=== PATIENT | male | born 1960 | race Caucasian/White ===

== ENCOUNTER 2020-01-29 08:03 | Day surgery (SDC) | payer MEDICAID, SELFPAY ==
[2020-01-29 08:31] VITALS: BP 140/88; PULSE 79; RESP 16; TEMP 36.9; O2SAT 97; BMI 50.8
[2020-01-29] MEDS: Lactated Ringers 1,000 ML 100 ML IV (08:48)
--- NOTE | 2020-01-29 09:14 | RAD_ITS ---
PROCEDURE: Caudal block. DATE OF EXAMINATION: 01/29/2020. INDICATION: Male, 60 years old. Chronic low back pain. FLUOROSCOPY TIME (if supplied): (14.3 seconds) minutes/seconds. 2 images were obtained. Intraoperative imaging provided for caudal block. RAD/Fluor Guidance for Spine Inj IMPRESSION: Intraoperative imaging provided for caudal block Electronically Signed: Logan Anderson, at 15:32 EST , Service support ,
[2020-01-29] MEDS: Bupivacaine 0.25% 30 ML Vial (09:18)
[2020-01-29] MEDS: MethylPREDNISolone Acetate 40 MG/ML Vial IM (09:18)
[2020-01-29] MEDS: 0.9% Normal Saline (Pres. free 10 ML Vial (09:18)
[2020-01-29 09:24] VITALS: BP 123/68; BP 140/88; PULSE 73; RESP 14; TEMP 36.3; O2SAT 99
[2020-01-29 09:30] VITALS: BP 116/61; BP 140/88; PULSE 64; RESP 16; O2SAT 98
[2020-01-29 09:35] VITALS: BP 140/88; BP 98/73; PULSE 66; RESP 18; O2SAT 96
[2020-01-29 09:37] VITALS: BP 137/73; BP 140/88; PULSE 63; RESP 18; O2SAT 99
[2020-01-29 10:05] VITALS: BP 140/88
--- NOTE | 2020-01-29 12:12 | PCM.OPRPT ---
Report of Operation Date of Procedure: 01/29/20 Description of Surgical Findings:: PREOPERATIVE DIAGNOSIS: Lumbosacral radiculopathy, lumbosacral degenerative disc disease, lumbosacral spinal stenosis POSTOPERATIVE DIAGNOSIS: Lumbosacral radiculopathy, lumbosacral degenerative disc disease, lumbosacral spinal stenosis PROCEDURE PERFORMED: Diagnostic/therapeutic caudal epidural steroid injection. ANESTHESIA: MAC. BLOOD LOSS: Minimal. COMPLICATIONS: None. DESCRIPTION OF PROCEDURE: History and physical of today was reviewed. Risks and benefits of the procedure were explained. The patient understood and agreed to proceed. Informed consent was obtained. IV inserted per routine protocol. The patient was taken to the operating room and placed in the prone position with a pillow positioned underneath the abdomen. The lower back and tailbone area was prepped and draped in a sterile fashion using iodine x3. Under fluoroscopy guidance on a lateral view, the caudal space was identified. The skin and subcutaneous tissue was anesthetized with approximately 3 mL of 1% lidocaine using a 25-gauge regular needle. Under direct visualization with fluoroscopy, using a 22-gauge 3-1/2-inch spinal needle, the needle was advanced via the skin through the sacral hiatus. The tip of the needle was passed through the sacrococcygeal ligament and advanced to approximately S4 area. After negative aspiration of blood or CSF, a total of 3 mL of contrast was injected to confirm correct placement of the needle as well as cephalad spread. The spread was followed to approximately L5 area. After confirmation on AP as well as lateral view and repeated negative aspiration, a total of 15 mL of preservative-free 0.125% Marcaine with 80 mg of Depo-Medrol was injected easily. The needle was then removed intact. The patient experienced no sign or symptoms of intrathecal or intravascular injection. The patient experienced no paresthesia. The procedure was completed without any apparent difficulty or any complications. The patient appeared to tolerate it well. ASSESSMENT AND PLAN: This is a 60-year-old male with lumbosacral radiculopathy, lumbosacral degenerative disc disease, lumbosacral spinal stenosis status post diagnostic/therapeutic caudal epidural steroid injection, patient will continue his current medications, patient will follow up in approximately 2 weeks for reevaluation.
== END 2020-01-29 10:08 | disposition home or self-care (01) ==
LOC: SDC 08:05 → AC 08:07
PROVIDERS: PCP Family Medicine; Referring Provider Anesthesiology Pain Medicine; Visit Provider Anesthesiology Pain Medicine
PROC: 3E0S3BZ Introduction of Anesthetic Agent into Epidural Space, Percutaneous Approach (ICD-10-PCS; CPT 62282; principal; 2020-01-29 09:50)
DX: M51.17 Intervertebral disc disorders with radiculopathy, lumbosacral region (principal); M48.07 Spinal stenosis, lumbosacral region; G89.29 Other chronic pain; I49.3 Ventricular premature depolarization; I89.0 Lymphedema, not elsewhere classified; I10 Essential (primary) hypertension; K21.9 Gastro-esophageal reflux disease without esophagitis; M06.9 Rheumatoid arthritis, unspecified; G25.81 Restless legs syndrome; Z79.899 Other long term (current) drug therapy
CPT/HCPCS: 01991; 62323; 64483; 77003; J7120; J3490

== ENCOUNTER 2020-05-27 06:17 | Day surgery (SDC) | payer MEDICAID, SELFPAY ==
[2020-05-27] VITALS (8 sets, daily range): BP systolic 106–149; BP diastolic 40–77; PULSE 61–69; RESP 16; TEMP 36.6–36.7; O2SAT 96–100; BMI 51.3
[2020-05-27] MEDS: Lactated Ringers 1,000 ML 100 ML IV (06:58)
--- NOTE | 2020-05-27 07:59 | RAD_ITS ---
PROCEDURE: Lumbar transforaminal injection. DATE OF EXAMINATION: 05/27/2020. INDICATION: Male, 60 years old. Pain. FLUOROSCOPY TIME (if supplied): (29 seconds) minutes/seconds. One image was submitted. Intraoperative imaging provided for left L4-S1 transforaminal injection. RAD/Lumbar Spine 2 or 3 Views IMPRESSION: Intraoperative imaging provided for left L4-S1 transforaminal injection. Electronically Signed: Logan Anderson MD at 9:03 EDT , Service support ,
[2020-05-27] MEDS: Lidocaine 1% (5 ml sdv) 5 ML Vial (08:04)
[2020-05-27] MEDS: MethylPREDNISolone Acetate 40 MG/ML Vial IM (08:04)
[2020-05-27] MEDS: Bupivacaine 0.25% 30 ML Vial (08:04)
--- NOTE | 2020-05-27 08:23 | EKG12_ITS ---
Test Reason : POST OP Blood Pressure : / mmHG Vent. Rate : 068 BPM Atrial Rate : 068 BPM P-R Int : 302 ms QRS Dur : 146 ms QT Int : 498 ms P-R-T Axes : 046 093 -03 degrees QTc Int : 529 ms Sinus rhythm with 1st degree A-V block with Premature supraventricular complexes Right bundle branch block Abnormal ECG No previous ECGs available Confirmed by ELLA HIGH, DESHAWN ([id number]), fan mail editor ROBERTO CARLOS JUAREZ ([id number]) on 05/30/2020 1:09:31 PM Referred By: Kurtis Rocha Confirmed By:DESHAWN JARAMILLO MD
--- NOTE | 2020-05-27 12:28 | OP.PCM_ITS ---
Report of Operation Date of Procedure: 05/27/20 Description of Surgical Findings:: PREOPERATIVE DIAGNOSIS: Lumbosacral radiculopathy, lumbosacral degenerative disc disease, lumbosacral spinal stenosis POSTOPERATIVE DIAGNOSIS: Lumbosacral radiculopathy, lumbosacral degenerative disc disease, lumbosacral spinal stenosis PROCEDURE PERFORMED: Left-sided lumbar transforaminal epidural steroid in jection, L4-5 and L5-S1. ANESTHESIA: BLOOD LOSS: COMPLICATIONS: DESCRIPTION OF PROCEDURE: History and physical of today was reviewed. Risks and benefits of the procedure were explained. The patient understood and agreed to proceed. Informed consent was obtained. IV inserted per routine protocol. The patient was taken to the operating room and placed in the prone position with a pillow positioned underneath the abdomen. The left side of his lower back was prepped and draped in a sterile fashion using iodine x3. Under fluoroscopy guidance on oblique view, the L4 through S1 vertebral bodies were visualized. The skin and subcutaneous tissue was anesthetized with approximately 5 mL of 1% lidocaine using a 25-gauge regular needle. Under direct visualization with fluoroscopy at approximately 35-degree angle, starting on the left L4, ending on the left L5, using a 22-gauge 5-inch spinal needle, the needle was advanced via the skin. The tip of the needle was maneuvered and directed towards the inferior and medial gutter of the transverse process at the superiormost aspect of the neural foramen. Once the tip of the needle was at the vicinity of the foramen, after negative aspiration for blood or CSF, a total of 1 mL of contrast was injected in divided doses between both levels to confirm correct placement of the needle as well as medial spread. The confirmation was obtained on AP as well as lateral view. After repeated negative aspiration and confirmation on AP as well as lateral view, a total of 6 mL of preservative-free 0.25% Marcaine with 80 mg of Depo-Medrol was injected in divided doses between both levels. The needles were then removed intact. The patient experienced no sign or symptoms of intrathecal or intravascular injection. The patient experienced no paresthesia. The procedure was completed without any apparent difficulty or any complications. The patient appeared to tolerate it well. Assessment and plan: This is a 60-year-old male with lumbosacral radiculopathy, lumbosacral degenerative disc disease, lumbosacral spinal stenosis status post left-sided lumbar transforaminal epidural steroid injection L4-5, L5-S1, patient will con tinue his current medications, patient will follow in approximately 2 weeks for reevaluation.
== END 2020-05-27 09:05 | disposition home or self-care (01) ==
LOC: SDC 06:18 → AC 06:19
PROVIDERS: PCP Family Medicine; Referring Provider Anesthesiology Pain Medicine; Visit Provider Anesthesiology Pain Medicine
PROC: 3E0S3BZ Introduction of Anesthetic Agent into Epidural Space, Percutaneous Approach (ICD-10-PCS; CPT 64484; principal; 2020-05-27 07:55)
DX: M51.17 Intervertebral disc disorders with radiculopathy, lumbosacral region (principal); M48.07 Spinal stenosis, lumbosacral region; M47.27 Other spondylosis with radiculopathy, lumbosacral region; I10 Essential (primary) hypertension; K21.9 Gastro-esophageal reflux disease without esophagitis; M06.9 Rheumatoid arthritis, unspecified; G25.81 Restless legs syndrome; Z79.899 Other long term (current) drug therapy
CPT/HCPCS: 64484; 64483; 72100; 93005; J7120

== ENCOUNTER → 2021-02-04 | Outpatient (CLI) | payer MEDICAID, SELFPAY | END | disposition home or self-care (01) | PROVIDERS: PCP Family Medicine; Visit Provider Physician Assistant | DX: J06.9 Acute upper respiratory infection, unspecified (principal) | CPT/HCPCS: 87635; U0005; U0003 ==

== ENCOUNTER 2021-03-23 18:17 | Inpatient (IN) | payer MEDICAID, SELFPAY ==
[2021-03-23] VITALS (9 sets, daily range): BP systolic 131–165; BP diastolic 77–126; PULSE 78–114; RESP 18–28; TEMP 36.1–37.6; O2SAT 73–98; BMI 50.1
--- NOTE | 2021-03-23 18:27 | EKG12_ITS ---
Test Reason : SOB Blood Pressure : / mmHG Vent. Rate : 092 BPM Atrial Rate : 083 BPM P-R Int : 000 ms QRS Dur : 142 ms QT Int : 478 ms P-R-T Axes : 000 084 -01 degrees QTc Int : 591 ms Wide QRS rhythm ,consider sinus rhythm with first degree AV block Right bundle branch block T wave abnormality, consider inferior ischemia Abnormal ECG IVCD effect Confirmed by FRANCIS HIGH, CAITLYN ([id number]), dictionary editor MICK BARNETT ([id number]) on 03/25/2021 1:30:44 PM Referred By: DOMINIK Confirmed By:CAITLYN BLANCO MD
--- NOTE | 2021-03-23 18:29 | EDS_ITS ---
HPI History of Present Illness Chief Complaint: Shortness of Breath Informant: patient and family Narrative Narrative: 61-year-old male states that he developed signs and symptoms of COVID-19 about 6 days ago. He states that this past Wednesday he tested positive at urgent care. He states that over the past couple days his breathing has worsened particularly last night and throughout today. He notes a cough with some mild yellow sputum production. He notes some diarrhea which has improved. He notes fevers and generalized weakness. Decreased p.o. intake. He did not receive a COVID-vaccine. Has a history of CHF obesity and lymphedema. [facility] Medical History CHF (congestive heart failure) Home Medications celecoxib 200 mg PO DAILY 01/24/20 [History Last Taken Unknown] furosemide 40 mg PO BID 01/24/20 [History Last Taken Unknown] gabapentin 300 mg PO QHS 01/24/20 [History Last Taken Unknown] metoprolol succinate 25 mg PO DAILY 01/24/20 [History Last Taken 05/27/20] omeprazole magnesium 20 mg PO DAILY 01/24/20 [History Last Taken 05/27/20] hydrocodone-acetaminophen 03/23/21 [History Last Taken Unknown] Allergy/AdvReac Type Severity Reaction Status Date / Time Sulfa (Sulfonamide Allergy Hives Verified 03/23/21 18:32 Antibiotics) Social History Smoking Status: Never smoker ROS ROS ED ROS Narrative Generalized weakness Constitutional Constitutional ED: Reports chills and fever(s); Denies weight loss Eyes Eyes: Denies change in vision or diplopia ENT ENT ED: Reports rhinorrhea; Denies ear pain or sore throat Cardiovascular Cardiovascular: Denies chest pain, orthopnea, palpitations or racing heartbeat Respiratory/Chest Respiratory/Chest: Reports cough, dyspnea, dyspnea on exertion and sputum; Denies orthopnea Gastrointestinal Gastrointestinal: Reports diarrhea and nausea; Denies abdominal pain or vomiting Genitourinary Genitourinary ED: Denies dysuria, hematuria or urinary frequency Musculoskeletal Musculoskeletal: Reports myalgias; Denies arthralgias Integumentary Denies abscess or rash Neurologic Neurologic: Reports headache(s); Denies weakness Psychiatric Psychiatric: Denies anxiety, depression, suicidal ideation or suicidal thoughts Endocrine Endocrinology: Denies polydipsia, polyphagia or polyuria Allergic/Immunologic Allergic/Immunologic ED: Denies mouth swelling, tongue swelling or urticaria EXAM Physical Exam Const Vital Signs: 03/23/21 18:17 03/23/21 18:25 03/23/21 18:45 Temperature 99.7 F H 99.7 F H Temperature Source Temporal Temporal Pulse Rate 114 H 114 H Respiratory Rate 21 H Respiratory Effort Short of Breath Labored Accessory Muscle Use Blood Pressure 145/126 H 145/126 H Blood Pressure Mean 132 132 Pulse Ox 73 89 96 Oxygen Delivery Method Room Air Nasal Cannula High Flow Oxygen Flow Rate (L/min) 6 10 03/23/21 18:49 03/23/21 19:17 03/23/21 20:15 Temperature Temperature Source Pulse Rate 91 94 Respiratory Rate 25 H Respiratory Effort Blood Pressure 165/90 H 149/85 H Blood Pressure Mean 115 106 Pulse Ox 96 97 96 Oxygen Delivery Method High Flow High Flow High Flow Oxygen Flow Rate (L/min) 10 10 12 03/23/21 21:20 Temperature Temperature Source Pulse Rate 86 Respiratory Rate 22 H Respiratory Effort Blood Pressure 131/77 H Blood Pressure Mean 95 Pulse Ox 98 Oxygen Delivery Method High Flow Oxygen Flow Rate (L/min) 12 Positive well nourished, well developed and obese General Appearance ED: well developed Nutritional Appearance: obese HEENT Reports normocephalic, head/scalp atraumatic, TM's clear and moist mucous membranes atraumatic Tympanic Membrane ED: Yes TM's clear Eyes PERRL and EOMs intact bilaterally Neck no lymphadenopathy, supple and no JVD Resp clear to auscultation bilaterally Resp Narrative: Patient is tachypneic Auscultation: diminished lung sounds Cardio regular rhythm and no murmurs Rate: tachycardic GI normal to inspection, nondistended, normoactive bowel sounds and non-tender Auscultation: normoactive bowel sounds Palpation: soft Back/Spine no CVA tenderness and normal ROM Extremity Negative for normal to inspection General Extremety ED: Yes edema General Extremity: edema Neuro oriented x3 and CN's II-XII intact bilaterally Sensorium / Orientation: alert Motor Exam: strength 5/5 throughout Psych mental status grossly normal Mood & Affect: Negative for depressed or tearful Skin no rashes or lesions noted and no wounds MDM MDM MDM Narrative Medical decision making narrative: Patient blood work showed a white count of 6.8. Fibrinogen 873 with a D-dimer of 1.93. CRP 130 troponin high-sensitivity is at 25. LDH 702. Creatinine 1.06. Lactic acid is elevated 2.3 which I believe is not due to shock state but profound hypoxemia that he has been dealing with for the past several days. CTA of the chest is negative for embolism does show diffuse infiltrates. He received a dose of Decadron. He is currently requiring 12 L high flow nasal cannula. Plan will be admission into the hospital. Lab Data Attestation: I reviewed the patient's lab results. Labs: Laboratory Results - last 24 hr 03/23/21 03/23/21 03/23/21 18:40 18:40 18:40 WBC 6.8 RBC 5.60 Hgb 16.7 H Hct 48.2 MCV 86.1 MCH 29.8 MCHC 34.6 RDW Std Deviation 42.5 RDW Coeff of Connie 13.5 Plt Count 248 MPV 10.0 Immature Gran % (Auto) 0.400 Neut % (Auto) 81.9 H Lymph % (Auto) 11.6 L [place] % (Auto) 6.0 Eos % (Auto) 0.0 Baso % (Auto) 0.1 Absolute Neuts (auto) 5.6 Absolute Lymphs (auto) 0.79 L Nucleated RBC % 0 Fibrinogen 873 H D-Dimer Quant (PE/DVT) 1.93 H* Sodium 134 L Potassium 3.5 Chloride 98 Carbon Dioxide 27.0 Anion Gap 9 BUN 16 Creatinine 1.06 Estim Creat Clear Calc 67.56 Est GFR (MDRD) Af Amer 91 Est GFR (MDRD) Non-Af 75 BUN/Creatinine Ratio 15.1 Glucose 113 H Lactic Acid Calcium 9.3 Total Bilirubin 0.60 AST 57 H ALT 31 Alkaline Phosphatase 70 Lactate Dehydrogenase 702 H Total Creatine Kinase 112 Troponin I High Sens 25 C-React Prot Ext Range 130.00 H B-Natriuretic Peptide Total Protein 8.2 Albumin 2.7 L Globulin 5.5 H Albumin/Globulin Ratio 0.5 L Procalcitonin 03/23/21 03/23/21 03/23/21 18:40 18:40 18:40 WBC RBC Hgb Hct MCV MCH MCHC RDW Std Deviation RDW Coeff of Connie Plt Count MPV Immature Gran % (Auto) Neut % (Auto) Lymph % (Auto) [place] % (Auto) Eos % (Auto) Baso % (Auto) Absolute Neuts (auto) Absolute Lymphs (auto) Nucleated RBC % Fibrinogen D-Dimer Quant (PE/DVT) Sodium Potassium Chloride Carbon Dioxide Anion Gap BUN Creatinine Estim Creat Clear Calc Est GFR (MDRD) Af Amer Est GFR (MDRD) Non-Af BUN/Creatinine Ratio Glucose Lactic Acid Cancelled Calcium Total Bilirubin AST ALT Alkaline Phosphatase Lactate Dehydrogenase Total Creatine Kinase Troponin I High Sens C-React Prot Ext Range B-Natriuretic Peptide 66.5 Total Protein Albumin Globulin Albumin/Globulin Ratio Procalcitonin 0.12 H 03/23/21 19:58 WBC RBC Hgb Hct MCV MCH MCHC RDW Std Deviation RDW Coeff of Connie Plt Count MPV Immature Gran % (Auto) Neut % (Auto) Lymph % (Auto) [place] % (Auto) Eos % (Auto) Baso % (Auto) Absolute Neuts (auto) Absolute Lymphs (auto) Nucleated RBC % Fibrinogen D-Dimer Quant (PE/DVT) Sodium Potassium Chloride Carbon Dioxide Anion Gap BUN Creatinine Estim Creat Clear Calc Est GFR (MDRD) Af Amer Est GFR (MDRD) Non-Af BUN/Creatinine Ratio Glucose Lactic Acid 2.3 H* Calcium Total Bilirubin AST ALT Alkaline Phosphatase Lactate Dehydrogenase Total Creatine Kinase Troponin I High Sens C-React Prot Ext Range B-Natriuretic Peptide Total Protein Albumin Globulin Albumin/Globulin Ratio Procalcitonin Radiography Diagnostic Testing: Clinical Impression(s) from Imaging Studies Chest CTA 03/23/21 19:22 IMPRESSION: 1. No evidence of pulmonary embolus. 2. Diffuse groundglass opacities. Imaging features can be seen with COVID 19 pneumonia, though are nonspecific and can occur of the right infectious and noninfectious processes. Individualized dose optimization techniques were used for this CT. at 2058 Reported and signed by: Juan Alberto Stock MD Electronically Signed: Juan Alberto Stock MD at 20:57 EST Tel , Service support , EKG Initial EKG: Attestation: I personally reviewed and interpreted this EKG as follows: Comments: Sinus rhythm with a right bundle branch block ventricular rate of 92 bpm. Discharge Plan Dx/Rx/DC Orders Clinical Impression: COVID-19, Acute hypoxemic respiratory failure due to COVID-19, Morbid obesity, Lymphedema Disposition Disposition: Acute Care [facility]
[2021-03-23] MEDS: dexAMETHasone 4 MG Tablet 6 MG PO (18:53)
[2021-03-23 18:55] LABS: Absolute Lymphocyte Count 0.79 X10^3/uL (0.83-4.51); Absolute Neutrophil Count 5.6 X10^3/uL (2.0-7.7); Basophil# 0.01 X10^3/uL; Basophil% 0.1 % (0-1); Hematocrit 48.2 % (40-54); Hemoglobin 16.7 g/dL (13.0-16.5); Lymphocyte # 0.79 X10^3/ul (0.83-4.51); Lymphocyte % 11.6 % (19-41); Mean Corp Hgb Conc 34.6 g/dL (32-36); Mean Corpuscular Hgb 29.8 pg (27.0-32.0); Mean Corpuscular Volume 86.1 fL (80-94); Monocyte# 0.41 X10^3/uL; NRBC Flagged by Analyzer 0 % (0-5); Neutrophil # 5.57 X10^3/uL (2.7-7.7); Neutrophil % 81.9 % (47-70); Platelet Count 248 K/mm3 (150-450); RBC Distribution Width CV 13.5 % (11.6-14.6); RBC Distribution Width SD 42.5 fl (35.1-43.9); White Blood Count 6.8 K/mm3 (4.4-11.0)
[2021-03-23 19:11] LABS: D-Dimer Quantitative (DVT/PE) 1.93 FEU/ug/m (0.27-0.49)
[2021-03-23 19:16] LABS: Fibrinogen 873 mg/dl (203-444)
[2021-03-23 19:17] LABS: BNP,B-Type NATRIURETIC PEPTIDE 66.5 pg/mL (0-100)
[2021-03-23 19:19] LABS: ALB/GLOB Ratio 0.5 RATIO (0.9-2.4); AST(SGOT) 57 U/L (15-37); Alanine Aminotransfer ALT/SGPT 31 U/L (16-61); Albumin, Serum 2.7 g/dL (3.2-5.0); Alkaline Phosphatase 70 U/L (45-117); Anion Gap 9 (5-15); BUN 16 mg/dL (7-18); BUN/Creat Ratio 15.1 RATIO (10-20); CPK Total, Creatine Kinase 112 U/L (39-308); Calcium,Total 9.3 mg/dL (8.5-10.1); Chloride 98 mmol/L (98-107); Creatinine, Serum 1.06 mg/dL (0.70-1.30); EST Glomerular Filtration Rate 75 mL/min (>60); Est Glom Filt Rate - Afr Amer 91 mL/min (>60); Estimated Creatinine Clearance 67.56 ml/min; Globulin 5.5 g/dL (2.2-4.2); Glucose 113 mg/dL (74-106); LDH 702 U/L (87-241); Potassium 3.5 mmol/L (3.5-5.1); Protein, Total 8.2 g/dL (6.4-8.2); Sodium Level 134 mmol/L (136-145); Troponin-I HS 25 pg/mL (3.0-78.0)
--- NOTE | 2021-03-23 19:22 | CT_ITS ---
EXAM: CT ANGIOGRAPHY CHEST WITHOUT AND WITH INTRAVENOUS CONTRAST : 1960 CLINICAL INDICATION: covid 19, pulmonary embolism TECHNIQUE: Helically acquired angiography images were obtained of the chest without and with intravenous contrast. This CT exam was performed using one or more of the following dose reduction techniques: automated exposure control, adjustment of the mA and/or kV according to patient size, and/or use of iterative reconstruction technique. This report was created using [employer] report generation technology. MIP reconstructed images were created and reviewed. CONTRAST: IV 100mL [id number] COMPARISON: None. FINDINGS: PULMONARY ARTERIES: Unremarkable. Normal in caliber. No evidence of pulmonary embolism. AORTA: Unremarkable. Normal in caliber. No evidence of dissection. GREAT VESSELS OF AORTIC ARCH: Unremarkable. Normal in caliber. No evidence of dissection. LUNGS AND PLEURAL SPACES: There are diffuse groundglass opacity seen within both lungs. No mass. No pleural effusion or thickening. No pneumothorax. HEART: Unremarkable. Heart size is normal. No pericardial effusion. No signs of right heart strain, ratio of right ventricle to left ventricle measures less than 1. MEDIASTINUM: Unremarkable. No mediastinal or hilar adenopathy. Esophagus is unremarkable. No hiatal hernia. THYROID: Unremarkable. No thyroid lesions. BONES/JOINTS: Unremarkable. No suspicious lytic or blastic abnormality. CT/CTA Chest W/WO Contrast IMPRESSION: 1. No evidence of pulmonary embolus. 2. Diffuse groundglass opacities. Imaging features can be seen with COVID 19 pneumonia, though are nonspecific and can occur of the right infectious and noninfectious processes. Individualized dose optimization techniques were used for this CT. at 2058 Reported and signed by: Juan Alberto Stock MD Electronically Signed: Juan Alberto Stock MD at 20:57 EST Tel , Service support ,
--- NOTE | 2021-03-23 19:24 | NURSING ---
LACTIC ACID NEEDS REDRAWN
[2021-03-23 19:39] LABS: Procalcitonin 0.12 ng/mL (0.00-0.09)
[2021-03-23 20:41] LABS: Lactic Acid 2.3 mmol/L (0.4-1.9)
--- NOTE | 2021-03-23 23:00 | NURSING ---
OFELIA PETTIT COVID 19 HYPOXIA
--- NOTE | 2021-03-23 23:08 | PCM.HP.STD ---
[facility] - General General Date of Admission: 03/23/21 HPI Narrative MARAL DUQUE, is a 61 M with a significant history of congestive heart failure on metoprolol and Lasix; hypertension; lymphedema and chronic back pain who presents to the emergency department with a 6-day history of progressively worsening Covid-like symptoms. He describes covid-like symptoms as shortness of breath; dry cough; occasionally productive for dark sputum; anorexia; subjective fever; chills; nausea; dysgeusia and anorexia. Two days before presentation he tested positive at the PCPs office. At that time his oxygen saturation was 92%. On presentation at the emergency department patient required 12 L of high flow oxygen. [facility] Medical History CHF (congestive heart failure) Home Medications furosemide 40 mg PO BID 01/24/20 [History Last Taken Unknown] gabapentin 300 mg PO BID 01/24/20 [History Last Taken Unknown] metoprolol succinate 25 mg PO BID 01/24/20 [History Last Taken 05/27/20] omeprazole magnesium 10 mg PO DAILY 01/24/20 [History Last Taken 05/27/20] hydrocodone-acetaminophen 1 tab PO BID 03/23/21 [History Last Taken Unknown] Allergy/AdvReac Type Severity Reaction Status Date / Time Sulfa (Sulfonamide Allergy Hives Verified 03/23/21 18:32 Antibiotics) Family History Other Cancer Surgical History History of throat surgery Social History Smoking Status: Never smoker ROS ROS Narrative Constitutional: Reports fever, chills, fatigue, and anorexia, Denies change in weight Eyes: Denies blurry vision, change in eye color, change in vision, discharge from eye(s), double vision, erythema, eye pain, loss of vision or other HEENT: Denies abnormal hearing, dysphagia, ear pain, epistaxis, headache(s), hearing loss, nasal congestion, nasal discharge, post nasal drip, sinus pressure, sore throat or other Cardiovascular: Denies chest pain or palpitations. Respiratory/Chest: Dry cough occasionally productive for dark sputum. Wheezes. Shortness of breath. Gastrointestinal: Reports nausea and diarrhea. Denies vomiting. Denies abdominal pain, coffee ground emesis, constipation,dyspepsia, hematemesis, hematochezia, melena, or other Genitourinary: Denies burning urination, difficulty urinating, dysuria, hematuria, nocturia, urinary frequency, urinary hesitancy, urinary incontinence, urinary urgency or other Musculoskeletal: Denies arthralgias, back pain, joint pain, joint stiffness, joint swelling, myalgias, neck pain or other Neurologic: Denies abnormal gait, abnormal speech, confusion, disequilibrium, dizziness, focal weakness, headache(s), numbness, paresthesias, seizure-like activity, seizures, syncope, tingling, tremor(s) or other Psychiatric: Denies anxiety, depression, homicidal ideation, suicidal ideation or other Endocrinology: Denies change in body appearance, cold intolerance, excessive sweating, heat intolerance, polydipsia, polyuria or other Hematologic/Lymphatic: Denies anemia, easy bleeding, easy bruising, lymphadenopathy or other Integumentary: Denies rashes Allergic/Immunologic: Denies rhinitis, hives, eczema, asthma or other Vital Signs Vital Signs Vital Signs: 03/23/21 18:17 03/23/21 18:25 03/23/21 18:45 Temperature 99.7 F H 99.7 F H Temperature Source Temporal Temporal Pulse Rate 114 H 114 H Respiratory Rate 21 H Respiratory Effort Short of Breath Labored Accessory Muscle Use Blood Pressure 145/126 H 145/126 H Blood Pressure Mean 132 132 Pulse Ox 73 89 96 Oxygen Delivery Method Room Air Nasal Cannula High Flow Oxygen Flow Rate (L/min) 6 10 03/23/21 18:49 03/23/21 19:17 03/23/21 20:15 Temperature Temperature Source Pulse Rate 91 94 Respiratory Rate 25 H Respiratory Effort Blood Pressure 165/90 H 149/85 H Blood Pressure Mean 115 106 Pulse Ox 96 97 96 Oxygen Delivery Method High Flow High Flow High Flow Oxygen Flow Rate (L/min) 10 10 12 03/23/21 21:20 Temperature Temperature Source Pulse Rate 86 Respiratory Rate 22 H Respiratory Effort Blood Pressure 131/77 H Blood Pressure Mean 95 Pulse Ox 98 Oxygen Delivery Method High Flow Oxygen Flow Rate (L/min) 12 Weight Weight: 145.15 kg Body Mass Index (BMI) 50.1 Physical Exam Narrative Physical exam: General: Well-nourished, well-developed. Head: Normocephalic, atraumatic, no tenderness Eyes: PERRLA, EOMI ENT, no trauma, moist mucous membranes, no rhinorrhea Neck: Nontender, full range of motion, no spinal tenderness, deformities, step-off CVS: Regular rate and rhythm. S1-S2 present. No murmur, gallop or rub. Respiratory : Tachypnea. Bilateral rales. Rhonchi and wheezes. Chest wall nontender. Abdomen: Soft, nontender, nondistended, normal bowel sounds, no masses : Deferred Back: Nontender, no CVA tenderness, no midline spinal tenderness, deformities, step-offs Extremities: Nontender full range of motion, no trauma Skin: Mild erythema on bilateral lazcano. Neuro: Alert, oriented, cranial nerves II through XII grossly intact. Psychiatry: Normal mood. Normal affect. Not depressed. Not anxious. Results Lab / Micro Data Result Diagrams: 03/23/21 18:40 03/23/21 18:40 Labs: Laboratory Results - last 24 hr 03/23/21 18:40: WBC 6.8, RBC 5.60, Hgb 16.7 H, Hct 48.2, MCV 86.1, MCH 29.8, MCHC 34.6, RDW Std Deviation 42.5, RDW Coeff of Connie 13.5, Plt Count 248, MPV 10.0, Immature Gran % (Auto) 0.400, Neut % (Auto) 81.9 H, Lymph % (Auto) 11.6 L, [place] % (Auto) 6.0, Eos % (Auto) 0.0, Baso % (Auto) 0.1, Absolute Neuts (auto) 5.6, Absolute Lymphs (auto) 0.79 L, Nucleated RBC % 0 03/23/21 18:40: Fibrinogen 873 H, D-Dimer Quant (PE/DVT) 1.93 H* 03/23/21 18:40: Sodium 134 L, Potassium 3.5, Chloride 98, Carbon Dioxide 27.0, Anion Gap 9, BUN 16, Creatinine 1.06, Estim Creat Clear Calc 67.56, Est GFR (MDRD) Af Amer 91, Est GFR (MDRD) Non-Af 75, BUN/Creatinine Ratio 15.1, Glucose 113 H, Calcium 9.3, Total Bilirubin 0.60, AST 57 H, ALT 31, Alkaline Phosphatase 70, Lactate Dehydrogenase 702 H, Total Creatine Kinase 112, Troponin I High Sens 25, C-React Prot Ext Range 130.00 H, Total Protein 8.2, Albumin 2.7 L, Globulin 5.5 H, Albumin/Globulin Ratio 0.5 L 03/23/21 18:40: Lactic Acid Cancelled 03/23/21 18:40: B-Natriuretic Peptide 66.5 03/23/21 18:40: Procalcitonin 0.12 H 03/23/21 19:58: Lactic Acid 2.3 H* Micro: Microbiology 03/23/21 18:40 Nasal Secretion SARS-CoV-2 Antigen (Rapid) - Final SARS-CoV-2 (COVID 19) Radiology Impression Chest CTA 03/23/21 19:22 IMPRESSION: 1. No evidence of pulmonary embolus. 2. Diffuse groundglass opacities. Imaging features can be seen with COVID 19 pneumonia, though are nonspecific and can occur of the right infectious and noninfectious processes. Individualized dose optimization techniques were used for this CT. at 2058 Reported and signed by: Juan Alberto Stock MD Electronically Signed: Juan Alberto Stock MD at 20:57 EST Tel , Service support , Assessment & Plan Assessment/Plan (1) COVID-19: (2) Acute hypoxemic respiratory failure due to COVID-19: PLAN: Acute hypoxemic respiratory failure secondary to SARS- COV 2 Ductopenia oxygen saturation of 73% on room air requiring 12 L of high flow oxygen. Continue supplemental oxygenation. Rapid Covid antigen test on presentation was positive. Positive inflammatory markers D-dimer 1.93; CRP of 130; LDH of 702. Albumin of 2.7. Procalcitonin 0.12, unlikely bacteria. Lactic acid is 2.3 likely secondary to hypoxia. Trend. Chest CTA was independently interpreted diffuse groundglass opacities with no evidence of pulmonary embolism. Decadron ordered. Creatinine clearance is 67.56. ALT and alkaline phosphatase is within normal limits. AST is elevated at remdesivir ordered. Remdesivir ordered. CBC reviewed showed white count of 6.8 with neutrophilia and lymphopenia. Hemoglobin mildly elevated at 16.7. Trend CBC and CMP. Tylenol for pain and fever. Mucinex ordered. Imodium for diarrhea. With increase inflammatory markers including CRP, infectious disease consulted. Hypertension Blood pressure is not within goal Metoprolol and Lasix continued. Trend blood pressure and adjust blood pressure medications. Morbid Obesity: BMI: 47.8 kg per metered square. Complicates care. Lifestyle modification recommended. DVT prophylaxis: Subcutaneous Lovenox ordered. Charges/Coding Visit Charges Inpatient E&M: 53787 Init Hosp L3
[2021-03-24] VITALS (20 sets, daily range): BP systolic 108–138; BP diastolic 63–88; PULSE 62–88; RESP 18–24; TEMP 36.6–37.1; O2SAT 82–95
[2021-03-24 00:07] LABS: Reflex Lactate? Y
[2021-03-24 01:23] LABS: Lactic Acid 1.2 mmol/L (0.4-1.9)
[2021-03-24 04:58] LABS: Absolute Lymphocyte Count 0.44 X10^3/uL (0.83-4.51); Absolute Neutrophil Count 4.2 X10^3/uL (2.0-7.7); Hemoglobin 13.8 g/dL (13.0-16.5); Lymphocyte # 0.44 X10^3/ul (0.83-4.51); Lymphocyte % 8.9 % (19-41); Mean Corp Hgb Conc 33.7 g/dL (32-36); Mean Corpuscular Hgb 28.9 pg (27.0-32.0); Mean Platelet Vol. 9.8 fl (6.2-12.0); Monocyte# 0.28 X10^3/uL; Monocyte% 5.7 % (0-10); NRBC Flagged by Analyzer 0 % (0-5); Neutrophil % 85.2 % (47-70); POSITIVE DIFFERENTIAL YES; Platelet Count 196 K/mm3 (150-450); RBC Distribution Width CV 13.5 % (11.6-14.6); RBC Distribution Width SD 42.8 fl (35.1-43.9); Red Blood Count 4.77 M/mm3 (4.6-6.2); White Blood Count 4.9 K/mm3 (4.4-11.0)
[2021-03-24 05:01] LABS: Differential Indicated SCAN CRITERIA MET
[2021-03-24 05:23] LABS: Atypical Lymphocyte 1+ %
[2021-03-24 05:30] LABS: ALB/GLOB Ratio 0.5 RATIO (0.9-2.4); AST(SGOT) 38 U/L (15-37); Alanine Aminotransfer ALT/SGPT 24 U/L (16-61); Albumin, Serum 2.3 g/dL (3.2-5.0); Alkaline Phosphatase 60 U/L (45-117); Anion Gap 8 (5-15); BUN 14 mg/dL (7-18); BUN/Creat Ratio 17.1 RATIO (10-20); Calcium,Total 8.6 mg/dL (8.5-10.1); Chloride 100 mmol/L (98-107); Creatinine, Serum 0.82 mg/dL (0.70-1.30); EST Glomerular Filtration Rate 101 mL/min (>60); Est Glom Filt Rate - Afr Amer 123 mL/min (>60); Estimated Creatinine Clearance 87.33 ml/min; Globulin 4.9 g/dL (2.2-4.2); Glucose 124 mg/dL (74-106); Potassium 3.4 mmol/L (3.5-5.1); Protein, Total 7.2 g/dL (6.4-8.2); Sodium Level 135 mmol/L (136-145)
[2021-03-24] MEDS: guaiFENesin 1,200 MG Tablet 1200 MG PO ×2 (10:32→22:20)
[2021-03-24] MEDS: HYDROcodone Bitartrate/Apap 5/325 Tablet PO ×2 (10:32→22:20)
[2021-03-24] MEDS: Furosemide 40 MG Tablet PO (10:33)
[2021-03-24] MEDS: dexAMETHasone 4 MG Tablet 6 MG PO (10:33)
[2021-03-24] MEDS: Pantoprazole Sodium 20 MG Tablet PO (10:33)
[2021-03-24] MEDS: Metoprolol Tartrate 25 MG Tablet PO ×2 (10:33→22:20)
[2021-03-24] MEDS: Enoxaparin 40 MG/0.4 ML Syringe SC ×2 (10:33→22:18)
--- NOTE | 2021-03-24 11:03 | CASEMGMT ---
REMINGTON JON assessment: Initial transition planning/care coordination assessment. REMINGTON JON introduced self and role at [facility], pt voices understanding and consents to assessment. Pt is on 10-12L and speaks in full sentences. Pt is not vaccinated and pt states tested positive at [facility] urgent care in [place]. Pt states his daughter and grandkids live with him currently and his has been at [facility] since this summer. Pt states daughter has recovered from COVID. Pt states no concerns getting groceries/resources once home. Care providers, pharmacy, and demographics verified/updated. Presentation: SOB, COVID + for 48 hrs Admitting dx: Resp failure, COVID PCP: [facility] Specialists: Cardio at [facility] Preferred Pharmacy: [facility] but would like to use [facility] at this time Insurance: [facility] [place] community plan [place] Prescription Benefit: [facility] Living Will/HPOA: Pt states does not have LW/HPOA but would like AD info at this time. Pt provided with AD info. LNOK: Shanel Jackson, daughter Living Arrangements: Pt lives with daughter and grandkids on main level of home and states no concerns at home. Pt states is independent with ADL's. Transportation: Pt drives self and states no transportation concerns. DME/HHC: Pt has a cane at home and states no need for any further DME. Pt states no preference for DME provider, if qualifies for home oxygen at discharge. Pt states no hx of HHC or SNF. Pt states no concerns with going home at time of discharge. Pt is on disability. Pt states does not smoke cigarettes or drink ETOH. Pt states no further concerns/needs. CM to follow for any further discharge planning/needs. Advised pt to ask for CM if any further questions/cocnerns/needs arise, voices understanding. Pt Goal: Home Plan: [place] REMINGTON JON
--- NOTE | 2021-03-24 12:40 | PCM.PN.HOSP ---
Subjective Subjective Patient is a 61-year-old gentleman who presented with progressive shortness of breath. Patient symptoms started 6 days prior to his admission. He tested positive for COVID Objective Data Objective Data Vital Signs: Vital Signs Temp Pulse Resp BP Pulse Ox 98.4 F 84 18 113/77 95 03/24/21 10:00 03/24/21 10:33 03/24/21 10:00 03/24/21 10:00 03/24/21 10:00 Oxygen Flow Rate (L/min) 10 Oxygen Delivery Method High Flow Weight: 138.3 kg Body Mass Index (BMI) 50.1 Intake & Output: Intake and Output for Last 24 Hours 03/22/21 03/23/21 03/24/21 23:59 23:59 23:59 Intake Total 500 / 500 250 / 250 Balance 500 / 500 250 / 250 Lab / Micro Data Result Diagrams: 03/24/21 04:35 03/24/21 04:35 Labs: Laboratory Results - last 24 hr 03/23/21 18:40: WBC 6.8, RBC 5.60, Hgb 16.7 H, Hct 48.2, MCV 86.1, MCH 29.8, MCHC 34.6, RDW Std Deviation 42.5, RDW Coeff of Connie 13.5, Plt Count 248, MPV 10.0, Immature Gran % (Auto) 0.400, Neut % (Auto) 81.9 H, Lymph % (Auto) 11.6 L, [place] % (Auto) 6.0, Eos % (Auto) 0.0, Baso % (Auto) 0.1, Absolute Neuts (auto) 5.6, Absolute Lymphs (auto) 0.79 L, Nucleated RBC % 0 03/23/21 18:40: Fibrinogen 873 H, D-Dimer Quant (PE/DVT) 1.93 H* 03/23/21 18:40: Sodium 134 L, Potassium 3.5, Chloride 98, Carbon Dioxide 27.0, Anion Gap 9, BUN 16, Creatinine 1.06, Estim Creat Clear Calc 67.56, Est GFR (MDRD) Af Amer 91, Est GFR (MDRD) Non-Af 75, BUN/Creatinine Ratio 15.1, Glucose 113 H, Calcium 9.3, Total Bilirubin 0.60, AST 57 H, ALT 31, Alkaline Phosphatase 70, Lactate Dehydrogenase 702 H, Total Creatine Kinase 112, Troponin I High Sens 25, C-React Prot Ext Range 130.00 H, Total Protein 8.2, Albumin 2.7 L, Globulin 5.5 H, Albumin/Globulin Ratio 0.5 L 03/23/21 18:40: Lactic Acid Cancelled 03/23/21 18:40: B-Natriuretic Peptide 66.5 03/23/21 18:40: Procalcitonin 0.12 H 03/23/21 19:58: Lactic Acid 2.3 H* 03/24/21 00:28: Lactic Acid 1.2 03/24/21 04:35: WBC 4.9, RBC 4.77, Hgb 13.8, Hct 41.0, MCV 86.0, MCH 28.9, MCHC 33.7, RDW Std Deviation 42.8, RDW Coeff of Connie 13.5, Plt Count 196, MPV 9.8, Immature Gran % (Auto) 0.200, Neut % (Auto) 85.2 H, Lymph % (Auto) 8.9 L, [place] % (Auto) 5.7, Eos % (Auto) 0.0, Baso % (Auto) 0.0, Absolute Neuts (auto) 4.2, Absolute Lymphs (auto) 0.44 L, Nucleated RBC % 0, Atypical Lymphocytes 1+ 03/24/21 04:35: Sodium 135 L, Potassium 3.4 L, Chloride 100, Carbon Dioxide 27.0, Anion Gap 8, BUN 14, Creatinine 0.82, Estim Creat Clear Calc 87.33, Est GFR (MDRD) Af Amer 123, Est GFR (MDRD) Non-Af 101, BUN/Creatinine Ratio 17.1, Glucose 124 H, Calcium 8.6, Total Bilirubin 0.40, AST 38 H, ALT 24, Alkaline Phosphatase 60, Total Protein 7.2, Albumin 2.3 L, Globulin 4.9 H, Albumin/Globulin Ratio 0.5 L Micro: Microbiology 03/23/21 18:40 Nasal Secretion SARS-CoV-2 Antigen (Rapid) - Final SARS-CoV-2 (COVID 19) Radiography Diagnostic Testing: Radiology Impression Chest CTA 03/23/21 19:22 IMPRESSION: 1. No evidence of pulmonary embolus. 2. Diffuse groundglass opacities. Imaging features can be seen with COVID 19 pneumonia, though are nonspecific and can occur of the right infectious and noninfectious processes. Individualized dose optimization techniques were used for this CT. at 2058 Reported and signed by: Juan Alberto Stock MD Electronically Signed: Juan Alberto Stock MD at 20:57 EST Tel , Service support , Physical Exam Narrative GENERAL: Patient appears ill looking HEENT: Atraumatic; EYES; Anicteric, Normal Conjunctiva NECK; supple, normal thyroid, RESPIRATORY: Diminished to auscultation CARDIOVASCULAR: Regular S1 S2, GI: soft, normoactive bowel sounds, : No Renal angle tenderness; EXTREMITIES: No edema, no clubbing, MUSCULOSKELETAL: no muscle waisting NEURO: Awake; no lateralizing signs. SKIN: No Rash PSYCH; Flat affect Assessment & Plan Assessment/Plan (1) COVID-19: (2) Acute hypoxemic respiratory failure due to COVID-19: PLAN: Patient is a 61-year-old gentleman who presented with progressive shortness of breath. Patient symptoms started 6 days prior to his admission. He tested positive for COVID 1. Acute hypoxic respiratory failure ? Secondary to COVID-pneumonia. Patient presented with significant hypoxia with oxygen saturation at 73% on room air. Admitted to a monitored bed started on Decadron as well as remdesivir with consultation placed to ID on admission 2. Elevated D-dimer ? Secondary to COVID-19 pneumonia CTA obtained was negative for PE 3. Essential hypertension ? Patient blood pressure apparently not well controlled on admission patient is on metoprolol we will continue with plans to adjust doses blood pressure remains uncontrolled 4. Class III obesity with BMI 47.8 ? Weight loss advised 5. Hypokalemia ? Present on admission corrected per protocol with subsequent monitoring with daily BMPs ordered 6. DVT prophylaxis ? SC Lovenox Advance planning; did discuss with the patient regarding advanced directives as well as CODE STATUS. Did explain the various scenarios involved ( FULL CODE, DNR CCA, DNR CCA with no intubation, and DNR CC and what each meant) patient elected to full code with CPR and intubation if needed. Order was placed. Time spent on discussion 18 minutes. Charges/Coding Visit Charges Inpatient E&M: 52701 Subs Hosp L3 Procedures Hospitalists Procedures: 73687 Advncd Care Plan 30 Min
--- NOTE | 2021-03-24 15:54 | PCM.CONS.GEN ---
Assessment & Plan Assessment/Plan (1) COVID-19: PLAN: Sx started 03/17/21. Unvaccinated. Isolate until 04/06/21. Recommend vaccine in one month. On dex, remdesivir. O2 stable, not candidate for baricitinib at this point. Will follow, thank you (2) Acute hypoxemic respiratory failure due to COVID-19: HPI Consult Data Date of Consult: 03/24/21 HPI Narrative HPI Narrative: MARAL DUQUE, is a 61 M who presented with sx for one week, c/o headache, cough, dyspnea, fatigue, change in taste. Lives with daughter, she recently had covid. Unvaccinated. Came to ED, put on O2, dex, remdesivir. Feeling better today. Full ROS performed and neg except as noted above. [facility] Medical History CHF (congestive heart failure) Home Medications furosemide 40 mg PO BID 01/24/20 [History Last Taken Unknown] gabapentin 300 mg PO BID 01/24/20 [History Last Taken Unknown] metoprolol succinate 25 mg PO BID 01/24/20 [History Last Taken 05/27/20] omeprazole magnesium 10 mg PO DAILY 01/24/20 [History Last Taken 05/27/20] hydrocodone-acetaminophen 1 tab PO BID 03/23/21 [History Last Taken Unknown] Allergy/AdvReac Type Severity Reaction Status Date / Time Sulfa (Sulfonamide Allergy Hives Verified 03/23/21 18:32 Antibiotics) Family History Other Cancer Surgical History History of throat surgery Social History Smoking Status: Never smoker Physical Exam Const alert, oriented x3 and no apparent distress General Appearance: cooperative Exam Limitations: no limitations HEENT normocephalic and head/scalp atraumatic Eyes PERRL and EOMs intact bilaterally Neck supple and No nodes Resp Auscultation: diminished lung sounds Cardio regular rate and regular rhythm GI normal to inspection, nondistended, normoactive bowel sounds Extremity no clubbing, cyanosis or edema Skin no rashes or lesions noted Neuro CN's II-XII intact bilaterally Lab / Micro Data Result Diagrams: 03/24/21 04:35 03/24/21 04:35 Labs: Laboratory Results - last 24 hr 03/23/21 18:40: WBC 6.8, RBC 5.60, Hgb 16.7 H, Hct 48.2, MCV 86.1, MCH 29.8, MCHC 34.6, RDW Std Deviation 42.5, RDW Coeff of Connie 13.5, Plt Count 248, MPV 10.0, Immature Gran % (Auto) 0.400, Neut % (Auto) 81.9 H, Lymph % (Auto) 11.6 L, [place] % (Auto) 6.0, Eos % (Auto) 0.0, Baso % (Auto) 0.1, Absolute Neuts (auto) 5.6, Absolute Lymphs (auto) 0.79 L, Nucleated RBC % 0 03/23/21 18:40: Fibrinogen 873 H, D-Dimer Quant (PE/DVT) 1.93 H* 03/23/21 18:40: Sodium 134 L, Potassium 3.5, Chloride 98, Carbon Dioxide 27.0, Anion Gap 9, BUN 16, Creatinine 1.06, Estim Creat Clear Calc 67.56, Est GFR (MDRD) Af Amer 91, Est GFR (MDRD) Non-Af 75, BUN/Creatinine Ratio 15.1, Glucose 113 H, Calcium 9.3, Total Bilirubin 0.60, AST 57 H, ALT 31, Alkaline Phosphatase 70, Lactate Dehydrogenase 702 H, Total Creatine Kinase 112, Troponin I High Sens 25, C-React Prot Ext Range 130.00 H, Total Protein 8.2, Albumin 2.7 L, Globulin 5.5 H, Albumin/Globulin Ratio 0.5 L 03/23/21 18:40: Lactic Acid Cancelled 03/23/21 18:40: B-Natriuretic Peptide 66.5 03/23/21 18:40: Procalcitonin 0.12 H 03/23/21 19:58: Lactic Acid 2.3 H* 03/24/21 00:28: Lactic Acid 1.2 03/24/21 04:35: WBC 4.9, RBC 4.77, Hgb 13.8, Hct 41.0, MCV 86.0, MCH 28.9, MCHC 33.7, RDW Std Deviation 42.8, RDW Coeff of Connie 13.5, Plt Count 196, MPV 9.8, Immature Gran % (Auto) 0.200, Neut % (Auto) 85.2 H, Lymph % (Auto) 8.9 L, [place] % (Auto) 5.7, Eos % (Auto) 0.0, Baso % (Auto) 0.0, Absolute Neuts (auto) 4.2, Absolute Lymphs (auto) 0.44 L, Nucleated RBC % 0, Atypical Lymphocytes 1+ 03/24/21 04:35: Sodium 135 L, Potassium 3.4 L, Chloride 100, Carbon Dioxide 27.0, Anion Gap 8, BUN 14, Creatinine 0.82, Estim Creat Clear Calc 87.33, Est GFR (MDRD) Af Amer 123, Est GFR (MDRD) Non-Af 101, BUN/Creatinine Ratio 17.1, Glucose 124 H, Calcium 8.6, Total Bilirubin 0.40, AST 38 H, ALT 24, Alkaline Phosphatase 60, Total Protein 7.2, Albumin 2.3 L, Globulin 4.9 H, Albumin/Globulin Ratio 0.5 L Micro: Microbiology 03/23/21 18:40 Nasal Secretion SARS-CoV-2 Antigen (Rapid) - Final SARS-CoV-2 (COVID 19) Radiology Impression Chest CTA 03/23/21 19:22 IMPRESSION: 1. No evidence of pulmonary embolus. 2. Diffuse groundglass opacities. Imaging features can be seen with COVID 19 pneumonia, though are nonspecific and can occur of the right infectious and noninfectious processes. Individualized dose optimization techniques were used for this CT. at 2058 Reported and signed by: Juan Alberto Stock MD Electronically Signed: Juan Alberto Stock MD at 20:57 EST Tel , Service support ,
[2021-03-24] MEDS: Potassium Chloride Oral Tablet 20 MEQ PO (18:37)
[2021-03-24] MEDS: 0.9% Saline Lock 10 ML Syringe IV (21:56)
[2021-03-24] MEDS: Loperamide 2 MG Capsule PO (22:20)
[2021-03-25] VITALS (17 sets, daily range): BP systolic 111–140; BP diastolic 66–81; PULSE 53–73; RESP 18–22; TEMP 36.3–37; O2SAT 92–99
--- NOTE | 2021-03-25 01:49 | PCS.PANDOC ---
PANDEMIC DOCUMENTATION INITIATED: Date: 03/24/21 Time: 1899
--- NOTE | 2021-03-25 07:44 | PCM.PN.HOSP ---
Subjective Subjective Patient seen still remains on high flow oxygen via Airvo. Current settings include FiO2 of 68% with flow rate of 45%. Objective Data Objective Data Vital Signs: Vital Signs Temp Pulse Resp BP Pulse Ox 97.7 F L 57 L 22 H 123/66 H 96 03/25/21 05:08 03/25/21 07:05 03/25/21 05:08 03/25/21 05:08 03/25/21 05:08 Oxygen Flow Rate (L/min) 45 Oxygen Delivery Method Airvo Weight: 138.3 kg Body Mass Index (BMI) 50.1 Intake & Output: Intake and Output for Last 24 Hours 03/23/21 03/24/21 03/25/21 23:59 23:59 23:59 Intake Total 500 / 500 500 / 500 Balance 500 / 500 500 / 500 Lab / Micro Data Result Diagrams: 03/25/21 08:21 03/25/21 08:21 Micro: Microbiology 03/23/21 18:40 Nasal Secretion SARS-CoV-2 Antigen (Rapid) - Final SARS-CoV-2 (COVID 19) Physical Exam Narrative GENERAL: Patient appears ill looking, dyspneic at rest HEENT: Atraumatic; EYES; Anicteric, Normal Conjunctiva NECK; supple, normal thyroid, RESPIRATORY: Diminished to auscultation CARDIOVASCULAR: Regular S1 S2, GI: soft, normoactive bowel sounds, : No Renal angle tenderness; EXTREMITIES: No edema, no clubbing, MUSCULOSKELETAL: no muscle waisting NEURO: Awake; no lateralizing signs. SKIN: No Rash PSYCH; Flat affect Assessment & Plan Assessment/Plan (1) COVID-19: (2) Acute hypoxemic respiratory failure due to COVID-19: PLAN: Patient is a 61-year-old gentleman who presented with progressive shortness of breath. Patient symptoms started 6 days prior to his admission. He tested positive for COVID 1. Acute hypoxic respiratory failure ? Secondary to COVID-pneumonia. Patient presented with significant hypoxia with oxygen saturation at 73% on room air. Admitted to a monitored bed started on Decadron as well as remdesivir with consultation placed to ID on admission -03/25/2021 patient seen still remains on high flow oxygen via Airvo. Current settings include FiO2 of 68% with flow rate of 45%. Patient was also seen in consultation by Dr. Montemayor with ID it was deemed patient not a candidate for remdesivir at this point 2. Elevated D-dimer ? Secondary to COVID-19 pneumonia CTA obtained was negative for PE 3. Essential hypertension ? Patient blood pressure apparently not well controlled on admission patient is on metoprolol we will continue with plans to adjust doses blood pressure remains uncontrolled 4. Class III obesity with BMI 47.8 ? Weight loss advised 5. Hypokalemia ? Present on admission corrected per protocol with subsequent monitoring with daily BMPs ordered 6. DVT prophylaxis -Enoxaparin Charges/Coding Visit Charges Inpatient E&M: 04336 Subs Hosp L3
[2021-03-25 08:43] LABS: Absolute Lymphocyte Count 0.54 X10^3/uL (0.83-4.51); Absolute Neutrophil Count 6.1 X10^3/uL (2.0-7.7); Basophil# 0.01 X10^3/uL; Basophil% 0.1 % (0-1); Eosinophil# 0.02 X10^3/uL; Eosinophils% 0.3 % (0-5); Hematocrit 41.6 % (40-54); Hemoglobin 13.4 g/dL (13.0-16.5); Lymphocyte # 0.54 X10^3/ul (0.83-4.51); Lymphocyte % 7.6 % (19-41); Mean Corp Hgb Conc 32.2 g/dL (32-36); Mean Corpuscular Hgb 28.3 pg (27.0-32.0); Mean Corpuscular Volume 87.9 fL (80-94); Mean Platelet Vol. 10.1 fl (6.2-12.0); Monocyte# 0.37 X10^3/uL; Monocyte% 5.2 % (0-10); NRBC Flagged by Analyzer 0 % (0-5); Neutrophil % 86.1 % (47-70); POSITIVE DIFFERENTIAL YES; Platelet Count 208 K/mm3 (150-450); RBC Distribution Width CV 13.8 % (11.6-14.6); RBC Distribution Width SD 44.7 fl (35.1-43.9); Red Blood Count 4.73 M/mm3 (4.6-6.2); White Blood Count 7.1 K/mm3 (4.4-11.0)
[2021-03-25 08:46] LABS: Differential Indicated SCAN CRITERIA MET
[2021-03-25] MEDS: dexAMETHasone 4 MG Tablet 6 MG PO (09:03)
[2021-03-25] MEDS: Enoxaparin 40 MG/0.4 ML Syringe SC ×2 (09:03→21:03)
[2021-03-25] MEDS: Metoprolol Tartrate 25 MG Tablet PO ×2 (09:04→21:02)
[2021-03-25] MEDS: Pantoprazole Sodium 20 MG Tablet PO (09:04)
[2021-03-25] MEDS: Furosemide 40 MG Tablet PO ×2 (09:04→15:43)
[2021-03-25] MEDS: guaiFENesin 1,200 MG Tablet 1200 MG PO ×2 (09:04→21:03)
[2021-03-25] MEDS: Potassium Chloride Oral Tablet 20 MEQ PO ×2 (09:04→15:43)
[2021-03-25] MEDS: HYDROcodone Bitartrate/Apap 5/325 Tablet PO ×2 (09:05→21:03)
[2021-03-25 09:08] LABS: ALB/GLOB Ratio 0.5 RATIO (0.9-2.4); AST(SGOT) 41 U/L (15-37); Alanine Aminotransfer ALT/SGPT 24 U/L (16-61); Albumin, Serum 2.3 g/dL (3.2-5.0); Alkaline Phosphatase 64 U/L (45-117); Anion Gap 7 (5-15); BUN 19 mg/dL (7-18); BUN/Creat Ratio 23.8 RATIO (10-20); Calcium,Total 9.1 mg/dL (8.5-10.1); Chloride 102 mmol/L (98-107); EST Glomerular Filtration Rate 105 mL/min (>60); Est Glom Filt Rate - Afr Amer 126 mL/min (>60); Estimated Creatinine Clearance 89.51 ml/min; Globulin 4.6 g/dL (2.2-4.2); Glucose 106 mg/dL (74-106); Magnesium 2.2 mg/dL (1.6-2.6); Potassium 3.6 mmol/L (3.5-5.1); Protein, Total 6.9 g/dL (6.4-8.2); Sodium Level 138 mmol/L (136-145)
--- NOTE | 2021-03-25 10:28 | PCM.PN.ID ---
Physical Exam Narrative Worsened o2, now on airvo, feeling a little better this Am Const alert General Appearance: cooperative Resp Auscultation: diminished lung sounds Cardio regular rate and regular rhythm GI soft to palpation, non-tender and non-distended Skin no rashes or lesions noted ID ID: Route of nutrition/ use of supplements: [] Nutritional Intake: [] IV Site: [] Morales Catheter: [] Assessment & Plan Assessment/Plan (1) COVID-19: PLAN: Sx started 03/17/21. Unvaccinated. Isolate until 04/06/21. Recommend vaccine in one month. On dex, remdesivir. Worsened O2, reviewed EUA and risks/benefits, we agree to start baricitinib. Will follow (2) Acute hypoxemic respiratory failure due to COVID-19:
[2021-03-25] MEDS: Gabapentin 300 MG Capsule PO (21:43)
[2021-03-25] MEDS: Nystatin Powder 15gm Bottle 1 APPLIC TOPICAL (23:37)
[2021-03-26] VITALS (21 sets, daily range): BP systolic 114–147; BP diastolic 68–82; PULSE 61–80; RESP 18–28; TEMP 36.4–37.2; O2SAT 84–97
[2021-03-26 05:26] LABS: Absolute Lymphocyte Count 0.96 X10^3/uL (0.83-4.51); Absolute Neutrophil Count 6.4 X10^3/uL (2.0-7.7); Basophil# 0.01 X10^3/uL; Basophil% 0.1 % (0-1); Eosinophil# 0.03 X10^3/uL; Eosinophils% 0.4 % (0-5); Hematocrit 40.2 % (40-54); Hemoglobin 13.3 g/dL (13.0-16.5); Lymphocyte # 0.96 X10^3/ul (0.83-4.51); Lymphocyte % 12.2 % (19-41); Mean Corp Hgb Conc 33.1 g/dL (32-36); Mean Corpuscular Volume 87.6 fL (80-94); Mean Platelet Vol. 10.3 fl (6.2-12.0); Monocyte# 0.46 X10^3/uL; Monocyte% 5.8 % (0-10); NRBC Flagged by Analyzer 0 % (0-5); Neutrophil # 6.35 X10^3/uL (2.7-7.7); Neutrophil % 80.6 % (47-70); Platelet Count 243 K/mm3 (150-450); RBC Distribution Width CV 13.8 % (11.6-14.6); RBC Distribution Width SD 44.2 fl (35.1-43.9); Red Blood Count 4.59 M/mm3 (4.6-6.2); White Blood Count 7.9 K/mm3 (4.4-11.0)
[2021-03-26 05:41] LABS: ALB/GLOB Ratio 0.5 RATIO (0.9-2.4); AST(SGOT) 39 U/L (15-37); Alanine Aminotransfer ALT/SGPT 30 U/L (16-61); Albumin, Serum 2.3 g/dL (3.2-5.0); Alkaline Phosphatase 72 U/L (45-117); Anion Gap 9 (5-15); BUN 22 mg/dL (7-18); BUN/Creat Ratio 32.5 RATIO (10-20); Calcium,Total 8.9 mg/dL (8.5-10.1); Chloride 103 mmol/L (98-107); Creatinine, Serum 0.68 mg/dL (0.70-1.30); EST Glomerular Filtration Rate 126 mL/min (>60); Est Glom Filt Rate - Afr Amer 153 mL/min (>60); Estimated Creatinine Clearance 105.31 ml/min; Globulin 4.6 g/dL (2.2-4.2); Glucose 99 mg/dL (74-106); Potassium 4.1 mmol/L (3.5-5.1); Protein, Total 6.9 g/dL (6.4-8.2); Sodium Level 138 mmol/L (136-145)
--- NOTE | 2021-03-26 08:07 | PCM.PN.HOSP ---
Subjective Subjective Patient seen remains on Airvo. Objective Data Objective Data Vital Signs: Vital Signs Temp Pulse Resp BP Pulse Ox 97.5 F L 71 18 138/82 H 93 03/26/21 03:24 03/26/21 07:09 03/26/21 03:24 03/26/21 03:24 03/26/21 03:28 Oxygen Flow Rate (L/min) 50 Oxygen Delivery Method Airvo Weight: 138.3 kg Body Mass Index (BMI) 50.1 Intake & Output: Intake and Output for Last 24 Hours 03/24/21 03/25/21 03/26/21 23:59 23:59 23:59 Intake Total 500 / 500 1270 / 1270 240 / 240 Output Total 450 / 450 Balance 500 / 500 820 / 820 240 / 240 Lab / Micro Data Result Diagrams: 03/26/21 04:45 03/26/21 04:45 Labs: Laboratory Results - last 24 hr 03/25/21 08:21: WBC 7.1, RBC 4.73, Hgb 13.4, Hct 41.6, MCV 87.9, MCH 28.3, MCHC 32.2, RDW Std Deviation 44.7 H, RDW Coeff of Connie 13.8, Plt Count 208, MPV 10.1, Immature Gran % (Auto) 0.700, Neut % (Auto) 86.1 H, Lymph % (Auto) 7.6 L, [place] % (Auto) 5.2, Eos % (Auto) 0.3, Baso % (Auto) 0.1, Absolute Neuts (auto) 6.1, Absolute Lymphs (auto) 0.54 L, Nucleated RBC % 0 03/25/21 08:21: Sodium 138, Potassium 3.6, Chloride 102, Carbon Dioxide 29.0, Anion Gap 7, BUN 19 H, Creatinine 0.80, Estim Creat Clear Calc 89.51, Est GFR (MDRD) Af Amer 126, Est GFR (MDRD) Non-Af 105, BUN/Creatinine Ratio 23.8 H, Glucose 106, Calcium 9.1, Magnesium 2.2, Total Bilirubin 0.40, AST 41 H, ALT 24, Alkaline Phosphatase 64, Total Protein 6.9, Albumin 2.3 L, Globulin 4.6 H, Albumin/Globulin Ratio 0.5 L 03/26/21 04:45: WBC 7.9, RBC 4.59 L, Hgb 13.3, Hct 40.2, MCV 87.6, MCH 29.0, MCHC 33.1, RDW Std Deviation 44.2 H, RDW Coeff of Connie 13.8, Plt Count 243, MPV 10.3, Immature Gran % (Auto) 0.900, Neut % (Auto) 80.6 H, Lymph % (Auto) 12.2 L, [place] % (Auto) 5.8, Eos % (Auto) 0.4, Baso % (Auto) 0.1, Absolute Neuts (auto) 6.4, Absolute Lymphs (auto) 0.96, Nucleated RBC % 0 03/26/21 04:45: Sodium 138, Potassium 4.1, Chloride 103, Carbon Dioxide 26.0, Anion Gap 9, BUN 22 H, Creatinine 0.68 L, Estim Creat Clear Calc 105.31, Est GFR (MDRD) Af Amer 153, Est GFR (MDRD) Non-Af 126, BUN/Creatinine Ratio 32.5 H, Glucose 99, Calcium 8.9, Total Bilirubin 0.40, AST 39 H, ALT 30, Alkaline Phosphatase 72, Total Protein 6.9, Albumin 2.3 L, Globulin 4.6 H, Albumin/Globulin Ratio 0.5 L Micro: Microbiology 03/23/21 18:40 Nasal Secretion SARS-CoV-2 Antigen (Rapid) - Final SARS-CoV-2 (COVID 19) Physical Exam Narrative GENERAL: Patient appears ill looking, dyspneic at rest HEENT: Atraumatic; EYES; Anicteric, Normal Conjunctiva NECK; supple, normal thyroid, RESPIRATORY: Diminished to auscultation CARDIOVASCULAR: Regular S1 S2, GI: soft, normoactive bowel sounds, : No Renal angle tenderness; EXTREMITIES: No edema, no clubbing, MUSCULOSKELETAL: no muscle waisting NEURO: Awake; no lateralizing signs. SKIN: No Rash PSYCH; Flat affect Assessment & Plan Assessment/Plan (1) COVID-19: (2) Acute hypoxemic respiratory failure due to COVID-19: PLAN: Patient is a 61-year-old gentleman who presented with progressive shortness of breath. Patient symptoms started 6 days prior to his admission. He tested positive for COVID 1. Acute hypoxic respiratory failure ? Secondary to COVID-pneumonia. Patient presented with significant hypoxia with oxygen saturation at 73% on room air. Admitted to a monitored bed started on Decadron as well as remdesivir with consultation placed to ID on admission -03/25/2021 patient seen still remains on high flow oxygen via Airvo. Current settings include FiO2 of 68% with flow rate of 45%. Patient was also seen in consultation by Dr. Montemayor with ID it was deemed patient not a candidate for remdesivir at this point ? 03/26/2021. Patient remains on Airvo with no improvement in overall condition 2. Elevated D-dimer ? Secondary to COVID-19 pneumonia CTA obtained was negative for PE 3. Essential hypertension ? Patient blood pressure apparently not well controlled on admission patient is on metoprolol we will continue with plans to adjust doses blood pressure remains uncontrolled 4. Class III obesity with BMI 47.8 ? Weight loss advised 5. Hypokalemia ? Present on admission corrected per protocol with subsequent monitoring with daily BMPs ordered 6. DVT prophylaxis -Enoxaparin Charges/Coding Visit Charges Inpatient E&M: 26013 Subs Hosp L2
[2021-03-26] MEDS: Pantoprazole Sodium 20 MG Tablet PO (09:13)
[2021-03-26] MEDS: Furosemide 40 MG Tablet PO ×2 (09:13→16:56)
[2021-03-26] MEDS: Metoprolol Tartrate 25 MG Tablet PO ×2 (09:13→21:01)
[2021-03-26] MEDS: Gabapentin 300 MG Capsule PO ×2 (09:13→21:06)
[2021-03-26] MEDS: Potassium Chloride Oral Tablet 20 MEQ PO ×2 (09:14→16:56)
[2021-03-26] MEDS: HYDROcodone Bitartrate/Apap 5/325 Tablet PO ×2 (09:14→21:05)
[2021-03-26] MEDS: dexAMETHasone 4 MG Tablet 6 MG PO (09:15)
[2021-03-26] MEDS: Sodium Chloride 0.65% 1 SPRAY SPRAY.BTL NASAL (09:15)
[2021-03-26] MEDS: Enoxaparin 40 MG/0.4 ML Syringe SC ×2 (09:15→21:07)
[2021-03-26] MEDS: guaiFENesin 1,200 MG Tablet 1200 MG PO ×2 (09:15→21:07)
[2021-03-26] MEDS: Nystatin Powder 15gm Bottle 1 APPLIC TOPICAL ×2 (15:30→21:06)
[2021-03-26] MEDS: 0.9% Saline Lock 10 ML Syringe IV (21:34)
[2021-03-27] VITALS (22 sets, daily range): BP systolic 102–146; BP diastolic 60–82; PULSE 64–94; RESP 20–38; TEMP 36.6–37.3; O2SAT 88–99
--- NOTE | 2021-03-27 05:04 | NURSING ---
Respiratory on floor patient O2 84% with Airo and nonrebreather. Dr Nelson notified by RT and to be placed on BIPAP and ordering breathing treatments.
[2021-03-27] MEDS: Ipratropium/Albuterol Sulfate 3 ML AMPUL.NEB INHALATION ×5 (05:34→21:58)
[2021-03-27 06:30] LABS: Absolute Lymphocyte Count 0.77 X10^3/uL (0.83-4.51); Absolute Neutrophil Count 9.6 X10^3/uL (2.0-7.7); Basophil# 0.02 X10^3/uL; Basophil% 0.2 % (0-1); Eosinophil# 0.09 X10^3/uL; Eosinophils% 0.8 % (0-5); Hematocrit 44.8 % (40-54); Hemoglobin 14.3 g/dL (13.0-16.5); Lymphocyte # 0.77 X10^3/ul (0.83-4.51); Mean Corp Hgb Conc 31.9 g/dL (32-36); Mean Corpuscular Hgb 28.1 pg (27.0-32.0); Mean Platelet Vol. 10.2 fl (6.2-12.0); Monocyte# 0.41 X10^3/uL; Monocyte% 3.7 % (0-10); NRBC Flagged by Analyzer 0 % (0-5); Neutrophil # 9.62 X10^3/uL (2.7-7.7); Neutrophil % 87.4 % (47-70); Platelet Count 255 K/mm3 (150-450); RBC Distribution Width CV 13.7 % (11.6-14.6); Red Blood Count 5.09 M/mm3 (4.6-6.2)
[2021-03-27 07:01] LABS: ALB/GLOB Ratio 0.5 RATIO (0.9-2.4); AST(SGOT) 54 U/L (15-37); Alanine Aminotransfer ALT/SGPT 49 U/L (16-61); Albumin, Serum 2.5 g/dL (3.2-5.0); Alkaline Phosphatase 82 U/L (45-117); Anion Gap 6 (5-15); BUN 19 mg/dL (7-18); BUN/Creat Ratio 26.5 RATIO (10-20); Chloride 102 mmol/L (98-107); Creatinine, Serum 0.72 mg/dL (0.70-1.30); EST Glomerular Filtration Rate 118 mL/min (>60); Est Glom Filt Rate - Afr Amer 143 mL/min (>60); Estimated Creatinine Clearance 99.46 ml/min; Globulin 4.7 g/dL (2.2-4.2); Glucose 90 mg/dL (74-106); Potassium 4.3 mmol/L (3.5-5.1); Protein, Total 7.2 g/dL (6.4-8.2); Sodium Level 137 mmol/L (136-145)
--- NOTE | 2021-03-27 07:59 | PCM.PN.HOSP ---
Subjective Subjective Patient had to be placed on BiPAP during the night due to worsening hypoxia Objective Data Objective Data Vital Signs: Vital Signs Temp Pulse Resp BP Pulse Ox 98.1 F 84 32 H 146/82 H 88 03/27/21 04:25 03/27/21 07:28 03/27/21 07:28 03/27/21 04:25 03/27/21 07:28 Oxygen Flow Rate (L/min) 60 Oxygen Delivery Method Airvo Weight: 138.3 kg Body Mass Index (BMI) 50.1 Intake & Output: Intake and Output for Last 24 Hours 03/25/21 03/26/21 03/27/21 23:59 23:59 23:59 Intake Total 1270 / 1270 1510 / 1510 Output Total 450 / 450 700 / 900 200 / 200 Balance 820 / 820 810 / 610 -200 / -200 Lab / Micro Data Result Diagrams: 03/27/21 06:00 03/27/21 06:00 Labs: Laboratory Results - last 24 hr 03/27/21 06:00: WBC 11.0, RBC 5.09, Hgb 14.3, Hct 44.8, MCV 88.0, MCH 28.1, MCHC 31.9 L, RDW Std Deviation 44.0 H, RDW Coeff of Connie 13.7, Plt Count 255, MPV 10.2, Immature Gran % (Auto) 0.900, Neut % (Auto) 87.4 H, Lymph % (Auto) 7.0 L, [place] % (Auto) 3.7, Eos % (Auto) 0.8, Baso % (Auto) 0.2, Absolute Neuts (auto) 9.6 H, Absolute Lymphs (auto) 0.77 L, Nucleated RBC % 0 03/27/21 06:00: Sodium 137, Potassium 4.3, Chloride 102, Carbon Dioxide 29.0, Anion Gap 6, BUN 19 H, Creatinine 0.72, Estim Creat Clear Calc 99.46, Est GFR (MDRD) Af Amer 143, Est GFR (MDRD) Non-Af 118, BUN/Creatinine Ratio 26.5 H, Glucose 90, Calcium 9.0, Total Bilirubin 0.60, AST 54 H, ALT 49, Alkaline Phosphatase 82, Total Protein 7.2, Albumin 2.5 L, Globulin 4.7 H, Albumin/Globulin Ratio 0.5 L Micro: Microbiology 03/23/21 19:09 Blood Culture (Wb) - Anticubital Right Blood Culture - Preliminary No growth in 48 hours. 03/23/21 18:40 Blood Culture (Wb) - Anticubital Right Blood Culture - Preliminary No growth in 48 hours. 03/23/21 18:40 Nasal Secretion SARS-CoV-2 Antigen (Rapid) - Final SARS-CoV-2 (COVID 19) Physical Exam Narrative GENERAL: Patient appears ill looking, dyspneic at rest HEENT: Atraumatic; EYES; Anicteric, Normal Conjunctiva NECK; supple, normal thyroid, RESPIRATORY: Diminished to auscultation CARDIOVASCULAR: Regular S1 S2, GI: soft, normoactive bowel sounds, : No Renal angle tenderness; EXTREMITIES: No edema, no clubbing, MUSCULOSKELETAL: no muscle waisting NEURO: Awake; no lateralizing signs. SKIN: No Rash PSYCH; Flat affect Assessment & Plan Assessment/Plan (1) COVID-19: (2) Acute hypoxemic respiratory failure due to COVID-19: PLAN: Patient is a 61-year-old gentleman who presented with progressive shortness of breath. Patient symptoms started 6 days prior to his admission. He tested positive for COVID 1. Acute hypoxic respiratory failure ? Secondary to COVID-pneumonia. Patient presented with significant hypoxia with oxygen saturation at 73% on room air. Admitted to a monitored bed started on Decadron as well as remdesivir with consultation placed to ID on admission -03/25/2021 patient seen still remains on high flow oxygen via Airvo. Current settings include FiO2 of 68% with flow rate of 45%. Patient was also seen in consultation by Dr. Montemayor with ID it was deemed patient not a candidate for remdesivir at this point ? 03/26/2021. Patient remains on Airvo with no improvement in overall condition 03/27/2021; Patient had to be placed on BiPAP during the night due to worsening hypoxia 2. Elevated D-dimer ? Secondary to COVID-19 pneumonia CTA obtained was negative for PE 3. Essential hypertension ? Patient blood pressure apparently not well controlled on admission patient is on metoprolol we will continue with plans to adjust doses blood pressure remains uncontrolled 4. Class III obesity with BMI 47.8 ? Weight loss advised 5. Hypokalemia ? Present on admission corrected per protocol with subsequent monitoring with daily BMPs ordered 6. DVT prophylaxis -Enoxaparin Charges/Coding Visit Charges Inpatient E&M: 22794 Subs Hosp L2
[2021-03-27] MEDS: dexAMETHasone 4 MG Tablet 6 MG PO (08:29)
[2021-03-27] MEDS: Enoxaparin 40 MG/0.4 ML Syringe SC ×2 (08:29→21:36)
[2021-03-27] MEDS: Furosemide 40 MG Tablet PO ×2 (08:29→16:15)
[2021-03-27] MEDS: guaiFENesin 1,200 MG Tablet 1200 MG PO ×2 (08:30→21:36)
[2021-03-27] MEDS: Potassium Chloride Oral Tablet 20 MEQ PO ×2 (08:31→16:15)
[2021-03-27] MEDS: Pantoprazole Sodium 20 MG Tablet PO (08:32)
[2021-03-27] MEDS: Gabapentin 300 MG Capsule PO ×2 (08:32→21:36)
[2021-03-27] MEDS: HYDROcodone Bitartrate/Apap 5/325 Tablet PO ×2 (08:32→21:55)
[2021-03-27] MEDS: Metoprolol Tartrate 25 MG Tablet PO ×2 (08:33→21:35)
[2021-03-27] MEDS: 0.9% Saline Lock 10 ML Syringe IV (21:33)
[2021-03-28] VITALS (18 sets, daily range): BP systolic 132–139; BP diastolic 77–88; PULSE 61–82; RESP 12–33; TEMP 36.6–36.8; O2SAT 90–97
--- NOTE | 2021-03-28 05:43 | NURSING ---
Patient refused Bi-pap maintaining stats around 85-87% respiratory and this nurse spoke with patient and offered education patient adamantly refused bi-pap.
[2021-03-28 06:06] LABS: Absolute Lymphocyte Count 0.89 X10^3/uL (0.83-4.51); Absolute Neutrophil Count 8.6 X10^3/uL (2.0-7.7); Basophil# 0.04 X10^3/uL; Basophil% 0.4 % (0-1); Eosinophil# 0.18 X10^3/uL; Eosinophils% 1.8 % (0-5); Hematocrit 44.3 % (40-54); Hemoglobin 13.8 g/dL (13.0-16.5); Lymphocyte # 0.89 X10^3/ul (0.83-4.51); Lymphocyte % 8.7 % (19-41); Mean Corp Hgb Conc 31.2 g/dL (32-36); Mean Corpuscular Hgb 28.2 pg (27.0-32.0); Mean Corpuscular Volume 90.4 fL (80-94); Monocyte# 0.33 X10^3/uL; Monocyte% 3.2 % (0-10); NRBC Flagged by Analyzer 0 % (0-5); Neutrophil # 8.61 X10^3/uL (2.7-7.7); Neutrophil % 83.9 % (47-70); Platelet Count 257 K/mm3 (150-450); RBC Distribution Width SD 46.9 fl (35.1-43.9); White Blood Count 10.3 K/mm3 (4.4-11.0)
[2021-03-28 06:32] LABS: ALB/GLOB Ratio 0.5 RATIO (0.9-2.4); AST(SGOT) 32 U/L (15-37); Alanine Aminotransfer ALT/SGPT 43 U/L (16-61); Albumin, Serum 2.3 g/dL (3.2-5.0); Alkaline Phosphatase 78 U/L (45-117); Anion Gap 4 (5-15); BUN 18 mg/dL (7-18); BUN/Creat Ratio 27.2 RATIO (10-20); Calcium,Total 8.7 mg/dL (8.5-10.1); Chloride 101 mmol/L (98-107); Creatinine, Serum 0.66 mg/dL (0.70-1.30); EST Glomerular Filtration Rate 129 mL/min (>60); Est Glom Filt Rate - Afr Amer 157 mL/min (>60); Globulin 4.5 g/dL (2.2-4.2); Glucose 94 mg/dL (74-106); Potassium 4.4 mmol/L (3.5-5.1); Protein, Total 6.8 g/dL (6.4-8.2); Sodium Level 135 mmol/L (136-145)
--- NOTE | 2021-03-28 06:40 | NURSING ---
Patient requesting a pulmonary consult and a cough aid oncoming shift notified and Dr. Nelson notified
--- NOTE | 2021-03-28 07:16 | PCM.PN.HOSP ---
Subjective Subjective Patient oxygen requirement increasing. Patient had to be placed on BiPAP and consultation placed to pulmonary medicine Objective Data Objective Data Vital Signs: Vital Signs Temp Pulse Resp BP Pulse Ox 97.8 F 66 18 132/80 H 90 03/28/21 03:05 03/28/21 03:05 03/28/21 03:05 03/28/21 03:05 03/28/21 05:19 Oxygen Flow Rate (L/min) 60 Oxygen Delivery Method Non-Rebreather @ 15L/min Weight: 138.3 kg Body Mass Index (BMI) 50.1 Intake & Output: Intake and Output for Last 24 Hours 03/26/21 03/27/21 03/28/21 23:59 23:59 23:59 Intake Total 1510 / 1510 1000 / 1000 250 / 250 Output Total 700 / 900 450 / 625 175 / 175 Balance 810 / 610 550 / 375 75 / 75 Lab / Micro Data Result Diagrams: 03/28/21 05:36 03/28/21 05:36 Labs: Laboratory Results - last 24 hr 03/28/21 05:36: WBC 10.3, RBC 4.90, Hgb 13.8, Hct 44.3, MCV 90.4, MCH 28.2, MCHC 31.2 L, RDW Std Deviation 46.9 H, RDW Coeff of Connie 14.0, Plt Count 257, MPV 10.0, Immature Gran % (Auto) 2.000 H, Neut % (Auto) 83.9 H, Lymph % (Auto) 8.7 L, [place] % (Auto) 3.2, Eos % (Auto) 1.8, Baso % (Auto) 0.4, Absolute Neuts (auto) 8.6 H, Absolute Lymphs (auto) 0.89, Nucleated RBC % 0 03/28/21 05:36: Sodium 135 L, Potassium 4.4, Chloride 101, Carbon Dioxide 30.0, Anion Gap 4 L, BUN 18, Creatinine 0.66 L, Estim Creat Clear Calc 108.50, Est GFR (MDRD) Af Amer 157, Est GFR (MDRD) Non-Af 129, BUN/Creatinine Ratio 27.2 H, Glucose 94, Calcium 8.7, Total Bilirubin 0.50, AST 32, ALT 43, Alkaline Phosphatase 78, Total Protein 6.8, Albumin 2.3 L, Globulin 4.5 H, Albumin/Globulin Ratio 0.5 L Micro: Microbiology 03/23/21 19:09 Blood Culture (Wb) - Anticubital Right Blood Culture - Preliminary No growth in 48 hours. 03/23/21 18:40 Blood Culture (Wb) - Anticubital Right Blood Culture - Preliminary No growth in 48 hours. 03/23/21 18:40 Nasal Secretion SARS-CoV-2 Antigen (Rapid) - Final SARS-CoV-2 (COVID 19) Physical Exam Narrative GENERAL: Patient appears ill looking, dyspneic at rest HEENT: Atraumatic; EYES; Anicteric, Normal Conjunctiva NECK; supple, normal thyroid, RESPIRATORY: Diminished to auscultation CARDIOVASCULAR: Regular S1 S2, GI: soft, normoactive bowel sounds, : No Renal angle tenderness; EXTREMITIES: No edema, no clubbing, MUSCULOSKELETAL: no muscle waisting NEURO: Awake; no lateralizing signs. SKIN: No Rash PSYCH; Flat affect Assessment & Plan Assessment/Plan (1) COVID-19: (2) Acute hypoxemic respiratory failure due to COVID-19: PLAN: Patient is a 61-year-old gentleman who presented with progressive shortness of breath. Patient symptoms started 6 days prior to his admission. He tested positive for COVID 1. Acute hypoxic respiratory failure ? Secondary to COVID-pneumonia. Patient presented with significant hypoxia with oxygen saturation at 73% on room air. Admitted to a monitored bed started on Decadron as well as remdesivir with consultation placed to ID on admission -03/25/2021 patient seen still remains on high flow oxygen via Airvo. Current settings include FiO2 of 68% with flow rate of 45%. Patient was also seen in consultation by Dr. Montemayor with ID it was deemed patient not a candidate for remdesivir at this point ? 03/26/2021. Patient remains on Airvo with no improvement in overall condition 03/27/2021; Patient had to be placed on BiPAP during the night due to worsening hypoxia -03/28/2021; Patient oxygen requirement increasing. Patient had to be placed on BiPAP and consultation placed to pulmon 2. Elevated D-dimer ? Secondary to COVID-19 pneumonia CTA obtained was negative for PE 3. Essential hypertension ? Patient blood pressure apparently not well controlled on admission patient is on metoprolol we will continue with plans to adjust doses blood pressure remains uncontrolled 4. Class III obesity with BMI 47.8 ? Weight loss advised 5. Hypokalemia ? Present on admission corrected per protocol with subsequent monitoring with daily BMPs ordered 6. DVT prophylaxis -Enoxaparin 7. History of prostate CA ? Patient family requested PSA blood draw was patient in the hospital Charges/Coding Visit Charges Inpatient E&M: 22002 Subs Hosp L3
--- NOTE | 2021-03-28 08:05 | CON.PCM.CC_ITS ---
Assessment & Plan Assessment/Plan (1) Acute hypoxemic respiratory failure due to COVID-19: PLAN: RECOMMENDATIONS: 1. Continue BiPAP therapy for now. Wean FiO2 for saturations greater than 90%. 2. Continue Decadron to complete 10 days of therapy. 3. Continue baricitinib as ordered. 4. Continue prophylactic Lovenox. 5. Start scheduled IV Lasix today. 6. Start empiric antimicrobials, given interval decompensation in respiratory status. 7. The patient should remain n.p.o. for now, given tenuous respiratory status. IMPRESSIONS: 1. Acute hypoxemic respiratory failure secondary to COVID-19 pneumonia The patient initially presented to the hospital on March 23 with progressive COVID symptoms after testing positive on March 21. The patient is unvaccinated. CTA chest was negative for PE. The patient has already been initiated on Decadron, prophylactic Lovenox and baricitinib. He has completed a treatment course of remdesivir. The patient has demonstrated worsening oxygenation status over the course of his hospitalization. Accordingly, he will be started on twice daily scheduled IV Lasix today. In addition, we will place him empirically on antimicrobials. The patient is at high risk for ICU transfer and need for intubation if no improvement in oxygenation status over the next 12 to 24 hours. 2. Morbid obesity/hypertension/neuropathy Complicates care, management, recovery and prognosis. Continue home medications as indicated. Given tenuous respiratory status, recommend n.p.o. This note was generated with [employer] dictation software. It may contain incorrect words, spelling, and punctuation that were not noted in checking the note before signing. HPI Consult Data Date of Consult: 03/28/21 HPI Narrative Reason for Consultation: Acute hypoxemic respiratory failure secondary to COVID- 19 pneumonia HPI Narrative: The patient is a 61-year-old male, with a history as outlined below, who presented to the emergency department on March 23 with worsening dyspnea and cough. The patient had tested positive for COVID-19 on March 21. Symptom onset was sometime around March 17. The patient is unvaccinated against coronavirus. On presentation to the emergency department, the patient was noted to have a low-grade fever and was tachycardic. Initial laboratory evaluation demonstrated no evidence of a leukocytosis. D-dimer was elevated at 1.9. Lactate was elevated at 2.3. CRP was elevated at 130. CTA demonstrated no evidence of pulmonary embolism. Diffuse bilateral groundglass opacities were noted. The patient was admitted to the progressive care unit, where he has been maintained on Decadron, prophylactic Lovenox and baricitinib. He has completed a treatment course of remdesivir. The patient's oxygenation status has worsened over the course of his hospitalization. He is currently documented to be overall net +3.2 L for the hospitalization. Liver and renal function are stable. At the time of my evaluation of the patient, he was being maintained on BiPAP with an FiO2 requirement of 95%. The patient did confirm to me that he would be agreeable to intubation if it were a life or situation. [facility] Medical History CHF (congestive heart failure) Home Medications furosemide 40 mg PO BID 01/24/20 [History Last Taken Unknown] gabapentin 300 mg PO BID 01/24/20 [History Last Taken Unknown] metoprolol succinate 25 mg PO BID 01/24/20 [History Last Taken 05/27/20] omeprazole magnesium 10 mg PO DAILY 01/24/20 [History Last Taken 05/27/20] hydrocodone-acetaminophen 1 tab PO BID 03/23/21 [History Last Taken Unknown] Allergy/AdvReac Type Severity Reaction Status Date / Time Sulfa (Sulfonamide Allergy Hives Verified 03/23/21 18:32 Antibiotics) Family History Other Cancer Surgical History History of throat surgery Social History Smoking Status: Never smoker ROS Constitutional Constitutional: Reports fatigue, headache(s) and malaise Eyes Eyes: Denies blurry vision or change in vision ENT HEENT: Reports headache(s) and loss taste/smell; Denies dysphagia or epistaxis Cardiovascular Cardiovascular: Reports dyspnea Respiratory/Chest Respiratory/Chest: Reports cough and dyspnea Gastrointestinal Gastrointestinal: Denies abdominal pain, diarrhea, nausea or vomiting Genitourinary Genitourinary: Denies difficulty urinating Musculoskeletal Musculoskeletal: Denies arthralgias, back pain or joint pain Integumentary Integumentary: Denies lesions, rash or skin ulcer Neurologic Neurologic: Denies abnormal gait or abnormal speech Psychiatric Psychiatric: Denies anxiety Endocrine Endocrinology: Reports fatigue Hematologic/Lymphatic Hematologic/Lymphatic: Denies easy bleeding or easy bruising Physical Exam Const alert General Appearance: ill appearing and on BiPAP Nutritional Appearance: morbidly obese HEENT normocephalic and head/scalp atraumatic Eyes PERRL, EOMs intact bilaterally and conjunctivae normal Neck supple General: trachea midline Chest inspection of chest normal Resp Effort and Inspection: tachypneic Auscultation: rales and diminished lung sounds; Negative for rhonchi or wheezes Cardio regular rate and regular rhythm GI normal to inspection, nondistended, normoactive bowel sounds Extremity no clubbing, cyanosis or edema Skin no rashes or lesions noted Neuro CN's II-XII intact bilaterally, moves all extremities and no focal motor deficits Psych cooperative Lab / Micro Data Result Diagrams: 03/28/21 05:36 03/28/21 05:36 Labs: Laboratory Results - last 24 hr 03/28/21 05:36: WBC 10.3, RBC 4.90, Hgb 13.8, Hct 44.3, MCV 90.4, MCH 28.2, MCHC 31.2 L, RDW Std Deviation 46.9 H, RDW Coeff of Connie 14.0, Plt Count 257, MPV 10.0, Immature Gran % (Auto) 2.000 H, Neut % (Auto) 83.9 H, Lymph % (Auto) 8.7 L , [place] % (Auto) 3.2, Eos % (Auto) 1.8, Baso % (Auto) 0.4, Absolute Neuts (auto) 8.6 H, Absolute Lymphs (auto) 0.89, Nucleated RBC % 0 03/28/21 05:36: Sodium 135 L, Potassium 4.4, Chloride 101, Carbon Dioxide 30.0, Anion Gap 4 L, BUN 18, Creatinine 0.66 L, Estim Creat Clear Calc 108.50, Est GFR (MDRD) Af Amer 157, Est GFR (MDRD) Non-Af 129, BUN/Creatinine Ratio 27.2 H, Glucose 94, Calcium 8.7, Total Bilirubin 0.50, AST 32, ALT 43, Alkaline Phosphatase 78, Total Protein 6.8, Albumin 2.3 L, Globulin 4.5 H, Albumin/Globulin Ratio 0.5 L Charges/Coding Visit Charges Inpatient E&M: 65041 Init Hosp L3
[2021-03-28] MEDS: Ipratropium/Albuterol Sulfate 3 ML AMPUL.NEB INHALATION ×4 (08:18→19:26)
[2021-03-28] MEDS: Potassium Chloride Oral Tablet 20 MEQ PO ×2 (09:19→17:47)
[2021-03-28] MEDS: guaiFENesin 1,200 MG Tablet 1200 MG PO ×2 (09:19→22:10)
[2021-03-28] MEDS: Pantoprazole Sodium 20 MG Tablet PO (09:19)
[2021-03-28] MEDS: Metoprolol Tartrate 25 MG Tablet PO ×2 (09:19→22:10)
[2021-03-28] MEDS: HYDROcodone Bitartrate/Apap 5/325 Tablet PO ×2 (09:19→22:10)
[2021-03-28] MEDS: Furosemide 40 MG Tablet PO (09:19)
[2021-03-28] MEDS: Enoxaparin 40 MG/0.4 ML Syringe SC ×2 (09:20→22:13)
[2021-03-28] MEDS: Gabapentin 300 MG Capsule PO ×2 (09:20→22:10)
[2021-03-28] MEDS: dexAMETHasone 4 MG Tablet 6 MG PO (10:15)
[2021-03-28] MEDS: Furosemide 40 MG/4 ML Vial IV ×2 (12:16→17:47)
[2021-03-28 16:19] LABS: M R Staph aureus DNA By PCR Negative (Negative); Probe Check PASS; Specimen Processing Control PASS
--- NOTE | 2021-03-28 21:40 | PCM.HOSP.N ---
Hospitalist Note Discussed CODE status at length with patient HOLLY, his daughter. She asked about prognosis and given his unvaccinated status with morbid obesity discussed that he is high risk and has a poor prognosis. Currently he is listed FULL CODE. He is currently maxed out on his ventilatory settings. She would like him to remain full code at this time and is willing to have him intubated. She notes his concern was being overly sedated which was also discussed and noted as long as he was not overly agitated. Family will present this evening to see the patient given his likely impending intubation potential. CODE status: Patient HOLLY is his daughter. Discussed CODE status at length and current prognosis. Following discussions about the differences in these status, requested to currently continue Full code status. Advanced Care Planning Face to Face Time: 16 minutes. Procedures Hospitalists Procedures: 90759 Advncd Care Plan 30 Min
[2021-03-28] MEDS: 0.9% Saline Lock 10 ML Syringe IV (23:25)
[2021-03-29] VITALS (25 sets, daily range): BP systolic 102–140; BP diastolic 67–83; PULSE 58–92; RESP 12–37; TEMP 36.3–37.1; O2SAT 91–98
[2021-03-29] MEDS: Ipratropium/Albuterol Sulfate 3 ML AMPUL.NEB INHALATION ×4 (07:09→20:48)
--- NOTE | 2021-03-29 07:49 | PN.HOSP_ITS ---
Subjective Subjective Patient seen no improvement in clinical condition with patient on BiPAP with FiO2 of 100%. Objective Data Objective Data Vital Signs: Vital Signs Temp Pulse Resp BP Pulse Ox 98.7 F 63 34 H 140/77 H 97 03/29/21 06:30 03/29/21 07:03 03/29/21 06:30 03/29/21 06:30 03/29/21 06:30 Oxygen Flow Rate (L/min) 60 Oxygen Delivery Method Bi-pap Weight: 138.3 kg Body Mass Index (BMI) 50.1 Intake & Output: Intake and Output for Last 24 Hours 03/27/21 03/28/21 03/29/21 23:59 23:59 23:59 Intake Total 1000 / 1000 1545 / 1595 580 / 580 Output Total 450 / 625 2325 / 3150 1200 / 1200 Balance 550 / 375 -780 / -1555 -620 / -620 Lab / Micro Data Result Diagrams: 03/29/21 07:59 03/29/21 07:59 Labs: Laboratory Results - last 24 hr 03/28/21 14:55: MRSA (PCR) Negative Micro: Microbiology 03/23/21 19:09 Blood Culture (Wb) - Anticubital Right Blood Culture - Preliminary No growth in 48 hours. 03/23/21 18:40 Blood Culture (Wb) - Anticubital Right Blood Culture - Preliminary No growth in 48 hours. 03/23/21 18:40 Nasal Secretion SARS-CoV-2 Antigen (Rapid) - Final SARS-CoV-2 (COVID 19) Physical Exam Narrative GENERAL: Patient appears ill looking, on BiPAP HEENT: Atraumatic; EYES; Anicteric, Normal Conjunctiva NECK; supple, normal thyroid, RESPIRATORY: Diminished to auscultation CARDIOVASCULAR: Regular S1 S2, GI: soft, normoactive bowel sounds, : No Renal angle tenderness; EXTREMITIES: No edema, no clubbing, MUSCULOSKELETAL: no muscle waisting NEURO: Awake; no lateralizing signs. SKIN: No Rash PSYCH; Flat affect Assessment & Plan Assessment/Plan (1) COVID-19: (2) Acute hypoxemic respiratory failure due to COVID-19: PLAN: Patient is a 61-year-old gentleman who presented with progressive shortness of breath. Patient symptoms started 6 days prior to his admission. He tested positive for COVID 1. Acute hypoxic respiratory failure ? Secondary to COVID-pneumonia. Patient presented with significant hypoxia with oxygen saturation at 73% on room air. Admitted to a monitored bed started on Decadron as well as remdesivir with consultation placed to ID on admission -03/25/2021 patient seen still remains on high flow oxygen via Airvo. Current s ettings include FiO2 of 68% with flow rate of 45%. Patient was also seen in consultation by Dr. Montemayor with ID it was deemed patient not a candidate for remdesivir at this point ? 03/26/2021. Patient remains on Airvo with no improvement in overall condition ?03/27/2021; Patient had to be placed on BiPAP during the night due to worsening hypoxia -03/28/2021; Patient oxygen requirement increasing. Patient had to be placed on BiPAP and consultation placed to pulm ?03/29/2021; Patient seen no improvement in clinical condition with patient on BiPAP with FiO2 of 100%.. Patient was seen in consultation by Dr. Jorge L Bah with pulmonary medicine his notes and recommendations reviewed. 2. Elevated D-dimer ? Secondary to COVID-19 pneumonia CTA obtained was negative for PE 3. Essential hypertension ? Patient blood pressure apparently not well controlled on admission patient is on metoprolol we will continue with plans to adjust doses blood pressure remains uncontrolled 4. Class III obesity with BMI 47.8 ? Weight loss advised 5. Hypokalemia ? Present on admission corrected per protocol with subsequent monitoring with daily BMPs ordered 6. DVT prophylaxis -Enoxaparin 7. History of prostate CA ? Patient family requested PSA blood draw was patient in the hospital Charges/Coding Visit Charges Inpatient E&M: 92524 Subs Hosp L3
[2021-03-29] MEDS: Enoxaparin 40 MG/0.4 ML Syringe SC ×2 (08:25→20:34)
[2021-03-29 08:39] LABS: Absolute Lymphocyte Count 0.79 X10^3/uL (0.83-4.51); Absolute Neutrophil Count 9.6 X10^3/uL (2.0-7.7); Basophil# 0.03 X10^3/uL; Basophil% 0.3 % (0-1); Eosinophil# 0.16 X10^3/uL; Eosinophils% 1.4 % (0-5); Hematocrit 41.5 % (40-54); Hemoglobin 13.7 g/dL (13.0-16.5); Lymphocyte # 0.79 X10^3/ul (0.83-4.51); Lymphocyte % 7.1 % (19-41); Mean Corpuscular Hgb 29.5 pg (27.0-32.0); Mean Corpuscular Volume 89.2 fL (80-94); Monocyte# 0.39 X10^3/uL; Monocyte% 3.5 % (0-10); NRBC Flagged by Analyzer 0 % (0-5); Neutrophil # 9.61 X10^3/uL (2.7-7.7); Neutrophil % 86.1 % (47-70); Platelet Count 301 K/mm3 (150-450); RBC Distribution Width CV 14.2 % (11.6-14.6); RBC Distribution Width SD 46.2 fl (35.1-43.9); Red Blood Count 4.65 M/mm3 (4.6-6.2); White Blood Count 11.2 K/mm3 (4.4-11.0)
[2021-03-29 08:53] LABS: ALB/GLOB Ratio 0.4 RATIO (0.9-2.4); AST(SGOT) 30 U/L (15-37); Alanine Aminotransfer ALT/SGPT 34 U/L (16-61); Albumin, Serum 2.2 g/dL (3.2-5.0); Alkaline Phosphatase 75 U/L (45-117); Anion Gap 4 (5-15); BUN 22 mg/dL (7-18); BUN/Creat Ratio 27.4 RATIO (10-20); Chloride 99 mmol/L (98-107); EST Glomerular Filtration Rate 104 mL/min (>60); Est Glom Filt Rate - Afr Amer 126 mL/min (>60); Estimated Creatinine Clearance 89.51 ml/min; Globulin 4.9 g/dL (2.2-4.2); Glucose 89 mg/dL (74-106); Potassium 4.8 mmol/L (3.5-5.1); Protein, Total 7.1 g/dL (6.4-8.2); Sodium Level 137 mmol/L (136-145)
[2021-03-29] MEDS: dexAMETHasone 4 MG Tablet 6 MG PO (09:10)
[2021-03-29] MEDS: Pantoprazole Sodium 20 MG Tablet PO (09:11)
[2021-03-29] MEDS: Gabapentin 300 MG Capsule PO (09:11)
[2021-03-29] MEDS: Metoprolol Tartrate 25 MG Tablet PO (09:11)
[2021-03-29] MEDS: guaiFENesin 1,200 MG Tablet 1200 MG PO (09:11)
[2021-03-29] MEDS: HYDROcodone Bitartrate/Apap 5/325 Tablet PO (09:11)
[2021-03-29] MEDS: Potassium Chloride Oral Tablet 20 MEQ PO (09:12)
[2021-03-29] MEDS: 0.9% Saline Lock 10 ML Syringe IV (12:31)
[2021-03-29 13:02] LABS: Vancomycin, Trough Level 20.8 ug/mL (5.0-15.0)
--- NOTE | 2021-03-29 13:51 | PHA.PHARE_ITS ---
Consult Pharmacy has been consulted to manage selected antiobiotic: Vancomycin Type of Consult: Follow-up Prior Doses of Antibiotics Received/Current Regimen: current dose is vanc 1500mg IV q8h Labs: Sodium 137 mmol/L (136-145) 03/29/21 07:59 Potassium 4.8 mmol/L (3.5-5.1) 03/29/21 07:59 Chloride 99 mmol/L (98-107) 03/29/21 07:59 Carbon Dioxide 34.0 mmol/L (21.0-32.0) H 03/29/21 07:59 Anion Gap 4 (5-15) L 03/29/21 07:59 BUN 22 mg/dL (7-18) H 03/29/21 07:59 Creatinine 0.80 mg/dL (0.70-1.30) 03/29/21 07:59 Est GFR (MDRD) Af Amer 126 mL/min (>60) 03/29/21 07:59 Est GFR (MDRD) Non-Af 104 mL/min (>60) 03/29/21 07:59 BUN/Creatinine Ratio 27.4 RATIO (10-20) H 03/29/21 07:59 Glucose 89 mg/dL (74-106) 03/29/21 07:59 Vancomycin Trough 20.8 ug/mL (5.0-15.0) H 03/29/21 12:26 Microbiology: Microbiology 03/23/21 19:09 Blood Culture (Wb) - Anticubital Right Blood Culture - Final No growth in 5 days. 03/23/21 18:40 Blood Culture (Wb) - Anticubital Right Blood Culture - Final No growth in 5 days. 03/23/21 18:40 Nasal Secretion SARS-CoV-2 Antigen (Rapid) - Final SARS-CoV-2 (COVID 19) Weight used for dosin.3 kg Estimated Creatinine Clearance: >100ml/min Goal Trough: 15-20 mcg/mL Pharmacy Plan for Drug Dosing: The vanc trough drawn at 12:26 (approx 8.5 hrs after the previous dose) was 20.8. This is above goal so will change dose. The current dose of 1500mg was already hung so called nurse to hold the rest (about nursing home finished) of the dose. Since the trough was only slightly above goal will just hold the remaining dose and decrease the next dose to 1250mg IV q8h to start tonight. Will recheck a trough before the 4th new dose. The patient's CrCl was calculated using an adjusted body weight of 95kg. Pharmacy Service will continue to monitor and adjust dosing as required. Follow-Up Labs: Trough Vancomycin Labs to be done on [date and time ordered]: 03/30/21 20:30
[2021-03-29 15:51] LABS: PSA, Total 0.5 ng/mL (0.0-4.0)
[2021-03-30] VITALS (44 sets, daily range): BP systolic 78–190; BP diastolic 46–134; PULSE 55–114; RESP 12–36; TEMP 36.7–37.8; O2SAT 88–97
[2021-03-30] MEDS: Dextrose 5%/0.9% NaCl 1,000 ML 60 ML IV (00:19)
--- NOTE | 2021-03-30 03:15 | CPS ---
Patient was encouraged to prone or lay on side to help oxygenate better. Patient now laying on side comfortably with saturations of 92% on 95% oxygen.
--- NOTE | 2021-03-30 06:36 | PN.CC_ITS ---
Assessment & Plan Assessment/Plan (1) Acute hypoxemic respiratory failure due to COVID-19: PLAN: RECOMMENDATIONS: 1. Proceed with intubation. 2. Once intubated, obtain arterial blood gas in 1 hour. 3. Obtain and send sputum for culture. 4. Continue assist control mode of mechanical ventilation. Wean FiO2/PEEP for saturations greater than 90%. 5. Continue Decadron to complete 10 days of therapy. 6. Continue baricitinib as ordered. 7. Continue prophylactic Lovenox. 8. Continue empiric antimicrobials. 9. Continue appropriate GI prophylaxis. IMPRESSIONS: 1. Acute hypoxemic respiratory failure secondary to COVID-19 pneumonia The patient initially presented to the hospital on March 23 with progressive COVID symptoms after testing positive on March 21. The patient is unvaccinated. CTA chest was negative for PE. The patient was initiated on Decadron, prophylactic Lovenox and baricitinib. He has completed a treatment course of remdesivir. The patient has demonstrated worsening oxygenation status over the course of his hospitalization. He has been BiPAP dependent now for multiple consecutive days without any significant meaningful improvement. Therefore, he was transitioned to the ICU and intubated on March 30. The patient will be continued on broad-spectrum antimicrobials. Sputum culture will be obtained. FiO2 and PEEP will be weaned for saturations greater than 90%. 2. Morbid obesity/hypertension/neuropathy Complicates care, management, recovery and prognosis. Continue home medications as indicated. Plan to obtain nutrition consultation for tube feed recommendatio ns. TIME: 42 minutes of critical care time, inclusive of procedures, was spent addressing the patient's acute hypoxemic respiratory failure secondary to COVID-19 pneumonia, review of all data and collaboration with the care team. Subjective Subjective The patient was seen and examined at the bedside this morning. Events from the last 24 hours have been reviewed. The patient is currently afebrile and hemodynamically stable. Despite multiple consecutive days on BiPAP, the patient has failed to improve from a respiratory perspective. He remains on 100% FiO2 with marginal oxygen saturations. Therefore, the decision was made to transfer the patient to the ICU. Per my conversation with the patient, he is still agreeable to intubation. The patient is currently documented to be overall net +2.1 L for the hospitalization. He remains on empiric antimicrobials along with Decadron, prophylactic Lovenox and baricitinib. Intubation Indication: Respiratory Failure Consent was obtained from: Patient The patient was placed in the appropriate sniffing position. Preoxygenated sedation via BiPAP was provided for a minimum of 3 minutes. The patient had continuous cardiac as well as pulse oximetry monitoring during the procedure. Procedure sedation was provided by the administration of 4 mg of Versed, 20 mg of etomidate and 100 mg of succinylcholine. Direct laryngoscopy was then performed using a number 4 MAC blade, which revealed a grade 2 view. A 7.5 mm endotracheal tube was visualized advancing between the cords to the level of 24 cm at the lip. The stylette was then removed and discarded. Tube placement was confirmed by fogging in the tube along with equal and bilateral breath sounds. Colorimetric change was visualized on the CO2 meter. The cuff was then inflated and the tube secured using a commercially available device. A good pulse ox imetry waveform was seen on the monitor throughout the procedure. A portable chest x-ray has been ordered to confirm appropriate placement. The patient tolerated the procedure well. Objective Data Objective Data The patient's most recent lab work, culture data and imaging studies have all been personally reviewed. Rapid coronavirus antigen testing was positive on March 23. Vital Signs: Vital Signs Temp Pulse Resp BP Pulse Ox 98.0 F 66 32 H 124/54 H 91 03/30/21 03:03 03/30/21 04:00 03/30/21 03:14 03/30/21 03:03 03/30/21 03:14 Oxygen Flow Rate (L/min) 60 Oxygen Delivery Method Bi-pap Weight: 138.3 kg Body Mass Index (BMI) 50.1 Intake & Output: Intake and Output for Last 24 Hours 03/28/21 03/29/21 03/30/21 23:59 23:59 23:59 Intake Total 1545 / 1595 1049.17 / 1049.17 325 / 325 Output Total 2325 / 3150 1950 / 2225 425 / 425 Balance -780 / -1555 -900.83 / -1175.83 -100 / -100 Lab / Micro Data Attestation: I reviewed the patient's lab results. Result Diagrams: 03/30/21 07:20 03/30/21 07:20 Labs: Laboratory Results - last 24 hr 03/27/21 10:24: PSA Serial Monitor Not Reportable, Total PSA 0.5 03/29/21 07:59: WBC 11.2 H, RBC 4.65, Hgb 13.7, Hct 41.5, MCV 89.2, MCH 29.5, MCHC 33.0 D, RDW Std Deviation 46.2 H, RDW Coeff of Connie 14.2, Plt Count 301, MPV 10.0, Immature Gran % (Auto) 1.600 H, Neut % (Auto) 86.1 H, Lymph % (Auto) 7.1 L, [place] % (Auto) 3.5, Eos % (Auto) 1.4, Baso % (Auto) 0.3, Absolute Neuts (auto) 9.6 H, Absolute Lymphs (auto) 0.79 L, Nucleated RBC % 0 03/29/21 07:59: Sodium 137, Potassium 4.8, Chloride 99, Carbon Dioxide 34.0 H, Anion Gap 4 L, BUN 22 H, Creatinine 0.80, Estim Creat Clear Calc 89.51, Est GFR (MDRD) Af Amer 126, Est GFR (MDRD) Non-Af 104, BUN/Creatinine Ratio 27.4 H, Glucose 89, Calcium 9.0, Total Bilirubin 0.70, AST 30, ALT 34, Alkaline Phosphatase 75, Total Protein 7.1, Albumin 2.2 L, Globulin 4.9 H, Albumin/Globulin Ratio 0.4 L 03/29/21 12:26: Vancomycin Trough 20.8 H Micro: Microbiology 03/23/21 19:09 Blood Culture (Wb) - Anticubital Right Blood Culture - Final No growth in 5 days. 03/23/21 18:40 Blood Culture (Wb) - Anticubital Right Blood Culture - Final No growth in 5 days. 03/23/21 18:40 Nasal Secretion SARS-CoV-2 Antigen (Rapid) - Final SARS-CoV-2 (COVID 19) Physical Exam Const alert General Appearance: ill appearing and on BiPAP Nutritional Appearance: morbidly obese HEENT normocephalic and head/scalp atraumatic Eyes PERRL, EOMs intact bilaterally and conjunctivae normal Neck supple General: trachea midline Chest inspection of chest normal Resp Effort and Inspection: tachypneic Auscultation: rales and diminished lung sounds; Negative for rhonchi or wheezes Cardio regular rate and regular rhythm GI normal to inspection, nondistended, normoactive bowel sounds Extremity General Extremity: edema bilateral lower extremity Skin General Skin Exam: venous stasis and dermatitis Neuro CN's II-XII intact bilaterally, moves all extremities and no focal motor deficits Psych Mood & Affect: flat affect Charges/Coding Procedures Hospitalists Procedures: 41607 Critial Care 1st Hr
[2021-03-30] MEDS: Ipratropium/Albuterol Sulfate 3 ML AMPUL.NEB INHALATION ×4 (06:59→18:47)
--- NOTE | 2021-03-30 07:20 | PCM.PN.HOSP ---
Subjective Subjective Patient was transferred to the intensive care unit due to inability to be weaned off the vent for 3 days. Case was discussed with Dr. Bah. Patient ended up being intubated and placed on the vent. Prior to patient being intubated had discussion with patient's daughter regarding the father's condition. Patient's daughter requested transfer to [facility] call was placed patient demographics faxed. Had a discussion with clinical informatics director at who declined to transfer since the decision to transfer is coming from family members. Objective Data Objective Data Vital Signs: Vital Signs Temp Pulse Resp BP Pulse Ox 98.0 F 66 32 H 124/54 H 91 03/30/21 03:03 03/30/21 04:00 03/30/21 03:14 03/30/21 03:03 03/30/21 03:14 Oxygen Flow Rate (L/min) 60 Oxygen Delivery Method Bi-pap Weight: 138.3 kg Body Mass Index (BMI) 50.1 Intake & Output: Intake and Output for Last 24 Hours 03/28/21 03/29/21 03/30/21 23:59 23:59 23:59 Intake Total 1545 / 1595 1049.17 / 1049.17 325 / 325 Output Total 2325 / 3150 1950 / 2225 425 / 425 Balance -780 / -1555 -900.83 / -1175.83 -100 / -100 Lab / Micro Data Result Diagrams: 03/30/21 07:20 03/30/21 07:20 Labs: Laboratory Results - last 24 hr 03/27/21 10:24: PSA Serial Monitor Not Reportable, Total PSA 0.5 03/29/21 07:59: WBC 11.2 H, RBC 4.65, Hgb 13.7, Hct 41.5, MCV 89.2, MCH 29.5, MCHC 33.0 D, RDW Std Deviation 46.2 H, RDW Coeff of Connie 14.2, Plt Count 301, MPV 10.0, Immature Gran % (Auto) 1.600 H, Neut % (Auto) 86.1 H, Lymph % (Auto) 7.1 L, [place] % (Auto) 3.5, Eos % (Auto) 1.4, Baso % (Auto) 0.3, Absolute Neuts (auto) 9.6 H, Absolute Lymphs (auto) 0.79 L, Nucleated RBC % 0 01/15/22 07:59: Sodium 137, Potassium 4.8, Chloride 99, Carbon Dioxide 34.0 H, Anion Gap 4 L, BUN 22 H, Creatinine 0.80, Estim Creat Clear Calc 89.51, Est GFR (MDRD) Af Amer 126, Est GFR (MDRD) Non-Af 104, BUN/Creatinine Ratio 27.4 H, Glucose 89, Calcium 9.0, Total Bilirubin 0.70, AST 30, ALT 34, Alkaline Phosphatase 75, Total Protein 7.1, Albumin 2.2 L, Globulin 4.9 H, Albumin/Globulin Ratio 0.4 L 03/29/21 12:26: Vancomycin Trough 20.8 H Micro: Microbiology 03/23/21 19:09 Blood Culture (Wb) - Anticubital Right Blood Culture - Final No growth in 5 days. 03/23/21 18:40 Blood Culture (Wb) - Anticubital Right Blood Culture - Final No growth in 5 days. 03/23/21 18:40 Nasal Secretion SARS-CoV-2 Antigen (Rapid) - Final SARS-CoV-2 (COVID 19) Physical Exam Narrative GENERAL: Patient appears ill looking, on BiPAP HEENT: Atraumatic; EYES; Anicteric, Normal Conjunctiva NECK; supple, normal thyroid, RESPIRATORY: Diminished to auscultation CARDIOVASCULAR: Regular S1 S2, GI: soft, normoactive bowel sounds, : No Renal angle tenderness; EXTREMITIES: No edema, no clubbing, MUSCULOSKELETAL: no muscle waisting NEURO: Awake; no lateralizing signs. SKIN: No Rash PSYCH; Flat affect Assessment & Plan Assessment/Plan (1) COVID-19: (2) Acute hypoxemic respiratory failure due to COVID-19: PLAN: Patient is a 61-year-old gentleman who presented with progressive shortness of breath. Patient symptoms started 6 days prior to his admission. He tested positive for COVID 1. Acute hypoxic respiratory failure ? Secondary to COVID-pneumonia. Patient presented with significant hypoxia with oxygen saturation at 73% on room air. Admitted to a monitored bed started on Decadron as well as remdesivir with consultation placed to ID on admission -03/25/2021 patient seen still remains on high flow oxygen via Airvo. Current settings include FiO2 of 68% with flow rate of 45%. Patient was also seen in consultation by Dr. Montemayor with ID it was deemed patient not a candidate for remdesivir at this point ? 03/26/2021. Patient remains on Airvo with no improvement in overall condition ?03/27/2021; Patient had to be placed on BiPAP during the night due to worsening hypoxia -03/28/2021; Patient oxygen requirement increasing. Patient had to be placed on BiPAP and consultation placed to pulm ?03/29/2021; Patient seen no improvement in clinical condition with patient on BiPAP with FiO2 of 100%.. Patient was seen in consultation by Dr. Jorge L Bah with pulmonary medicine his notes and recommendations reviewed. -03/30/2021; Patient was transferred to the intensive care unit due to inability to be weaned off the vent for 3 days. Case was discussed with Dr. Bah. Patient ended up being intubated and placed on the vent. Prior to patient being intubated had discussion with patient's daughter regarding the father's condition. Patient's daughter requested transfer to [facility] call was placed patient demographics faxed. Had a discussion with clinical informatics director at who declined to transfer since the decision to transfer is coming from family members. 2. Elevated D-dimer ? Secondary to COVID-19 pneumonia CTA obtained was negative for PE 3. Essential hypertension ? Patient blood pressure apparently not well controlled on admission patient is on metoprolol we will continue with plans to adjust doses blood pressure remains uncontrolled 4. Class III obesity with BMI 47.8 ? Weight loss advised 5. Hypokalemia ? Present on admission corrected per protocol with subsequent monitoring with daily BMPs ordered 6. DVT prophylaxis -Enoxaparin 7. History of prostate CA ? Patient family requested PSA blood draw was patient in the hospital. PSA came back at 0.5 (range 0.0-4.0) Charges/Coding Visit Charges Inpatient E&M: 89067 Subs Hosp L3
[2021-03-30 07:37] LABS: Absolute Lymphocyte Count 1.12 X10^3/uL (0.83-4.51); Absolute Neutrophil Count 12.1 X10^3/uL (2.0-7.7); Basophil# 0.03 X10^3/uL; Basophil% 0.2 % (0-1); Eosinophil# 0.23 X10^3/uL; Eosinophils% 1.6 % (0-5); Hematocrit 40.5 % (40-54); Hemoglobin 13.5 g/dL (13.0-16.5); Lymphocyte # 1.12 X10^3/ul (0.83-4.51); Lymphocyte % 7.9 % (19-41); Mean Corp Hgb Conc 33.3 g/dL (32-36); Mean Corpuscular Volume 87.1 fL (80-94); Mean Platelet Vol. 9.5 fl (6.2-12.0); Monocyte% 3.5 % (0-10); NRBC Flagged by Analyzer 0 % (0-5); Neutrophil # 12.07 X10^3/uL (2.7-7.7); Neutrophil % 85.3 % (47-70); Platelet Count 315 K/mm3 (150-450); RBC Distribution Width SD 44.9 fl (35.1-43.9); Red Blood Count 4.65 M/mm3 (4.6-6.2); White Blood Count 14.2 K/mm3 (4.4-11.0)
[2021-03-30 08:01] LABS: ALB/GLOB Ratio 0.5 RATIO (0.9-2.4); AST(SGOT) 30 U/L (15-37); Alanine Aminotransfer ALT/SGPT 27 U/L (16-61); Albumin, Serum 2.1 g/dL (3.2-5.0); Alkaline Phosphatase 77 U/L (45-117); Anion Gap 7 (5-15); BUN 19 mg/dL (7-18); BUN/Creat Ratio 31.8 RATIO (10-20); Calcium,Total 8.5 mg/dL (8.5-10.1); Chloride 103 mmol/L (98-107); EST Glomerular Filtration Rate 146 mL/min (>60); Est Glom Filt Rate - Afr Amer 176 mL/min (>60); Estimated Creatinine Clearance 119.35 ml/min; Globulin 4.6 g/dL (2.2-4.2); Glucose 94 mg/dL (74-106); Potassium 4.1 mmol/L (3.5-5.1); Protein, Total 6.7 g/dL (6.4-8.2); Sodium Level 138 mmol/L (136-145)
[2021-03-30] MEDS: Enoxaparin 40 MG/0.4 ML Syringe SC ×2 (08:04→23:42)
[2021-03-30] MEDS: Midazolam 2 MG/2 ML Syringe 4 MG IV (08:56)
[2021-03-30] MEDS: Etomidate 20 MG/10 ML Vial IV (08:57)
[2021-03-30] MEDS: Succinylcholine Chloride 200 MG/10 ML Vial 100 MG IV ×3 (08:59→09:30)
[2021-03-30] MEDS: Propofol 10MG/Ml 1,000 MG/100 ML Bottle 16.6 MG CONT INF (09:00)
--- NOTE | 2021-03-30 09:09 | RAD_ITS ---
STUDY: X-RAY CHEST REASON FOR EXAM: Male, 61 years old. post intubation, ETT and OG placement TECHNIQUE: Single AP portable view of the chest. COMPARISON: None. FINDINGS: Endotracheal tube with the tip approximately 3 cm above the frankie. Nasogastric tube with the tip below the diaphragm. Alveolar opacity throughout both lungs consistent with bilateral pneumonia, pulmonary edema, or ARDS. There is no demonstrated pleural abnormality. There is moderate cardiac enlargement. Normal mediastinum and yuri. Normal visualized pulmonary arteries. Normal visualized aortic arch and descending thoracic aorta. Normal visualized thoracic spine. Normal visualized ribs, clavicles, and shoulders. There is no demonstrated abnormality of the visualized soft tissue structures of the upper abdomen. RAD/Chest 1 View (Portable) IMPRESSION: 1. Endotracheal tube with the tip above the frankie. 2. Nasogastric tube with the tip below the diaphragm. 3. Bilateral pneumonia, pulmonary edema, or ARDS per Electronically Signed: Miles Mahmood MD at 9:47 EST Tel , Service support ,
[2021-03-30 09:12] LABS: CPK Total, Creatine Kinase 36 U/L (39-308); Triglycerides 91 mg/dL
--- NOTE | 2021-03-30 09:19 | EKG12_ITS ---
Test Reason : RHYTHM CHANGE Blood Pressure : / mmHG Vent. Rate : 099 BPM Atrial Rate : 100 BPM P-R Int : 000 ms QRS Dur : 144 ms QT Int : 434 ms P-R-T Axes : 000 074 -06 degrees QTc Int : 556 ms Wide QRS rhythm : Consider Sinus Rhythm with first degree AV block Right bundle branch block T wave abnormality, consider inferior ischemia vs IVCD effect Abnormal ECG Confirmed by FRANCIS HIGH, CAITLYN ([id number]), mapping editor ROBERTO CARLOS JUAREZ ([id number]) on 04/03/2021 9:44:13 AM Referred By: BONG Confirmed By:CAITLYN BLANCO MD
--- NOTE | 2021-03-30 09:20 | EKG12_ITS ---
Test Reason : RHYTHM CHANGE Blood Pressure : / mmHG Vent. Rate : 110 BPM Atrial Rate : 110 BPM P-R Int : 000 ms QRS Dur : 140 ms QT Int : 416 ms P-R-T Axes : 000 082 -04 degrees QTc Int : 562 ms Wide QRS rhythm : Consider Sinus Tachycardia with first degree AV block with occasional PVC's Right bundle branch block T wave abnormality, consider inferior ischemia vs IVCD effect Abnormal ECG Confirmed by FRANCIS HIGH, CAITLYN ([id number]), editor & co founder ROBERTO CARLOS JUAREZ ([id number]) on 04/03/2021 9:44:21 AM Referred By: BONG Confirmed By:CAITLYN BLANCO MD
--- NOTE | 2021-03-30 10:09 | NURSING ---
0830 Dr Bah spoke with patient about intubation, patient agreed to intubation. Dr. Bah, RT, Gary Gates RN and this RN at bedside for intubation. 4mg versed IV given at 0856 20mg etomidate IV given at 0857 100mg succinylcholine IV given at 0859 Successful intubation at 0859, ETT 7.5, 24 at the lip. Positive color change. Equal b/l breath sounds heard. Vitals stable. Due to patient continual coughing on vent with decrease in 02 saturations to 70%s, an additional 100mg succinylcholine IV given at 0911 and then again at 0930. See MAR.
[2021-03-30] MEDS: Propofol 10MG/Ml 1,000 MG/100 ML Bottle 41.5 MG CONT INF (10:35)
[2021-03-30 11:01] LABS: Allen Test Positive; Base Excess 4 mmol/L (-2 to +2); Bicarbonate 31.8 mmol/L (22-26); Blood Gas Specimen Type ART; FI02 100; Mode AC; O2 Delivery Device Adult Vent; PEEP 14; PO2 109 mmHG (75-100); RR 16; SITE L Radial; SO2 97 % (95-99); Total Carbon Dioxide 34 mmol/L; Vt 450; pCO2 73.4 mmHg (35-45); pH 7.24 (7.35-7.45)
[2021-03-30] MEDS: Chlorhexidine 15 ML PO ×2 (12:20→21:30)
[2021-03-30] MEDS: dexAMETHasone 4 MG Tablet 6 MG PO (12:20)
[2021-03-30] MEDS: Potassium Chloride Oral Soln 20 MEQ/15 ML UDC GT ×2 (12:26→18:21)
[2021-03-30] MEDS: Propofol 10MG/Ml 1,000 MG/100 ML Bottle 33.2 MG CONT INF ×5 (13:38→22:15)
--- NOTE | 2021-03-30 13:58 | NURSING ---
Patients daughter Shanel called in and requested to picker box operator patients cellphone, ring and glasses. Items gathered and given to daughter.
[2021-03-31] VITALS (35 sets, daily range): BP systolic 94–125; BP diastolic 52–69; PULSE 43–85; RESP 18; TEMP 36–37; O2SAT 89–98
[2021-03-31] MEDS: Propofol 10MG/Ml 1,000 MG/100 ML Bottle 33.2 MG CONT INF ×9 (01:16→22:59)
[2021-03-31 04:46] LABS: Absolute Lymphocyte Count 0.42 X10^3/uL (0.83-4.51); Basophil# 0.02 X10^3/uL; Basophil% 0.3 % (0-1); Eosinophil# 0.08 X10^3/uL; Eosinophils% 1.2 % (0-5); Hematocrit 39.2 % (40-54); Hemoglobin 12.1 g/dL (13.0-16.5); Lymphocyte # 0.42 X10^3/ul (0.83-4.51); Lymphocyte % 6.2 % (19-41); Mean Corp Hgb Conc 30.9 g/dL (32-36); Mean Corpuscular Hgb 28.7 pg (27.0-32.0); Mean Corpuscular Volume 93.1 fL (80-94); Monocyte# 0.18 X10^3/uL; Monocyte% 2.6 % (0-10); NRBC Flagged by Analyzer 0 % (0-5); Neutrophil # 5.96 X10^3/uL (2.7-7.7); Neutrophil % 87.6 % (47-70); POSITIVE DIFFERENTIAL YES; Platelet Count 270 K/mm3 (150-450); RBC Distribution Width CV 13.8 % (11.6-14.6); RBC Distribution Width SD 47.2 fl (35.1-43.9); Red Blood Count 4.21 M/mm3 (4.6-6.2); White Blood Count 6.8 K/mm3 (4.4-11.0)
[2021-03-31 04:56] LABS: Differential Indicated SCAN CRITERIA MET
[2021-03-31 06:22] LABS: ALB/GLOB Ratio 0.5 RATIO (0.9-2.4); AST(SGOT) 18 U/L (15-37); Alanine Aminotransfer ALT/SGPT 26 U/L (16-61); Alkaline Phosphatase 64 U/L (45-117); Anion Gap 4 (5-15); BUN 18 mg/dL (7-18); BUN/Creat Ratio 30.2 RATIO (10-20); Calcium,Total 8.6 mg/dL (8.5-10.1); Chloride 103 mmol/L (98-107); EST Glomerular Filtration Rate 146 mL/min (>60); Est Glom Filt Rate - Afr Amer 177 mL/min (>60); Estimated Creatinine Clearance 119.35 ml/min; Globulin 4.4 g/dL (2.2-4.2); Glucose 101 mg/dL (74-106); Potassium 4.9 mmol/L (3.5-5.1); Protein, Total 6.4 g/dL (6.4-8.2); Sodium Level 136 mmol/L (136-145)
--- NOTE | 2021-03-31 07:14 | PN.CC_ITS ---
Assessment & Plan Assessment/Plan (1) Acute hypoxemic respiratory failure due to COVID-19: PLAN: RECOMMENDATIONS: 1. Continue paralyzation for another 24 hours 2. Continue empiric antibiotics pending culture data 3. Transition guaifenesin to liquid 4. Continue assist control mode of mechanical ventilation. Wean FiO2/PEEP for saturations greater than 90%. 5. Continue Decadron (04/10/2021) and baricitinib (04/07/2021) 6. Challenge with diuretics 7. Continue prophylactic Lovenox. 8. Continue empiric antimicrobials. 9. Continue appropriate GI prophylaxis. IMPRESSIONS: 1. Acute hypoxemic respiratory failure secondary to COVID-19 pneumonia The patient initially presented to the hospital on March 23 with progre ssive COVID symptoms after testing positive on March 21. The patient is unvaccinated. CTA chest was negative for PE. The patient was initiated on Decadron, prophylactic Lovenox and baricitinib. He has completed a treatment course of remdesivir. The patient has demonstrated worsening oxygenation status over the course of his hospitalization requiring intubation on March 30. The patient will be continued on broad-spectrum antimicrobials. Sputum culture will be obtained. FiO2 and PEEP will be weaned for saturations greater than 90%. We will continue with paralytics for another 24 hours. Challenge with diuretics. Given secretions, will transition mucolytic to liquid 2. Morbid obesity/hypertension/neuropathy Complicates care, management, recovery and prognosis. Continue home medications as indicated. Plan to obtain nutrition consultation for tube feed recommendations. TIME: 37 minutes of critical care time, inclusive of procedures, was spent addressing the patient's acute hypoxemic respiratory failure secondary to COVID- 19 pneumonia, review of all data and collaboration with the care team. Subjective Subjective Patient did okay overnight. Patient did have to be paralyzed secondary to vent dyssynchrony yesterday. Nursing and respiratory have reported moderate secretions. Patient has had highly variable oxygen requirements overnight. No bowel movements reported. Objective Data Objective Data Vital Signs: Vital Signs Temp Pulse Resp BP Pulse Ox 36.8 C 45 L 18 96/52 L 92 03/31/21 00:00 03/31/21 07:00 03/31/21 07:00 03/31/21 07:00 03/31/21 07:00 Oxygen Flow Rate (L/min) 60 Oxygen Delivery Method Mechanical Ventilator Weight: 137.393 kg Body Mass Index (BMI) 50.1 Intake & Output: Intake and Output for Last 24 Hours 03/29/21 03/30/21 03/31/21 23:59 23:59 23:59 Intake Total 1049.17 / 1049.17 2435.82 / 2509.82 576.90 / 576.90 Output Total 1950 / 2225 1175 / 1175 250 / 250 Balance -900.83 / -1175.83 1260.82 / 1334.82 326.90 / 326.90 Lab / Micro Data Result Diagrams: 03/31/21 04:30 03/31/21 04:30 Labs: Laboratory Results - last 24 hr 03/30/21 07:20: WBC 14.2 H, RBC 4.65, Hgb 13.5, Hct 40.5, MCV 87.1, MCH 29.0, MCHC 33.3, RDW Std Deviation 44.9 H, RDW Coeff of Connie 14.0, Plt Count 315, MPV 9.5, Immature Gran % (Auto) 1.500 H, Neut % (Auto) 85.3 H, Lymph % (Auto) 7.9 L, [place] % (Auto) 3.5, Eos % (Auto) 1.6, Baso % (Auto) 0.2, Absolute Neuts (auto) 12.1 H, Absolute Lymphs (auto) 1.12, Nucleated RBC % 0 03/30/21 07:20: Sodium 138, Potassium 4.1, Chloride 103, Carbon Dioxide 28.0, Anion Gap 7, BUN 19 H, Creatinine 0.60 L, Estim Creat Clear Calc 119.35, Est GFR (MDRD) Af Amer 176, Est GFR (MDRD) Non-Af 146, BUN/Creatinine Ratio 31.8 H, Glucose 94, Calcium 8.5, Total Bilirubin 0.70, AST 30, ALT 27, Alkaline Phosphatase 77, Total Protein 6.7, Albumin 2.1 L, Globulin 4.6 H, Albumin/Globulin Ratio 0.5 L 03/30/21 07:20: Total Creatine Kinase 36 L, Triglycerides 91 03/31/21 04:30: WBC 6.8, RBC 4.21 L, Hgb 12.1 L, Hct 39.2 L, MCV 93.1 D, MCH 28.7, MCHC 30.9 L D, RDW Std Deviation 47.2 H, RDW Coeff of Connie 13.8, Plt Count 270, MPV 10.0, Immature Gran % (Auto) 2.100 H, Neut % (Auto) 87.6 H, Lymph % (Auto) 6.2 L, [place] % (Auto) 2.6, Eos % (Auto) 1.2, Baso % (Auto) 0.3, Absolute Neuts (auto) 6.0, Absolute Lymphs (auto) 0.42 L, Nucleated RBC % 0 03/31/21 04:30: Sodium 136, Potassium 4.9, Chloride 103, Carbon Dioxide 29.0, Anion Gap 4 L, BUN 18, Creatinine 0.60 L, Estim Creat Clear Calc 119.35, Est GFR (MDRD) Af Amer 177, Est GFR (MDRD) Non-Af 146, BUN/Creatinine Ratio 30.2 H, Glucose 101, Calcium 8.6, Total Bilirubin 0.60, AST 18, ALT 26, Alkaline Phosphatase 64, Total Protein 6.4, Albumin 2.0 L, Globulin 4.4 H, Albumin/Globulin Ratio 0.5 L Micro: Microbiology 03/23/21 19:09 Blood Culture (Wb) - Anticubital Right Blood Culture - Final No growth in 5 days. 03/23/21 18:40 Blood Culture (Wb) - Anticubital Right Blood Culture - Final No growth in 5 days. 03/23/21 18:40 Nasal Secretion SARS-CoV-2 Antigen (Rapid) - Final SARS-CoV-2 (COVID 19) ABG Data ABG results: ABG 03/30/21 10:55 Specimen Type ART Sample Site L Radial pH 7.24 L Bicarbonate Actual 31.8 H Total CO2 34 Base Excess 4 H O2 Saturation 97 O2 % 100 ABG pCO2 73.4 H* ABG pO2 109 H Shashi Test Positive Respiration Rate 16 O2 Delivery Device Adult Vent Vent Mode AC Tidal Volume 450 POC PEEP 14 Crit Call To/Read Back Yes Blood Gas Notified Whom brown Radiography Diagnostic Testing: Radiology Impression Chest X-Ray 03/30/21 09:09 IMPRESSION: 1. Endotracheal tube with the tip above the frankie. 2. Nasogastric tube with the tip below the diaphragm. 3. Bilateral pneumonia, pulmonary edema, or ARDS per Electronically Signed: Miles Mahmood MD at 9:47 EST Tel , Service support , Physical Exam Const Constitutional Narrative: Currently paralyzed General Appearance: ill appearing, intubated and patient mechanically ventilated Nutritional Appearance: morbidly obese HEENT normocephalic and head/scalp atraumatic Eyes PERRL, EOMs intact bilaterally and conjunctivae normal Neck supple General: trachea midline Chest inspection of chest normal Chest: symmetrical chest wall rise; Negative for crepitus Resp Effort and Inspection: tachypneic Auscultation: rales and diminished lung sounds; Negative for rhonchi or wheezes Cardio regular rate and regular rhythm GI normal to inspection, nondistended, normoactive bowel sounds Extremity General Extremity: edema bilateral lower extremity Skin General Skin Exam: venous stasis and dermatitis Neuro Neuro Narrative: Currently paralyzed Psych Mood & Affect: flat affect Charges/Coding Procedures Hospitalists Procedures: 57783 Critial Care 1st Hr
[2021-03-31] MEDS: Ipratropium/Albuterol Sulfate 3 ML AMPUL.NEB INHALATION ×4 (07:28→19:19)
[2021-03-31] MEDS: CHLORHEXIDINE GLUC 2% CLOTH 1 EACH TOWELETTE TOPICAL (08:00)
[2021-03-31] MEDS: guaiFENesin 10 ML UDC (200MG/10ML) GT ×3 (08:26→22:32)
[2021-03-31] MEDS: Furosemide 40 MG/4 ML Vial IV (08:26)
[2021-03-31] MEDS: Enoxaparin 40 MG/0.4 ML Syringe SC ×2 (08:26→22:32)
[2021-03-31] MEDS: dexAMETHasone 4 MG Tablet 6 MG GT (08:28)
--- NOTE | 2021-03-31 09:55 | PN.HOSP_ITS ---
Subjective Subjective Intubated and sedated Objective Data Objective Data Vital Signs: Vital Signs Temp Pulse Resp BP Pulse Ox 98.3 F 43 L 18 96/52 L 93 03/31/21 00:00 03/31/21 07:38 03/31/21 07:28 03/31/21 07:00 03/31/21 07:28 Oxygen Flow Rate (L/min) 60 Oxygen Delivery Method Mechanical Ventilator Weight: 302 lb 14.4 oz Body Mass Index (BMI) 50.1 Intake & Output: Intake and Output for Last 24 Hours 03/30/21 03/31/21 04/01/21 03:59 03:59 03:59 Intake Total 1274.17 / 1274.17 2446.34 / 2520.34 291.38 / 291.38 Output Total 1400 / 1400 900 / 900 250 / 250 Balance -125.83 / -125.83 1546.34 / 1620.34 41.38 / 41.38 Lab / Micro Data Result Diagrams: 03/31/21 04:30 03/31/21 04:30 Labs: Laboratory Results - last 24 hr 03/31/21 04:30: WBC 6.8, RBC 4.21 L, Hgb 12.1 L, Hct 39.2 L, MCV 93.1 D, MCH 28.7, MCHC 30.9 L D, RDW Std Deviation 47.2 H, RDW Coeff of Connie 13.8, Plt Count 270, MPV 10.0, Immature Gran % (Auto) 2.100 H, Neut % (Auto) 87.6 H, Lymph % (Auto) 6.2 L, [place] % (Auto) 2.6, Eos % (Auto) 1.2, Baso % (Auto) 0.3, Absolute Neuts (auto) 6.0, Absolute Lymphs (auto) 0.42 L, Nucleated RBC % 0 03/31/21 04:30: Sodium 136, Potassium 4.9, Chloride 103, Carbon Dioxide 29.0, Anion Gap 4 L, BUN 18, Creatinine 0.60 L, Estim Creat Clear Calc 119.35, Est GFR (MDRD) Af Amer 177, Est GFR (MDRD) Non-Af 146, BUN/Creatinine Ratio 30.2 H, Glucose 101, Calcium 8.6, Total Bilirubin 0.60, AST 18, ALT 26, Alkaline Phosphatase 64, Total Protein 6.4, Albumin 2.0 L, Globulin 4.4 H, Albumin/Globulin Ratio 0.5 L Micro: Microbiology 03/23/21 19:09 Blood Culture (Wb) - Anticubital Right Blood Culture - Final No growth in 5 days. 03/23/21 18:40 Blood Culture (Wb) - Anticubital Right Blood Culture - Final No growth in 5 days. 03/23/21 18:40 Nasal Secretion SARS-CoV-2 Antigen (Rapid) - Final SARS-CoV-2 (COVID 19) ABG Data ABG results: ABG 03/30/21 10:55 Specimen Type ART Sample Site L Radial pH 7.24 L Bicarbonate Actual 31.8 H Total CO2 34 Base Excess 4 H O2 Saturation 97 O2 % 100 ABG pCO2 73.4 H* ABG pO2 109 H Shashi Test Positive Respiration Rate 16 O2 Delivery Device Adult Vent Vent Mode AC Tidal Volume 450 POC PEEP 14 Crit Call To/Read Back Yes Blood Gas Notified Whom brown Physical Exam Const General Appearance: intubated and patient mechanically ventilated HEENT moist oral mucous membranes Head and Scalp: normocephalic Eyes PERRL and conjunctivae normal Neck supple and no JVD Resp Effort and Inspection: mechanically ventilated Auscultation: diminished lung sounds; Negative for rales, rhonchi or wheezes Cardio regular rate, regular rhythm, S1 normal heart sound, S2 normal heart sound and no gallops GI soft to palpation and non-distended; Negative for hepatosplenomegaly Extremity General Extremity: edema Skin no rashes or lesions noted Neuro Sensorium / Orientation: sedated on vent Psych Appearance: intubated Assessment & Plan Assessment/Plan (1) COVID-19: (2) Acute hypoxemic respiratory failure due to COVID-19: PLAN: 1. Acute hypoxic respiratory failure due to COVID-19 pneumonia ? CTA of the chest was negative for PE -03/25/2021 patient seen still remains on high flow oxygen via Airvo. Current settings include FiO2 of 68% with flow rate of 45%. Patient was also seen in consultation by Dr. Montemayor with ID it was deemed patient not a candidate for remdesivir at this point ? 03/26/2021. Patient remains on Airvo with no improvement in overall condition ?03/27/2021; Patient had to be placed on BiPAP during the night due to worsening hypoxia -03/28/2021; Patient oxygen requirement increasing. Patient had to be placed on BiPAP and consultation placed to pulm ?03/29/2021; Patient seen no improvement in clinical condition with patient on BiPAP with FiO2 of 100%.. Patient was seen in consultation by Dr. Jorge L Bah with pulmonary medicine his notes and recommendations reviewed. -03/30/2021; Patient was transferred to the intensive care unit due to inability to be weaned off the vent for 3 days. Case was discussed with Dr. Bah. Patient ended up being intubated and placed on the vent. Prior to patient being intubated had discussion with patient's daughter regarding the father's condition. Patient's daughter requested transfer to [facility] call was placed patient demographics faxed. Had a discussion with coal mill operator at who declined to transfer since the decision to transfer is coming from family members. ? 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 Continue with baricitinib and set pain 2. Essential hypertension ? Patient blood pressure apparently not well controlled on admission patient is on metoprolol we will continue with plans to adjust doses blood pressure remains uncontrolled 3. Class III obesity with BMI 47.8 ? Weight loss advised 4. Hypokalemia ? Present on admission corrected per protocol with subsequent monitoring with daily BMPs ordered 5. DVT prophylaxis -Enoxaparin 6. History of prostate CA ? Patient family requested PSA blood draw was patient in the hospital. PSA came back at 0.5 (range 0.0-4.0) DVT: Lovenox Charges/Coding Visit Charges Inpatient E&M: 51656 Subs Hosp L2
[2021-03-31] MEDS: Chlorhexidine 15 ML PO ×2 (10:57→22:32)
[2021-03-31] MEDS: Potassium Chloride Oral Soln 20 MEQ/15 ML UDC GT ×2 (12:00→18:09)
--- NOTE | 2021-03-31 13:16 | CASEMGMT ---
Social Work SW participated in ICU rounds this morning. SW called daughter to offer support, let her know SW is available for support as needed. Daughter states understanding. SW will continue to follow. GIGI Peres
--- NOTE | 2021-03-31 13:44 | PCM.PN.ID ---
Physical Exam Narrative On vent, paralytic Const no apparent distress Resp Effort and Inspection: mechanically ventilated Auscultation: diminished lung sounds Cardio regular rate and regular rhythm GI soft to palpation and non-tender Skin no rashes or lesions noted ID ID: Route of nutrition/ use of supplements: [] Nutritional Intake: [] IV Site: [] Morales Catheter: [] Assessment & Plan Assessment/Plan (1) COVID-19: PLAN: Sx started 03/17/21. Unvaccinated. Isolate until 04/06/21. Recommend vaccine in one month. On dex, baricitinib. Completed remdesivir. Now on vent, paralytic. On cefepime since 03/28. Sputum from 03/30 neg so far. Will follow (2) Acute hypoxemic respiratory failure due to COVID-19:
--- NOTE | 2021-03-31 14:15 | RAD_ITS ---
STUDY: X-RAY CHEST REASON FOR EXAM: Male, 61 years old. Hypoxia TECHNIQUE: Single AP portable view of the chest. COMPARISON: Comparison is made with prior study dated 03/30/2021. FINDINGS: The endotracheal tube is in situ. The tip is at 3.3 cm proximal to the frankie. An orogastric tube is seen with the tip in the distal portion of the stomach. A right-sided PICC line catheter is in situ with the tip at the junction of the superior vena cava and right atrium. Persistent bilateral pulmonary infiltrates although there has been a moderate degree of improved aeration. Residual changes persist. There is no demonstrated pleural abnormality. There is mild cardiac enlargement. Normal mediastinum and yuri. Normal visualized pulmonary arteries. Normal visualized aortic arch and descending thoracic aorta. Normal visualized thoracic spine. Normal visualized ribs, clavicles, and shoulders. There is no demonstrated abnormality of the visualized soft tissue structures of the upper abdomen. RAD/Chest 1 View (Portable) IMPRESSION: Persistent bilateral infiltrates although there has been a moderate degree of improved aeration as compared to prior study. All the support tubes are in good position. Electronically Signed: Logan Anderson MD at 14:35 EST , Service support ,
[2021-04-01] VITALS (38 sets, daily range): BP systolic 99–143; BP diastolic 51–72; PULSE 51–83; RESP 16–32; TEMP 36.3–37.2; O2SAT 90–97
[2021-04-01] MEDS: guaiFENesin 10 ML UDC (200MG/10ML) GT ×6 (00:07→20:02)
[2021-04-01] MEDS: CHLORHEXIDINE GLUC 2% CLOTH 1 EACH TOWELETTE TOPICAL ×2 (01:55→14:47)
[2021-04-01] MEDS: Propofol 10MG/Ml 1,000 MG/100 ML Bottle 33.2 MG CONT INF ×2 (01:55→04:52)
[2021-04-01 04:56] LABS: Absolute Lymphocyte Count 0.59 X10^3/uL (0.83-4.51); Absolute Neutrophil Count 5.9 X10^3/uL (2.0-7.7); Basophil# 0.03 X10^3/uL; Basophil% 0.4 % (0-1); Eosinophil# 0.12 X10^3/uL; Eosinophils% 1.7 % (0-5); Hematocrit 35.7 % (40-54); Hemoglobin 11.4 g/dL (13.0-16.5); Lymphocyte # 0.59 X10^3/ul (0.83-4.51); Lymphocyte % 8.1 % (19-41); Mean Corp Hgb Conc 31.9 g/dL (32-36); Mean Corpuscular Hgb 29.1 pg (27.0-32.0); Mean Corpuscular Volume 91.1 fL (80-94); Mean Platelet Vol. 10.1 fl (6.2-12.0); Monocyte# 0.32 X10^3/uL; Monocyte% 4.4 % (0-10); NRBC Flagged by Analyzer 0 % (0-5); Neutrophil % 81.1 % (47-70); POSITIVE DIFFERENTIAL YES; Platelet Count 257 K/mm3 (150-450); RBC Distribution Width CV 13.5 % (11.6-14.6); RBC Distribution Width SD 45.2 fl (35.1-43.9); Red Blood Count 3.92 M/mm3 (4.6-6.2); White Blood Count 7.3 K/mm3 (4.4-11.0)
[2021-04-01 05:00] LABS: Differential Indicated SCAN CRITERIA MET
[2021-04-01] MEDS: TITRATION PARAMETER CHANGE 1 EACH IV (05:25)
[2021-04-01 05:49] LABS: Anion Gap 5 (5-15); BUN 18 mg/dL (7-18); BUN/Creat Ratio 37.3 RATIO (10-20); Calcium,Total 7.6 mg/dL (8.5-10.1); Chloride 98 mmol/L (98-107); Creatinine, Serum 0.48 mg/dL (0.70-1.30); EST Glomerular Filtration Rate 187 mL/min (>60); Est Glom Filt Rate - Afr Amer 226 mL/min (>60); Estimated Creatinine Clearance 149.18 ml/min; Glucose 78 mg/dL (74-106); Potassium 4.4 mmol/L (3.5-5.1); Sodium Level 133 mmol/L (136-145)
[2021-04-01 06:01] LABS: Differential Comment SCANNED
[2021-04-01] MEDS: Ipratropium/Albuterol Sulfate 3 ML AMPUL.NEB INHALATION ×4 (06:37→19:33)
--- NOTE | 2021-04-01 07:01 | PN.CC_ITS ---
Assessment & Plan Assessment/Plan (1) Acute hypoxemic respiratory failure due to COVID-19: PLAN: RECOMMENDATIONS: 1. Discontinue paralyzation today. Obtain ABG 1 hour after resolution 2. Continue empiric antibiotics pending culture data 3. Continue aggressive pulmonary toileting with guaifenesin and inline suctioning 4. Continue assist control mode of mechanical ventilation. Wean FiO2/PEEP for saturations greater than 90%. 5. Continue Decadron (04/10/2021) and baricitinib (04/07/2021) 6. Challenge with diuretics 7. Continue prophylactic Lovenox. 8. Continue appropriate GI prophylaxis. IMPRESSIONS: 1. Acute hypoxemic respiratory failure secondary to COVID-19 pneumonia The patient initially presented to the hospital on March 23 with progressive COVID symptoms after testing positive on March 21. The patient is unvaccinated. CTA chest was negative for PE. The patient was initiated on Decadron, prophylactic Lovenox and baricitinib. He has completed a treatment course of remdesivir. The patient has demonstrated worsening oxygenation status over the course of his hospitalization requiring intubation on March 30. The patient will be continued on broad-spectrum antimicrobials. Await sputum cultur e. FiO2 and PEEP will be weaned for saturations greater than 90%. We will discontinue paralytics today. ABG after 1 hour to ensure adequate ventilation. Sputum cultures have no growth to date. 2. Morbid obesity/hypertension/neuropathy Complicates care, management, recovery and prognosis. Continue home medications as indicated. Plan to obtain nutrition consultation for tube feed recommendations. TIME: 32 minutes of critical care time, inclusive of procedures, was spent addressing the patient's acute hypoxemic respiratory failure secondary to COVID- 19 pneumonia, review of all data and collaboration with the care team. Subjective Subjective Patient did okay overnight. No acute issues have been reported. Patient did have an increase in PEEP requirements over the last 24 hours. Patient did have a mucous plug yesterday leading to increased peak and plateau pressures. This did respond to lavage. Objective Data Objective Data Vital Signs: Vital Signs Temp Pulse Resp BP Pulse Ox 36.6 C 57 L 18 102/55 L 92 04/01/21 04:00 04/01/21 06:37 04/01/21 06:37 04/01/21 06:00 04/01/21 06:37 Oxygen Flow Rate (L/min) 60 Oxygen Delivery Method Mechanical Ventilator Weight: 137.302 kg Body Mass Index (BMI) 50.1 Intake & Output: Intake and Output for Last 24 Hours 03/30/21 03/31/21 04/01/21 23:59 23:59 23:59 Intake Total 2435.82 / 2509.82 2150.03 / 2224.03 658.31 / 658.31 Output Total 1175 / 1175 1050 / 1350 300 / 300 Balance 1260.82 / 1334.82 1100.03 / 874.03 358.31 / 358.31 Lab / Micro Data Result Diagrams: 04/01/21 04:45 04/01/21 04:45 Labs: Laboratory Results - last 24 hr 04/01/21 04:45: WBC 7.3, RBC 3.92 L, Hgb 11.4 L, Hct 35.7 L, MCV 91.1, MCH 29.1, MCHC 31.9 L, RDW Std Deviation 45.2 H, RDW Coeff of Connie 13.5, Plt Count 257, MPV 10.1, Immature Gran % (Auto) 4.300 H, Neut % (Auto) 81.1 H, Lymph % (Auto) 8.1 L , [place] % (Auto) 4.4, Eos % (Auto) 1.7, Baso % (Auto) 0.4, Absolute Neuts (auto) 5.9, Absolute Lymphs (auto) 0.59 L, Nucleated RBC % 0, Differential Comment SCANNED 04/01/21 04:45: Sodium 133 L, Potassium 4.4, Chloride 98, Carbon Dioxide 30.0, Anion Gap 5, BUN 18, Creatinine 0.48 L, Estim Creat Clear Calc 149.18, Est GFR (MDRD) Af Amer 226, Est GFR (MDRD) Non-Af 187, BUN/Creatinine Ratio 37.3 H, Glucose 78, Calcium 7.6 L Micro: Microbiology 03/30/21 09:15 Sputum, Induced/Lukens Gram Stain - Final 03/30/21 09:15 Sputum, Induced/Lukens Respiratory Culture - Preliminary Culture exhibits no growth. 03/23/21 19:09 Blood Culture (Wb) - Anticubital Right Blood Culture - Final No growth in 5 days. 03/23/21 18:40 Blood Culture (Wb) - Anticubital Right Blood Culture - Final No growth in 5 days. 03/23/21 18:40 Nasal Secretion SARS-CoV-2 Antigen (Rapid) - Final SARS-CoV-2 (COVID 19) Radiography Diagnostic Testing: Radiology Impression Chest X-Ray 03/31/21 14:15 IMPRESSION: Persistent bilateral infiltrates although there has been a moderate degree of improved aeration as compared to prior study. All the support tubes are in good position. Electronically Signed: Logan Anderson MD at 14:35 EST , Service support , Physical Exam Const Constitutional Narrative: Currently paralyzed General Appearance: ill appearing, intubated and patient mechanically ventilated Nutritional Appearance: morbidly obese HEENT normocephalic and head/scalp atraumatic Eyes PERRL, EOMs intact bilaterally and conjunctivae normal Neck supple General: trachea midline Chest inspection of chest normal Chest: symmetrical chest wall rise; Negative for crepitus Resp Effort and Inspection: tachypneic Auscultation: rales and diminished lung sounds; Negative for rhonchi or wheezes Cardio regular rate and regular rhythm GI normal to inspection, nondistended, normoactive bowel sounds Extremity General Extremity: edema bilateral lower extremity; Negative for clubbing or cyanosis Skin General Skin Exam: venous stasis and dermatitis Neuro Neuro Narrative: Currently paralyzed Psych Mood & Affect: flat affect Charges/Coding Procedures Hospitalists Procedures: 88293 Critial Care 1st Hr
[2021-04-01] MEDS: Propofol 10MG/Ml 1,000 MG/100 ML Bottle 33 MG CONT INF ×5 (07:46→18:29)
[2021-04-01] MEDS: Potassium Chloride Oral Soln 20 MEQ/15 ML UDC GT ×2 (08:55→16:16)
[2021-04-01 09:06] LABS: Allen Test Positive; Base Excess 7 mmol/L (-2 to +2); Bicarbonate 33.4 mmol/L (22-26); Blood Gas Specimen Type ART; FI02 100; Mode AC; O2 Delivery Device Adult Vent; PEEP 12; PO2 64 mmHG (75-100); RR 18; SITE R Brach; SO2 89 % (95-99); Total Carbon Dioxide 35 mmol/L; Vt 450; pCO2 65.2 mmHg (35-45); pH 7.32 (7.35-7.45)
--- NOTE | 2021-04-01 09:10 | PN.HOSP_ITS ---
Subjective Subjective No issues overnight, remains intubated and sedated. We are attempting to take him off the paralytic. Objective Data Objective Data Vital Signs: Vital Signs Temp Pulse Resp BP Pulse Ox 98 F 57 L 32 H 111/51 L 93 04/01/21 04:00 04/01/21 08:37 04/01/21 08:37 04/01/21 07:00 04/01/21 08:37 Oxygen Flow Rate (L/min) 60 Oxygen Delivery Method Mechanical Ventilator Weight: 302 lb 11.2 oz Body Mass Index (BMI) 50.1 Intake & Output: Intake and Output for Last 24 Hours 03/31/21 04/01/21 04/02/21 03:59 03:59 03:59 Intake Total 2446.34 / 2520.34 2159.52 / 2301.72 631.10 / 631.10 Output Total 900 / 900 1350 / 1350 Balance 1546.34 / 1620.34 809.52 / 951.72 631.10 / 631.10 Lab / Micro Data Result Diagrams: 04/01/21 04:45 04/01/21 04:45 Labs: Laboratory Results - last 24 hr 04/01/21 04:45: WBC 7.3, RBC 3.92 L, Hgb 11.4 L, Hct 35.7 L, MCV 91.1, MCH 29.1, MCHC 31.9 L, RDW Std Deviation 45.2 H, RDW Coeff of Connie 13.5, Plt Count 257, MPV 10.1, Immature Gran % (Auto) 4.300 H, Neut % (Auto) 81.1 H, Lymph % (Auto) 8.1 L , [place] % (Auto) 4.4, Eos % (Auto) 1.7, Baso % (Auto) 0.4, Absolute Neuts (auto) 5.9, Absolute Lymphs (auto) 0.59 L, Nucleated RBC % 0, Differential Comment SCANNED 04/01/21 04:45: Sodium 133 L, Potassium 4.4, Chloride 98, Carbon Dioxide 30.0, Anion Gap 5, BUN 18, Creatinine 0.48 L, Estim Creat Clear Calc 149.18, Est GFR (MDRD) Af Amer 226, Est GFR (MDRD) Non-Af 187, BUN/Creatinine Ratio 37.3 H, G lucose 78, Calcium 7.6 L Micro: Microbiology 03/30/21 09:15 Sputum, Induced/Lukens Gram Stain - Final 03/30/21 09:15 Sputum, Induced/Lukens Respiratory Culture - Preliminary Gram positive ese 03/23/21 19:09 Blood Culture (Wb) - Anticubital Right Blood Culture - Final No growth in 5 days. 03/23/21 18:40 Blood Culture (Wb) - Anticubital Right Blood Culture - Final No growth in 5 days. 03/23/21 18:40 Nasal Secretion SARS-CoV-2 Antigen (Rapid) - Final SARS-CoV-2 (COVID 19) ABG Data ABG results: ABG 04/01/21 09:01 Specimen Type ART Sample Site R Brach pH 7.32 L Bicarbonate Actual 33.4 H Total CO2 35 Base Excess 7 H O2 Saturation 89 L O2 % 100 ABG pCO2 65.2 H ABG pO2 64 L Shashi Test Positive Respiration Rate 18 O2 Delivery Device Adult Vent Vent Mode AC Tidal Volume 450 POC PEEP 12 Radiography Diagnostic Testing: Radiology Impression Chest X-Ray 03/31/21 14:15 IMPRESSION: Persistent bilateral infiltrates although there has been a moderate degree of improved aeration as compared to prior study. All the support tubes are in good position. Electronically Signed: Logan Anderson MD at 14:35 EST , Service support , Physical Exam Narrative Const General Appearance: intubated and patient mechanically ventilated HEENT moist oral mucous membranes Head and Scalp: normocephalic Eyes PERRL and conjunctivae normal Neck supple and no JVD Resp Effort and Inspection: mechanically ventilated Auscultation: diminished lung sounds; Negative for rales, rhonchi or wheezes Cardio regular rate, regular rhythm, S1 normal heart sound, S2 normal heart sound and no gallops GI soft to palpation and non-distended; Negative for hepatosplenomegaly Extremity General Extremity: edema Skin no rashes or lesions noted Neuro Sensorium / Orientation: sedated on vent Psych Appearance: intubated Assessment & Plan Assessment/Plan (1) COVID-19: (2) Acute hypoxemic respiratory failure due to COVID-19: PLAN: 1. Acute hypoxic respiratory failure due to COVID-19 pneumonia ? CTA of the chest was negative for PE -03/25/2021 patient seen still remains on high flow oxygen via Airvo. Current settings include FiO2 of 68% with flow rate of 45%. Patient was also seen in consultation by Dr. Montemayor with ID it was deemed patient not a candidate for remdesivir at this point ? 03/26/2021. Patient remains on Airvo with no improvement in overall condition ?03/27/2021; Patient had to be placed on BiPAP during the night due to worsening hypoxia -03/28/2021; Patient oxygen requirement increasing. Patient had to be placed on BiPAP and consultation placed to pulm ?03/29/2021; Patient seen no improvement in clinical condition with patient on BiPAP with FiO2 of 100%.. Patient was seen in consultation by Dr. Jorge L Bah with pulmonary medicine his notes and recommendations reviewed. -03/30/2021; Patient was transferred to the intensive care unit due to inability to be weaned off the vent for 3 days. Case was discussed with Dr. Bah. Patient ended up being intubated and placed on the vent. Prior to patient being intubated had discussion with patient's daughter regarding the father's condition. Patient's daughter requested transfer to [facility] call was placed patient demographics faxed. Had a discussion with embryology teacher at who declined to transfer since the decision to transfer is coming from family members. ? 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 Continue with baricitinib and Decadron ? 04/01/2021: We will try to reverse his paralysis, and will obtain an ABG to monitor his ventilatory status. As needed diuresis also data is pending, continue with cefepime 2. Essential hypertension ? Patient blood pressure apparently not well controlled on admission patient is on metoprolol we will continue with plans to adjust doses blood pressure remains uncontrolled 3. Class III obesity with BMI 47.8 ? Weight loss advised 4. Hypokalemia ? Present on admission corrected per protocol with subsequent monitoring with daily BMPs ordered 5. DVT prophylaxis -Enoxaparin 6. History of prostate CA ? Patient family requested PSA blood draw was patient in the hospital. PSA came back at 0.5 (range 0.0-4.0) DVT: Lovenox Charges/Coding Visit Charges Inpatient E&M: 63366 Subs Hosp L2
[2021-04-01] MEDS: Enoxaparin 40 MG/0.4 ML Syringe SC ×2 (09:45→21:20)
[2021-04-01] MEDS: dexAMETHasone 4 MG Tablet 6 MG GT (09:45)
[2021-04-01] MEDS: Furosemide 40 MG/4 ML Vial IV ×2 (09:45→17:36)
[2021-04-01] MEDS: Chlorhexidine 15 ML PO ×2 (09:46→21:20)
[2021-04-01] MEDS: Vital High Protein 1,000 ML 65 ML GT (11:29)
--- NOTE | 2021-04-01 14:11 | RAD_ITS ---
STUDY: X-RAY CHEST REASON FOR EXAM: Male, 61 years old. Possible Pneumothorax TECHNIQUE: Single AP portable view of the chest. COMPARISON: Comparison is made with prior study dated 03/31/2021. FINDINGS: An endotracheal tube is in situ with the tip at 3.2 cm proximal to the frankie. An orogastric tube is seen with the tip below the left hemidiaphragm. A right-sided PICC line catheter is seen with the tip at the junction of the superior vena cava and right atrium. Stable persistent bilateral pulmonary infiltrates. There is no demonstrated pleural abnormality. There is borderline cardiomegaly. Normal mediastinum and yuri. Normal visualized pulmonary arteries. Normal visualized aortic arch and descending thoracic aorta. Normal visualized thoracic spine. Normal visualized ribs, clavicles, and shoulders. There is no demonstrated abnormality of the visualized soft tissue structures of the upper abdomen. RAD/Chest 1 View (Portable) IMPRESSION: Stable examination. No evidence of pneumothorax. Electronically Signed: Logan Anderson MD at 15:11 EST , Service support ,
[2021-04-01] MEDS: Dexmedetomidine 1,000 mcg in 0.9% NS 240 mL 24 MCG CONT INF (15:11)
[2021-04-01] MEDS: Propofol 10MG/Ml 1,000 MG/100 ML Bottle 24.7 MG CONT INF (21:19)
[2021-04-01] MEDS: 0.9% Saline Lock 10 ML Syringe IV (21:20)
[2021-04-02] VITALS (35 sets, daily range): BP systolic 113–158; BP diastolic 61–81; PULSE 52–84; RESP 17–28; TEMP 36.6–38.8; O2SAT 89–96
[2021-04-02] MEDS: Dexmedetomidine 1,000 mcg in 0.9% NS 240 mL 34.3 MCG CONT INF (00:30)
[2021-04-02] MEDS: guaiFENesin 10 ML UDC (200MG/10ML) GT ×7 (00:44→20:52)
[2021-04-02] MEDS: Propofol 10MG/Ml 1,000 MG/100 ML Bottle 20.6 MG CONT INF (00:59)
[2021-04-02] MEDS: CHLORHEXIDINE GLUC 2% CLOTH 1 EACH TOWELETTE TOPICAL (03:49)
[2021-04-02] MEDS: 0.9% Saline Lock 10 ML Syringe IV ×2 (03:58→20:53)
[2021-04-02 04:16] LABS: Absolute Lymphocyte Count 0.79 X10^3/uL (0.83-4.51); Absolute Neutrophil Count 6.1 X10^3/uL (2.0-7.7); Basophil# 0.04 X10^3/uL; Basophil% 0.5 % (0-1); Eosinophil# 0.12 X10^3/uL; Eosinophils% 1.6 % (0-5); Hematocrit 37.6 % (40-54); Hemoglobin 12.2 g/dL (13.0-16.5); Lymphocyte # 0.79 X10^3/ul (0.83-4.51); Lymphocyte % 10.3 % (19-41); Mean Corp Hgb Conc 32.4 g/dL (32-36); Mean Corpuscular Hgb 29.6 pg (27.0-32.0); Mean Corpuscular Volume 91.3 fL (80-94); Mean Platelet Vol. 10.1 fl (6.2-12.0); Monocyte# 0.32 X10^3/uL; Monocyte% 4.2 % (0-10); NRBC Flagged by Analyzer 0 % (0-5); Neutrophil # 6.07 X10^3/uL (2.7-7.7); Neutrophil % 79.1 % (47-70); Platelet Count 221 K/mm3 (150-450); RBC Distribution Width CV 13.3 % (11.6-14.6); RBC Distribution Width SD 45.1 fl (35.1-43.9); Red Blood Count 4.12 M/mm3 (4.6-6.2); White Blood Count 7.7 K/mm3 (4.4-11.0)
[2021-04-02 04:47] LABS: Anion Gap 6 (5-15); BUN 17 mg/dL (7-18); Calcium,Total 6.6 mg/dL (8.5-10.1); Chloride 100 mmol/L (98-107); Creatinine, Serum 0.46 mg/dL (0.70-1.30); EST Glomerular Filtration Rate 198 mL/min (>60); Est Glom Filt Rate - Afr Amer 239 mL/min (>60); Estimated Creatinine Clearance 155.67 ml/min; Glucose 105 mg/dL (74-106); Potassium 3.4 mmol/L (3.5-5.1); Sodium Level 137 mmol/L (136-145)
[2021-04-02] MEDS: TITRATION PARAMETER CHANGE 1 EACH IV (06:01)
[2021-04-02] MEDS: Dexmedetomidine 1,000 mcg in 0.9% NS 240 mL 40 MCG CONT INF (06:31)
[2021-04-02] MEDS: Furosemide 40 MG/4 ML Vial IV (06:49)
[2021-04-02] MEDS: Propofol 10MG/Ml 1,000 MG/100 ML Bottle 8 MG CONT INF (06:51)
--- NOTE | 2021-04-02 07:23 | PN.CC_ITS ---
Assessment & Plan Assessment/Plan (1) Acute hypoxemic respiratory failure due to COVID-19: PLAN: RECOMMENDATIONS: 1. Continue mechanical ventilation. Spontaneous breathing and awakening t rials per protocol 2. Continue empiric antibiotics pending culture data 3. Continue aggressive pulmonary toileting with guaifenesin and inline suctioning 4. Attempt discontinuation of propofol if possible 5. Continue Decadron (04/10/2021) and baricitinib (04/07/2021) 6. Challenge with diuretics 7. Continue prophylactic Lovenox. 8. Continue appropriate GI prophylaxis. IMPRESSIONS: 1. Acute hypoxemic respiratory failure secondary to COVID-19 pneumonia The patient initially presented to the hospital on March 23 with progressive COVID symptoms after testing positive on March 21. The patient is unvaccinated. CTA chest was negative for PE. The patient was initiated on Decadron, prophylactic Lovenox and baricitinib. He has completed a treatment course of remdesivir. The patient has demonstrated worsening oxygenation status over the course of his hospitalization requiring intubation on March 30. The patient will be continued on broad-spectrum antimicrobials. Await sputum culture. FiO2 and PEEP will be weaned for saturations greater than 90%. Patient was some improvement in oxygenation over the last 24 hours. Likely secondary to mobilization of secretions. We will continue to increase activity as tolerated. 2. Morbid obesity/hypertension/neuropathy Complicates care, management, recovery and prognosis. Continue home medications as indicated. Continue to advance tube feeds as tolerated TIME: 34 minutes of critical care time, inclusive of procedures, was spent addressing the patient's acute hypoxemic respiratory failure secondary to COVID- 19 pneumonia, review of all data and collaboration with the care team. Subjective Subjective Patient did okay over the last 24 hours. Patient is tolerating transition from propofol to Precedex relatively well. Patient's oxygen demands have improved over the last 24 hours. Patient is interacting and following commands. Objective Data Objective Data Vital Signs: Vital Signs Temp Pulse Resp BP Pulse Ox 36.6 C 58 L 18 123/61 H 92 04/02/21 04:00 04/02/21 06:00 04/02/21 06:00 04/02/21 06:00 04/02/21 06:00 Oxygen Flow Rate (L/min) 60 Oxygen Delivery Method Mechanical Ventilator Weight: 133.22 kg Body Mass Index (BMI) 50.1 Intake & Output: Intake and Output for Last 24 Hours 03/31/21 04/01/21 04/02/21 23:59 23:59 23:59 Intake Total 2150.03 / 2224.03 2706.43 / 2785.43 1040.03 / 1040.03 Output Total 1050 / 1350 4100 / 4100 500 / 500 Balance 1100.03 / 874.03 -1393.57 / -1314.57 540.03 / 540.03 Lab / Micro Data Result Diagrams: 04/02/21 04:05 04/02/21 04:05 Labs: Laboratory Results - last 24 hr 04/02/21 04:05: WBC 7.7, RBC 4.12 L, Hgb 12.2 L, Hct 37.6 L, MCV 91.3, MCH 29.6, MCHC 32.4, RDW Std Deviation 45.1 H, RDW Coeff of Connie 13.3, Plt Count 221, MPV 10.1, Immature Gran % (Auto) 4.300 H, Neut % (Auto) 79.1 H, Lymph % (Auto) 10.3 L, [place] % (Auto) 4.2, Eos % (Auto) 1.6, Baso % (Auto) 0.5, Absolute Neuts (auto) 6.1, Absolute Lymphs (auto) 0.79 L, Nucleated RBC % 0 04/02/21 04:05: Sodium 137, Potassium 3.4 L, Chloride 100, Carbon Dioxide 31.0, Anion Gap 6, BUN 17, Creatinine 0.46 L, Estim Creat Clear Calc 155.67, Est GFR (MDRD) Af Amer 239, Est GFR (MDRD) Non-Af 198, BUN/Creatinine Ratio 37.0 H, Glucose 105, Calcium 6.6 L Micro: Microbiology 03/30/21 09:15 Sputum, Induced/Lukens Gram Stain - Final 03/30/21 09:15 Sputum, Induced/Lukens Respiratory Culture - Preliminary Gram positive ese 03/23/21 19:09 Blood Culture (Wb) - Anticubital Right Blood Culture - Final No growth in 5 days. 03/23/21 18:40 Blood Culture (Wb) - Anticubital Right Blood Culture - Final No growth in 5 days. 03/23/21 18:40 Nasal Secretion SARS-CoV-2 Antigen (Rapid) - Final SARS-CoV-2 (COVID 19) ABG Data ABG results: ABG 04/01/21 09:01 Specimen Type ART Sample Site R Brach pH 7.32 L Bicarbonate Actual 33.4 H Total CO2 35 Base Excess 7 H O2 Saturation 89 L O2 % 100 ABG pCO2 65.2 H ABG pO2 64 L Shashi Test Positive Respiration Rate 18 O2 Delivery Device Adult Vent Vent Mode AC Tidal Volume 450 POC PEEP 12 Radiography Diagnostic Testing: Radiology Impression Chest X-Ray 04/01/21 14:11 IMPRESSION: Stable examination. No evidence of pneumothorax. Electronically Signed: Logan Anderson MD at 15:11 EST , Service support , Physical Exam Const Constitutional Narrative: Following commands. Opens eyes to voice General Appearance: ill appearing, intubated and patient mechanically ventilated Nutritional Appearance: morbidly obese HEENT normocephalic and head/scalp atraumatic Eyes PERRL, EOMs intact bilaterally and conjunctivae normal Neck supple General: trachea midline Chest inspection of chest normal Chest: symmetrical chest wall rise; Negative for crepitus Resp Effort and Inspection: tachypneic Auscultation: rales and diminished lung sounds; Negative for rhonchi or wheezes Cardio regular rate and regular rhythm GI normal to inspection, nondistended, normoactive bowel sounds Extremity General Extremity: edema bilateral lower extremity; Negative for clubbing or cyanosis Skin General Skin Exam: venous stasis and dermatitis Neuro CN's II-XII intact bilaterally and no focal motor deficits Psych Mood & Affect: flat affect Charges/Coding Procedures Hospitalists Procedures: 12243 Critial Care 1st Hr
[2021-04-02] MEDS: Ipratropium/Albuterol Sulfate 3 ML AMPUL.NEB INHALATION ×4 (07:50→19:03)
--- NOTE | 2021-04-02 08:28 | PCM.PN.HOSP ---
Subjective Subjective Intubated and on Precedex. Seems to be following commands today Objective Data Objective Data Vital Signs: Vital Signs Temp Pulse Resp BP Pulse Ox 97.8 F 59 L 20 H 123/61 H 92 04/02/21 04:00 04/02/21 07:50 04/02/21 07:50 04/02/21 06:00 04/02/21 07:50 Oxygen Flow Rate (L/min) 60 Oxygen Delivery Method Mechanical Ventilator Weight: 293 lb 11.2 oz Body Mass Index (BMI) 50.1 Intake & Output: Intake and Output for Last 24 Hours 04/01/21 04/02/21 04/03/21 03:59 03:59 03:59 Intake Total 2159.52 / 2301.72 3068.61 / 3127.58 382.84 / 382.84 Output Total 1350 / 1350 4300 / 4300 Balance 809.52 / 951.72 -1231.39 / -1172.42 382.84 / 382.84 Lab / Micro Data Result Diagrams: 04/02/21 04:05 04/02/21 04:05 Labs: Laboratory Results - last 24 hr 04/02/21 04:05: WBC 7.7, RBC 4.12 L, Hgb 12.2 L, Hct 37.6 L, MCV 91.3, MCH 29.6, MCHC 32.4, RDW Std Deviation 45.1 H, RDW Coeff of Connie 13.3, Plt Count 221, MPV 10.1, Immature Gran % (Auto) 4.300 H, Neut % (Auto) 79.1 H, Lymph % (Auto) 10.3 L, [place] % (Auto) 4.2, Eos % (Auto) 1.6, Baso % (Auto) 0.5, Absolute Neuts (auto) 6.1, Absolute Lymphs (auto) 0.79 L, Nucleated RBC % 0 04/02/21 04:05: Sodium 137, Potassium 3.4 L, Chloride 100, Carbon Dioxide 31.0, Anion Gap 6, BUN 17, Creatinine 0.46 L, Estim Creat Clear Calc 155.67, Est GFR (MDRD) Af Amer 239, Est GFR (MDRD) Non-Af 198, BUN/Creatinine Ratio 37.0 H, Glucose 105, Calcium 6.6 L Micro: Microbiology 03/30/21 09:15 Sputum, Induced/Lukens Gram Stain - Final 03/30/21 09:15 Sputum, Induced/Lukens Respiratory Culture - Final Proprionibacterium acnes 03/23/21 19:09 Blood Culture (Wb) - Anticubital Right Blood Culture - Final No growth in 5 days. 03/23/21 18:40 Blood Culture (Wb) - Anticubital Right Blood Culture - Final No growth in 5 days. 03/23/21 18:40 Nasal Secretion SARS-CoV-2 Antigen (Rapid) - Final SARS-CoV-2 (COVID 19) ABG Data ABG results: ABG 04/01/21 09:01 Specimen Type ART Sample Site R Brach pH 7.32 L Bicarbonate Actual 33.4 H Total CO2 35 Base Excess 7 H O2 Saturation 89 L O2 % 100 ABG pCO2 65.2 H ABG pO2 64 L Shashi Test Positive Respiration Rate 18 O2 Delivery Device Adult Vent Vent Mode AC Tidal Volume 450 POC PEEP 12 Radiography Diagnostic Testing: Radiology Impression Chest X-Ray 04/01/21 14:11 IMPRESSION: Stable examination. No evidence of pneumothorax. Electronically Signed: Logan Anderson MD at 15:11 EST , Service support , Physical Exam Narrative Const Opens eyes and follows simple commands General Appearance: intubated and patient mechanically ventilated HEENT moist oral mucous membranes Head and Scalp: normocephalic Eyes PERRL and conjunctivae normal Neck supple and no JVD Resp Effort and Inspection: mechanically ventilated Auscultation: diminished lung sounds; Negative for rales, rhonchi or wheezes Cardio regular rate, regular rhythm, S1 normal heart sound, S2 normal heart sound and no gallops GI soft to palpation and non-distended; Negative for hepatosplenomegaly Extremity General Extremity: edema Skin no rashes or lesions noted Neuro Sensorium / Orientation: sedated on vent Psych Appearance: intubated Assessment & Plan Assessment/Plan (1) COVID-19: (2) Acute hypoxemic respiratory failure due to COVID-19: PLAN: 1. Acute hypoxic respiratory failure due to COVID-19 pneumonia ? CTA of the chest was negative for PE -03/25/2021 patient seen still remains on high flow oxygen via Airvo. Current settings include FiO2 of 68% with flow rate of 45%. Patient was also seen in consultation by Dr. Montemayor with ID it was deemed patient not a candidate for remdesivir at this point ? 03/26/2021. Patient remains on Airvo with no improvement in overall condition ?03/27/2021; Patient had to be placed on BiPAP during the night due to worsening hypoxia -03/28/2021; Patient oxygen requirement increasing. Patient had to be placed on BiPAP and consultation placed to pulm ?03/29/2021; Patient seen no improvement in clinical condition with patient on BiPAP with FiO2 of 100%.. Patient was seen in consultation by Dr. Jorge L Bah with pulmonary medicine his notes and recommendations reviewed. -03/30/2021; Patient was transferred to the intensive care unit due to inability to be weaned off the vent for 3 days. Case was discussed with Dr. Bah. Patient ended up being intubated and placed on the vent. Prior to patient being intubated had discussion with patient's daughter regarding the father's condition. Patient's daughter requested transfer to [facility] call was placed patient demographics faxed. Had a discussion with [employer] crewman at who declined to transfer since the decision to transfer is coming from family members. ? 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 Continue with baricitinib and Decadron ? 04/01/2021: We will try to reverse his paralysis, and will obtain an ABG to monitor his ventilatory status. As needed diuresis also data is pending, continue with cefepime ? 04/02/2021: Transitioning him to Precedex and he is more awake and following commands. We'll try to do some spontaneous breathing trials throughout the day and see if we can extubate in the next 24 to 48 hours and possible 2. Essential hypertension ? Patient blood pressure apparently not well controlled on admission patient is on metoprolol we will continue with plans to adjust doses blood pressure remains uncontrolled 3. Class III obesity with BMI 47.8 ? Weight loss advised 4. Hypokalemia ? Present on admission corrected per protocol with subsequent monitoring with daily BMPs ordered 5. DVT prophylaxis -Enoxaparin 6. History of prostate CA ? Patient family requested PSA blood draw was patient in the hospital. PSA came back at 0.5 (range 0.0-4.0) DVT: Lovenox Charges/Coding Visit Charges Inpatient E&M: 53799 Subs Hosp L2
[2021-04-02] MEDS: Polyethylene Glycol 3350 17 GM PACKET GT (08:50)
[2021-04-02] MEDS: Enoxaparin 40 MG/0.4 ML Syringe SC ×2 (08:50→20:52)
[2021-04-02] MEDS: Potassium Chloride Oral Soln 20 MEQ/15 ML UDC GT ×2 (08:50→18:22)
[2021-04-02] MEDS: Senna/Docusate Sodium 1 Tablet GT ×2 (08:50→20:51)
[2021-04-02] MEDS: dexAMETHasone 4 MG Tablet 6 MG GT (08:50)
[2021-04-02] MEDS: Chlorhexidine 15 ML PO ×2 (08:53→20:51)
[2021-04-02] MEDS: Acetaminophen 650 MG/20 ML UDC GT ×2 (12:03→20:51)
[2021-04-02] MEDS: Vital High Protein 1,000 ML 65 ML GT (12:08)
[2021-04-02] MEDS: Dexmedetomidine 1,000 mcg in 0.9% NS 240 mL 46.6 MCG CONT INF ×2 (12:22→17:48)
--- NOTE | 2021-04-02 13:09 | PCM.PN.ID ---
Physical Exam Narrative On vent, precedex Const no apparent distress Resp Effort and Inspection: mechanically ventilated Auscultation: diminished lung sounds Cardio regular rate and regular rhythm GI soft to palpation, non-tender and non-distended Skin no rashes or lesions noted ID ID: Route of nutrition/ use of supplements: [] Nutritional Intake: [] IV Site: [] Morales Catheter: [] Assessment & Plan Assessment/Plan (1) COVID-19: PLAN: Sx started 03/17/21. Unvaccinated. Isolate until 04/06/21. Recommend vaccine in one month. On dex, baricitinib. Completed remdesivir. Now on vent, paralytic. On cefepime since 03/28. Sputum from 03/30 with p.acnes. Stop cefepime 04/04. Will follow (2) Acute hypoxemic respiratory failure due to COVID-19:
[2021-04-03] VITALS (34 sets, daily range): BP systolic 105–134; BP diastolic 55–81; PULSE 66–96; RESP 22–33; TEMP 38.2–40.2; O2SAT 89–95
[2021-04-03] MEDS: Dexmedetomidine 1,000 mcg in 0.9% NS 240 mL 46.6 MCG CONT INF ×3 (01:00→10:15)
[2021-04-03] MEDS: guaiFENesin 10 ML UDC (200MG/10ML) GT ×7 (04:38→23:48)
[2021-04-03] MEDS: Vital High Protein 1,000 ML 65 ML GT (04:38)
[2021-04-03] MEDS: Acetaminophen 650 MG/20 ML UDC GT ×5 (04:38→23:48)
[2021-04-03 05:40] LABS: Absolute Lymphocyte Count 1.06 X10^3/uL (0.83-4.51); Absolute Neutrophil Count 9.3 X10^3/uL (2.0-7.7); Basophil# 0.02 X10^3/uL; Basophil% 0.2 % (0-1); Eosinophil# 0.12 X10^3/uL; Eosinophils% 1.1 % (0-5); Hematocrit 39.4 % (40-54); Hemoglobin 12.7 g/dL (13.0-16.5); Lymphocyte # 1.06 X10^3/ul (0.83-4.51); Lymphocyte % 9.5 % (19-41); Mean Corp Hgb Conc 32.2 g/dL (32-36); Mean Corpuscular Hgb 28.8 pg (27.0-32.0); Mean Corpuscular Volume 89.3 fL (80-94); Mean Platelet Vol. 10.3 fl (6.2-12.0); Monocyte# 0.51 X10^3/uL; Monocyte% 4.6 % (0-10); NRBC Flagged by Analyzer 0 % (0-5); Neutrophil # 9.26 X10^3/uL (2.7-7.7); Neutrophil % 82.7 % (47-70); Platelet Count 233 K/mm3 (150-450); RBC Distribution Width CV 13.7 % (11.6-14.6); RBC Distribution Width SD 45.1 fl (35.1-43.9); Red Blood Count 4.41 M/mm3 (4.6-6.2); White Blood Count 11.2 K/mm3 (4.4-11.0)
[2021-04-03 06:00] LABS: ALB/GLOB Ratio 0.5 RATIO (0.9-2.4); AST(SGOT) 22 U/L (15-37); Alanine Aminotransfer ALT/SGPT 22 U/L (16-61); Alkaline Phosphatase 52 U/L (45-117); Anion Gap 5 (5-15); BUN 25 mg/dL (7-18); BUN/Creat Ratio 44.4 RATIO (10-20); Calcium,Total 7.9 mg/dL (8.5-10.1); Chloride 104 mmol/L (98-107); Creatinine, Serum 0.56 mg/dL (0.70-1.30); EST Glomerular Filtration Rate 156 mL/min (>60); Est Glom Filt Rate - Afr Amer 189 mL/min (>60); Estimated Creatinine Clearance 127.87 ml/min; Globulin 4.3 g/dL (2.2-4.2); Glucose 115 mg/dL (74-106); Potassium 3.8 mmol/L (3.5-5.1); Protein, Total 6.3 g/dL (6.4-8.2); Sodium Level 140 mmol/L (136-145)
--- NOTE | 2021-04-03 07:25 | PN.CC_ITS ---
Assessment & Plan Assessment/Plan (1) Acute hypoxemic respiratory failure due to COVID-19: PLAN: RECOMMENDATIONS: 1. Continue mechanical ventilation. Spontaneous breathing and awakening t rials per protocol 2. Continue empiric antibiotics pending culture data. Defer to ID 3. Continue aggressive pulmonary toileting with guaifenesin and inline suctioning 4. Challenge with diuretics as able 5. Continue Decadron (04/10/2021) and baricitinib (04/07/2021) 6. Aggressive control of bowel movement 7. Continue prophylactic Lovenox. 8. Continue appropriate GI prophylaxis. IMPRESSIONS: 1. Acute hypoxemic respiratory failure secondary to COVID-19 pneumonia The patient initially presented to the hospital on March 23 with progressive COVID symptoms after testing positive on March 21. The patient is unvaccinated. CTA chest was negative for PE. The patient was initiated on Decadron, prophylactic Lovenox and baricitinib. He has completed a treatment course of remdesivir. The patient has demonstrated worsening oxygenation status over the course of his hospitalization requiring intubation on March 30. Patient remains on broad-spectrum antibiotics. Defer to ID. FiO2 and PEEP will be weaned for saturations greater than 90%. We will continue to diurese and use aggressive pulmonary toileting as tolerated. 2. Morbid obesity/hypertension/neuropathy Complicates care, management, recovery and prognosis. Continue home medications as indicated. Continue to advance tube feeds as tolerated TIME: 35 minutes of critical care time, inclusive of procedures, was spent addressing the patient's acute hypoxemic respiratory failure secondary to COVID- 19 pneumonia, review of all data and collaboration with the care team. Subjective Subjective Patient did okay overnight. Patient was able to be weaned off of propofol and is currently only on fentanyl and Precedex to maintain saturations. No bowel movements have been reported. Patient is still requiring significant FiO2 to maintain saturations. Patient did have a fever overnight, but remained hemodynamically stable. Objective Data Objective Data Vital Signs: Vital Signs Temp Pulse Resp BP Pulse Ox 38.8 C H 80 31 H 119/61 91 04/03/21 04:00 04/03/21 05:04 04/03/21 05:04 04/03/21 05:00 04/03/21 05:04 Oxygen Flow Rate (L/min) 60 Oxygen Delivery Method Mechanical Ventilator Weight: 133.084 kg Body Mass Index (BMI) 50.1 Intake & Output: Intake and Output for Last 24 Hours 04/01/21 04/02/21 04/03/21 23:59 23:59 23:59 Intake Total 2706.43 / 2785.43 3772.76 / 3797.77 1345.52 / 1345.52 Output Total 4100 / 4100 2650 / 3000 750 / 750 Balance -1393.57 / -1314.57 1122.76 / 797.77 595.52 / 595.52 Lab / Micro Data Result Diagrams: 04/03/21 04:30 04/03/21 04:30 Labs: Laboratory Results - last 24 hr 04/03/21 04:30: WBC 11.2 H, RBC 4.41 L, Hgb 12.7 L, Hct 39.4 L, MCV 89.3, MCH 28.8, MCHC 32.2, RDW Std Deviation 45.1 H, RDW Coeff of Connie 13.7, Plt Count 233, MPV 10.3, Immature Gran % (Auto) 1.900 H, Neut % (Auto) 82.7 H, Lymph % (Auto) 9.5 L, [place] % (Auto) 4.6, Eos % (Auto) 1.1, Baso % (Auto) 0.2, Absolute Neuts (auto) 9.3 H, Absolute Lymphs (auto) 1.06, Nucleated RBC % 0 04/03/21 04:30: Sodium 140, Potassium 3.8, Chloride 104, Carbon Dioxide 31.0, Anion Gap 5, BUN 25 H, Creatinine 0.56 L, Estim Creat Clear Calc 127.87, Est GFR (MDRD) Af Amer 189, Est GFR (MDRD) Non-Af 156, BUN/Creatinine Ratio 44.4 H, Glucose 115 H, Calcium 7.9 L, Total Bilirubin 0.50, AST 22, ALT 22, Alkaline Phosphatase 52, Total Protein 6.3 L, Albumin 2.0 L, Globulin 4.3 H, Albumin/Globulin Ratio 0.5 L Micro: Microbiology 03/30/21 09:15 Sputum, Induced/Lukens Gram Stain - Final 03/30/21 09:15 Sputum, Induced/Lukens Respiratory Culture - Final Proprionibacterium acnes 03/23/21 19:09 Blood Culture (Wb) - Anticubital Right Blood Culture - Final No growth in 5 days. 03/23/21 18:40 Blood Culture (Wb) - Anticubital Right Blood Culture - Final No growth in 5 days. 03/23/21 18:40 Nasal Secretion SARS-CoV-2 Antigen (Rapid) - Final SARS-CoV-2 (COVID 19) Physical Exam Const Constitutional Narrative: Following commands. Opens eyes to voice General Appearance: ill appearing, intubated and patient mechanically ventilated Nutritional Appearance: morbidly obese HEENT normocephalic and head/scalp atraumatic Eyes PERRL, EOMs intact bilaterally and conjunctivae normal Neck supple General: trachea midline Chest inspection of chest normal Chest: symmetrical chest wall rise; Negative for crepitus Resp Auscultation: diminished lung sounds; Negative for rales, rhonchi or wheezes Cardio regular rate and regular rhythm GI normal to inspection, nondistended, normoactive bowel sounds Extremity General Extremity: edema bilateral lower extremity; Negative for clubbing or cyanosis Skin General Skin Exam: venous stasis and dermatitis Neuro CN's II-XII intact bilaterally and no focal motor deficits Psych Mood & Affect: flat affect Charges/Coding Procedures Hospitalists Procedures: 18739 Critial Care 1st Hr
[2021-04-03] MEDS: Ipratropium/Albuterol Sulfate 3 ML AMPUL.NEB INHALATION ×4 (07:26→19:19)
[2021-04-03] MEDS: Furosemide 40 MG/4 ML Vial IV (07:44)
[2021-04-03] MEDS: 0.9% Saline Lock 10 ML Syringe IV (07:44)
[2021-04-03] MEDS: Potassium Chloride Oral Soln 20 MEQ/15 ML UDC GT ×2 (07:48→18:07)
[2021-04-03] MEDS: Senna/Docusate Sodium 1 Tablet GT ×2 (07:49→20:05)
[2021-04-03] MEDS: Polyethylene Glycol 3350 17 GM PACKET GT (07:49)
[2021-04-03] MEDS: dexAMETHasone 4 MG Tablet 6 MG GT (07:49)
[2021-04-03] MEDS: Enoxaparin 40 MG/0.4 ML Syringe SC ×2 (07:50→20:05)
[2021-04-03] MEDS: Chlorhexidine 15 ML PO ×2 (07:50→20:04)
[2021-04-03] MEDS: CHLORHEXIDINE GLUC 2% CLOTH 1 EACH TOWELETTE TOPICAL (07:51)
--- NOTE | 2021-04-03 10:44 | ECHOCS_ITS ---
Reason For Study: DYSPNEA/SOB Procedure This was a 2D Doppler, Color Flow transthoracic echocardiogram. The study was technically limited. The exam was of poor technical quality due to body habitus/poor acoustic windows and pt on ventilator. Exam performed portable in ICU/CCU. The exam was abbreviated due to the COVID 19 protocol. Left Ventricle Normal left ventricle. The estimated ejection fraction is 55-60 %. Right Ventricle Mildly dilated right ventricle. Mild global right ventricular systolic dysfunction. Atria Normal left atrium. Normal right atrium. Mitral Valve The mitral valve is structurally normal. No prolapse or stenosis seen. Tricuspid Valve Mild tricuspid valve insufficiency. Aortic Valve Normal aortic valve. Pulmonic Valve The pulmonic valve is not well visualized. Great Vessels Normal aortic root. Pericardium/Pleural Small pericardial effusion. Medication Diluted definity 4.0ml given slow IV push to enhance endocardial definition. MMode/2D Measurements & Calculations LVIDd: 5.0 cm IVSd: 0.85 cm Ao root diam: 2.8 cm LVIDs: 3.9 cm LVPWd: 0.85 cm FS: 23.0 % LAV(MOD-bp): 60.4 ml LA A4 area: 21.3 cm2 LA dimension(2D): 4.8 cm LAV(MOD-bp) Indexed: 25.4 ml/m2 LAV(MOD-sp2): 50.5 ml LAV(MOD-sp4): 54.9 ml RA A4 area: 14.1 cm2 Doppler Measurements & Calculations MV E max mike: 61.3 cm/sec Lat Peak E' Mike: 13.9 cm/sec TR max mike: 360.4 cm/sec MV A max mike: 49.4 cm/sec E/E' lat: 4.4 TR max P.0 mmHg MV E/A: 1.2 ECHO/Echo Complete W/ Contrast Interpretation Summary The estimated ejection fraction is 55-60 %. Contrast echo showed no evidence of segmental wall motion abnormalities. No prior echo to compare. Ordering Physician: Casper Vazquez Referring Physician: SUKHJINDER HERRERA Performed By: Triny Abraham, SARAI, RVT
[2021-04-03] MEDS: Dexmedetomidine 1,000 mcg in 0.9% NS 240 mL 30 MCG CONT INF (17:45)
[2021-04-03] MEDS: Vital AF 1.2 Cal Liquid 1,000 ML 65 ML GT (21:51)
[2021-04-04] VITALS (41 sets, daily range): BP systolic 101–131; BP diastolic 59–85; PULSE 62–90; RESP 19–36; TEMP 37.6–39.4; O2SAT 76–95
[2021-04-04] MEDS: Dexmedetomidine 1,000 mcg in 0.9% NS 240 mL 33.3 MCG CONT INF (00:21)
[2021-04-04] MEDS: Acetaminophen 650 MG/20 ML UDC GT ×2 (04:15→11:38)
[2021-04-04] MEDS: guaiFENesin 10 ML UDC (200MG/10ML) GT ×5 (04:15→21:16)
[2021-04-04 04:18] LABS: Absolute Lymphocyte Count 1.22 X10^3/uL (0.83-4.51); Absolute Neutrophil Count 10.6 X10^3/uL (2.0-7.7); Basophil# 0.04 X10^3/uL; Basophil% 0.3 % (0-1); Eosinophil# 0.16 X10^3/uL; Eosinophils% 1.3 % (0-5); Hematocrit 40.4 % (40-54); Hemoglobin 12.7 g/dL (13.0-16.5); Lymphocyte # 1.22 X10^3/ul (0.83-4.51); Lymphocyte % 9.6 % (19-41); Mean Corp Hgb Conc 31.4 g/dL (32-36); Mean Corpuscular Hgb 28.3 pg (27.0-32.0); Monocyte# 0.53 X10^3/uL; Monocyte% 4.2 % (0-10); NRBC Flagged by Analyzer 0 % (0-5); Neutrophil # 10.58 X10^3/uL (2.7-7.7); Neutrophil % 83.5 % (47-70); Platelet Count 218 K/mm3 (150-450); RBC Distribution Width CV 13.9 % (11.6-14.6); Red Blood Count 4.49 M/mm3 (4.6-6.2); White Blood Count 12.7 K/mm3 (4.4-11.0)
[2021-04-04 04:36] LABS: ALB/GLOB Ratio 0.4 RATIO (0.9-2.4); AST(SGOT) 24 U/L (15-37); Alanine Aminotransfer ALT/SGPT 28 U/L (16-61); Albumin, Serum 1.9 g/dL (3.2-5.0); Alkaline Phosphatase 50 U/L (45-117); Anion Gap 3 (5-15); BUN 27 mg/dL (7-18); BUN/Creat Ratio 51.2 RATIO (10-20); Calcium,Total 7.9 mg/dL (8.5-10.1); Chloride 103 mmol/L (98-107); Creatinine, Serum 0.53 mg/dL (0.70-1.30); EST Glomerular Filtration Rate 168 mL/min (>60); Est Glom Filt Rate - Afr Amer 204 mL/min (>60); Estimated Creatinine Clearance 135.11 ml/min; Globulin 4.8 g/dL (2.2-4.2); Glucose 124 mg/dL (74-106); Potassium 4.1 mmol/L (3.5-5.1); Protein, Total 6.7 g/dL (6.4-8.2); Sodium Level 138 mmol/L (136-145)
--- NOTE | 2021-04-04 06:57 | PN.CC_ITS ---
Assessment & Plan Assessment/Plan (1) Acute hypoxemic respiratory failure due to COVID-19: PLAN: RECOMMENDATIONS: 1. Continue mechanical ventilation. Spontaneous breathing and awakening t rials per protocol 2. Given continued fevers, will transition from cefepime to Zosyn for empiric trial 3. Continue aggressive pulmonary toileting with guaifenesin and inline suctioning 4. Challenge with diuretics as able. Challenge today 5. Continue Decadron (04/10/2021) and baricitinib (04/07/2021) 6. Aggressive control of bowel movement 7. Continue prophylactic Lovenox. 8. Continue appropriate GI prophylaxis. IMPRESSIONS: 1. Acute hypoxemic respiratory failure secondary to COVID-19 pneumonia The patient initially presented to the hospital on March 23 with progressive COVID symptoms after testing positive on March 21. The patient is unvaccinated. CTA chest was negative for PE. The patient was initiated on Decadron, prophylactic Lovenox and baricitinib. He has completed a treatment course of remdesivir. The patient has demonstrated worsening oxygenation status over the course of his hospitalization requiring intubation on March 30. Patient continues to have significant fevers despite cefepime therapy. We will transition to Zosyn as a therapeutic trial for better gram-positive coverage. Patient may also have an element of drug fever secondary to Precedex therapy. FiO2 and PEEP will be weaned for saturations greater than 90%. We will continue to diurese and use aggressive pulmonary toileting as tolerated. 2. Morbid obesity/hypertension/neuropathy Complicates care, management, recovery and prognosis. Continue home medications as indicated. Continue to advance tube feeds as tolerated TIME: 33 minutes of critical care time, inclusive of procedures, was spent addressing the patient's acute hypoxemic respiratory failure secondary to COVID- 19 pneumonia, review of all data and collaboration with the care team. Subjective Subjective Patient did okay overnight. Patient did have significant fever, but remained hemodynamically stable. Patient has been tolerating Precedex well, but did have to go up slightly secondary to vent dyssynchrony. Objective Data Objective Data Vital Signs: Vital Signs Temp Pulse Resp BP Pulse Ox 39.1 C H 76 24 H 119/66 94 04/04/21 06:00 04/04/21 06:00 04/04/21 06:00 04/04/21 06:00 04/04/21 06:00 Oxygen Flow Rate (L/min) 60 Oxygen Delivery Method Mechanical Ventilator Weight: 133.583 kg Body Mass Index (BMI) 50.1 Intake & Output: Intake and Output for Last 24 Hours 04/02/21 04/03/21 04/04/21 23:59 23:59 23:59 Intake Total 3772.76 / 3797.77 3763.88 / 3857.18 468.12 / 468.12 Output Total 2650 / 3000 3000 / 3400 750 / 750 Balance 1122.76 / 797.77 763.88 / 457.18 -281.88 / -281.88 Lab / Micro Data Result Diagrams: 04/04/21 04:15 04/04/21 04:15 Labs: Laboratory Results - last 24 hr 04/04/21 04:15: WBC 12.7 H, RBC 4.49 L, Hgb 12.7 L, Hct 40.4, MCV 90.0, MCH 28.3, MCHC 31.4 L, RDW Std Deviation 46.0 H, RDW Coeff of Connie 13.9, Plt Count 218, MPV 10.0, Immature Gran % (Auto) 1.100 H, Neut % (Auto) 83.5 H, Lymph % (Auto) 9.6 L, [place] % (Auto) 4.2, Eos % (Auto) 1.3, Baso % (Auto) 0.3, Absolute Neuts (auto) 10.6 H, Absolute Lymphs (auto) 1.22, Nucleated RBC % 0 04/04/21 04:15: Sodium 138, Potassium 4.1, Chloride 103, Carbon Dioxide 32.0, Anion Gap 3 L, BUN 27 H, Creatinine 0.53 L, Estim Creat Clear Calc 135.11, Est GFR (MDRD) Af Amer 204, Est GFR (MDRD) Non-Af 168, BUN/Creatinine Ratio 51.2 H, Glucose 124 H, Calcium 7.9 L, Total Bilirubin 0.60, AST 24, ALT 28, Alkaline Phosphatase 50, Total Protein 6.7, Albumin 1.9 L, Globulin 4.8 H, Albumin/Globulin Ratio 0.4 L Micro: Microbiology 03/30/21 09:15 Sputum, Induced/Lukens Gram Stain - Final 03/30/21 09:15 Sputum, Induced/Lukens Respiratory Culture - Final Proprionibacterium acnes 03/23/21 19:09 Blood Culture (Wb) - Anticubital Right Blood Culture - Final No growth in 5 days. 03/23/21 18:40 Blood Culture (Wb) - Anticubital Right Blood Culture - Final No growth in 5 days. 03/23/21 18:40 Nasal Secretion SARS-CoV-2 Antigen (Rapid) - Final SARS-CoV-2 (COVID 19) Physical Exam Const Constitutional Narrative: Following commands. Opens eyes to voice General Appearance: ill appearing, intubated and patient mechanically ventilated Nutritional Appearance: morbidly obese HEENT normocephalic and head/scalp atraumatic Eyes PERRL, EOMs intact bilaterally and conjunctivae normal Neck supple General: trachea midline Chest inspection of chest normal Chest: symmetrical chest wall rise; Negative for crepitus Resp Auscultation: diminished lung sounds; Negative for rales, rhonchi or wheezes Cardio regular rate, regular rhythm, S1 normal heart sound, S2 normal heart sound, no murmurs, no rub and no gallops GI normal to inspection, nondistended, normoactive bowel sounds Extremity General Extremity: edema bilateral lower extremity; Negative for clubbing or cyanosis Skin General Skin Exam: venous stasis and dermatitis Neuro CN's II-XII intact bilaterally and no focal motor deficits Psych Mood & Affect: flat affect Charges/Coding Procedures Hospitalists Procedures: [id number] Critial Care 1st Hr
--- NOTE | 2021-04-04 07:28 | PCM.PN.BLA ---
Progress Note discussed case with ICU. No bill
[2021-04-04] MEDS: Magnesium Citrate 300 ML 150 ML PO (07:52)
[2021-04-04] MEDS: 0.9% Saline Lock 10 ML Syringe IV (07:53)
[2021-04-04] MEDS: dexAMETHasone 4 MG Tablet 6 MG GT (07:53)
[2021-04-04] MEDS: Enoxaparin 40 MG/0.4 ML Syringe SC ×2 (07:53→21:16)
[2021-04-04] MEDS: Polyethylene Glycol 3350 17 GM PACKET GT (07:54)
[2021-04-04] MEDS: Furosemide 40 MG/4 ML Vial IV ×2 (07:54→16:37)
[2021-04-04] MEDS: Senna/Docusate Sodium 1 Tablet GT ×2 (07:54→21:16)
[2021-04-04] MEDS: Potassium Chloride Oral Soln 20 MEQ/15 ML UDC GT ×2 (07:54→16:37)
[2021-04-04] MEDS: Chlorhexidine 15 ML PO ×2 (07:55→21:18)
[2021-04-04] MEDS: CHLORHEXIDINE GLUC 2% CLOTH 1 EACH TOWELETTE TOPICAL (07:55)
[2021-04-04] MEDS: Dexmedetomidine 1,000 mcg in 0.9% NS 240 mL 33.4 MCG CONT INF ×2 (08:00→15:45)
[2021-04-04] MEDS: Ipratropium/Albuterol Sulfate 3 ML AMPUL.NEB INHALATION ×4 (08:03→19:14)
[2021-04-04] MEDS: Pivot 1.5 Cal 1,000 ML 60 ML GT (11:38)
--- NOTE | 2021-04-04 12:19 | PCM.PN.ID ---
Physical Exam Narrative On vent, fever over 104 yesterday evening. Const no apparent distress Resp Effort and Inspection: mechanically ventilated Auscultation: diminished lung sounds Cardio regular rate and regular rhythm GI soft to palpation, non-tender and non-distended Extremity no clubbing, cyanosis or edema Skin no rashes or lesions noted ID ID: Route of nutrition/ use of supplements: [] Nutritional Intake: [] IV Site: [] Morales Catheter: [] Assessment & Plan Assessment/Plan (1) COVID-19: PLAN: Sx started 03/17/21. Unvaccinated. Isolate until 04/06/21. Recommend vaccine in one month. On dex, baricitinib. Completed remdesivir. Remains on vent, off paralytic. On cefepime since 03/28. Sputum from 03/30 with p.acnes. Worsened fever. Now changed to zosyn, will order bcx, sputum cx and add vanc. Will follow (2) Acute hypoxemic respiratory failure due to COVID-19:
--- NOTE | 2021-04-04 14:39 | PCM.RX.CS ---
Consult Pharmacy has been consulted to manage selected antiobiotic: Vancomycin Type of Consult: New start Suspected Infection: Other Prior Doses of Antibiotics Received/Current Regimen: 2000 MG Labs: Sodium 138 mmol/L (136-145) 04/04/21 04:15 Potassium 4.1 mmol/L (3.5-5.1) 04/04/21 04:15 Chloride 103 mmol/L (98-107) 04/04/21 04:15 Carbon Dioxide 32.0 mmol/L (21.0-32.0) 04/04/21 04:15 Anion Gap 3 (5-15) L 04/04/21 04:15 BUN 27 mg/dL (7-18) H 04/04/21 04:15 Creatinine 0.53 mg/dL (0.70-1.30) L 04/04/21 04:15 Est GFR (MDRD) Af Amer 204 mL/min (>60) 04/04/21 04:15 Est GFR (MDRD) Non-Af 168 mL/min (>60) 04/04/21 04:15 BUN/Creatinine Ratio 51.2 RATIO (10-20) H 04/04/21 04:15 Glucose 124 mg/dL (74-106) H 04/04/21 04:15 Vancomycin Trough 20.8 ug/mL (5.0-15.0) H 03/29/21 12:26 Microbiology: Microbiology 03/30/21 09:15 Sputum, Induced/Lukens Gram Stain - Final 03/30/21 09:15 Sputum, Induced/Lukens Respiratory Culture - Final Proprionibacterium acnes 03/23/21 19:09 Blood Culture (Wb) - Anticubital Right Blood Culture - Final No growth in 5 days. 03/23/21 18:40 Blood Culture (Wb) - Anticubital Right Blood Culture - Final No growth in 5 days. 03/23/21 18:40 Nasal Secretion SARS-CoV-2 Antigen (Rapid) - Final SARS-CoV-2 (COVID 19) Weight used for dosin.583 kg Estimated Creatinine Clearance: 135 ML/MIN Goal Trough: 15-20 mcg/mL Pharmacy Plan for Drug Dosing: VANCOMYCIN CONSULT FROM DR. BURT RENAL FUNCTION REVIEWED. VANCOMYCIN 1500 MG IV Q 8 HOURS TO START 8 HOURS AFTER LOADING DOSE. TROUGH ORDERED PRIOR TO FOURTH DOSE ON 04/05/21 AT 1200. PHARMACY WILL REVIEW AND ADJUST DOSE FOR TARGET GOAL Pharmacy Service will continue to monitor and adjust dosing as required. Follow-Up Labs: Trough Vancomycin - 04/05/21 AT 1200 BEFORE 1230 DOSE
--- NOTE | 2021-04-04 20:56 | NURSING ---
Vent alarming, this RN to bedside, pt sats 91% on acvc+ at 70% fio2. ETT suctioned with mod amt thick yellow secretions, vent continuing to alarm severe occlusion, no further secretions per suctioning. RT Hope called to bedside to assess ventilator. Pt tolerating well.
[2021-04-04] MEDS: Nystatin Powder 15gm Bottle 1 APPLIC TOPICAL (21:17)
[2021-04-04] MEDS: Dexmedetomidine 1,000 mcg in 0.9% NS 240 mL 40.1 MCG CONT INF (22:16)
[2021-04-05] VITALS (42 sets, daily range): BP systolic 82–135; BP diastolic 53–78; PULSE 55–81; RESP 16–36; TEMP 37.1–38.8; O2SAT 86–98
[2021-04-05] MEDS: guaiFENesin 10 ML UDC (200MG/10ML) GT ×6 (00:38→21:21)
[2021-04-05] MEDS: Acetaminophen 650 MG/20 ML UDC GT (01:15)
[2021-04-05] MEDS: Dexmedetomidine 1,000 mcg in 0.9% NS 240 mL 40.1 MCG CONT INF (04:02)
[2021-04-05] MEDS: Nystatin Powder 15gm Bottle 1 APPLIC TOPICAL ×3 (04:57→21:21)
[2021-04-05 05:01] LABS: Absolute Lymphocyte Count 1.01 X10^3/uL (0.83-4.51); Absolute Neutrophil Count 11.5 X10^3/uL (2.0-7.7); Basophil# 0.03 X10^3/uL; Basophil% 0.2 % (0-1); Eosinophil# 0.25 X10^3/uL; Eosinophils% 1.9 % (0-5); Hematocrit 38.8 % (40-54); Hemoglobin 12.3 g/dL (13.0-16.5); Lymphocyte # 1.01 X10^3/ul (0.83-4.51); Lymphocyte % 7.5 % (19-41); Mean Corp Hgb Conc 31.7 g/dL (32-36); Mean Corpuscular Hgb 28.7 pg (27.0-32.0); Mean Corpuscular Volume 90.4 fL (80-94); Mean Platelet Vol. 10.4 fl (6.2-12.0); Monocyte# 0.57 X10^3/uL; Monocyte% 4.2 % (0-10); NRBC Flagged by Analyzer 0 % (0-5); Neutrophil # 11.46 X10^3/uL (2.7-7.7); Neutrophil % 85.2 % (47-70); Platelet Count 192 K/mm3 (150-450); RBC Distribution Width CV 14.2 % (11.6-14.6); RBC Distribution Width SD 46.8 fl (35.1-43.9); Red Blood Count 4.29 M/mm3 (4.6-6.2); White Blood Count 13.5 K/mm3 (4.4-11.0)
[2021-04-05 05:19] LABS: ALB/GLOB Ratio 0.4 RATIO (0.9-2.4); AST(SGOT) 28 U/L (15-37); Alanine Aminotransfer ALT/SGPT 42 U/L (16-61); Albumin, Serum 1.9 g/dL (3.2-5.0); Alkaline Phosphatase 59 U/L (45-117); Anion Gap 3 (5-15); BUN 32 mg/dL (7-18); BUN/Creat Ratio 51.4 RATIO (10-20); Calcium,Total 7.8 mg/dL (8.5-10.1); Chloride 104 mmol/L (98-107); Creatinine, Serum 0.62 mg/dL (0.70-1.30); EST Glomerular Filtration Rate 139 mL/min (>60); Est Glom Filt Rate - Afr Amer 168 mL/min (>60); Globulin 4.6 g/dL (2.2-4.2); Glucose 129 mg/dL (74-106); Potassium 4.4 mmol/L (3.5-5.1); Protein, Total 6.5 g/dL (6.4-8.2); Sodium Level 140 mmol/L (136-145)
[2021-04-05] MEDS: Ipratropium/Albuterol Sulfate 3 ML AMPUL.NEB INHALATION ×3 (06:49→19:20)
--- NOTE | 2021-04-05 06:50 | PN.CC_ITS ---
Assessment & Plan Assessment/Plan (1) Acute hypoxemic respiratory failure due to COVID-19: PLAN: RECOMMENDATIONS: 1. Continue mechanical ventilation. Spontaneous breathing and awakening t rials per protocol 2. Given continued fevers, transitioned from cefepime to Vanco and Zosyn 3. Continue aggressive pulmonary toileting with guaifenesin and inline suctioning 4. Challenge with diuretics as able. Challenge today 5. Continue Decadron (04/10/2021) and baricitinib (04/07/2021) 6. Aggressive control of bowel movement. Agminated citrate today 7. Continue prophylactic Lovenox. 8. Continue appropriate GI prophylaxis. IMPRESSIONS: 1. Acute hypoxemic respiratory failure secondary to COVID-19 pneumonia The patient initially presented to the hospital on March 23 with progressive COVID symptoms after testing positive on March 21. The patient is unvaccinated. CTA chest was negative for PE. The patient was initiated on Decadron, prophylactic Lovenox and baricitinib. He has completed a treatment course of remdesivir. The patient has demonstrated worsening oxygenation status over the course of his hospitalization requiring intubation on March 30. Patient continues to have significant fevers despite cefepime therapy. We will transition to Vanco and Zosyn as a therapeutic trial for better gram-positive c overage. Patient may also have an element of drug fever secondary to Precedex therapy. FiO2 and PEEP will be weaned for saturations greater than 90%. We will continue to diurese and use aggressive pulmonary toileting as tolerated. 2. Morbid obesity/hypertension/neuropathy Complicates care, management, recovery and prognosis. Continue home medications as indicated. Continue to advance tube feeds as tolerated TIME: 35 minutes of critical care time, inclusive of procedures, was spent addressing the patient's acute hypoxemic respiratory failure secondary to COVID- 19 pneumonia, review of all data and collaboration with the care team. Subjective Subjective Patient did okay overnight. There was a dysfunction with the ventilator requiring patient to receive bag mask ventilation for short period of time until ventilator could be changed. Following this episode, patient did have an increase in FiO2 demands from 65% to as high as 80%. Patient continues to have a fever overnight. Patient is interactive and not reporting any pain or dyspnea . Objective Data Objective Data Vital Signs: Vital Signs Temp Pulse Resp BP Pulse Ox 38.4 C H 66 31 H 127/74 H 92 04/05/21 06:00 04/05/21 06:00 04/05/21 06:00 04/05/21 06:00 04/05/21 06:00 Oxygen Flow Rate (L/min) 60 Oxygen Delivery Method Mechanical Ventilator Weight: 135.896 kg Body Mass Index (BMI) 50.1 Intake & Output: Intake and Output for Last 24 Hours 04/03/21 04/04/21 04/05/21 23:59 23:59 23:59 Intake Total 3763.88 / 3857.18 4762.35 / 4804.93 1168.87 / 1168.87 Output Total 3000 / 3400 3850 / 3850 300 / 300 Balance 763.88 / 457.18 912.35 / 954.93 868.87 / 868.87 Lab / Micro Data Result Diagrams: 04/05/21 04:58 04/05/21 04:58 Labs: Laboratory Results - last 24 hr 04/05/21 04:58: WBC 13.5 H, RBC 4.29 L, Hgb 12.3 L, Hct 38.8 L, MCV 90.4, MCH 28.7, MCHC 31.7 L, RDW Std Deviation 46.8 H, RDW Coeff of Connie 14.2, Plt Count 192, MPV 10.4, Immature Gran % (Auto) 1.000 H, Neut % (Auto) 85.2 H, Lymph % (Auto) 7.5 L, [place] % (Auto) 4.2, Eos % (Auto) 1.9, Baso % (Auto) 0.2, Absolute Neuts (auto) 11.5 H, Absolute Lymphs (auto) 1.01, Nucleated RBC % 0 04/05/21 04:58: Sodium 140, Potassium 4.4, Chloride 104, Carbon Dioxide 33.0 H, Anion Gap 3 L, BUN 32 H, Creatinine 0.62 L, Estim Creat Clear Calc 115.50, Est GFR (MDRD) Af Amer 168, Est GFR (MDRD) Non-Af 139, BUN/Creatinine Ratio 51.4 H, Glucose 129 H, Calcium 7.8 L, Total Bilirubin 0.60, AST 28, ALT 42, Alkaline Phosphatase 59, Total Protein 6.5, Albumin 1.9 L, Globulin 4.6 H, Albumin/Globulin Ratio 0.4 L Micro: Microbiology 04/04/21 12:10 Sputum, Induced/Lukens Gram Stain - Final 03/30/21 09:15 Sputum, Induced/Lukens Gram Stain - Final 03/30/21 09:15 Sputum, Induced/Lukens Respiratory Culture - Final Proprionibacterium acnes 03/23/21 19:09 Blood Culture (Wb) - Anticubital Right Blood Culture - Final No growth in 5 days. 03/23/21 18:40 Blood Culture (Wb) - Anticubital Right Blood Culture - Final No growth in 5 days. 03/23/21 18:40 Nasal Secretion SARS-CoV-2 Antigen (Rapid) - Final SARS-CoV-2 (COVID 19) Radiography Diagnostic Testing: Radiology Impression Echocardiogram 04/03/21 10:44 Interpretation Summary The estimated ejection fraction is 55-60 %. Contrast echo showed no evidence of segmental wall motion abnormalities. No prior echo to compare. Ordering Physician: Casper Vazquez Referring Physician: SUKHJINDER HERRERA Performed By: Triny Abraham, RDCS, RVT Physical Exam Const Constitutional Narrative: Following commands. Opens eyes to voice General Appearance: ill appearing, intubated and patient mechanically ventilated Nutritional Appearance: morbidly obese HEENT normocephalic and head/scalp atraumatic Eyes PERRL, EOMs intact bilaterally and conjunctivae normal Neck supple General: trachea midline Chest inspection of chest normal Chest: symmetrical chest wall rise; Negative for crepitus Resp Auscultation: diminished lung sounds; Negative for rales, rhonchi or wheezes Cardio regular rate, regular rhythm, S1 normal heart sound, S2 normal heart sound, no murmurs, no rub and no gallops GI normal to inspection, nondistended, normoactive bowel sounds Extremity General Extremity: edema bilateral lower extremity; Negative for clubbing or cyanosis Skin General Skin Exam: venous stasis and dermatitis Neuro CN's II-XII intact bilaterally and no focal motor deficits Psych Mood & Affect: flat affect Charges/Coding Procedures Hospitalists Procedures: 08978 Critial Care 1st Hr
[2021-04-05] MEDS: Magnesium Citrate 300 ML PO (08:13)
[2021-04-05] MEDS: dexAMETHasone 4 MG Tablet 6 MG GT (08:14)
[2021-04-05] MEDS: Enoxaparin 40 MG/0.4 ML Syringe SC ×2 (08:15→21:21)
[2021-04-05] MEDS: Polyethylene Glycol 3350 17 GM PACKET GT (08:15)
[2021-04-05] MEDS: Potassium Chloride Oral Soln 20 MEQ/15 ML UDC GT ×2 (08:16→16:42)
[2021-04-05] MEDS: Senna/Docusate Sodium 1 Tablet GT ×2 (08:16→21:21)
[2021-04-05] MEDS: Furosemide 40 MG/4 ML Vial IV ×2 (08:17→16:42)
[2021-04-05] MEDS: Chlorhexidine 15 ML PO ×2 (08:17→21:21)
--- NOTE | 2021-04-05 09:32 | PCM.PN.HOSP ---
Subjective Subjective Still intubated however he is alert to voice. He does have some fevers and this could be due to the Precedex however we will continue with antimicrobial coverage just to be on the safe side Objective Data Objective Data Vital Signs: Vital Signs Temp Pulse Resp BP Pulse Ox 100.6 F H 67 26 H 99/60 91 04/05/21 09:00 04/05/21 09:00 04/05/21 09:00 04/05/21 09:00 04/05/21 09:00 Oxygen Flow Rate (L/min) 60 Oxygen Delivery Method Mechanical Ventilator Weight: 299 lb 9.6 oz Body Mass Index (BMI) 50.1 Intake & Output: Intake and Output for Last 24 Hours 04/04/21 04/05/21 04/06/21 03:59 03:59 03:59 Intake Total 3856.39 / 3952.19 4783.89 / 5018.99 1147.10 / 1147.10 Output Total 3050 / 3050 3450 / 3450 300 / 300 Balance 806.39 / 902.19 1333.89 / 1568.99 847.10 / 847.10 Lab / Micro Data Result Diagrams: 04/05/21 04:58 04/05/21 04:58 Labs: Laboratory Results - last 24 hr 04/05/21 04:58: WBC 13.5 H, RBC 4.29 L, Hgb 12.3 L, Hct 38.8 L, MCV 90.4, MCH 28.7, MCHC 31.7 L, RDW Std Deviation 46.8 H, RDW Coeff of Connie 14.2, Plt Count 192, MPV 10.4, Immature Gran % (Auto) 1.000 H, Neut % (Auto) 85.2 H, Lymph % (Auto) 7.5 L, [place] % (Auto) 4.2, Eos % (Auto) 1.9, Baso % (Auto) 0.2, Absolute Neuts (auto) 11.5 H, Absolute Lymphs (auto) 1.01, Nucleated RBC % 0 04/05/21 04:58: Sodium 140, Potassium 4.4, Chloride 104, Carbon Dioxide 33.0 H, Anion Gap 3 L, BUN 32 H, Creatinine 0.62 L, Estim Creat Clear Calc 115.50, Est GFR (MDRD) Af Amer 168, Est GFR (MDRD) Non-Af 139, BUN/Creatinine Ratio 51.4 H, Glucose 129 H, Calcium 7.8 L, Total Bilirubin 0.60, AST 28, ALT 42, Alkaline Phosphatase 59, Total Protein 6.5, Albumin 1.9 L, Globulin 4.6 H, Albumin/Globulin Ratio 0.4 L Micro: Microbiology 04/04/21 12:10 Sputum, Induced/Lukens Gram Stain - Final 03/30/21 09:15 Sputum, Induced/Lukens Gram Stain - Final 03/30/21 09:15 Sputum, Induced/Lukens Respiratory Culture - Final Proprionibacterium acnes 03/23/21 19:09 Blood Culture (Wb) - Anticubital Right Blood Culture - Final No growth in 5 days. 03/23/21 18:40 Blood Culture (Wb) - Anticubital Right Blood Culture - Final No growth in 5 days. 03/23/21 18:40 Nasal Secretion SARS-CoV-2 Antigen (Rapid) - Final SARS-CoV-2 (COVID 19) Radiography Diagnostic Testing: Radiology Impression Echocardiogram 04/03/21 10:44 Interpretation Summary The estimated ejection fraction is 55-60 %. Contrast echo showed no evidence of segmental wall motion abnormalities. No prior echo to compare. Ordering Physician: Casper Vazquez Referring Physician: SUKHJINDER HERRERA Performed By: Triny Abraham, JONICS, RVT Physical Exam Narrative Const Opens eyes and follows simple commands General Appearance: intubated and patient mechanically ventilated HEENT moist oral mucous membranes Head and Scalp: normocephalic Eyes PERRL and conjunctivae normal Neck supple and no JVD Resp Effort and Inspection: mechanically ventilated Auscultation: diminished lung sounds; Negative for rales, rhonchi or wheezes Cardio regular rate, regular rhythm, S1 normal heart sound, S2 normal heart sound and no gallops GI soft to palpation and non-distended; Negative for hepatosplenomegaly Extremity General Extremity: edema Skin no rashes or lesions noted Neuro Sensorium / Orientation: Alert, on vent Psych Appearance: intubated, flat affect Assessment & Plan Assessment/Plan (1) COVID-19: (2) Acute hypoxemic respiratory failure due to COVID-19: PLAN: 1. Acute hypoxic respiratory failure due to COVID-19 pneumonia ? CTA of the chest was negative for PE -03/25/2021 patient seen still remains on high flow oxygen via Airvo. Current settings include FiO2 of 68% with flow rate of 45%. Patient was also seen in consultation by Dr. Montemayor with ID it was deemed patient not a candidate for remdesivir at this point ? 03/26/2021. Patient remains on Airvo with no improvement in overall condition ?03/27/2021; Patient had to be placed on BiPAP during the night due to worsening hypoxia -03/28/2021; Patient oxygen requirement increasing. Patient had to be placed on BiPAP and consultation placed to pulm ?03/29/2021; Patient seen no improvement in clinical condition with patient on BiPAP with FiO2 of 100%.. Patient was seen in consultation by Dr. Jorge L Bah with pulmonary medicine his notes and recommendations reviewed. -03/30/2021; Patient was transferred to the intensive care unit due to inability to be weaned off the vent for 3 days. Case was discussed with Dr. Bah. Patient ended up being intubated and placed on the vent. Prior to patient being intubated had discussion with patient's daughter regarding the father's condition. Patient's daughter requested transfer to [facility] call was placed patient demographics faxed. Had a discussion with dry cans back tender at who declined to transfer since the decision to transfer is coming from family members. ? 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 Continue with baricitinib and Decadron ? 04/01/2021: We will try to reverse his paralysis, and will obtain an ABG to monitor his ventilatory status. As needed diuresis also data is pending, continue with cefepime ? 04/02/2021: Transitioning him to Precedex and he is more awake and following commands. We'll try to do some spontaneous breathing trials throughout the day and see if we can extubate in the next 24 to 48 hours and possible ? 04/05/2021: Continue on Precedex added Zosyn and vancomycin secondary to continued fevers, repeat blood cultures are pending 2. Essential hypertension ? Blood pressure is much better controlled, continue with as needed Lasix diuresis 3. Class III obesity with BMI 47.8 ? Weight loss advised 4. Hypokalemia ? Present on admission corrected per protocol with subsequent monitoring with daily BMPs ordered 5. History of prostate CA ? Patient family requested PSA blood draw was patient in the hospital. PSA came back at 0.5 (range 0.0-4.0) DVT: [place] Charges/Coding Visit Charges Inpatient E&M: 14910 Subs Hosp L2
[2021-04-05] MEDS: Dexmedetomidine 1,000 mcg in 0.9% NS 240 mL 46.8 MCG CONT INF ×3 (09:49→20:49)
[2021-04-05] MEDS: Pivot 1.5 Cal 1,000 ML 60 ML GT (11:50)
[2021-04-05 12:38] LABS: Vancomycin, Trough Level 16.7 ug/mL (5.0-15.0)
--- NOTE | 2021-04-05 13:34 | PCM.RX.CS ---
Consult Pharmacy has been consulted to manage selected antiobiotic: Vancomycin Type of Consult: New start Suspected Infection: Pneumonia Prior Doses of Antibiotics Received/Current Regimen: 1500mg iv q8h Labs: Sodium 140 mmol/L (136-145) 04/05/21 04:58 Potassium 4.4 mmol/L (3.5-5.1) 04/05/21 04:58 Chloride 104 mmol/L (98-107) 04/05/21 04:58 Carbon Dioxide 33.0 mmol/L (21.0-32.0) H 04/05/21 04:58 Anion Gap 3 (5-15) L 04/05/21 04:58 BUN 32 mg/dL (7-18) H 04/05/21 04:58 Creatinine 0.62 mg/dL (0.70-1.30) L 04/05/21 04:58 Est GFR (MDRD) Af Amer 168 mL/min (>60) 04/05/21 04:58 Est GFR (MDRD) Non-Af 139 mL/min (>60) 04/05/21 04:58 BUN/Creatinine Ratio 51.4 RATIO (10-20) H 04/05/21 04:58 Glucose 129 mg/dL (74-106) H 04/05/21 04:58 Vancomycin Trough 16.7 ug/mL (5.0-15.0) H 04/05/21 11:55 Microbiology: Microbiology 04/04/21 12:10 Sputum, Induced/Lukens Gram Stain - Final 04/04/21 12:10 Sputum, Induced/Lukens Respiratory Culture - Preliminary Staphylococcus aureus 03/30/21 09:15 Sputum, Induced/Lukens Gram Stain - Final 03/30/21 09:15 Sputum, Induced/Lukens Respiratory Culture - Final Proprionibacterium acnes 03/23/21 19:09 Blood Culture (Wb) - Anticubital Right Blood Culture - Final No growth in 5 days. 03/23/21 18:40 Blood Culture (Wb) - Anticubital Right Blood Culture - Final No growth in 5 days. 03/23/21 18:40 Nasal Secretion SARS-CoV-2 Antigen (Rapid) - Final SARS-CoV-2 (COVID 19) Weight used for dosin.8 kg Goal Trough: 15-20 mcg/mL Pharmacy Plan for Drug Dosing: Renal not much changed. Trough today ~8 hrs post dose was 16.7 and in therapeutic range of 15-20mcg/ml. Will continue same dose and repeat trough before another 4th dose to monitor for appropriateness. Pharmacy Service will continue to monitor and adjust dosing as required. Follow-Up Labs: Trough Vancomycin - 1.23.22@1200 before 1230 dose
[2021-04-05] MEDS: Albuterol 2.5 MG/3 ML VIAL.NEB. INHALATION (14:18)
[2021-04-05] MEDS: Propofol 10MG/Ml 1,000 MG/100 ML Bottle 8.2 MG CONT INF (20:30)
[2021-04-06] VITALS (42 sets, daily range): BP systolic 87–121; BP diastolic 47–74; PULSE 56–96; RESP 17–27; TEMP 36.8–39.9; O2SAT 84–96
[2021-04-06] MEDS: Dexmedetomidine 1,000 mcg in 0.9% NS 240 mL 50.1 MCG CONT INF ×2 (01:27→06:02)
[2021-04-06] MEDS: guaiFENesin 10 ML UDC (200MG/10ML) GT ×6 (01:27→23:12)
[2021-04-06 04:28] LABS: Absolute Lymphocyte Count 0.88 X10^3/uL (0.83-4.51); Absolute Neutrophil Count 10.2 X10^3/uL (2.0-7.7); Basophil# 0.02 X10^3/uL; Basophil% 0.2 % (0-1); Eosinophil# 0.22 X10^3/uL; Eosinophils% 1.8 % (0-5); Hematocrit 36.3 % (40-54); Hemoglobin 11.6 g/dL (13.0-16.5); Lymphocyte # 0.88 X10^3/ul (0.83-4.51); Lymphocyte % 7.4 % (19-41); Mean Corpuscular Hgb 29.3 pg (27.0-32.0); Mean Corpuscular Volume 91.7 fL (80-94); Mean Platelet Vol. 11.2 fl (6.2-12.0); Monocyte# 0.49 X10^3/uL; Monocyte% 4.1 % (0-10); NRBC Flagged by Analyzer 0 % (0-5); Neutrophil # 10.24 X10^3/uL (2.7-7.7); Neutrophil % 85.9 % (47-70); Platelet Count 160 K/mm3 (150-450); RBC Distribution Width CV 14.3 % (11.6-14.6); RBC Distribution Width SD 48.1 fl (35.1-43.9); Red Blood Count 3.96 M/mm3 (4.6-6.2); White Blood Count 11.9 K/mm3 (4.4-11.0)
[2021-04-06 04:47] LABS: ALB/GLOB Ratio 0.4 RATIO (0.9-2.4); AST(SGOT) 26 U/L (15-37); Alanine Aminotransfer ALT/SGPT 42 U/L (16-61); Albumin, Serum 1.6 g/dL (3.2-5.0); Alkaline Phosphatase 53 U/L (45-117); Anion Gap 4 (5-15); BUN 31 mg/dL (7-18); BUN/Creat Ratio 76.4 RATIO (10-20); Calcium,Total 6.9 mg/dL (8.5-10.1); Chloride 106 mmol/L (98-107); Creatinine, Serum 0.41 mg/dL (0.70-1.30); EST Glomerular Filtration Rate 228 mL/min (>60); Est Glom Filt Rate - Afr Amer 275 mL/min (>60); Estimated Creatinine Clearance 174.65 ml/min; Glucose 121 mg/dL (74-106); Potassium 3.8 mmol/L (3.5-5.1); Protein, Total 5.6 g/dL (6.4-8.2); Sodium Level 141 mmol/L (136-145)
[2021-04-06] MEDS: Nystatin Powder 15gm Bottle 1 APPLIC TOPICAL ×3 (05:54→20:35)
--- NOTE | 2021-04-06 06:20 | PN.CC_ITS ---
Assessment & Plan Assessment/Plan (1) Acute hypoxemic respiratory failure due to COVID-19: PLAN: RECOMMENDATIONS: 1. Continue mechanical ventilation. Spontaneous breathing and awakening t rials per protocol 2. Continue Vanco and Zosyn until sensitivities are available 3. Continue aggressive pulmonary toileting with guaifenesin and inline suctioning 4. Challenge with diuretics as able. Challenge today 5. Continue Decadron (04/10/2021) and baricitinib (04/07/2021) 6. Aggressive control of bowel movement. 7. Continue prophylactic Lovenox. 8. Continue appropriate GI prophylaxis. IMPRESSIONS: 1. Acute hypoxemic respiratory failure secondary to COVID-19/staff aureus pneumonia The patient initially presented to the hospital on March 23 with progressive COVID symptoms after testing positive on March 21. The patient is unvaccinated. CTA chest was negative for PE. The patient was initiated on Decadron, prophylactic Lovenox and baricitinib. He has completed a treatment course of remdesivir. The patient has demonstrated worsening oxygenation status over the course of his hospitalization requiring intubation on March 30. Patient is now growing staph aureus from respiratory secretions. Patient has be en on Vanco and Zosyn. This will be continued until sensitivities are available. Continue to diurese as tolerated. Wean oxygen if possible. 2. Morbid obesity/hypertension/neuropathy Complicates care, management, recovery and prognosis. Continue home medications as indicated. Continue to advance tube feeds as tolerated TIME: 32 minutes of critical care time, inclusive of procedures, was spent addressing the patient's acute hypoxemic respiratory failure secondary to COVID- 19 pneumonia, review of all data and collaboration with the care team. Subjective Subjective Patient did okay overnight. Patient's oxygen demands have increased over the l ast 24 hours. Patient was also febrile. Patient continues to deny pain. Nursing and respiratory of reporting intermittent respiratory secretions with no obvious mucous plugging. Objective Data Objective Data Vital Signs: Vital Signs Temp Pulse Resp BP Pulse Ox 37.8 C H 62 21 H 104/60 92 04/06/21 06:00 04/06/21 06:00 04/06/21 06:00 04/06/21 06:00 04/06/21 06:00 Oxygen Flow Rate (L/min) 60 Oxygen Delivery Method Mechanical Ventilator Weight: 135.794 kg Body Mass Index (BMI) 50.1 Intake & Output: Intake and Output for Last 24 Hours 04/04/21 04/05/21 04/06/21 23:59 23:59 23:59 Intake Total 4762.35 / 4804.93 4442.95 / 4468.06 1241.59 / 1241.59 Output Total 3850 / 3850 3150 / 3150 300 / 300 Balance 912.35 / 954.93 1292.95 / 1318.06 941.59 / 941.59 Lab / Micro Data Result Diagrams: 04/06/21 04:10 04/06/21 04:10 Labs: Laboratory Results - last 24 hr 04/05/21 11:55: Vancomycin Trough 16.7 H 04/06/21 04:10: WBC 11.9 H, RBC 3.96 L, Hgb 11.6 L, Hct 36.3 L, MCV 91.7, MCH 29.3, MCHC 32.0, RDW Std Deviation 48.1 H, RDW Coeff of Connie 14.3, Plt Count 160, MPV 11.2, Immature Gran % (Auto) 0.600, Neut % (Auto) 85.9 H, Lymph % (Auto) 7.4 L, [place] % (Auto) 4.1, Eos % (Auto) 1.8, Baso % (Auto) 0.2, Absolute Neuts (auto) 10.2 H, Absolute Lymphs (auto) 0.88, Nucleated RBC % 0 04/06/21 04:10: Sodium 141, Potassium 3.8, Chloride 106, Carbon Dioxide 31.0, Anion Gap 4 L, BUN 31 H, Creatinine 0.41 L, Estim Creat Clear Calc 174.65, Est GFR (MDRD) Af Amer 275, Est GFR (MDRD) Non-Af 228, BUN/Creatinine Ratio 76.4 H, Glucose 121 H, Calcium 6.9 L, Total Bilirubin 0.50, AST 26, ALT 42, Alkaline Phosphatase 53, Total Protein 5.6 L, Albumin 1.6 L, Globulin 4.0, Albumin/Globulin Ratio 0.4 L Micro: Microbiology 04/04/21 12:10 Sputum, Induced/Lukens Gram Stain - Final 04/04/21 12:10 Sputum, Induced/Lukens Respiratory Culture - Preliminary Staphylococcus aureus 03/30/21 09:15 Sputum, Induced/Lukens Gram Stain - Final 03/30/21 09:15 Sputum, Induced/Lukens Respiratory Culture - Final Proprionibacterium acnes 03/23/21 19:09 Blood Culture (Wb) - Anticubital Right Blood Culture - Final No growth in 5 days. 03/23/21 18:40 Blood Culture (Wb) - Anticubital Right Blood Culture - Final No growth in 5 days. 03/23/21 18:40 Nasal Secretion SARS-CoV-2 Antigen (Rapid) - Final SARS-CoV-2 (COVID 19) Physical Exam Const Constitutional Narrative: Following commands. Opens eyes to voice General Appearance: ill appearing, intubated and patient mechanically ventilated Nutritional Appearance: morbidly obese HEENT normocephalic and head/scalp atraumatic Eyes PERRL, EOMs intact bilaterally and conjunctivae normal Neck supple General: trachea midline Chest inspection of chest normal Chest: symmetrical chest wall rise; Negative for crepitus Resp Auscultation: rhonchi and diminished lung sounds; Negative for rales or wheezes Cardio regular rate, regular rhythm, S1 normal heart sound, S2 normal heart sound, no murmurs, no rub and no gallops GI normal to inspection, nondistended, normoactive bowel sounds Extremity General Extremity: edema bilateral lower extremity; Negative for clubbing or cyanosis Skin General Skin Exam: venous stasis and dermatitis Neuro CN's II-XII intact bilaterally and no focal motor deficits Psych Mood & Affect: flat affect Charges/Coding Procedures Hospitalists Procedures: 59007 Critial Care 1st Hr
[2021-04-06] MEDS: Ipratropium/Albuterol Sulfate 3 ML AMPUL.NEB INHALATION ×4 (07:06→18:55)
[2021-04-06] MEDS: Pivot 1.5 Cal 1,000 ML 60 ML GT (07:32)
[2021-04-06] MEDS: Propofol 10MG/Ml 1,000 MG/100 ML Bottle 8.1 MG CONT INF ×3 (07:33→16:41)
[2021-04-06] MEDS: Chlorhexidine 15 ML PO ×2 (07:33→20:35)
[2021-04-06] MEDS: Enoxaparin 40 MG/0.4 ML Syringe SC ×2 (07:59→20:35)
[2021-04-06] MEDS: Potassium Chloride Oral Soln 20 MEQ/15 ML UDC 40 MEQ GT ×2 (08:00→20:34)
[2021-04-06] MEDS: Furosemide 40 MG/4 ML Vial IV ×2 (08:00→16:46)
[2021-04-06] MEDS: Polyethylene Glycol 3350 17 GM PACKET GT ×2 (08:00→08:03)
[2021-04-06] MEDS: Senna/Docusate Sodium 1 Tablet GT ×2 (08:03→20:36)
[2021-04-06] MEDS: dexAMETHasone 4 MG Tablet 6 MG GT (08:04)
[2021-04-06] MEDS: CHLORHEXIDINE GLUC 2% CLOTH 1 EACH TOWELETTE TOPICAL ×2 (08:05→23:11)
--- NOTE | 2021-04-06 08:47 | PCM.PN.HOSP ---
Subjective Subjective Remains intubated but alert. His sputum is growing staph, was started on vancomycin and continued on Zosyn Objective Data Objective Data Vital Signs: Vital Signs Temp Pulse Resp BP Pulse Ox 100.7 F H 63 23 H 89/62 L 91 04/06/21 07:00 04/06/21 07:06 04/06/21 07:06 04/06/21 07:00 04/06/21 07:04 Oxygen Flow Rate (L/min) 60 Oxygen Delivery Method Mechanical Ventilator Weight: 299 lb 6 oz Body Mass Index (BMI) 50.1 Intake & Output: Intake and Output for Last 24 Hours 04/05/21 04/06/21 04/07/21 03:59 03:59 03:59 Intake Total 4783.89 / 5018.99 4493.21 / 4749.01 1017.66 / 1017.66 Output Total 3450 / 3450 3150 / 3150 300 / 300 Balance 1333.89 / 1568.99 1343.21 / 1599.01 717.66 / 717.66 Lab / Micro Data Result Diagrams: 04/06/21 04:10 04/06/21 04:10 Labs: Laboratory Results - last 24 hr 04/05/21 11:55: Vancomycin Trough 16.7 H 04/06/21 04:10: WBC 11.9 H, RBC 3.96 L, Hgb 11.6 L, Hct 36.3 L, MCV 91.7, MCH 29.3, MCHC 32.0, RDW Std Deviation 48.1 H, RDW Coeff of Connie 14.3, Plt Count 160, MPV 11.2, Immature Gran % (Auto) 0.600, Neut % (Auto) 85.9 H, Lymph % (Auto) 7.4 L, Beadle % (Auto) 4.1, Eos % (Auto) 1.8, Baso % (Auto) 0.2, Absolute Neuts (auto) 10.2 H, Absolute Lymphs (auto) 0.88, Nucleated RBC % 0 04/06/21 04:10: Sodium 141, Potassium 3.8, Chloride 106, Carbon Dioxide 31.0, Anion Gap 4 L, BUN 31 H, Creatinine 0.41 L, Estim Creat Clear Calc 174.65, Est GFR (MDRD) Af Amer 275, Est GFR (MDRD) Non-Af 228, BUN/Creatinine Ratio 76.4 H, Glucose 121 H, Calcium 6.9 L, Total Bilirubin 0.50, AST 26, ALT 42, Alkaline Phosphatase 53, Total Protein 5.6 L, Albumin 1.6 L, Globulin 4.0, Albumin/Globulin Ratio 0.4 L Micro: Microbiology 04/04/21 12:10 Sputum, Induced/Lukens Gram Stain - Final 04/04/21 12:10 Sputum, Induced/Lukens Respiratory Culture - Final Staphylococcus aureus 03/30/21 09:15 Sputum, Induced/Lukens Gram Stain - Final 03/30/21 09:15 Sputum, Induced/Lukens Respiratory Culture - Final Proprionibacterium acnes 03/23/21 19:09 Blood Culture (Wb) - Anticubital Right Blood Culture - Final No growth in 5 days. 03/23/21 18:40 Blood Culture (Wb) - Anticubital Right Blood Culture - Final No growth in 5 days. 03/23/21 18:40 Nasal Secretion SARS-CoV-2 Antigen (Rapid) - Final SARS-CoV-2 (COVID 19) Physical Exam Narrative Const Opens eyes and follows simple commands General Appearance: intubated and patient mechanically ventilated HEENT moist oral mucous membranes Head and Scalp: normocephalic Eyes PERRL and conjunctivae normal Neck supple and no JVD Resp Effort and Inspection: mechanically ventilated Auscultation: diminished lung sounds, with rhonchi; Negative for rales, or wheezes Cardio regular rate, regular rhythm, S1 normal heart sound, S2 normal heart sound and no gallops GI soft to palpation and non-distended; Negative for hepatosplenomegaly Extremity General Extremity: edema Skin no rashes or lesions noted Neuro Sensorium / Orientation: Alert, on vent Psych Appearance: intubated, flat affect Assessment & Plan Assessment/Plan (1) COVID-19: (2) Acute hypoxemic respiratory failure due to COVID-19: PLAN: 1. Acute hypoxic respiratory failure due to COVID-19 pneumonia ? CTA of the chest was negative for PE -03/25/2021 patient seen still remains on high flow oxygen via Airvo. Current settings include FiO2 of 68% with flow rate of 45%. Patient was also seen in consultation by Dr. Montemayor with ID it was deemed patient not a candidate for remdesivir at this point ? 03/26/2021. Patient remains on Airvo with no improvement in overall condition ?03/27/2021; Patient had to be placed on BiPAP during the night due to worsening hypoxia -03/28/2021; Patient oxygen requirement increasing. Patient had to be placed on BiPAP and consultation placed to pulm ?03/29/2021; Patient seen no improvement in clinical condition with patient on BiPAP with FiO2 of 100%.. Patient was seen in consultation by Dr. Jorge L Bah with pulmonary medicine his notes and recommendations reviewed. -03/30/2021; Patient was transferred to the intensive care unit due to inability to be weaned off the vent for 3 days. Case was discussed with Dr. Bah. Patient ended up being intubated and placed on the vent. Prior to patient being intubated had discussion with patient's daughter regarding the father's condition. Patient's daughter requested transfer to [facility] call was placed patient demographics faxed. Had a discussion with oil field pumper at who declined to transfer since the decision to transfer is coming from family members. ? 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 Continue with baricitinib and Decadron ? 04/01/2021: We will try to reverse his paralysis, and will obtain an ABG to monitor his ventilatory status. As needed diuresis also data is pending, continue with cefepime ? 04/02/2021: Transitioning him to Precedex and he is more awake and following commands. We'll try to do some spontaneous breathing trials throughout the day and see if we can extubate in the next 24 to 48 hours and possible ? 04/05/2021: Continue on Precedex added Zosyn and vancomycin secondary to continued fevers, repeat blood cultures are pending ? 04/06/2021: Sputum culture from the with staph aureus, continue with vancomycin and Zosyn 2. Essential hypertension ? Blood pressure is much better controlled, continue with as needed Lasix diuresis 3. Class III obesity with BMI 47.8 ? Weight loss advised 4. Hypokalemia ? Present on admission corrected per protocol with subsequent monitoring with daily BMPs ordered 5. History of prostate CA ? Patient family requested PSA blood draw was patient in the hospital. PSA came back at 0.5 (range 0.0-4.0) DVT: Lovenox Charges/Coding Visit Charges Inpatient E&M: 23152 Subs Hosp L2
[2021-04-06] MEDS: Acetaminophen 650 MG/20 ML UDC GT ×3 (09:34→20:36)
--- NOTE | 2021-04-06 10:00 | RAD_ITS ---
INDICATION: low o2 sats EXAMINATION/TECHNIQUE: X-RAY - XR Chest 1 View COMPARISON: Multiple radiographs of the chest, most recent dated 04/01/2021. FINDINGS: LINES/DEVICES: The endotracheal tube is again seen traversing the midline and terminating with the tip 4.9 cm above the frankie (previously 3.2 cm). The enteric tube again traverses midline and terminates with the tip and side port below the inferior borders of the exam. A right-sided PICC line is stable in position with the tip near the cavoatrial junction. LUNGS: Redemonstrated are persistent pulmonary infiltrates scattered throughout the bilateral lungs. This is slightly more pronounced at the right lung base. These findings is not improved in the interval. No large pneumothorax is seen. Questionable small pleural effusions are noted in the lung bases. MEDIASTINUM AND CARDIOVASCULAR STRUCTURES: The cardiac silhouette is enlarged. The pulmonary vasculature also appears prominent. The airway is midline. BONES AND SOFT TISSUES: No acute fracture is seen. RAD/Chest 1 View (Portable) IMPRESSION: 1. Enteric tube is now approximately 4.9 cm above the frankie and overlying the midline. The remaining tubes and lines are stable. 2. Persistent pulmonary infiltrates scattered throughout the bilateral lungs, not improved in the interval. These findings are more pronounced at the right lung base. There also may be interval development of small pleural effusions. No pneumothorax is seen. 3. Cardiomegaly as well as prominence of the pulmonary vasculature. This could represent underlying pulmonary edema. Electronically Signed: Greg Hall MD at 11:27 EST Tel , Service support ,
[2021-04-06] MEDS: Dexmedetomidine 1,000 mcg in 0.9% NS 240 mL 50.9 MCG CONT INF (10:51)
[2021-04-06 11:52] LABS: Vancomycin, Trough Level 22.6 ug/mL (5.0-15.0)
[2021-04-06 11:54] LABS: CPK Total, Creatine Kinase 27 U/L (39-308); Triglycerides 130 mg/dL
--- NOTE | 2021-04-06 12:21 | PCM.RX.CS ---
Consult Pharmacy has been consulted to manage selected antiobiotic: Vancomycin Type of Consult: Follow-up Labs: Sodium 141 mmol/L (136-145) 04/06/21 04:10 Potassium 3.8 mmol/L (3.5-5.1) 04/06/21 04:10 Chloride 106 mmol/L (98-107) 04/06/21 04:10 Carbon Dioxide 31.0 mmol/L (21.0-32.0) 04/06/21 04:10 Anion Gap 4 (5-15) L 04/06/21 04:10 BUN 31 mg/dL (7-18) H 04/06/21 04:10 Creatinine 0.41 mg/dL (0.70-1.30) L 04/06/21 04:10 Est GFR (MDRD) Af Amer 275 mL/min (>60) 04/06/21 04:10 Est GFR (MDRD) Non-Af 228 mL/min (>60) 04/06/21 04:10 BUN/Creatinine Ratio 76.4 RATIO (10-20) H 04/06/21 04:10 Glucose 121 mg/dL (74-106) H 04/06/21 04:10 Vancomycin Trough 22.6 ug/mL (5.0-15.0) H 04/06/21 11:20 Microbiology: Microbiology 04/04/21 12:10 Blood Culture (Wb) - Right Hand Blood Culture - Preliminary No growth in 48 hours. 04/04/21 12:00 Blood Culture (Wb) - Pic Blood Culture - Preliminary No growth in 48 hours. 04/04/21 12:10 Sputum, Induced/Lukens Gram Stain - Final 04/04/21 12:10 Sputum, Induced/Lukens Respiratory Culture - Final Staphylococcus aureus 03/30/21 09:15 Sputum, Induced/Lukens Gram Stain - Final 03/30/21 09:15 Sputum, Induced/Lukens Respiratory Culture - Final Proprionibacterium acnes 03/23/21 19:09 Blood Culture (Wb) - Anticubital Right Blood Culture - Final No growth in 5 days. 03/23/21 18:40 Blood Culture (Wb) - Anticubital Right Blood Culture - Final No growth in 5 days. 03/23/21 18:40 Nasal Secretion SARS-CoV-2 Antigen (Rapid) - Final SARS-CoV-2 (COVID 19) Goal Trough: 15-20 mcg/mL Pharmacy Plan for Drug Dosing: VANCOMYCIN LEVEL RECEIVED Current Vancomycin Dose: 1500MG IV Q8H Number of Doses Received: 6 (LOADING + 5 SCHEDULED) Vancomycin Level: 22.6 Hours Since Last Dose: 7.5HR Renal Function: 0.41 Renal Function Trend: STABLE Vancomycin Plan/Comments: Patient had trough drawn which came back elevated at 22.6 (goal 15-20). Will hold current dosing and restart once trough <20. Since patient's trough was not too elevated, and has not gotten afternoon dose, will check another trough this evening to see if patient is within therapeutic goal at that time. Pending Level: 04/06/21 @2100 Pharmacy Service will continue to monitor and adjust dosing as required.
--- NOTE | 2021-04-06 13:37 | CPS ---
After Xray this morning, the ET tube was noted to be 4.[address] Vazquez notified and gave verbal order to advance ET tube 2 cm. ET tube was 24 at the lip and this RT advanced to 26 at the lip. Bilateral breath sounds and return tidal volumes good to. 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
[2021-04-06] MEDS: Dexmedetomidine 1,000 mcg in 0.9% NS 240 mL 44.1 MCG CONT INF (16:47)
--- NOTE | 2021-04-06 19:27 | NURSING ---
1909- Came onto shift and receiving bedside report. While doing handoffs and checking drips they are at: Propofol 20mcg/kg/min Precedex 1mcg/kg/min Fentanyl 175mcg/hr When looking on MAY last documented the propofol was at 10mcg and the precedex at 1.3 by previous RN.
[2021-04-06 21:26] LABS: Vancomycin, Random Level 11.4 ug/mL (0.0-15.0)
--- NOTE | 2021-04-06 22:07 | PCM.RX.CS ---
Consult Pharmacy has been consulted to manage selected antiobiotic: Vancomycin Type of Consult: Follow-up Prior Doses of Antibiotics Received/Current Regimen: Medications Vancomycin HCl 1,750 mg/ (Sodium Chloride) 535 mls @ 250 mls/hr IV Q12H EMERALD Discontinued Medications Vancomycin HCl 1,500 mg/ (Sodium Chloride) 530 mls @ 250 mls/hr IV Q8H EMERALD Last Admin: 04/06/21 06:17 Dose: Infused Documented by: Labs: Sodium 141 mmol/L (136-145) 04/06/21 04:10 Potassium 3.8 mmol/L (3.5-5.1) 04/06/21 04:10 Chloride 106 mmol/L (98-107) 04/06/21 04:10 Carbon Dioxide 31.0 mmol/L (21.0-32.0) 04/06/21 04:10 Anion Gap 4 (5-15) L 04/06/21 04:10 BUN 31 mg/dL (7-18) H 04/06/21 04:10 Creatinine 0.41 mg/dL (0.70-1.30) L 04/06/21 04:10 Est GFR (MDRD) Af Amer 275 mL/min (>60) 04/06/21 04:10 Est GFR (MDRD) Non-Af 228 mL/min (>60) 04/06/21 04:10 BUN/Creatinine Ratio 76.4 RATIO (10-20) H 04/06/21 04:10 Glucose 121 mg/dL (74-106) H 04/06/21 04:10 Vancomycin Trough 22.6 ug/mL (5.0-15.0) H 04/06/21 11:20 Random Vancomycin 11.4 ug/mL (0.0-15.0) 04/06/21 20:55 Microbiology: Microbiology 04/04/21 12:10 Blood Culture (Wb) - Right Hand Blood Culture - Preliminary No growth in 48 hours. 04/04/21 12:00 Blood Culture (Wb) - Pic Blood Culture - Preliminary No growth in 48 hours. 04/04/21 12:10 Sputum, Induced/Lukens Gram Stain - Final 04/04/21 12:10 Sputum, Induced/Lukens Respiratory Culture - Final Staphylococcus aureus 03/30/21 09:15 Sputum, Induced/Lukens Gram Stain - Final 03/30/21 09:15 Sputum, Induced/Lukens Respiratory Culture - Final Proprionibacterium acnes 03/23/21 19:09 Blood Culture (Wb) - Anticubital Right Blood Culture - Final No growth in 5 days. 03/23/21 18:40 Blood Culture (Wb) - Anticubital Right Blood Culture - Final No growth in 5 days. 03/23/21 18:40 Nasal Secretion SARS-CoV-2 Antigen (Rapid) - Final SARS-CoV-2 (COVID 19) Weight used for dosin kg Estimated Creatinine Clearance: 175 Goal Trough: 15-20 mcg/mL Pharmacy Plan for Drug Dosing: A random vancomycin level was drawn due to a high trough level earlier. The level was 11.4, and via dosing calculator a new dose [place] 1750mg q12h was determined. This will be initiated immediately, and a trough level will be drawn prior to the 4th dose of the new regimen. Pharmacy Service will continue to monitor and adjust dosing as required. Follow-Up Labs: Trough Vancomycin Labs to be done on [date and time ordered]: 04/08/21 @2025
[2021-04-06] MEDS: Propofol 10MG/Ml 1,000 MG/100 ML Bottle 24.4 MG CONT INF (23:00)
[2021-04-07] VITALS (34 sets, daily range): BP systolic 85–123; BP diastolic 47–73; PULSE 74–92; RESP 17–32; TEMP 38.1–39.8; O2SAT 85–97
[2021-04-07] MEDS: Dexmedetomidine 1,000 mcg in 0.9% NS 240 mL 27.2 MCG CONT INF (00:25)
[2021-04-07] MEDS: Pivot 1.5 Cal 1,000 ML 60 ML GT ×2 (00:27→17:08)
[2021-04-07] MEDS: Propofol 10MG/Ml 1,000 MG/100 ML Bottle 24.4 MG CONT INF (01:22)
[2021-04-07] MEDS: Acetaminophen 650 MG/20 ML UDC GT ×4 (01:23→20:34)
[2021-04-07] MEDS: guaiFENesin 10 ML UDC (200MG/10ML) GT ×6 (01:23→20:34)
[2021-04-07 04:16] LABS: Absolute Lymphocyte Count 1.68 X10^3/uL (0.83-4.51); Absolute Neutrophil Count 9.7 X10^3/uL (2.0-7.7); Basophil# 0.03 X10^3/uL; Basophil% 0.2 % (0-1); Eosinophil# 0.15 X10^3/uL; Eosinophils% 1.2 % (0-5); Hematocrit 39.2 % (40-54); Hemoglobin 11.8 g/dL (13.0-16.5); Lymphocyte # 1.68 X10^3/ul (0.83-4.51); Lymphocyte % 13.7 % (19-41); Mean Corp Hgb Conc 30.1 g/dL (32-36); Mean Corpuscular Hgb 28.9 pg (27.0-32.0); Mean Corpuscular Volume 95.8 fL (80-94); Mean Platelet Vol. 10.8 fl (6.2-12.0); Monocyte# 0.64 X10^3/uL; Monocyte% 5.2 % (0-10); NRBC Flagged by Analyzer 0 % (0-5); Neutrophil # 9.65 X10^3/uL (2.7-7.7); Neutrophil % 78.6 % (47-70); Platelet Count 165 K/mm3 (150-450); RBC Distribution Width CV 14.2 % (11.6-14.6); RBC Distribution Width SD 49.8 fl (35.1-43.9); Red Blood Count 4.09 M/mm3 (4.6-6.2); White Blood Count 12.3 K/mm3 (4.4-11.0)
[2021-04-07] MEDS: TITRATION PARAMETER CHANGE 1 EACH IV (04:39)
[2021-04-07 04:47] LABS: ALB/GLOB Ratio 0.4 RATIO (0.9-2.4); AST(SGOT) 47 U/L (15-37); Alanine Aminotransfer ALT/SGPT 68 U/L (16-61); Albumin, Serum 1.9 g/dL (3.2-5.0); Alkaline Phosphatase 70 U/L (45-117); Anion Gap 4 (5-15); BUN 42 mg/dL (7-18); BUN/Creat Ratio 57.9 RATIO (10-20); Calcium,Total 7.9 mg/dL (8.5-10.1); Chloride 104 mmol/L (98-107); Creatinine, Serum 0.72 mg/dL (0.70-1.30); EST Glomerular Filtration Rate 117 mL/min (>60); Est Glom Filt Rate - Afr Amer 141 mL/min (>60); Estimated Creatinine Clearance 99.46 ml/min; Globulin 4.6 g/dL (2.2-4.2); Glucose 116 mg/dL (74-106); Potassium 5.2 mmol/L (3.5-5.1); Protein, Total 6.5 g/dL (6.4-8.2); Sodium Level 140 mmol/L (136-145)
[2021-04-07 05:03] LABS: CPK Total, Creatine Kinase 40 U/L (39-308); Triglycerides 201 mg/dL
[2021-04-07] MEDS: Nystatin Powder 15gm Bottle 1 APPLIC TOPICAL ×3 (05:09→20:26)
[2021-04-07] MEDS: Propofol 10MG/Ml 1,000 MG/100 ML Bottle 21 MG CONT INF ×4 (05:35→18:07)
--- NOTE | 2021-04-07 06:05 | PN.CC_ITS ---
Assessment & Plan Assessment/Plan (1) Acute hypoxemic respiratory failure due to COVID-19: PLAN: RECOMMENDATIONS: 1. Continue assist control mode mechanical ventilation. Wean FiO2/PEEP for saturations greater than 90%. 2. Continue antimicrobials. Okay to discontinue vancomycin. 3. Continue attempts at diuresis as tolerated by hemodynamics and renal function. 4. Continue prophylactic Lovenox. 5. Continue baricitinib and Decadron to complete treatment courses. 6. Recheck D-dimer. 7. Continue appropriate GI prophylaxis. 8. Continue tube feeds as tolerated. IMPRESSIONS: 1. Acute hypoxemic respiratory failure secondary to COVID-19/MSSA pneumonia The patient initially presented to the hospital on March 23 with progressive C OVID symptoms after testing positive on March 21. The patient is unvaccinated. CTA chest was negative for PE. The patient was initiated on Decadron, prophylactic Lovenox and baricitinib. He has completed a treatment course of remdesivir. The patient has demonstrated worsening oxygenation status over the course of his hospitalization requiring intubation on March 30. In addition, the patient is now growing MSSA from his sputum. Therefore, antimicrobials will be continued to complete a 7-day treatment course. The patient will be continued on diuretic therapy as tolerated by hemodynamics and renal function. Continue to wean FiO2 and PEEP, as tolerated, to maintain saturations at or above 90%. 2. Morbid obesity/hypertension/neuropathy Complicates care, management, recovery and prognosis. Continue home medications as indicated. Continue tube feeds as tolerated. TIME: 34 minutes of critical care time, independent of procedures, was spent addressing the patient's acute hypoxemic respiratory failure secondary to COVID-19/MSSA Pneumonia, review of all data and collaboration with the care team. Subjective Subjective The patient was seen and examined at the bedside this morning. Events from the last 24 hours have been reviewed. Today is vent day #9. The patient is currently febrile with a temperature of 103.6 ?F, but remains otherwise hemodyn amically stable. The patient remains on assist control mode mechanical ventilation with an FiO2 requirement of 100% and PEEP of 16. He is currently sedated on propofol, Precedex and fentanyl. The patient has been tolerant of tube feeds. The patient has documented to be overall net +8 L for the h ospitalization. The patient remains on empiric antimicrobials, prophylactic Lovenox, Decadron and baricitinib. Potassium is elevated this morning at 5.2. Creatinine is within normal limits. Objective Data Objective Data The patient's most recent lab work, culture data and imaging studies have all been personally reviewed. Rapid coronavirus antigen testing was positive on March 23. Sputum culture dated April 04 was positive for MSSA. Vital Signs: Vital Signs Temp Pulse Resp BP Pulse Ox 103.6 F H 84 22 H 112/67 94 04/07/21 04:00 04/07/21 05:15 04/07/21 05:15 04/07/21 05:00 04/07/21 05:15 Oxygen Flow Rate (L/min) 60 Oxygen Delivery Method Mechanical Ventilator Weight: 140.115 kg Body Mass Index (BMI) 50.1 Intake & Output: Intake and Output for Last 24 Hours 04/05/21 04/06/21 04/07/21 23:59 23:59 23:59 Intake Total 4442.95 / 4468.06 3410.24 / 3861.84 1544.35 / 1544.35 Output Total 3150 / 3150 3000 / 3400 400 / 400 Balance 1292.95 / 1318.06 410.24 / 461.84 1144.35 / 1144.35 Lab / Micro Data Attestation: I reviewed the patient's lab results. Result Diagrams: 04/07/21 04:00 04/07/21 04:00 Labs: Laboratory Results - last 24 hr 04/06/21 11:20: Total Creatine Kinase 27 L, Triglycerides 130 04/06/21 11:20: Vancomycin Trough 22.6 H 04/06/21 20:55: Random Vancomycin 11.4 04/07/21 04:00: WBC 12.3 H, RBC 4.09 L, Hgb 11.8 L, Hct 39.2 L, MCV 95.8 H, MCH 28.9, MCHC 30.1 L D, RDW Std Deviation 49.8 H, RDW Coeff of Connie 14.2, Plt Count 165, MPV 10.8, Immature Gran % (Auto) 1.100 H, Neut % (Auto) 78.6 H, Lymph % (Auto) 13.7 L, [place] % (Auto) 5.2, Eos % (Auto) 1.2, Baso % (Auto) 0.2, Absolute Neuts (auto) 9.7 H, Absolute Lymphs (auto) 1.68, Nucleated RBC % 0 04/07/21 04:00: Sodium 140, Potassium 5.2 H, Chloride 104, Carbon Dioxide 32.0, Anion Gap 4 L, BUN 42 H, Creatinine 0.72, Estim Creat Clear Calc 99.46, Est GFR (MDRD) Af Amer 141, Est GFR (MDRD) Non-Af 117, BUN/Creatinine Ratio 57.9 H, Glucose 116 H, Calcium 7.9 L, Total Bilirubin 0.50, AST 47 H, ALT 68 H, Alkaline Phosphatase 70, Total Protein 6.5, Albumin 1.9 L, Globulin 4.6 H, Albumin/Globulin Ratio 0.4 L 04/07/21 04:00: Total Creatine Kinase 40, Triglycerides 201 H Micro: Microbiology 04/04/21 12:10 Blood Culture (Wb) - Right Hand Blood Culture - Preliminary No growth in 48 hours. 04/04/21 12:00 Blood Culture (Wb) - Pic Blood Culture - Preliminary No growth in 48 hours. 04/04/21 12:10 Sputum, Induced/Lukens Gram Stain - Final 04/04/21 12:10 Sputum, Induced/Lukens Respiratory Culture - Final Staphylococcus aureus 03/30/21 09:15 Sputum, Induced/Lukens Gram Stain - Final 03/30/21 09:15 Sputum, Induced/Lukens Respiratory Culture - Final Proprionibacterium acnes 03/23/21 19:09 Blood Culture (Wb) - Anticubital Right Blood Culture - Final No growth in 5 days. 03/23/21 18:40 Blood Culture (Wb) - Anticubital Right Blood Culture - Final No growth in 5 days. 03/23/21 18:40 Nasal Secretion SARS-CoV-2 Antigen (Rapid) - Final SARS-CoV-2 (COVID 19) Radiography Diagnostic Testing: Radiology Impression Chest X-Ray 04/06/21 10:00 IMPRESSION: 1. Enteric tube is now approximately 4.9 cm above the frankie and overlying the midline. The remaining tubes and lines are stable. 2. Persistent pulmonary infiltrates scattered throughout the bilateral lungs, not improved in the interval. These findings are more pronounced at the right lung base. There also may be interval development of small pleural effusions. No pneumothorax is seen. 3. Cardiomegaly as well as prominence of the pulmonary vasculature. This could represent underlying pulmonary edema. Electronically Signed: Greg Hall MD at 11:27 EST Tel , Service support , Physical Exam Const no apparent distress General Appearance: ill appearing, intubated and patient mechanically ventilated Nutritional Appearance: morbidly obese HEENT normocephalic and head/scalp atraumatic Mouth: endotracheal tube in place and OG tube in place Eyes PERRL, EOMs intact bilaterally and conjunctivae normal Neck supple General: trachea midline Chest inspection of chest normal Resp Auscultation: diminished lung sounds; Negative for rales, rhonchi or wheezes Cardio regular rate and regular rhythm Heart Sounds: Negative for murmur GI normal to inspection, nondistended, normoactive bowel sounds Extremity General Extremity: edema bilateral lower extremity; Negative for clubbing Skin General Skin Exam: venous stasis and dermatitis Neuro Sensorium / Orientation: sedated on vent Charges/Coding Procedures Hospitalists Procedures: 07090 Critial Care 1st Hr
[2021-04-07] MEDS: Ipratropium/Albuterol Sulfate 3 ML AMPUL.NEB INHALATION ×4 (06:47→19:22)
--- NOTE | 2021-04-07 07:25 | PCM.PN.HOSP ---
Subjective Subjective Temperature, T-max 103.6 Fahrenheit. On ventilator FiO2 100% PEEP 16. Sedated propofol Precedex and fentanyl drip. Unconscious and unresponsive. Objective Data Objective Data Vital Signs: Vital Signs Temp Pulse Resp BP Pulse Ox 103.3 F H 84 17 110/72 94 04/07/21 07:00 04/07/21 07:00 04/07/21 07:00 04/07/21 07:00 04/07/21 07:00 Oxygen Flow Rate (L/min) 60 Oxygen Delivery Method Mechanical Ventilator Weight: 308 lb 14.4 oz Body Mass Index (BMI) 50.1 Intake & Output: Intake and Output for Last 24 Hours 04/05/21 04/06/21 04/07/21 23:59 23:59 23:59 Intake Total 4442.95 / 4468.06 3410.24 / 3861.84 1739.10 / 1739.10 Output Total 3150 / 3150 3000 / 3400 500 / 500 Balance 1292.95 / 1318.06 410.24 / 461.84 1239.10 / 1239.10 Lab / Micro Data Result Diagrams: 04/07/21 04:00 04/07/21 04:00 Labs: Laboratory Results - last 24 hr 04/06/21 11:20: Total Creatine Kinase 27 L, Triglycerides 130 04/06/21 11:20: Vancomycin Trough 22.6 H 04/06/21 20:55: Random Vancomycin 11.4 04/07/21 04:00: WBC 12.3 H, RBC 4.09 L, Hgb 11.8 L, Hct 39.2 L, MCV 95.8 H, MCH 28.9, MCHC 30.1 L D, RDW Std Deviation 49.8 H, RDW Coeff of Connie 14.2, Plt Count 165, MPV 10.8, Immature Gran % (Auto) 1.100 H, Neut % (Auto) 78.6 H, Lymph % (Auto) 13.7 L, Republic % (Auto) 5.2, Eos % (Auto) 1.2, Baso % (Auto) 0.2, Absolute Neuts (auto) 9.7 H, Absolute Lymphs (auto) 1.68, Nucleated RBC % 0 04/07/21 04:00: Sodium 140, Potassium 5.2 H, Chloride 104, Carbon Dioxide 32.0, Anion Gap 4 L, BUN 42 H, Creatinine 0.72, Estim Creat Clear Calc 99.46, Est GFR (MDRD) Af Amer 141, Est GFR (MDRD) Non-Af 117, BUN/Creatinine Ratio 57.9 H, Glucose 116 H, Calcium 7.9 L, Total Bilirubin 0.50, AST 47 H, ALT 68 H, Alkaline Phosphatase 70, Total Protein 6.5, Albumin 1.9 L, Globulin 4.6 H, Albumin/Globulin Ratio 0.4 L 04/07/21 04:00: Total Creatine Kinase 40, Triglycerides 201 H Micro: Microbiology 04/04/21 12:10 Blood Culture (Wb) - Right Hand Blood Culture - Preliminary No growth in 48 hours. 04/04/21 12:00 Blood Culture (Wb) - Pic Blood Culture - Preliminary No growth in 48 hours. 04/04/21 12:10 Sputum, Induced/Lukens Gram Stain - Final 04/04/21 12:10 Sputum, Induced/Lukens Respiratory Culture - Final Staphylococcus aureus 03/30/21 09:15 Sputum, Induced/Lukens Gram Stain - Final 03/30/21 09:15 Sputum, Induced/Lukens Respiratory Culture - Final Proprionibacterium acnes 03/23/21 19:09 Blood Culture (Wb) - Anticubital Right Blood Culture - Final No growth in 5 days. 03/23/21 18:40 Blood Culture (Wb) - Anticubital Right Blood Culture - Final No growth in 5 days. 03/23/21 18:40 Nasal Secretion SARS-CoV-2 Antigen (Rapid) - Final SARS-CoV-2 (COVID 19) Radiography Diagnostic Testing: Radiology Impression Chest X-Ray 04/06/21 10:00 IMPRESSION: 1. Enteric tube is now approximately 4.9 cm above the frankie and overlying the midline. The remaining tubes and lines are stable. 2. Persistent pulmonary infiltrates scattered throughout the bilateral lungs, not improved in the interval. These findings are more pronounced at the right lung base. There also may be interval development of small pleural effusions. No pneumothorax is seen. 3. Cardiomegaly as well as prominence of the pulmonary vasculature. This could represent underlying pulmonary edema. Electronically Signed: Greg Hall MD at 11:27 EST Tel , Service support , Physical Exam Narrative General: Sedated, Not responsive.Cooling blanket. HEENT:Small bilateral pupil, Normocephalic Oral: No Gingival or Mucosal Lesions/ Ulcerations Neck: Supple, No JVD, Negative Carotid Bruits Lungs: Air entry diminished in bilateral lung bases. On vent support Cardiovascular:Sinus rhythm on nuclear monitoring technician Normal S1, Normal S2, No murmurs Abdomen: Bowel Sounds Present, Soft, Non Tender, Non-Distended : No renal angle tenderness. No suprapubic tenderness. Extremities: Bilateral pitting leg edema, Capillary Refill Less than 3 Seconds Skin: No rashes, No breakdown Musculoskeletal: No Tenderness to Palpation of Joints or Extremities Neurological: Sedated ,neuro exam Unobtainable Psych/Mental Status: Sedated Assessment & Plan Assessment/Plan (1) COVID-19: (2) Acute hypoxemic respiratory failure due to COVID-19: PLAN: 1. Acute hypoxic respiratory failure due to COVID-19 pneumonia ? CTA of the chest was negative for PE. Patient not candidate for remdesivir. Initially on air Vo then required BiPAP, going up to 100% FiO2 for worsening hypoxia. Parts Sales Representative was consulted. On 03/30, patient was transferred to ICU and was intubated and started on ventilator. Family request for transfer to was denied by the supervisor water softener service. Patient also required NM paralytic agent to maintain oxygenation on 03/30-03/31. 03/07: Patient is requiring 3 sedatives. On assist control ventilator, currently 100% FiO2, PEEP 14 diureses as needed. Continue baricitinib and Decadron to complete treatment. On IV Zosyn. Sputum culture from the 04/04 grew staph aureus on IV Zosyn. On IV furosemide 40 mg twice daily 2. Essential hypertension ? Blood pressure is controlled 3. Class III obesity with BMI 47.8 4. Hypokalemia ? Present on admission corrected per protocol with subsequent monitoring with daily BMPs ordered. Currently hyperkalemic, mild K 5.2 from potassium supplement 40 mEq twice daily. Potassium supplement discontinued 5. History of prostate CA ? Patient family requested PSA blood draw was patient in the hospital. PSA came back at 0.5 (range 0.0-4.0) DVT: Lovenox: Enoxaparin 40 mg SQ BID Charges/Coding Visit Charges Inpatient E&M: 66844 Subs Hosp L3
[2021-04-07] MEDS: Potassium Chloride Oral Soln 20 MEQ/15 ML UDC 40 MEQ GT (07:50)
[2021-04-07] MEDS: Chlorhexidine 15 ML PO ×2 (07:50→20:26)
[2021-04-07] MEDS: Enoxaparin 40 MG/0.4 ML Syringe SC ×2 (07:52→20:34)
[2021-04-07] MEDS: dexAMETHasone 4 MG Tablet 6 MG GT (07:54)
[2021-04-07] MEDS: Senna/Docusate Sodium 1 Tablet GT ×2 (07:56→20:34)
[2021-04-07] MEDS: Polyethylene Glycol 3350 17 GM PACKET GT (07:57)
[2021-04-07 09:36] LABS: D-Dimer Quantitative (DVT/PE) 4.34 FEU/ug/m (0.27-0.49)
[2021-04-07] MEDS: Furosemide 40 MG/4 ML Vial IV ×2 (10:00→17:02)
--- NOTE | 2021-04-07 11:03 | CASEMGMT ---
Social Work SW participated in ICU rounds this morning. Daughter Shanel is by the bedside. SW introduced self to daughter, offered support. SW remains available for support to daughter as needed. GIGI Peres
--- NOTE | 2021-04-07 13:17 | PCM.PN.ID ---
Physical Exam Narrative On vent, cooling blanket, daughter at bedside Const no apparent distress Resp Auscultation: diminished lung sounds Cardio regular rate and regular rhythm GI soft to palpation, non-tender and non-distended Skin no rashes or lesions noted ID ID: Route of nutrition/ use of supplements: [] Nutritional Intake: [] IV Site: [] Morales Catheter: [] Assessment & Plan Assessment/Plan (1) COVID-19: PLAN: Sx started 03/17/21. Unvaccinated. Isolate until 04/06/21. Recommend vaccine in one month. On dex, completed baricitinib. Completed remdesivir. Remains on vent, off paralytic. On abx since 03/28. Sputum from 03/30 with p.acnes. Worsened fever. Sputum now with mssa, currently on zosyn, vanc stopped. Poor prognosis, d/w Dr. Bah Will follow (2) Acute hypoxemic respiratory failure due to COVID-19:
[2021-04-07] MEDS: Dexmedetomidine 1,000 mcg in 0.9% NS 240 mL 17.5 MCG CONT INF (14:02)
--- NOTE | 2021-04-07 15:59 | CHAPLAIN ---
Type of Pastoral Visit _x__ Initial Visit ___ Follow-up Visit ___ On-call Visit ___ General Patient Visit ___ Spiritual Assessment ___ Family Conference ___ Bereavement ___ Rapid Response ___ Code Blue ___ Other (describe below) Pastoral Care Referral From ___ Patient _x__ Family _x__ Nurse ___ Physician ___ Health Policy Nurse ___ X Ray Developing Machine Operator ___ Other (describe below) Sacrament/Intervention _x__ Active listening ___ Anointing ___ Mormonism ___ Bereavement ___ Communion _x__ Nelda exploration ___ ___ Life review _x__ Prayer ___ Reconciliation ___ Sacrament of Sick _x__ Supportive presence ___ Wedding ___ Other (describe below) Pastoral Comments daughter of patient is at bedside; entered room as recommended by RN to offer support to family; daughter at first has flat affect and begins to describe multiple losses and illnesses in the family; daughter states that she is the main support for the family, is herself a with children, was moving with her parents when they both became critically ill; spouse of patient is in a rehab; daughter becomes tearful now; presence and time given; daughter describes family as very active in the druze and in the Confucianism nelda; daughter states It is out of our hands now and welcomes a prayer for father and family;continued support is offered
[2021-04-08] VITALS (36 sets, daily range): BP systolic 92–137; BP diastolic 54–73; PULSE 65–94; RESP 17–29; TEMP 38.6–39.5; O2SAT 86–98
[2021-04-08] MEDS: CHLORHEXIDINE GLUC 2% CLOTH 1 EACH TOWELETTE TOPICAL (01:04)
[2021-04-08] MEDS: guaiFENesin 10 ML UDC (200MG/10ML) GT ×6 (01:05→22:32)
--- NOTE | 2021-04-08 04:01 | RAD_ITS ---
EXAM: XR Abdomen, 1 View CLINICAL INDICATION: 61 years old, Male; Abdomen Distention TECHNIQUE: Frontal supine view of the abdomen/pelvis. This report was created using [employer] report generation technology. COMPARISON: None. FINDINGS: Lower thorax: No acute pathology. Gastrointestinal tract: Gaseous distention of the colon to the level of the rectum. No definite obstruction is seen. Organs: Unremarkable as visualized. No organomegaly. No abnormal calcifications. Bones/joints: No acute pathology. Soft tissues: No acute pathology. Tubes, lines and devices: Enteric tube tip in the stomach. RAD/Abdomen Single View (Portable) IMPRESSION: Gaseous distention of the colon to the level of the rectum. No definite obstruction is seen. Electronically Signed: Lam Holland MD at 5:11 EST Tel , Service support ,
--- NOTE | 2021-04-08 04:01 | RAD_ITS ---
EXAM: XR Chest, 1 View CLINICAL INDICATION: 61 years old, Male; Hypoxia TECHNIQUE: Frontal view of the chest. This report was created using [employer] report generation technology. COMPARISON: None. FINDINGS: Lungs and pleural spaces: Scattered infiltrates in both lungs may be due to edema or pneumonia. Calcified granuloma left lower lung. No pneumothorax. No effusion. Heart: Cardiomegaly. Mediastinum: Central airways and mediastinal contour are unremarkable. Bones/joints: Unremarkable. Soft tissues: Unremarkable. Tubes, lines and devices: Right peripherally inserted central catheter (PICC) tip in the low superior vena cava. The endotracheal tube (ETT) is in satisfactory position with tip 4.4 cm above the frankie. Enteric tube tip cannot be seen but is below the diaphragm. RAD/Chest 1 View (Portable) IMPRESSION: 1. Cardiomegaly. 2. Scattered infiltrates in both lungs may be due to edema or pneumonia. Electronically Signed: Lam Holland MD at 4:57 EST Tel , Service support ,
[2021-04-08 04:07] LABS: Absolute Lymphocyte Count 1.32 X10^3/uL (0.83-4.51); Absolute Neutrophil Count 8.1 X10^3/uL (2.0-7.7); Basophil# 0.04 X10^3/uL; Basophil% 0.4 % (0-1); Eosinophil# 0.19 X10^3/uL; Eosinophils% 1.9 % (0-5); Hematocrit 35.8 % (40-54); Lymphocyte # 1.32 X10^3/ul (0.83-4.51); Lymphocyte % 12.9 % (19-41); Mean Corp Hgb Conc 30.7 g/dL (32-36); Mean Corpuscular Hgb 29.6 pg (27.0-32.0); Mean Corpuscular Volume 96.2 fL (80-94); Mean Platelet Vol. 11.7 fl (6.2-12.0); Monocyte# 0.45 X10^3/uL; Monocyte% 4.4 % (0-10); NRBC Flagged by Analyzer 0.2 % (0-5); Neutrophil # 8.05 X10^3/uL (2.7-7.7); Neutrophil % 78.4 % (47-70); Platelet Count 167 K/mm3 (150-450); RBC Distribution Width CV 13.7 % (11.6-14.6); RBC Distribution Width SD 48.7 fl (35.1-43.9); Red Blood Count 3.72 M/mm3 (4.6-6.2); White Blood Count 10.3 K/mm3 (4.4-11.0)
[2021-04-08] MEDS: Propofol 10MG/Ml 1,000 MG/100 ML Bottle 16.8 MG CONT INF ×2 (04:45)
[2021-04-08] MEDS: Dexmedetomidine 1,000 mcg in 0.9% NS 240 mL 17.5 MCG CONT INF (04:45)
[2021-04-08] MEDS: Nystatin Powder 15gm Bottle 1 APPLIC TOPICAL ×3 (04:46→22:25)
[2021-04-08 05:01] LABS: ALB/GLOB Ratio 0.4 RATIO (0.9-2.4); AST(SGOT) 48 U/L (15-37); Alanine Aminotransfer ALT/SGPT 79 U/L (16-61); Albumin, Serum 1.8 g/dL (3.2-5.0); Alkaline Phosphatase 52 U/L (45-117); Anion Gap 3 (5-15); BUN 38 mg/dL (7-18); Calcium,Total 7.4 mg/dL (8.5-10.1); Chloride 99 mmol/L (98-107); Creatinine, Serum 0.62 mg/dL (0.70-1.30); EST Glomerular Filtration Rate 139 mL/min (>60); Est Glom Filt Rate - Afr Amer 168 mL/min (>60); Globulin 4.1 g/dL (2.2-4.2); Glucose 115 mg/dL (74-106); Potassium 5.2 mmol/L (3.5-5.1); Protein, Total 5.9 g/dL (6.4-8.2); Sodium Level 136 mmol/L (136-145)
--- NOTE | 2021-04-08 06:20 | PCM.PN.INT ---
Assessment & Plan Assessment/Plan (1) Acute hypoxemic respiratory failure due to COVID-19: PLAN: RECOMMENDATIONS: 1. Continue assist control mode mechanical ventilation. Wean FiO2/PEEP for saturations greater than 90%. 2. Continue antimicrobials to complete 7-day treatment course. 3. Ongoing diuresis as tolerated by hemodynamics and renal function. 4. Transition to therapeutic dosing Lovenox given elevated D-dimer. 5. Continue decadron to complete treatment courses. 6. Continue appropriate GI prophylaxis. 7. Continue tube feeds as tolerated. IMPRESSIONS: 1. Acute hypoxemic respiratory failure secondary to COVID-19/MSSA pneumonia The patient initially presented to the hospital on March 23 with progressive COVID symptoms after testing positive on March 21. The patient is unvaccinated. CTA chest was negative for PE. The patient has completed a treatment course of remdesivir and baricitinib. He remains on Decadron and therapeutic Lovenox (in light of elevated D-dimer). Oxygenation status still remains quite tenuous. Continue assist control mode of mechanical ventilation and wean FiO2 and PEEP to maintain saturations greater than 90%. Continue antimicrobials to complete 7-day treatment course. Ongoing attempts at diuresis as tolerated by hemodynamics and renal function. 2. Morbid obesity/hypertension/neuropathy Complicates care, management, recovery and prognosis. Continue home medications as indicated. Continue tube feeds as tolerated. TIME: 32 minutes of critical care time, independent of procedures, was spent addressing the patient's acute hypoxemic respiratory failure secondary to COVID-19/MSSA Pneumonia, review of all data and collaboration with the care team. Subjective Subjective The patient was seen and examined at the bedside this morning. Events from the last 24 hours have been reviewed. Today is vent day #10. The patient remains febrile with a temperature of 102.8 ?F. He remains on assist control mode of mechanical ventilation with an FiO2 requirement of 90% and PEEP of 16. The patient is sedated on a combination of propofol, Precedex and fentanyl. Nursing staff did report secretion output from his endotracheal tube. The patient is currently documented to be overall net +7.2 L for the hospitalization. The patient remains on antimicrobials and Decadron. D-dimer was elevated at 4.3 yesterday. Bicarbonate is elevated at 34 with a potassium of 5.2. Creatinine remains within normal limits. Objective Data Objective Data The patient's most recent lab work, culture data and imaging studies have all been personally reviewed. Rapid coronavirus antigen testing was positive on March 23. Sputum culture dated April 04 was positive for MSSA. Vital Signs: Vital Signs Temp Pulse Resp BP Pulse Ox 102.8 F H 67 18 107/59 L 95 04/08/21 04:00 04/08/21 06:00 04/08/21 06:00 04/08/21 06:00 04/08/21 06:00 Oxygen Flow Rate (L/min) 60 Oxygen Delivery Method Mechanical Ventilator Weight: 140.614 kg Body Mass Index (BMI) 50.1 Intake & Output: Intake and Output for Last 24 Hours 04/06/21 04/07/21 04/08/21 23:59 23:59 23:59 Intake Total 3410.24 / 3861.84 3560.84 / 3988.39 1144.14 / 1144.14 Output Total 3000 / 3400 2300 / 3800 2100 / 2100 Balance 410.24 / 461.84 1260.84 / 188.39 -955.86 / -955.86 Lab / Micro Data Attestation: I reviewed the patient's lab results. Result Diagrams: 04/08/21 04:00 04/08/21 04:00 Labs: Laboratory Results - last 24 hr 04/07/21 08:50: D-Dimer Quant (PE/DVT) 4.34 H* 04/08/21 04:00: WBC 10.3, RBC 3.72 L, Hgb 11.0 L, Hct 35.8 L, MCV 96.2 H, MCH 29.6, MCHC 30.7 L, RDW Std Deviation 48.7 H, RDW Coeff of Connie 13.7, Plt Count 167, MPV 11.7, Immature Gran % (Auto) 2.000 H, Neut % (Auto) 78.4 H, Lymph % (Auto) 12.9 L, Emanuel % (Auto) 4.4, Eos % (Auto) 1.9, Baso % (Auto) 0.4, Absolute Neuts (auto) 8.1 H, Absolute Lymphs (auto) 1.32, Nucleated RBC % 0.2 04/08/21 04:00: Sodium 136, Potassium 5.2 H, Chloride 99, Carbon Dioxide 34.0 H, Anion Gap 3 L, BUN 38 H, Creatinine 0.62 L, Estim Creat Clear Calc 115.50, Est GFR (MDRD) Af Amer 168, Est GFR (MDRD) Non-Af 139, BUN/Creatinine Ratio 61.0 H, Glucose 115 H, Calcium 7.4 L, Total Bilirubin 0.40, AST 48 H, ALT 79 H, Alkaline Phosphatase 52, Total Protein 5.9 L, Albumin 1.8 L, Globulin 4.1, Albumin/Globulin Ratio 0.4 L Micro: Microbiology 04/04/21 12:10 Blood Culture (Wb) - Right Hand Blood Culture - Preliminary No growth in 48 hours. 04/04/21 12:00 Blood Culture (Wb) - Pic Blood Culture - Preliminary No growth in 48 hours. 04/04/21 12:10 Sputum, Induced/Lukens Gram Stain - Final 04/04/21 12:10 Sputum, Induced/Lukens Respiratory Culture - Final Staphylococcus aureus 03/30/21 09:15 Sputum, Induced/Lukens Gram Stain - Final 03/30/21 09:15 Sputum, Induced/Lukens Respiratory Culture - Final Proprionibacterium acnes 03/23/21 19:09 Blood Culture (Wb) - Anticubital Right Blood Culture - Final No growth in 5 days. 03/23/21 18:40 Blood Culture (Wb) - Anticubital Right Blood Culture - Final No growth in 5 days. 03/23/21 18:40 Nasal Secretion SARS-CoV-2 Antigen (Rapid) - Final SARS-CoV-2 (COVID 19) Radiography Diagnostic Testing: Radiology Impression Chest X-Ray 04/08/21 04:01 IMPRESSION: 1. Cardiomegaly. 2. Scattered infiltrates in both lungs may be due to edema or pneumonia. Electronically Signed: Lam Holland MD at 4:57 EST Tel , Service support , KUB X-Ray 04/08/21 04:01 IMPRESSION: Gaseous distention of the colon to the level of the rectum. No definite obstruction is seen. Electronically Signed: Lam Holland MD at 5:11 EST Tel , Service support , Physical Exam Const no apparent distress General Appearance: ill appearing, intubated and patient mechanically ventilated Nutritional Appearance: morbidly obese HEENT normocephalic and head/scalp atraumatic Mouth: endotracheal tube in place and OG tube in place Eyes PERRL, EOMs intact bilaterally and conjunctivae normal Neck supple General: trachea midline Chest inspection of chest normal Resp Auscultation: rhonchi and diminished lung sounds; Negative for rales or wheezes Cardio regular rate and regular rhythm Heart Sounds: Negative for murmur GI normal to inspection, nondistended, normoactive bowel sounds Extremity General Extremity: edema bilateral lower extremity; Negative for clubbing Skin General Skin Exam: venous stasis and dermatitis Neuro Sensorium / Orientation: sedated on vent Charges/Coding Procedures Hospitalists Procedures: [id number] Critial Care 1st Hr
[2021-04-08] MEDS: Furosemide 40 MG/4 ML Vial IV (06:56)
[2021-04-08] MEDS: Acetaminophen 650 MG/20 ML UDC GT ×3 (06:56→22:30)
[2021-04-08] MEDS: TITRATION PARAMETER CHANGE 1 EACH IV (06:56)
[2021-04-08] MEDS: Ipratropium/Albuterol Sulfate 3 ML AMPUL.NEB INHALATION ×4 (07:03→18:59)
--- NOTE | 2021-04-08 07:27 | PN.HOSP_ITS ---
Subjective Subjective Continue to spike temperature, T-max 102.8 Fahrenheit. Yesterday morning and noon 103.4 Fahrenheit. On cooling blanket. On 90% FiO2 Follow-up by ID reviewed and appreciated. Objective Data Objective Data Vital Signs: Vital Signs Temp Pulse Resp BP Pulse Ox 102.8 F H 653 H 21 H 107/59 L 95 04/08/21 04:00 04/08/21 07:03 04/08/21 07:03 04/08/21 06:00 04/08/21 07:03 Oxygen Flow Rate (L/min) 60 Oxygen Delivery Method Mechanical Ventilator Weight: 310 lb Body Mass Index (BMI) 50.1 Intake & Output: Intake and Output for Last 24 Hours 04/06/21 04/07/21 04/08/21 23:59 23:59 23:59 Intake Total 3410.24 / 3861.84 3560.84 / 3988.39 1144.14 / 1144.14 Output Total 3000 / 3400 2300 / 3800 2100 / 2100 Balance 410.24 / 461.84 1260.84 / 188.39 -955.86 / -955.86 Lab / Micro Data Result Diagrams: 04/08/21 04:00 04/08/21 04:00 Labs: Laboratory Results - last 24 hr 04/07/21 08:50: D-Dimer Quant (PE/DVT) 4.34 H* 04/08/21 04:00: WBC 10.3, RBC 3.72 L, Hgb 11.0 L, Hct 35.8 L, MCV 96.2 H, MCH 29.6, MCHC 30.7 L, RDW Std Deviation 48.7 H, RDW Coeff of Connie 13.7, Plt Count 167, MPV 11.7, Immature Gran % (Auto) 2.000 H, Neut % (Auto) 78.4 H, Lymph % (Auto) 12.9 L, [place] % (Auto) 4.4, Eos % (Auto) 1.9, Baso % (Auto) 0.4, Absolute Neuts (auto) 8.1 H, Absolute Lymphs (auto) 1.32, Nucleated RBC % 0.2 04/08/21 04:00: Sodium 136, Potassium 5.2 H, Chloride 99, Carbon Dioxide 34.0 H, Anion Gap 3 L, BUN 38 H, Creatinine 0.62 L, Estim Creat Clear Calc 115.50, Est GFR (MDRD) Af Amer 168, Est GFR (MDRD) Non-Af 139, BUN/Creatinine Ratio 61.0 H, Glucose 115 H, Calcium 7.4 L, Total Bilirubin 0.40, AST 48 H, ALT 79 H, Alkaline Phosphatase 52, Total Protein 5.9 L, Albumin 1.8 L, Globulin 4.1, Albumin/Globulin Ratio 0.4 L Micro: Microbiology 04/04/21 12:10 Blood Culture (Wb) - Right Hand Blood Culture - Preliminary No growth in 48 hours. 04/04/21 12:00 Blood Culture (Wb) - Pic Blood Culture - Preliminary No growth in 48 hours. 04/04/21 12:10 Sputum, Induced/Lukens Gram Stain - Final 04/04/21 12:10 Sputum, Induced/Lukens Respiratory Culture - Final Staphylococcus aureus 03/30/21 09:15 Sputum, Induced/Lukens Gram Stain - Final 03/30/21 09:15 Sputum, Induced/Lukens Respiratory Culture - Final Proprionibacterium acnes 03/23/21 19:09 Blood Culture (Wb) - Anticubital Right Blood Culture - Final No growth in 5 days. 03/23/21 18:40 Blood Culture (Wb) - Anticubital Right Blood Culture - Final No growth in 5 days. 03/23/21 18:40 Nasal Secretion SARS-CoV-2 Antigen (Rapid) - Final SARS-CoV-2 (COVID 19) Radiography Diagnostic Testing: Radiology Impression Chest X-Ray 04/08/21 04:01 IMPRESSION: 1. Cardiomegaly. 2. Scattered infiltrates in both lungs may be due to edema or pneumonia. Electronically Signed: Lam Holland MD at 4:57 EST Tel , Service support , KUB X-Ray 04/08/21 04:01 IMPRESSION: Gaseous distention of the colon to the level of the rectum. No definite obstruction is seen. Electronically Signed: Lam Holland MD at 5:11 EST Tel , Service support , Physical Exam Narrative General: Sedated, Not responsive.Cooling blanket. HEENT:Small bilateral pupil, Normocephalic Oral: No Gingival or Mucosal Lesions/ Ulcerations Neck: Supple, No JVD, Negative Carotid Bruits Lungs: Air entry diminished in bilateral lung bases. On vent support, high FiO2 Cardiovascular:Sinus rhythm on threat monitoring analyst muffled heart sounds, No murmurs Abdomen: Bowel Sounds Present, Soft, Non Tender, Non-Distended : No renal angle tenderness. No suprapubic tenderness. Extremities: Bilateral pitting leg edema, Capillary Refill Less than 3 Seconds Skin: Grayish discoloration of both legs chronic. Venous hypertension. No obvious drainage/oozing Musculoskeletal: No Tenderness to Palpation of Joints or Extremities Neurological: Sedated ,neuro exam Unobtainable Psych/Mental Status: Sedated Assessment & Plan Assessment/Plan (1) COVID-19: (2) Acute hypoxemic respiratory failure due to COVID-19: PLAN: 1. Acute hypoxic respiratory failure due to COVID-19 pneumonia ? CTA of the chest was negative for PE. Patient not candidate for remdesivir. Initially on air Vo then required BiPAP, going up to 100% FiO2 for worsening hypoxia. Family Counselor was consulted. On 03/30, patient was transferred to ICU and was intubated and started on ventilator. Family request for transfer to was denied by the fruit or nut farmworker. Patient also required NM paralytic agent to maintain oxygenation on 03/30-03/31. 04/07: Patient is requiring 3 sedatives. On assist control ventilator, currently 100% FiO2, PEEP 14 diureses as needed. Continue baricitinib and Decadron to complete treatment. On IV Zosyn. Sputum culture from the 04/04 grew staph aureus on IV Zosyn. On IV furosemide 40 mg twice daily 04/08: Patient completed baricitinib. On dexamethasone. Blood culture from 04/04 no growth in 48 hours. Sputum culture from 03/30 shows Propionibacterium acnes 1+. Sputum culture from 04/04 shows MSSA 3+. Continue to spike fever despite antibiotic Zosyn. High D-dimer 4.34, Lovenox changed to therapeutic dose. ABG 7.3 on AC mode, 90% FiO2, 16 PEEP. Hyperkalemia, potassium 5.2. Bicarb 34. BUN 38. Portable chest x-ray shows bilateral infiltrates. Gaseous distention of colon/pseudoobstruction: Gaseous distention of colon up to level of rectum, no definite obstruction seen. 2. Essential hypertension ? Blood pressure is controlled 3. Class III obesity with BMI 47.8 4. Hypokalemia ? Present on admission corrected per protocol with subsequent monitoring with daily BMPs ordered. Currently hyperkalemic, mild K 5.2 from potassium supplement 40 mEq twice daily. Potassium supplement discontinued 5. History of prostate CA ? Patient family requested PSA blood draw was patient in the hospital. PSA came back at 0.5 (range 0.0-4.0) DVT: Lovenox: Enoxaparin, therapeutic dose Active Medications Acetaminophen (Acetaminophen 650 Mg/20 Ml Udc) 650 mg GT Q4H PRN PRN PRN Reason: Pain Score 1-10/Temp > 100.7 F Last Admin: 04/08/21 12:49 Dose: 650 mg Documented by: Albuterol Sulfate (Albuterol 2.5 Mg/3 Ml Vial.Neb.) 2.5 mg INHALATION Q2H PRN PRN PRN Reason: Dyspnea, wheezing Last Admin: 04/05/21 14:18 Dose: 2.5 mg Documented by: Albuterol/Ipratropium (Ipratropium/Albuterol Sulfate 3 Ml Ampul.Neb) 3 ml INHALATION Q4HWA.RT [facility] Last Admin: 04/08/21 10:32 Dose: 3 ml Documented by: Chlorhexidine Gluconate (Chlorhexidine 15 Ml) 15 ml PO BID [facility] Last Admin: 04/08/21 10:38 Dose: 15 ml Documented by: Chlorhexidine Gluconate (Chlorhexidine Gluc 2% Cloth 1 Each [place]) 1 each TOPICAL DAILY [facility] Last Admin: 04/08/21 01:04 Dose: 1 each Documented by: Dexamethasone (Dexamethasone 4 Mg Tablet) 6 mg GT DAILY [facility] Stop: 04/09/21 10:01 Last Admin: 04/08/21 10:37 Dose: 6 mg Documented by: Enoxaparin Sodium (Enoxaparin 150 Mg/Ml Syringe) 150 mg SC Q12@0600,1800 [facility] Guaifenesin (Guaifenesin 10 Ml Udc (200mg/10ml)) 10 ml GT Q4H [facility] Last Admin: 04/08/21 12:50 Dose: 10 ml Documented by: Fentanyl Citrate 1,000 mcg/ (Sodium Chloride) 100 mls @ 5 mls/hr CONT INF .Q20H [facility]; Protocol Last Titration: 04/08/21 13:57 Dose: Infused Documented by: Pantoprazole Sodium 40 mg/ (Sodium Chloride) 110 mls @ 330 mls/hr IV Q24 [facility] Last Infusion: 04/08/21 11:18 Dose: Infused Documented by: Dexmedetomidine HCl 1,000 mcg/ (Sodium Chloride) 250 mls @ 17.577 mls/hr CONT INF .[id number] [facility]; Protocol Last Titration: 04/08/21 13:00 Dose: 0.5 mcg/kg/hr, 17.6 mls/hr Documented by: Piperacillin Sod/Tazobactam (Sod 3.375 gm/ Sodium Chloride) 50 mls @ 12.5 mls/hr IV Q8 [facility] Last Admin: 04/08/21 13:51 Dose: 12.5 mls/hr Documented by: Lactose (Pivot 1.5 Toni) 1,000 mls @ 60 mls/hr GT .[id number] [facility] Last Admin: 04/08/21 13:49 Dose: 60 mls/hr Documented by: Propofol (Diprivan) 1,000 mg in 100 mls @ 8.437 mls/hr CONT INF .[id number] [facility]; Protocol Last Titration: 04/08/21 13:55 Dose: 20 mcg/kg/min, 16.9 mls/hr Documented by: Miscellaneous Information (Inhaler, Assist Devices 1 Each Spacer) 1 each INHALATION PRN PRN PRN Reason: WITH ALBUTEROL INHALER Nystatin (Nystatin Powder 15gm Bottle) 1 applic TOPICAL TID [facility]; Protocol Last Admin: 04/08/21 12:49 Dose: 1 applic Documented by: Ondansetron HCl (Ondansetron 4 Mg/2 Ml Vial) 4 mg IV Q8H PRN PRN PRN Reason: NAUSEA/VOMITING Polyethylene Glycol (Polyethylene Glycol 3350 17 Gm Packet) 17 gm GT DAILY [facility] Last Admin: 04/08/21 10:37 Dose: 17 gm Documented by: Senna/Docusate Sodium (Senna/Docusate Sodium 1 Tablet) 1 tablet GT BID [facility] Last Admin: 04/08/21 10:37 Dose: 1 tablet Documented by: Sodium Chloride (0.9% Saline Lock 10 Ml Syringe) 10 - 40 ml IV UD PRN PRN Reason: SALINE FLUSH Last Admin: 04/04/21 07:53 Dose: 20 ml Documented by: Sodium Chloride (Sodium Chloride 0.65% 1 [place].Btl) 1 spray NASAL BID PRN PRN PRN Reason: NASAL DRYNESS Last Admin: 03/26/21 09:15 Dose: 1 spray Documented by: Charges/Coding Visit Charges Inpatient E&M: 49572 Subs Hosp L3
[2021-04-08 08:55] LABS: Allen Test Positive; Base Excess 14 mmol/L (-2 to +2); Bicarbonate 39.8 mmol/L (22-26); Blood Gas Specimen Type ART; Comment ACVC+; FI02 90; O2 Delivery Device Adult Vent; PEEP 16; PO2 69 mmHG (75-100); RR 18; SITE L Radial; SO2 91 % (95-99); Total Carbon Dioxide 42 mmol/L; Vt 450; pCO2 76.5 mmHg (35-45); pH 7.32 (7.35-7.45)
[2021-04-08] MEDS: Propofol 10MG/Ml 1,000 MG/100 ML Bottle 16.9 MG CONT INF ×3 (10:15→21:23)
[2021-04-08] MEDS: Senna/Docusate Sodium 1 Tablet GT ×2 (10:37→22:32)
[2021-04-08] MEDS: Polyethylene Glycol 3350 17 GM PACKET GT (10:37)
[2021-04-08] MEDS: dexAMETHasone 4 MG Tablet 6 MG GT (10:37)
[2021-04-08] MEDS: Chlorhexidine 15 ML PO ×2 (10:38→22:31)
[2021-04-08] MEDS: Pivot 1.5 Cal 1,000 ML 60 ML GT (13:49)
[2021-04-08] MEDS: Magnesium Citrate 300 ML 150 ML PO (15:00)
[2021-04-08] MEDS: Enoxaparin 150 MG/ML Syringe SC (17:07)
[2021-04-08] MEDS: Dexmedetomidine 1,000 mcg in 0.9% NS 240 mL 17.6 MCG CONT INF (17:53)
--- NOTE | 2021-04-08 21:02 | PCM.HOSP.N ---
Hospitalist Note Staff noted coffee ground appearing secretions pouring out of his mouth while being turned while being changed. Will obtain guiac and hold lovenox until returned.
[2021-04-08] MEDS: 0.9% Saline Lock 10 ML Syringe IV (22:25)
[2021-04-09] VITALS (31 sets, daily range): BP systolic 91–136; BP diastolic 53–84; PULSE 70–128; RESP 19–36; TEMP 37.9–39; O2SAT 78–95
[2021-04-09] MEDS: CHLORHEXIDINE GLUC 2% CLOTH 1 EACH TOWELETTE TOPICAL
[2021-04-09] MEDS: guaiFENesin 10 ML UDC (200MG/10ML) GT ×6 (01:10→22:05)
[2021-04-09] MEDS: Propofol 10MG/Ml 1,000 MG/100 ML Bottle 12.7 MG CONT INF (03:23)
[2021-04-09 03:38] LABS: Absolute Lymphocyte Count 1.24 X10^3/uL (0.83-4.51); Absolute Neutrophil Count 9.1 X10^3/uL (2.0-7.7); Basophil# 0.05 X10^3/uL; Basophil% 0.4 % (0-1); Eosinophils% 1.8 % (0-5); Hematocrit 35.7 % (40-54); Hemoglobin 11.1 g/dL (13.0-16.5); Lymphocyte # 1.24 X10^3/ul (0.83-4.51); Mean Corp Hgb Conc 31.1 g/dL (32-36); Mean Corpuscular Hgb 29.2 pg (27.0-32.0); Mean Corpuscular Volume 93.9 fL (80-94); Mean Platelet Vol. 12.1 fl (6.2-12.0); Monocyte# 0.49 X10^3/uL; Monocyte% 4.3 % (0-10); NRBC Flagged by Analyzer 0 % (0-5); Neutrophil # 9.14 X10^3/uL (2.7-7.7); Neutrophil % 80.7 % (47-70); POSITIVE MORPHOLOGY YES; Platelet Count 189 K/mm3 (150-450); RBC Distribution Width CV 13.9 % (11.6-14.6); RBC Distribution Width SD 47.5 fl (35.1-43.9); White Blood Count 11.3 K/mm3 (4.4-11.0)
[2021-04-09 03:39] LABS: Differential Indicated SCAN CRITERIA MET
[2021-04-09 05:30] LABS: ALB/GLOB Ratio 0.4 RATIO (0.9-2.4); AST(SGOT) 63 U/L (15-37); Albumin, Serum 1.9 g/dL (3.2-5.0); Alkaline Phosphatase 51 U/L (45-117); Anion Gap 5 (5-15); BUN 50 mg/dL (7-18); BUN/Creat Ratio 73.5 RATIO (10-20); Calcium,Total 7.5 mg/dL (8.5-10.1); Chloride 98 mmol/L (98-107); Creatinine, Serum 0.68 mg/dL (0.70-1.30); EST Glomerular Filtration Rate 126 mL/min (>60); Est Glom Filt Rate - Afr Amer 152 mL/min (>60); Estimated Creatinine Clearance 105.31 ml/min; Globulin 4.3 g/dL (2.2-4.2); Glucose 130 mg/dL (74-106); Potassium 4.4 mmol/L (3.5-5.1); Protein, Total 6.2 g/dL (6.4-8.2); Sodium Level 136 mmol/L (136-145)
[2021-04-09] MEDS: Pivot 1.5 Cal 1,000 ML 60 ML GT (05:40)
[2021-04-09] MEDS: Acetaminophen 650 MG/20 ML UDC GT ×2 (05:41→20:03)
[2021-04-09] MEDS: Nystatin Powder 15gm Bottle 1 APPLIC TOPICAL ×3 (05:45→22:06)
[2021-04-09] MEDS: TITRATION PARAMETER CHANGE 1 EACH IV (06:00)
[2021-04-09] MEDS: Enoxaparin 150 MG/ML Syringe SC ×2 (06:06→20:03)
--- NOTE | 2021-04-09 06:37 | PCM.PN.INT ---
Assessment & Plan Assessment/Plan (1) Acute hypoxemic respiratory failure due to COVID-19: PLAN: RECOMMENDATIONS: 1. Continue assist control mode mechanical ventilation. Wean FiO2/PEEP for saturations greater than 90%. 2. Continue antimicrobials to complete 7-day treatment course. 3. Ongoing diuresis as tolerated by hemodynamics and renal function. 4. Continue therapeutic Lovenox. 5. Continue decadron to complete treatment courses. 6. Continue appropriate GI prophylaxis. 7. Continue tube feeds as tolerated. IMPRESSIONS: 1. Acute hypoxemic respiratory failure secondary to COVID-19/MSSA pneumonia The patient initially presented to the hospital on March 23 with progressive COVID symptoms after testing positive on March 21. The patient is unvaccinated. CTA chest was negative for PE. The patient has completed a treatment course of remdesivir and baricitinib. He remains on Decadron and therapeutic Lovenox (in light of elevated D-dimer). Oxygenation status still remains quite tenuous. Continue assist control mode of mechanical ventilation and wean FiO2 and PEEP to maintain saturations greater than 90%. Continue antimicrobials to complete 7-day treatment course. Ongoing attempts at diuresis as tolerated by hemodynamics and renal function. 2. Morbid obesity/hypertension/neuropathy Complicates care, management, recovery and prognosis. Continue home medications as indicated. Continue tube feeds as tolerated. TIME: 33 minutes of critical care time, independent of procedures, was spent addressing the patient's acute hypoxemic respiratory failure secondary to COVID-19/MSSA Pneumonia, review of all data and collaboration with the care team. Subjective Subjective The patient was seen and examined at the bedside this morning. Events from the last 24 hours have been reviewed. Today is day #11. The patient remains febrile with a temperature of 101.9 ?F. He remains on assist control mode of mechanical ventilation with an FiO2 requirement of 90% and PEEP of 16. The patient is sedated on a combination of propofol, Precedex and fentanyl. The patient continues to have thick secretions from his endotracheal tube. He has been tolerant of tube feeds. He did have a bowel movement last night. The patient is currently documented to be overall net +9.1 L for the hospitalization. He remains on antimicrobials, Decadron and therapeutic Lovenox. Hemoglobin and platelet count are stable. Creatinine is stable. Objective Data Objective Data The patient's most recent lab work, culture data and imaging studies have all been personally reviewed. Rapid coronavirus antigen testing was positive on March 23. Sputum culture dated April 04 was positive for MSSA. Vital Signs: Vital Signs Temp Pulse Resp BP Pulse Ox 101.9 F H 84 23 H 121/69 H 90 04/09/21 06:00 04/09/21 06:00 04/09/21 06:00 04/09/21 06:00 04/09/21 06:00 Oxygen Flow Rate (L/min) 60 Oxygen Delivery Method Mechanical Ventilator Weight: 144.016 kg Body Mass Index (BMI) 50.1 Intake & Output: Intake and Output for Last 24 Hours 04/07/21 04/08/21 04/09/21 23:59 23:59 23:59 Intake Total 3560.84 / 3988.39 3404.20 / 4047.45 1576.97 / 1576.97 Output Total 2300 / 3800 3650 / 3650 375 / 375 Balance 1260.84 / 188.39 -245.80 / 397.45 1201.97 / 1201.97 Lab / Micro Data Attestation: I reviewed the patient's lab results. Result Diagrams: 04/09/21 03:30 04/09/21 03:30 Labs: Laboratory Results - last 24 hr 04/09/21 03:30: WBC 11.3 H, RBC 3.80 L, Hgb 11.1 L, Hct 35.7 L, MCV 93.9, MCH 29.2, MCHC 31.1 L, RDW Std Deviation 47.5 H, RDW Coeff of Connie 13.9, Plt Count 189, MPV 12.1 H, Immature Gran % (Auto) 1.800 H, Neut % (Auto) 80.7 H, Lymph % (Auto) 11.0 L, [place] % (Auto) 4.3, Eos % (Auto) 1.8, Baso % (Auto) 0.4, Absolute Neuts (auto) 9.1 H, Absolute Lymphs (auto) 1.24, Nucleated RBC % 0 04/09/21 03:30: Sodium 136, Potassium 4.4, Chloride 98, Carbon Dioxide 33.0 H, Anion Gap 5, BUN 50 H, Creatinine 0.68 L, Estim Creat Clear Calc 105.31, Est GFR (MDRD) Af Amer 152, Est GFR (MDRD) Non-Af 126, BUN/Creatinine Ratio 73.5 H, Glucose 130 H, Calcium 7.5 L, Total Bilirubin 0.60, AST 63 H, ALT TNP, Alkaline Phosphatase 51, Total Protein 6.2 L, Albumin 1.9 L, Globulin 4.3 H, Albumin/Globulin Ratio 0.4 L Micro: Microbiology 04/04/21 12:10 Blood Culture (Wb) - Right Hand Blood Culture - Preliminary No growth in 48 hours. 04/04/21 12:00 Blood Culture (Wb) - Pic Blood Culture - Preliminary No growth in 48 hours. 04/04/21 12:10 Sputum, Induced/Lukens Gram Stain - Final 04/04/21 12:10 Sputum, Induced/Lukens Respiratory Culture - Final Staphylococcus aureus 03/30/21 09:15 Sputum, Induced/Lukens Gram Stain - Final 03/30/21 09:15 Sputum, Induced/Lukens Respiratory Culture - Final Proprionibacterium acnes 03/23/21 19:09 Blood Culture (Wb) - Anticubital Right Blood Culture - Final No growth in 5 days. 03/23/21 18:40 Blood Culture (Wb) - Anticubital Right Blood Culture - Final No growth in 5 days. 03/23/21 18:40 Nasal Secretion SARS-CoV-2 Antigen (Rapid) - Final SARS-CoV-2 (COVID 19) ABG Data ABG results: ABG 04/08/21 08:49 Specimen Type ART Sample Site L Radial pH 7.32 L Bicarbonate Actual 39.8 H Total CO2 42 Base Excess 14 H O2 Saturation 91 L O2 % 90 ABG pCO2 76.5 H* ABG pO2 69 L Shashi Test Positive Respiration Rate 18 O2 Delivery Device Adult Vent Tidal Volume 450 POC PEEP 16 Crit Call To/Read Back Yes Blood Gas Notified Whom Clinical Comments ACVC+ Physical Exam Const no apparent distress General Appearance: ill appearing, intubated and patient mechanically ventilated Nutritional Appearance: morbidly obese HEENT normocephalic and head/scalp atraumatic Mouth: endotracheal tube in place and OG tube in place Eyes PERRL, EOMs intact bilaterally and conjunctivae normal Neck supple General: trachea midline Chest inspection of chest normal Resp Auscultation: rhonchi and diminished lung sounds; Negative for rales or wheezes Cardio regular rate and regular rhythm Heart Sounds: Negative for murmur GI normal to inspection, nondistended, normoactive bowel sounds Extremity General Extremity: edema bilateral lower extremity; Negative for clubbing Skin General Skin Exam: venous stasis and dermatitis Neuro Sensorium / Orientation: sedated on vent Charges/Coding Procedures Hospitalists Procedures: [id number] Critial Care 1st Hr
[2021-04-09] MEDS: Ipratropium/Albuterol Sulfate 3 ML AMPUL.NEB INHALATION ×4 (06:53→19:16)
--- NOTE | 2021-04-09 07:30 | PN.HOSP_ITS ---
Subjective Subjective Follow-up for acute hypoxic respiratory failure Patient still having fever temperature 102.2 ?F. Blood pressure systolic in the 80s. On ventilator AC mode, 90%, respiratory rate 22-28/min. Nighttime hospitalist noted some coffee-ground appearing secretions from the mouth. H&H remain similar for last 4 days. Objective Data Objective Data Vital Signs: Vital Signs Temp Pulse Resp BP Pulse Ox 102.1 F H 80 22 H 91/53 L 93 04/09/21 07:00 04/09/21 07:00 04/09/21 07:00 04/09/21 07:00 04/09/21 07:00 Oxygen Flow Rate (L/min) 60 Oxygen Delivery Method Mechanical Ventilator Weight: 317 lb 8 oz Body Mass Index (BMI) 50.1 Intake & Output: Intake and Output for Last 24 Hours 04/07/21 04/08/21 04/09/21 23:59 23:59 23:59 Intake Total 3560.84 / 3988.39 3404.20 / 4047.45 1664.02 / 1664.02 Output Total 2300 / 3800 3650 / 3650 375 / 375 Balance 1260.84 / 188.39 -245.80 / 397.45 1289.02 / 1289.02 Lab / Micro Data Result Diagrams: 04/09/21 03:30 04/09/21 03:30 Labs: Laboratory Results - last 24 hr 04/09/21 03:30: WBC 11.3 H, RBC 3.80 L, Hgb 11.1 L, Hct 35.7 L, MCV 93.9, MCH 29.2, MCHC 31.1 L, RDW Std Deviation 47.5 H, RDW Coeff of Connie 13.9, Plt Count 189, MPV 12.1 H, Immature Gran % (Auto) 1.800 H, Neut % (Auto) 80.7 H, Lymph % (Auto) 11.0 L, [place] % (Auto) 4.3, Eos % (Auto) 1.8, Baso % (Auto) 0.4, Absolute Neuts (auto) 9.1 H, Absolute Lymphs (auto) 1.24, Nucleated RBC % 0 04/09/21 03:30: Sodium 136, Potassium 4.4, Chloride 98, Carbon Dioxide 33.0 H, Anion Gap 5, BUN 50 H, Creatinine 0.68 L, Estim Creat Clear Calc 105.31, Est GFR (MDRD) Af Amer 152, Est GFR (MDRD) Non-Af 126, BUN/Creatinine Ratio 73.5 H, Glucose 130 H, Calcium 7.5 L, Total Bilirubin 0.60, AST 63 H, ALT TNP, Alkaline Phosphatase 51, Total Protein 6.2 L, Albumin 1.9 L, Globulin 4.3 H, Albumin/Globulin Ratio 0.4 L Micro: Microbiology 04/04/21 12:10 Blood Culture (Wb) - Right Hand Blood Culture - Preliminary No growth in 48 hours. 04/04/21 12:00 Blood Culture (Wb) - Pic Blood Culture - Preliminary No growth in 48 hours. 04/04/21 12:10 Sputum, Induced/Lukens Gram Stain - Final 04/04/21 12:10 Sputum, Induced/Lukens Respiratory Culture - Final Staphylococcus aureus 03/30/21 09:15 Sputum, Induced/Lukens Gram Stain - Final 03/30/21 09:15 Sputum, Induced/Lukens Respiratory Culture - Final Proprionibacterium acnes 03/23/21 19:09 Blood Culture (Wb) - Anticubital Right Blood Culture - Final No growth in 5 days. 03/23/21 18:40 Blood Culture (Wb) - Anticubital Right Blood Culture - Final No growth in 5 days. 03/23/21 18:40 Nasal Secretion SARS-CoV-2 Antigen (Rapid) - Final SARS-CoV-2 (COVID 19) ABG Data ABG results: ABG 04/08/21 08:49 Specimen Type ART Sample Site L Radial pH 7.32 L Bicarbonate Actual 39.8 H Total CO2 42 Base Excess 14 H O2 Saturation 91 L O2 % 90 ABG pCO2 76.5 H* ABG pO2 69 L Shashi Test Positive Respiration Rate 18 O2 Delivery Device Adult Vent Tidal Volume 450 POC PEEP 16 Crit Call To/Read Back Yes Blood Gas Notified Whom Clinical Comments ACVC+ Physical Exam Narrative General: Sedated, patient opens eyes and follows simple command like making fist on verbal command..Cooling blanket. HEENT:Small bilateral pupil, Normocephalic Oral: No Gingival or Mucosal Lesions/ Ulcerations Neck: Supple, No JVD, Negative Carotid Bruits Lungs: Air entry diminished in bilateral lung bases. On vent support, high FiO2 Cardiovascular:Sinus rhythm on cardiac rn muffled heart sounds, No murmurs Abdomen: Had bowel movement. Bowel Sounds sluggish, Soft, Non Tender, Non- Distended : No renal angle tenderness. No suprapubic tenderness. Extremities: Bilateral pitting leg edema, Capillary Refill Less than 3 Seconds Skin: Grayish discoloration of both legs chronic. Venous hypertension. No obvious drainage/oozing Musculoskeletal: No Tenderness to Palpation of Joints or Extremities Neurological: Sedated ,neuro exam Unobtainable Psych/Mental Status: Sedated Assessment & Plan Assessment/Plan (1) COVID-19: (2) Acute hypoxemic respiratory failure due to COVID-19: PLAN: 1. Acute hypoxic respiratory failure due to COVID-19 pneumonia ? CTA of the chest was negative for PE. Patient not candidate for remdesivir. Initially on air Vo then required BiPAP, going up to 100% FiO2 for worsening hypoxia. Basketball Commentator was consulted. On 03/30, patient was transferred to ICU and was intubated and started on ventilator. Family request for transfer to was denied by the vice president marketing & development. Patient also required NM paralytic agent to maintain oxygenation on 03/30-03/31. 04/07: Patient is requiring 3 sedatives. On assist control ventilator, currently 100% FiO2, PEEP 14 diureses as needed. Continue baricitinib and Decadron to complete treatment. On IV Zosyn. Sputum culture from the 04/04 grew staph aureus on IV Zosyn. On IV furosemide 40 mg twice daily 04/08: Patient completed baricitinib. On dexamethasone. Blood culture from 04/04 no growth in 48 hours. Sputum culture from 03/30 shows Propionibacterium acnes 1+. Sputum culture from 04/04 shows MSSA 3+. Continue to spike fever despite antibiotic Zosyn. High D-dimer 4.34, Lovenox changed to therapeutic dose. ABG 7.3 / on AC mode, 90% FiO2, 16 PEEP. Hyperkalemia, potassium 5.2. Bicarb 34. BUN 38. Portable chest x-ray shows bilateral infiltrates. 04/09: Night hospitalist noted patient has coffee-ground secretions/emesis in NG tube. H&H 11.1 similar to last 4 days Gaseous distention of colon/pseudoobstruction: Gaseous distention of colon up to level of rectum, no definite obstruction seen. 04/09: Patient moved bowel as per the nursing staff. 2. Essential hypertension ? Blood pressure is controlled 3. Class III obesity with BMI 47.8 4. Hypokalemia ? Present on admission corrected per protocol with subsequent monitoring with daily BMPs ordered. Currently hyperkalemic, mild K 5.2 from potassium supplement 40 mEq twice daily. Potassium supplement discontinued Repeat K4.4. Bicarb 33. Monitor labs. 5. History of prostate CA ? Patient family requested PSA blood draw was patient in the hospital. PSA came back at 0.5 (range 0.0-4.0) DVT: Lovenox: Enoxaparin, therapeutic dose Active Medications Acetaminophen (Acetaminophen 650 Mg/20 Ml Udc) 650 mg GT Q4H PRN PRN PRN Reason: Pain Score 1-10/Temp > 100.7 F Last Admin: 04/09/21 05:41 Dose: 650 mg Documented by: Albuterol Sulfate (Albuterol 2.5 Mg/3 Ml Vial.Neb.) 2.5 mg INHALATION Q2H PRN PRN PRN Reason: Dyspnea, wheezing Last Admin: 04/05/21 14:18 Dose: 2.5 mg Documented by: Albuterol/Ipratropium (Ipratropium/Albuterol Sulfate 3 Ml Ampul.Neb) 3 ml INHALATION Q4HWA.RT [facility] Last Admin: 04/09/21 10:13 Dose: 3 ml Documented by: Chlorhexidine Gluconate (Chlorhexidine 15 Ml) 15 ml PO BID [facility] Last Admin: 04/09/21 08:00 Dose: 15 ml Documented by: Chlorhexidine Gluconate (Chlorhexidine Gluc 2% Cloth 1 Each Towelette) 1 each TOPICAL DAILY [facility] Last Admin: 04/09/21 00:00 Dose: 1 each Documented by: Enoxaparin Sodium (Enoxaparin 150 Mg/Ml Syringe) 150 mg SC Q12@0600,1800 [facility] Last Admin: 04/09/21 06:06 Dose: 150 mg Documented by: Furosemide (Furosemide 40 Mg/4 Ml Vial) 40 mg IV BIDLX [facility] Stop: 04/09/21 18:01 Last Admin: 04/09/21 10:06 Dose: 40 mg Documented by: Guaifenesin (Guaifenesin 10 Ml Udc (200mg/10ml)) 10 ml GT Q4H [facility] Last Admin: 04/09/21 10:07 Dose: 10 ml Documented by: Fentanyl Citrate 1,000 mcg/ (Sodium Chloride) 100 mls @ 5 mls/hr CONT INF .Q20H [facility]; Protocol Last Titration: 04/09/21 11:00 Dose: 150 mcg/hr, 15 mls/hr Documented by: Pantoprazole Sodium 40 mg/ (Sodium Chloride) 110 mls @ 330 mls/hr IV Q24 [facility] Last Infusion: 04/08/21 11:18 Dose: Infused Documented by: Dexmedetomidine HCl 1,000 mcg/ (Sodium Chloride) 250 mls @ 18.002 mls/hr CONT INF .[id number] [facility]; Protocol Last Titration: 04/09/21 08:30 Dose: Infused Documented by: Piperacillin Sod/Tazobactam (Sod 3.375 gm/ Sodium Chloride) 50 mls @ 12.5 mls/hr IV Q8 [facility] Last Infusion: 04/09/21 10:09 Dose: Infused Documented by: Lactose (Pivot 1.5 Toni) 1,000 mls @ 60 mls/hr GT .[id number] [facility] Last Admin: 04/09/21 05:40 Dose: 60 mls/hr Documented by: Propofol (Diprivan) 1,000 mg in 100 mls @ 8.641 mls/hr CONT INF .[id number] [facility]; Protocol Last Titration: 04/09/21 11:15 Dose: 35 mcg/kg/min, 30.2 mls/hr Documented by: Sodium Chloride () 250 mls @ 15 mls/hr IV .[id number] PRN PRN Reason: Saline Flush Sodium Chloride () 250 mls @ 15 mls/hr IV .[id number] PRN PRN Reason: Additional IVPB Infusion Last Infusion: 04/09/21 09:00 Dose: 10 mls/hr Documented by: Miscellaneous Information (Inhaler, Assist Devices 1 Each Spacer) 1 each INHALATION PRN PRN PRN Reason: WITH ALBUTEROL INHALER Nystatin (Nystatin Powder 15gm Bottle) 1 applic TOPICAL TID [facility]; Protocol Last Admin: 04/09/21 05:45 Dose: 1 applic Documented by: Ondansetron HCl (Ondansetron 4 Mg/2 Ml Vial) 4 mg IV Q8H PRN PRN PRN Reason: NAUSEA/VOMITING Polyethylene Glycol (Polyethylene Glycol 3350 17 Gm Packet) 17 gm GT DAILY [facility] Last Admin: 04/08/21 10:37 Dose: 17 gm Documented by: Senna/Docusate Sodium (Senna/Docusate Sodium 1 Tablet) 1 tablet GT BID [facility] Last Admin: 04/09/21 11:13 Dose: Not Given Documented by: Sodium Chloride (0.9% Saline Lock 10 Ml Syringe) 10 - 40 ml IV UD PRN PRN Reason: SALINE FLUSH Last Admin: 04/08/21 22:25 Dose: 40 ml Documented by: Sodium Chloride (Sodium Chloride 0.65% 1 [place].Btl) 1 spray NASAL BID PRN PRN PRN Reason: NASAL DRYNESS Last Admin: 03/26/21 09:15 Dose: 1 spray Documented by: Charges/Coding Visit Charges Inpatient E&M: 31180 Subs Hosp L3
[2021-04-09 07:56] LABS: Alanine Aminotransfer ALT/SGPT 99 U/L (16-61)
[2021-04-09] MEDS: Chlorhexidine 15 ML PO ×2 (08:00→22:04)
--- NOTE | 2021-04-09 08:51 | NURSING ---
precedex remains off, pt restless increased diprivan
--- NOTE | 2021-04-09 09:44 | NURSING ---
cooling blanket remains intact over entire body for temp
[2021-04-09] MEDS: Furosemide 40 MG/4 ML Vial IV ×2 (10:06→20:02)
[2021-04-09] MEDS: dexAMETHasone 4 MG Tablet 6 MG GT (10:07)
[2021-04-09] MEDS: Propofol 10MG/Ml 1,000 MG/100 ML Bottle 30.2 MG CONT INF ×3 (10:26→15:43)
[2021-04-09] MEDS: Propofol 10MG/Ml 1,000 MG/100 ML Bottle 25.9 MG CONT INF ×2 (19:02→22:54)
[2021-04-09] MEDS: 0.9% Saline Lock 10 ML Syringe IV (22:04)
[2021-04-10] VITALS (33 sets, daily range): BP systolic 92–147; BP diastolic 55–86; PULSE 94–134; RESP 16–30; TEMP 33.8–38.9; O2SAT 90–97
[2021-04-10] MEDS: CHLORHEXIDINE GLUC 2% CLOTH 1 EACH TOWELETTE TOPICAL
[2021-04-10] MEDS: TITRATION PARAMETER CHANGE 1 EACH IV
[2021-04-10] MEDS: Pivot 1.5 Cal 1,000 ML 60 ML GT ×2 (00:45→18:11)
[2021-04-10] MEDS: guaiFENesin 10 ML UDC (200MG/10ML) GT ×6 (02:31→21:17)
[2021-04-10] MEDS: Propofol 10MG/Ml 1,000 MG/100 ML Bottle 25.9 MG CONT INF ×4 (02:46→22:50)
[2021-04-10 03:33] LABS: Absolute Lymphocyte Count 1.34 X10^3/uL (0.83-4.51); Absolute Neutrophil Count 10.2 X10^3/uL (2.0-7.7); Basophil# 0.06 X10^3/uL; Basophil% 0.5 % (0-1); Eosinophil# 0.33 X10^3/uL; Eosinophils% 2.6 % (0-5); Hematocrit 34.4 % (40-54); Hemoglobin 11.6 g/dL (13.0-16.5); Lymphocyte # 1.34 X10^3/ul (0.83-4.51); Lymphocyte % 10.4 % (19-41); Mean Corp Hgb Conc 33.7 g/dL (32-36); Mean Corpuscular Hgb 31.7 pg (27.0-32.0); Mean Platelet Vol. 12.1 fl (6.2-12.0); Monocyte# 0.62 X10^3/uL; Monocyte% 4.8 % (0-10); NRBC Flagged by Analyzer 0.2 % (0-5); Neutrophil # 10.21 X10^3/uL (2.7-7.7); Neutrophil % 79.4 % (47-70); Platelet Count 228 K/mm3 (150-450); RBC Distribution Width CV 14.5 % (11.6-14.6); RBC Distribution Width SD 49.6 fl (35.1-43.9); Red Blood Count 3.66 M/mm3 (4.6-6.2); White Blood Count 12.9 K/mm3 (4.4-11.0)
[2021-04-10 04:50] LABS: ALB/GLOB Ratio 0.4 RATIO (0.9-2.4); AST(SGOT) 71 U/L (15-37); Alanine Aminotransfer ALT/SGPT 115 U/L (16-61); Albumin, Serum 1.8 g/dL (3.2-5.0); Alkaline Phosphatase 53 U/L (45-117); Anion Gap 4 (5-15); BUN 46 mg/dL (7-18); Calcium,Total 7.4 mg/dL (8.5-10.1); Chloride 94 mmol/L (98-107); Creatinine, Serum 0.57 mg/dL (0.70-1.30); EST Glomerular Filtration Rate 154 mL/min (>60); Est Glom Filt Rate - Afr Amer 187 mL/min (>60); Estimated Creatinine Clearance 125.63 ml/min; Globulin 4.1 g/dL (2.2-4.2); Glucose 116 mg/dL (74-106); Potassium 4.8 mmol/L (3.5-5.1); Protein, Total 5.9 g/dL (6.4-8.2); Sodium Level 133 mmol/L (136-145)
[2021-04-10 05:29] LABS: Magnesium 2.4 mg/dL (1.6-2.6)
[2021-04-10] MEDS: Enoxaparin 150 MG/ML Syringe SC ×2 (05:42→18:11)
[2021-04-10] MEDS: Nystatin Powder 15gm Bottle 1 APPLIC TOPICAL ×3 (05:44→21:17)
[2021-04-10] MEDS: Ipratropium/Albuterol Sulfate 3 ML AMPUL.NEB INHALATION ×4 (07:02→22:50)
--- NOTE | 2021-04-10 07:17 | PN.CC_ITS ---
Assessment & Plan Assessment/Plan (1) Acute hypoxemic respiratory failure due to COVID-19: PLAN: RECOMMENDATIONS: 1. Continue assist control mode mechanical ventilation. Wean FiO2/PEEP for saturations greater than 90%. 2. Continue antimicrobials to complete 7-day treatment course. 3. Aggressive diuresis as tolerated by hemodynamics and renal function. 4. Continue therapeutic Lovenox. 5. Continue decadron to complete treatment courses. 6. Continue appropriate GI prophylaxis. 7. Continue tube feeds as tolerated. IMPRESSIONS: 1. Acute hypoxemic respiratory failure secondary to COVID-19/MSSA pneumonia The patient initially presented to the hospital on March 23 with progressive COVID symptoms after testing positive on March 21. The patient is unvaccinated. CTA chest was negative for PE. The patient has completed a kinjal tment course of remdesivir and baricitinib. He remains on Decadron and therapeutic Lovenox (in light of elevated D-dimer). Oxygenation status still remains quite tenuous. Continue assist control mode of mechanical ventilation and wean FiO2 and PEEP to maintain saturations greater than 90%. Continue antimicrobials to complete 7-day treatment course. Ongoing attempts at diuresis as tolerated by hemodynamics and renal function. 2. Morbid obesity/hypertension/neuropathy Complicates care, management, recovery and prognosis. Continue home medications as indicated. Continue tube feeds as tolerated. TIME: 31 minutes of critical care time, independent of procedures, was spent addressing the patient's acute hypoxemic respiratory failure secondary to COVID- 19/MSSA Pneumonia, review of all data and collaboration with the care team. Subjective Subjective The patient was seen and examined at the bedside this morning. Events from the last 24 hours have been reviewed. Today is vent day #12. The patient's fever has improved in light of discontinuation of Precedex. He remains on assist control mode of mechanical ventilation with an FiO2 requirement of 100% and PEEP of 16. He is currently sedated on fentanyl and propofol. The patient continues to tolerate tube feeds. He is documented to be overall net +11 L for the hospitalization. The patient has completed a treatment course of Decadron. He remains on antimicrobials and therapeutic Lovenox. Creatinine is stable. Objective Data Objective Data The patient's most recent lab work, culture data and imaging studies have all been personally reviewed. Rapid coronavirus antigen testing was positive on March 23. Sputum culture dated April 04 was positive for MSSA. Vital Signs: Vital Signs Temp Pulse Resp BP Pulse Ox 99.8 F H 100 26 H 130/79 H 94 04/10/21 07:00 04/10/21 07:02 04/10/21 07:02 04/10/21 07:00 04/10/21 07:02 Oxygen Flow Rate (L/min) 60 Oxygen Delivery Method Mechanical Ventilator Weight: 142.485 kg Body Mass Index (BMI) 50.1 Intake & Output: Intake and Output for Last 24 Hours 04/08/21 04/09/21 04/10/21 23:59 23:59 23:59 Intake Total 3404.20 / 4047.45 4855.24 / 5496.14 1185.43 / 1185.43 Output Total 3650 / 3650 2350 / 2350 650 / 650 Balance -245.80 / 397.45 2505.24 / 3146.14 535.43 / 535.43 Lab / Micro Data Attestation: I reviewed the patient's lab results. Result Diagrams: 04/10/21 03:25 04/10/21 03:25 Labs: Laboratory Results - last 24 hr 04/09/21 03:30: ALT 99 H 04/10/21 03:25: WBC 12.9 H, RBC 3.66 L, Hgb 11.6 L, Hct 34.4 L, MCV 94.0, MCH 31.7, MCHC 33.7 D, RDW Std Deviation 49.6 H, RDW Coeff of Connie 14.5, Plt Count 228, MPV 12.1 H, Immature Gran % (Auto) 2.300 H, Neut % (Auto) 79.4 H, Lymph % (Auto) 10.4 L, [place] % (Auto) 4.8, Eos % (Auto) 2.6, Baso % (Auto) 0.5, Absolute Neuts (auto) 10.2 H, Absolute Lymphs (auto) 1.34, Nucleated RBC % 0.2 04/10/21 03:25: Sodium 133 L, Potassium 4.8, Chloride 94 L, Carbon Dioxide 35.0 H, Anion Gap 4 L, BUN 46 H, Creatinine 0.57 L, Estim Creat Clear Calc 125.63, Est GFR (MDRD) Af Amer 187, Est GFR (MDRD) Non-Af 154, BUN/Creatinine Ratio 81.0 H, Glucose 116 H, Calcium 7.4 L, Total Bilirubin 0.70, AST 71 H, ALT 115 H, Alkaline Phosphatase 53, Total Protein 5.9 L, Albumin 1.8 L, Globulin 4.1, Albumin/Globulin Ratio 0.4 L 04/10/21 03:25: Magnesium 2.4 Micro: Microbiology 04/04/21 12:00 Blood Culture (Wb) - Pic Blood Culture - Final No growth in 5 days. 04/04/21 12:10 Blood Culture (Wb) - Right Hand Blood Culture - Final No growth in 5 days. 04/04/21 12:10 Sputum, Induced/Lukens Gram Stain - Final 04/04/21 12:10 Sputum, Induced/Lukens Respiratory Culture - Final Staphylococcus aureus 03/30/21 09:15 Sputum, Induced/Lukens Gram Stain - Final 03/30/21 09:15 Sputum, Induced/Lukens Respiratory Culture - Final Proprionibacterium acnes 03/23/21 19:09 Blood Culture (Wb) - Anticubital Right Blood Culture - Final No growth in 5 days. 03/23/21 18:40 Blood Culture (Wb) - Anticubital Right Blood Culture - Final No growth in 5 days. 03/23/21 18:40 Nasal Secretion SARS-CoV-2 Antigen (Rapid) - Final SARS-CoV-2 (COVID 19) Physical Exam Const no apparent distress General Appearance: ill appearing, intubated and patient mechanically ventilated Nutritional Appearance: morbidly obese HEENT normocephalic and head/scalp atraumatic Mouth: endotracheal tube in place and OG tube in place Eyes PERRL, EOMs intact bilaterally and conjunctivae normal Neck supple General: trachea midline Chest inspection of chest normal Resp Auscultation: rhonchi and diminished lung sounds; Negative for rales or wheezes Cardio regular rate and regular rhythm Heart Sounds: Negative for murmur GI normal to inspection, nondistended, normoactive bowel sounds Extremity General Extremity: edema bilateral lower extremity; Negative for clubbing Skin General Skin Exam: venous stasis and dermatitis Neuro Sensorium / Orientation: sedated on vent Charges/Coding Procedures Hospitalists Procedures: [id number] Critial Care 1st Hr
[2021-04-10] MEDS: Chlorhexidine 15 ML PO ×2 (08:37→21:17)
[2021-04-10] MEDS: Furosemide 100 MG/10 ML Vial 80 MG IV ×2 (08:43→18:11)
--- NOTE | 2021-04-10 08:56 | PCM.PN.HOSP ---
Subjective Subjective Follow-up with acute hypoxic respiratory failure. Patient's eyes are open. He follows simple command. Precedex drip is off. Objective Data Objective Data Vital Signs: Vital Signs Temp Pulse Resp BP Pulse Ox 99.8 F H 100 26 H 130/79 H 94 04/10/21 07:00 04/10/21 07:02 04/10/21 07:02 04/10/21 07:00 04/10/21 07:02 Oxygen Flow Rate (L/min) 60 Oxygen Delivery Method Mechanical Ventilator Weight: 314 lb 2 oz Body Mass Index (BMI) 50.1 Intake & Output: Intake and Output for Last 24 Hours 04/08/21 04/09/21 04/10/21 23:59 23:59 23:59 Intake Total 3404.20 / 4047.45 4855.24 / 5496.14 1272.80 / 1272.80 Output Total 3650 / 3650 2350 / 2350 650 / 650 Balance -245.80 / 397.45 2505.24 / 3146.14 622.80 / 622.80 Lab / Micro Data Result Diagrams: 04/10/21 03:25 04/10/21 03:25 Labs: Laboratory Results - last 24 hr 04/10/21 03:25: WBC 12.9 H, RBC 3.66 L, Hgb 11.6 L, Hct 34.4 L, MCV 94.0, MCH 31.7, MCHC 33.7 D, RDW Std Deviation 49.6 H, RDW Coeff of Connie 14.5, Plt Count 228, MPV 12.1 H, Immature Gran % (Auto) 2.300 H, Neut % (Auto) 79.4 H, Lymph % (Auto) 10.4 L, L[place] % (Auto) 4.8, Eos % (Auto) 2.6, Baso % (Auto) 0.5, Absolute Neuts (auto) 10.2 H, Absolute Lymphs (auto) 1.34, Nucleated RBC % 0.2 04/10/21 03:25: Sodium 133 L, Potassium 4.8, Chloride 94 L, Carbon Dioxide 35.0 H, Anion Gap 4 L, BUN 46 H, Creatinine 0.57 L, Estim Creat Clear Calc 125.63, Est GFR (MDRD) Af Amer 187, Est GFR (MDRD) Non-Af 154, BUN/Creatinine Ratio 81.0 H, Glucose 116 H, Calcium 7.4 L, Total Bilirubin 0.70, AST 71 H, ALT 115 H, Alkaline Phosphatase 53, Total Protein 5.9 L, Albumin 1.8 L, Globulin 4.1, Albumin/Globulin Ratio 0.4 L 04/10/21 03:25: Magnesium 2.4 Micro: Microbiology 04/04/21 12:00 Blood Culture (Wb) - Pic Blood Culture - Final No growth in 5 days. 04/04/21 12:10 Blood Culture (Wb) - Right Hand Blood Culture - Final No growth in 5 days. 04/04/21 12:10 Sputum, Induced/Lukens Gram Stain - Final 04/04/21 12:10 Sputum, Induced/Lukens Respiratory Culture - Final Staphylococcus aureus 03/30/21 09:15 Sputum, Induced/Lukens Gram Stain - Final 03/30/21 09:15 Sputum, Induced/Lukens Respiratory Culture - Final Proprionibacterium acnes 03/23/21 19:09 Blood Culture (Wb) - Anticubital Right Blood Culture - Final No growth in 5 days. 03/23/21 18:40 Blood Culture (Wb) - Anticubital Right Blood Culture - Final No growth in 5 days. 03/23/21 18:40 Nasal Secretion SARS-CoV-2 Antigen (Rapid) - Final SARS-CoV-2 (COVID 19) Physical Exam Narrative Low-grade fever, T-max 100.4, better than before General: Patient simple command. Awake.Cooling blanket. HEENT:Small bilateral pupil, Normocephalic Oral: ET and OG tube Neck: Supple, No JVD, Negative Carotid Bruits Lungs: Air entry diminished in bilateral lung bases. On vent support Cardiovascular:Sinus rhythm on cafeteria monitor muffled heart sounds, No murmurs Abdomen: Had bowel movement. Bowel Sounds sluggish, Soft, Non Tender, Non-Distended : No renal angle tenderness. No suprapubic tenderness. Extremities: Bilateral pitting leg edema, Capillary Refill Less than 3 Seconds Skin: Grayish discoloration of both legs chronic. Venous hypertension. Little mottling of lateral aspect of left foot. Musculoskeletal: No Tenderness to Palpation of Joints or Extremities Neurological: Sedation protocol as per ICU, complete neuro exam Unobtainable Psych/Mental Status: Flat affect Assessment & Plan Assessment/Plan (1) COVID-19: (2) Acute hypoxemic respiratory failure due to COVID-19: PLAN: 1. Acute hypoxic respiratory failure due to COVID-19 pneumonia ? CTA of the chest was negative for PE. Patient not candidate for remdesivir. Initially on air Vo then required BiPAP, going up to 100% FiO2 for worsening hypoxia. Ammunition Storekeeper was consulted. On 03/30, patient was transferred to ICU and was intubated and started on ventilator. Family request for transfer to was denied by the contact agent. Patient also required NM paralytic agent to maintain oxygenation on 03/30-03/31. 04/07: Patient is requiring 3 sedatives. On assist control ventilator, currently 100% FiO2, PEEP 14 diureses as needed. Continue baricitinib and Decadron to complete treatment. On IV Zosyn. Sputum culture from the 04/04 grew staph aureus on IV Zosyn. On IV furosemide 40 mg twice daily 04/08: Patient completed baricitinib. On dexamethasone. Blood culture from 04/04 no growth in 48 hours. Sputum culture from 03/30 shows Propionibacterium acnes 1+. Sputum culture from 04/04 shows MSSA 3+. Continue to spike fever despite antibiotic Zosyn. High D-dimer 4.34, Lovenox changed to therapeutic dose. ABG 7.3 /69 on AC mode, 90% FiO2, 16 PEEP. Hyperkalemia, potassium 5.2. Bicarb 34. BUN 38. Portable chest x-ray shows bilateral infiltrates. 04/09: Night hospitalist noted patient has coffee-ground secretions/emesis in NG tube. H&H 11.1 similar to last 4 days 04/10: Vancomycin stopped. On Zosyn. Reviewed ID and contact agent note. Patient completed dexamethasone and baricitinib. Continue antibiotics. Gaseous distention of colon/pseudoobstruction: Gaseous distention of colon up to level of rectum, no definite obstruction seen. 04/09: Patient moved bowel as per the nursing staff. 2. Essential hypertension ? Blood pressure is controlled 3. Class III obesity with BMI 47.8 4. Hypokalemia ? Present on admission corrected per protocol with subsequent monitoring with daily BMPs ordered. Currently hyperkalemic, mild K 5.2 from potassium supplement 40 mEq twice daily. Potassium supplement discontinued Repeat K4.4. Bicarb 33. Monitor labs. 5. History of prostate CA ? Patient family requested PSA blood draw was patient in the hospital. PSA came back at 0.5 (range 0.0-4.0) DVT: Lovenox: Enoxaparin, therapeutic dose Active Medications Acetaminophen (Acetaminophen 650 Mg/20 Ml Udc) 650 mg GT Q4H PRN PRN PRN Reason: Pain Score 1-10/Temp > 100.7 F Last Admin: 04/09/21 20:03 Dose: 650 mg Documented by: Albuterol Sulfate (Albuterol 2.5 Mg/3 Ml Vial.Neb.) 2.5 mg INHALATION Q2H PRN PRN PRN Reason: Dyspnea, wheezing Last Admin: 04/05/21 14:18 Dose: 2.5 mg Documented by: Albuterol/Ipratropium (Ipratropium/Albuterol Sulfate 3 Ml Ampul.Neb) 3 ml INHALATION Q4HWA.RT [facility] Last Admin: 04/10/21 10:37 Dose: 3 ml Documented by: Chlorhexidine Gluconate (Chlorhexidine 15 Ml) 15 ml PO BID [facility] Last Admin: 04/10/21 08:37 Dose: 15 ml Documented by: Chlorhexidine Gluconate (Chlorhexidine Gluc 2% Cloth 1 Each Towelette) 1 each TOPICAL DAILY [facility] Last Admin: 04/10/21 00:00 Dose: 1 each Documented by: Enoxaparin Sodium (Enoxaparin 150 Mg/Ml Syringe) 150 mg SC Q12@0600,1800 [facility] Last Admin: 04/10/21 05:42 Dose: 150 mg Documented by: Furosemide (Furosemide 100 Mg/10 Ml Vial) 80 mg IV BIDLX [facility] Last Admin: 04/10/21 08:43 Dose: 80 mg Documented by: Guaifenesin (Guaifenesin 10 Ml Udc (200mg/10ml)) 10 ml GT Q4H [facility] Last Admin: 04/10/21 08:52 Dose: 10 ml Documented by: Fentanyl Citrate 1,000 mcg/ (Sodium Chloride) 100 mls @ 5 mls/hr CONT INF .Q20H [facility]; Protocol Last Titration: 04/10/21 08:45 Dose: 175 mcg/hr, 17.5 mls/hr Documented by: Pantoprazole Sodium 40 mg/ (Sodium Chloride) 110 mls @ 330 mls/hr IV Q24 [facility] Last Admin: 04/10/21 08:42 Dose: 330 mls/hr Documented by: Dexmedetomidine HCl 1,000 mcg/ (Sodium Chloride) 250 mls @ 17.813 mls/hr CONT INF .Q14H3M [facility]; Protocol Last Admin: 04/10/21 02:16 Dose: Not Given Documented by: Piperacillin Sod/Tazobactam (Sod 3.375 gm/ Sodium Chloride) 50 mls @ 12.5 mls/hr IV Q8 [facility] Stop: 04/10/21 23:55 Last Admin: 04/10/21 05:42 Dose: 12.5 mls/hr Documented by: Lactose (Pivot 1.5 Toni) 1,000 mls @ 60 mls/hr GT .[id number] [facility] Last Admin: 04/10/21 00:45 Dose: 60 mls/hr Documented by: Propofol (Diprivan) 1,000 mg in 100 mls @ 8.641 mls/hr CONT INF .[id number] [facility]; Protocol Last Titration: 04/10/21 08:45 Dose: 33 mcg/kg/min, 28.5 mls/hr Documented by: Sodium Chloride () 250 mls @ 15 mls/hr IV .[id number] PRN PRN Reason: Saline Flush Sodium Chloride () 250 mls @ 15 mls/hr IV .[id number] PRN PRN Reason: Additional IVPB Infusion Last Infusion: 04/10/21 08:00 Dose: 15 mls/hr Documented by: Miscellaneous Information (Inhaler, Assist Devices 1 Each Spacer) 1 each INHALATION PRN PRN PRN Reason: WITH ALBUTEROL INHALER Nystatin (Nystatin Powder 15gm Bottle) 1 applic TOPICAL TID [facility]; Protocol Last Admin: 04/10/21 05:44 Dose: 1 applic Documented by: Ondansetron HCl (Ondansetron 4 Mg/2 Ml Vial) 4 mg IV Q8H PRN PRN PRN Reason: NAUSEA/VOMITING Polyethylene Glycol (Polyethylene Glycol 3350 17 Gm Packet) 17 gm GT DAILY PRN PRN Reason: CONSTIPATION Senna/Docusate Sodium (Senna/Docusate Sodium 1 Tablet) 1 tablet GT BID PRN PRN Reason: CONSTIPATION Sodium Chloride (0.9% Saline Lock 10 Ml Syringe) 10 - 40 ml IV UD PRN PRN Reason: SALINE FLUSH Last Admin: 04/09/21 22:04 Dose: 40 ml Documented by: Sodium Chloride (Sodium Chloride 0.65% 1 [place].Btl) 1 spray NASAL BID PRN PRN PRN Reason: NASAL DRYNESS Last Admin: 03/26/21 09:15 Dose: 1 spray Documented by: Charges/Coding Visit Charges Inpatient E&M: 32176 Subs Hosp L3
[2021-04-10] MEDS: Propofol 10MG/Ml 1,000 MG/100 ML Bottle 43.2 MG CONT INF ×4 (09:30→16:29)
--- NOTE | 2021-04-10 09:53 | PCM.PN.ID ---
Physical Exam Narrative On vent, fever better, family at bedside. Const no apparent distress Resp Effort and Inspection: mechanically ventilated Auscultation: diminished lung sounds Cardio regular rate and regular rhythm GI soft to palpation, non-tender and non-distended Skin no rashes or lesions noted ID ID: Route of nutrition/ use of supplements: [] Nutritional Intake: [] IV Site: [] Morales Catheter: [] Assessment & Plan Assessment/Plan (1) COVID-19: PLAN: Sx started 03/17/21. Unvaccinated. Isolate until 04/06/21. Recommend vaccine in one month. On dex, completed baricitinib. Completed remdesivir. Remains on vent, off paralytic. On abx since 03/28. Sputum from 03/30 with p.acnes. Sputum now with mssa, currently on zosyn, vanc stopped. Temps better today, off precedex. D/w nursing. Will follow (2) Acute hypoxemic respiratory failure due to COVID-19:
--- NOTE | 2021-04-10 10:47 | CASEMGMT ---
Social Work SW attended ICU rounds. Pt continues on the Ventilator. After rounds SW met with pt dgt Shanel and diana who are in the room with pt. Support provided to Shanel. Shanel aware that SW will remain available for support throughout pt hospitalization. CELI Alfonso
--- NOTE | 2021-04-10 10:53 | CASEMGMT ---
Pt's daughter Shanel Jackson states that she is HCPOA for pt. Papers are not present to confirm this. Pt does have a but she is currently in a nursing facility. Pt does have a second dgt who lives in [place] and Shnael reports this dgt is assisting with mother while Shanel is attending pt. At this time Shanel is the next of kin. CELI Alfonso
--- NOTE | 2021-04-10 13:58 | CHAPLAIN ---
Type of Pastoral Visit ___ Initial Visit _x__ Follow-up Visit ___ On-call Visit ___ General Patient Visit ___ Spiritual Assessment ___ Family Conference ___ Bereavement ___ Rapid Response ___ Code Blue ___ Other (describe below) Pastoral Care Referral From ___ Patient ___ Family ___ Nurse ___ Physician ___ Electric Motor Analyst ___ Apparel Merchandiser ___ Other (describe below) Sacrament/Intervention ___ Active listening ___ Anointing ___ Baptist ___ Bereavement ___ Communion ___ Nelda exploration ___ ___ Life review ___ Prayer ___ Reconciliation ___ Sacrament of Sick _x__ Supportive presence ___ Wedding ___ Other (describe below) Pastoral Comments daughter and granddaughter of patient are in the room with patient; when they step out of room this vehicle assembler offered support, presence, and prayer; daughter states that they are fine for now and that the balloon design printer of the patient was on the phone and had prayer with them today
[2021-04-10] MEDS: Acetaminophen 650 MG/20 ML UDC GT (18:11)
[2021-04-11] VITALS (36 sets, daily range): BP systolic 86–144; BP diastolic 48–74; PULSE 69–120; RESP 13–26; TEMP 37–38.6; O2SAT 87–97
[2021-04-11] MEDS: guaiFENesin 10 ML UDC (200MG/10ML) GT ×6 (02:16→21:05)
[2021-04-11] MEDS: Propofol 10MG/Ml 1,000 MG/100 ML Bottle 25.9 MG CONT INF (02:40)
--- NOTE | 2021-04-11 03:28 | EKG12_ITS ---
Test Reason : Blood Pressure : / mmHG Vent. Rate : 112 BPM Atrial Rate : 047 BPM P-R Int : 000 ms QRS Dur : 132 ms QT Int : 416 ms P-R-T Axes : 000 087 -42 degrees QTc Int : 567 ms Atrial fibrillation with premature ventricular or aberrantly conducted complexes Right bundle branch block T wave abnormality, consider inferolateral ischemia Abnormal ECG When compared with ECG of 30-MAR-2021 09:20, Atrial fibrillation has replaced Wide QRS rhythm Confirmed by ELLA HIGH, DESHAWN ([id number]), state editor RBOERTO CARLOS JUAREZ ([id number]) on 04/15/2021 8:49:12 AM Referred By: Confirmed By:DESHAWN JARAMILLO MD
[2021-04-11 03:54] LABS: Absolute Neutrophil Count 7.8 X10^3/uL (2.0-7.7); Basophil# 0.05 X10^3/uL; Basophil% 0.5 % (0-1); Eosinophil# 0.79 X10^3/uL; Eosinophils% 7.9 % (0-5); Hemoglobin 10.8 g/dL (13.0-16.5); Mean Corp Hgb Conc 31.8 g/dL (32-36); Mean Corpuscular Hgb 30.3 pg (27.0-32.0); Mean Corpuscular Volume 95.2 fL (80-94); Mean Platelet Vol. 12.1 fl (6.2-12.0); Monocyte# 0.26 X10^3/uL; Monocyte% 2.6 % (0-10); NRBC Flagged by Analyzer 0.6 % (0-5); Neutrophil # 7.82 X10^3/uL (2.7-7.7); Neutrophil % 77.7 % (47-70); POSITIVE MORPHOLOGY YES; Platelet Count 192 K/mm3 (150-450); RBC Distribution Width CV 14.3 % (11.6-14.6); RBC Distribution Width SD 49.7 fl (35.1-43.9); Red Blood Count 3.57 M/mm3 (4.6-6.2); White Blood Count 10.1 K/mm3 (4.4-11.0)
[2021-04-11 04:10] LABS: Differential Indicated SCAN CRITERIA MET
[2021-04-11 05:09] LABS: Differential Comment SCANNED
[2021-04-11] MEDS: Enoxaparin 150 MG/ML Syringe SC ×2 (05:11→19:26)
[2021-04-11] MEDS: Nystatin Powder 15gm Bottle 1 APPLIC TOPICAL ×3 (05:12→21:05)
[2021-04-11 05:26] LABS: ALB/GLOB Ratio 0.5 RATIO (0.9-2.4); AST(SGOT) 42 U/L (15-37); Alanine Aminotransfer ALT/SGPT 99 U/L (16-61); Alkaline Phosphatase 64 U/L (45-117); Anion Gap 4 (5-15); BUN 45 mg/dL (7-18); BUN/Creat Ratio 69.8 RATIO (10-20); Chloride 96 mmol/L (98-107); Creatinine, Serum 0.64 mg/dL (0.70-1.30); EST Glomerular Filtration Rate 133 mL/min (>60); Est Glom Filt Rate - Afr Amer 161 mL/min (>60); Estimated Creatinine Clearance 111.89 ml/min; Globulin 4.2 g/dL (2.2-4.2); Glucose 147 mg/dL (74-106); Potassium 3.7 mmol/L (3.5-5.1); Protein, Total 6.2 g/dL (6.4-8.2); Sodium Level 139 mmol/L (136-145)
--- NOTE | 2021-04-11 05:43 | PN.CC_ITS ---
Assessment & Plan Assessment/Plan (1) Acute hypoxemic respiratory failure due to COVID-19: PLAN: RECOMMENDATIONS: 1. Continue assist control mode mechanical ventilation. Wean FiO2/PEEP for saturations greater than 90%. 2. Continue antimicrobials to complete 7-day treatment course. 3. Aggressive diuresis as tolerated by hemodynamics and renal function. 4. Continue therapeutic Lovenox. 5. Continue decadron to complete treatment courses. 6. Continue appropriate GI prophylaxis. 7. Continue tube feeds as tolerated. IMPRESSIONS: 1. Acute hypoxemic respiratory failure secondary to COVID-19/MSSA pneumonia The patient initially presented to the hospital on March 23 with progressive COVID symptoms after testing positive on March 21. The patient is unvaccinated. CTA chest was negative for PE. The patient has completed a kinjal tment course of remdesivir and baricitinib. He remains on Decadron and therapeutic Lovenox (in light of elevated D-dimer). Oxygenation status still remains quite tenuous. Continue assist control mode of mechanical ventilation and wean FiO2 and PEEP to maintain saturations greater than 90%. Continue antimicrobials to complete 7-day treatment course. Ongoing attempts at diuresis as tolerated by hemodynamics and renal function. 2. Morbid obesity/hypertension/neuropathy Complicates care, management, recovery and prognosis. Continue home medications as indicated. Continue tube feeds as tolerated. TIME: 32 minutes of critical care time, independent of procedures, was spent addressing the patient's acute hypoxemic respiratory failure secondary to COVID- 19/MSSA Pneumonia, review of all data and collaboration with the care team. Subjective Subjective The patient was seen and examined at the bedside this morning. Events from the last 24 hours have been reviewed. Today is vent day #13. He remains on assist control mode of mechanical ventilation with an FiO2 requirement of 80% and PEEP of 16. He is currently sedated on fentanyl and propofol. The patient continues to tolerate tube feeds. He is documented to be overall net +10.2 L for the hospitalization. The patient has completed a treatment course of Decadron and antimicrobials. He remains on therapeutic Lovenox. Creatinine is stable. Objective Data Objective Data The patient's most recent lab work, culture data and imaging studies have all been personally reviewed. Rapid coronavirus antigen testing was positive on March 23. Sputum culture dated April 04 was positive for MSSA. Vital Signs: Vital Signs Temp Pulse Resp BP Pulse Ox 99.5 F H 103 H 16 86/58 L 89 04/11/21 05:00 04/11/21 05:00 04/11/21 05:00 04/11/21 05:00 04/11/21 05:00 Oxygen Flow Rate (L/min) 60 Oxygen Delivery Method Mechanical Ventilator Weight: 139.706 kg Body Mass Index (BMI) 50.1 Intake & Output: Intake and Output for Last 24 Hours 04/09/21 04/10/21 04/11/21 23:59 23:59 23:59 Intake Total 4855.24 / 5496.14 3378.78 / 3465.18 545.85 / 545.85 Output Total 2350 / 2350 2810 / 4210 1400 / 1400 Balance 2505.24 / 3146.14 568.78 / -744.82 -854.15 / -854.15 Lab / Micro Data Attestation: I reviewed the patient's lab results. Result Diagrams: 04/11/21 03:45 04/11/21 03:45 Labs: Laboratory Results - last 24 hr 04/11/21 03:45: WBC 10.1, RBC 3.57 L, Hgb 10.8 L, Hct 34.0 L, MCV 95.2 H, MCH 30.3, MCHC 31.8 L D, RDW Std Deviation 49.7 H, RDW Coeff of Connie 14.3, Plt Count 192, MPV 12.1 H, Immature Gran % (Auto) 2.300 H, Neut % (Auto) 77.7 H, Lymph % (Auto) 9.0 L, [place] % (Auto) 2.6, Eos % (Auto) 7.9 H, Baso % (Auto) 0.5, Absolute Neuts (auto) 7.8 H, Absolute Lymphs (auto) 0.90, Nucleated RBC % 0.6, Differential Comment SCANNED 04/11/21 03:45: Sodium 139, Potassium 3.7, Chloride 96 L, Carbon Dioxide 39.0 H, Anion Gap 4 L, BUN 45 H, Creatinine 0.64 L, Estim Creat Clear Calc 111.89, Est GFR (MDRD) Af Amer 161, Est GFR (MDRD) Non-Af 133, BUN/Creatinine Ratio 69.8 H, Glucose 147 H, Calcium 8.0 L, Total Bilirubin 0.80, AST 42 H, ALT 99 H, Alkaline Phosphatase 64, Total Protein 6.2 L, Albumin 2.0 L, Globulin 4.2, Albumin/Globulin Ratio 0.5 L Micro: Microbiology 04/04/21 12:00 Blood Culture (Wb) - Pic Blood Culture - Final No growth in 5 days. 04/04/21 12:10 Blood Culture (Wb) - Right Hand Blood Culture - Final No growth in 5 days. 04/04/21 12:10 Sputum, Induced/Lukens Gram Stain - Final 04/04/21 12:10 Sputum, Induced/Lukens Respiratory Culture - Final Staphylococcus aureus 03/30/21 09:15 Sputum, Induced/Lukens Gram Stain - Final 03/30/21 09:15 Sputum, Induced/Lukens Respiratory Culture - Final Proprionibacterium acnes 03/23/21 19:09 Blood Culture (Wb) - Anticubital Right Blood Culture - Final No growth in 5 days. 03/23/21 18:40 Blood Culture (Wb) - Anticubital Right Blood Culture - Final No growth in 5 days. 03/23/21 18:40 Nasal Secretion SARS-CoV-2 Antigen (Rapid) - Final SARS-CoV-2 (COVID 19) Physical Exam Const no apparent distress General Appearance: ill appearing, intubated and patient mechanically ventilated Nutritional Appearance: morbidly obese HEENT normocephalic and head/scalp atraumatic Mouth: endotracheal tube in place and OG tube in place Eyes PERRL, EOMs intact bilaterally and conjunctivae normal Neck supple General: trachea midline Chest inspection of chest normal Resp Auscultation: diminished lung sounds; Negative for rales, rhonchi or wheezes Cardio regular rate and regular rhythm Heart Sounds: Negative for murmur GI normal to inspection, nondistended, normoactive bowel sounds Extremity General Extremity: edema bilateral lower extremity; Negative for clubbing Skin General Skin Exam: venous stasis and dermatitis Neuro Sensorium / Orientation: sedated on vent Charges/Coding Procedures Hospitalists Procedures: 32327 Critial Care 1st Hr
[2021-04-11] MEDS: Propofol 10MG/Ml 1,000 MG/100 ML Bottle 29.3 MG CONT INF ×3 (06:14→12:53)
[2021-04-11] MEDS: Ipratropium/Albuterol Sulfate 3 ML AMPUL.NEB INHALATION ×4 (06:41→20:24)
--- NOTE | 2021-04-11 07:34 | PN.HOSP_ITS ---
Subjective Subjective Follow-up for acute hypoxic respiratory failure, intubated. On ventilator T-max 102 Fahrenheit. Objective Data Objective Data Vital Signs: Vital Signs Temp Pulse Resp BP Pulse Ox 98.6 F 87 14 118/53 L 95 04/11/21 07:00 04/11/21 07:00 04/11/21 07:00 04/11/21 07:00 04/11/21 07:00 Oxygen Flow Rate (L/min) 60 Oxygen Delivery Method Bi-pap Weight: 308 lb Body Mass Index (BMI) 50.1 Intake & Output: Intake and Output for Last 24 Hours 04/09/21 04/10/21 04/11/21 23:59 23:59 23:59 Intake Total 4855.24 / 5496.14 3378.78 / 3465.18 710.77 / 710.77 Output Total 2350 / 2350 2810 / 4210 1850 / 1850 Balance 2505.24 / 3146.14 568.78 / -744.82 -1139.23 / -1139.23 Lab / Micro Data Result Diagrams: 04/11/21 03:45 04/11/21 03:45 Labs: Laboratory Results - last 24 hr 04/11/21 03:45: WBC 10.1, RBC 3.57 L, Hgb 10.8 L, Hct 34.0 L, MCV 95.2 H, MCH 30.3, MCHC 31.8 L D, RDW Std Deviation 49.7 H, RDW Coeff of Connie 14.3, Plt Count 192, MPV 12.1 H, Immature Gran % (Auto) 2.300 H, Neut % (Auto) 77.7 H, Lymph % (Auto) 9.0 L, [place] % (Auto) 2.6, Eos % (Auto) 7.9 H, Baso % (Auto) 0.5, Absolute Neuts (auto) 7.8 H, Absolute Lymphs (auto) 0.90, Nucleated RBC % 0.6, Differential Comment SCANNED 04/11/21 03:45: Sodium 139, Potassium 3.7, Chloride 96 L, Carbon Dioxide 39.0 H, Anion Gap 4 L, BUN 45 H, Creatinine 0.64 L, Estim Creat Clear Calc 111.89, Est GFR (MDRD) Af Amer 161, Est GFR (MDRD) Non-Af 133, BUN/Creatinine Ratio 69.8 H, Glucose 147 H, Calcium 8.0 L, Total Bilirubin 0.80, AST 42 H, ALT 99 H, Alkaline Phosphatase 64, Total Protein 6.2 L, Albumin 2.0 L, Globulin 4.2, Albumin/Globulin Ratio 0.5 L Micro: Microbiology 04/04/21 12:00 Blood Culture (Wb) - Pic Blood Culture - Final No growth in 5 days. 04/04/21 12:10 Blood Culture (Wb) - Right Hand Blood Culture - Final No growth in 5 days. 04/04/21 12:10 Sputum, Induced/Lukens Gram Stain - Final 04/04/21 12:10 Sputum, Induced/[place]ukens Respiratory Culture - Final Staphylococcus aureus 03/30/21 09:15 Sputum, Induced/Lukens Gram Stain - Final 03/30/21 09:15 Sputum, Induced/[place]ukens Respiratory Culture - Final Proprionibacterium acnes 03/23/21 19:09 Blood Culture (Wb) - Anticubital Right Blood Culture - Final No growth in 5 days. 03/23/21 18:40 Blood Culture (Wb) - Anticubital Right Blood Culture - Final No growth in 5 days. 03/23/21 18:40 Nasal Secretion SARS-CoV-2 Antigen (Rapid) - Final SARS-CoV-2 (COVID 19) Physical Exam Narrative Ventilator day #13. On AC mode. On FiO2 80%, PEEP 16. Physical exam General: Patient simple command. Awake.Cooling blanket. HEENT:Small bilateral pupil, Normocephalic Oral: ET and OG tube Neck: Supple, No JVD, Negative Carotid Bruits Lungs: Air entry diminished in bilateral lung bases. On vent support Cardiovascular:Sinus rhythm on supervisor litharge muffled heart sounds, No murmurs Abdomen: Had bowel movement. Bowel Sounds sluggish, Soft, Non Tender, Non- Distended : No renal angle tenderness. No suprapubic tenderness. Extremities: Bilateral pitting leg edema, Capillary Refill Less than 3 Seconds Skin: Grayish discoloration of both legs chronic. Venous hypertension. Musculoskeletal: No Tenderness to Palpation of Joints or Extremities Neurological: Sedation protocol as per ICU, complete neuro exam Unobtainable Psych/Mental Status: Flat affect Assessment & Plan Assessment/Plan (1) COVID-19: (2) Acute hypoxemic respiratory failure due to COVID-19: PLAN: 1. Acute hypoxic respiratory failure due to COVID-19 pneumonia ? CTA of the chest was negative for PE. Patient not candidate for remdesivir. Initially on air Vo then required BiPAP, going up to 100% FiO2 for worsening hypoxia. Sprayer Hand was consulted. On 03/30, patient was transferred to ICU and was intubated and started on ventilator. Family request for transfer to was denied by the senior director finance. Patient also required NM paralytic agent to maintain oxygenation on 03/30-03/31. 04/07: Patient is requiring 3 sedatives. On assist control ventilator, currently 100% FiO2, PEEP 14 diureses as needed. Continue baricitinib and Decadron to complete treatment. On IV Zosyn. Sputum culture from the 04/04 grew staph aureus on IV Zosyn. On IV furosemide 40 mg twice daily. 04/08: Patient completed baricitinib. On dexamethasone. Blood culture from 04/04 no growth in 48 hours. Sputum culture from 03/30 shows Propionibacterium acnes 1+. Sputum culture from 04/04 shows MSSA 3+. Continue to spike fever despite antibiotic Zosyn. High D-dimer 4.34, Lovenox changed to therapeutic dose. ABG 7.3 / on AC mode, 90% FiO2, 16 PEEP. Hyperkalemia, potassium 5.2. Bicarb 34. BUN 38. Portable chest x-ray shows bilateral infiltrates. 04/09: Night hospitalist noted patient has coffee-ground secretions/emesis in NG tube. H&H 11.1 similar to last 4 days 04/10: Vancomycin stopped. On Zosyn. Reviewed ID and senior director finance note. Patient completed dexamethasone and baricitinib. Continue antibiotics. 04/11: Patient completed Zosyn yesterday. On therapeutic dose of enoxaparin. Rest medications to continue Gaseous distention of colon/pseudoobstruction: Gaseous distention of colon up to level of rectum, no definite obstruction seen. 04/09: Patient moved bowel as per the nursing staff. 2. Essential hypertension ? Blood pressure is controlled 3. Class III obesity with BMI 47.8 4. Hypokalemia ? Present on admission corrected per protocol with subsequent monitoring with daily BMPs ordered. Currently hyperkalemic, mild K 5.2 from potassium supplement 40 mEq twice daily. Potassium supplement discontinued Repeat K4.4. Bicarb 33. Monitor labs. 5. History of prostate CA ? Patient family requested PSA blood draw was patient in the hospital. PSA came back at 0.5 (range 0.0-4.0) DVT: Lovenox: Enoxaparin, therapeutic dose Active Medications Acetaminophen (Acetaminophen 650 Mg/20 Ml Udc) 650 mg GT Q4H PRN PRN PRN Reason: Pain Score 1-10/Temp > 100.7 F Last Admin: 04/10/21 18:11 Dose: 650 mg Documented by: Albuterol Sulfate (Albuterol 2.5 Mg/3 Ml Vial.Neb.) 2.5 mg INHALATION Q2H PRN PRN PRN Reason: Dyspnea, wheezing Last Admin: 04/05/21 14:18 Dose: 2.5 mg Documented by: Albuterol/Ipratropium (Ipratropium/Albuterol Sulfate 3 Ml Ampul.Neb) 3 ml INHALATION Q4HWA.RT [facility] Last Admin: 04/11/21 11:36 Dose: 3 ml Documented by: Chlorhexidine Gluconate (Chlorhexidine 15 Ml) 15 ml PO BID [facility] Last Admin: 04/11/21 08:00 Dose: 15 ml Documented by: Chlorhexidine Gluconate (Chlorhexidine Gluc 2% Cloth 1 Each Towelette) 1 each TOPICAL DAILY [facility] Last Admin: 04/10/21 00:00 Dose: 1 each Documented by: Enoxaparin Sodium (Enoxaparin 150 Mg/Ml Syringe) 150 mg SC Q12@0600,1800 [facility] Last Admin: 04/11/21 05:11 Dose: 150 mg Documented by: Furosemide (Furosemide 100 Mg/10 Ml Vial) 60 mg IV BIDLX [facility] Last Admin: 04/11/21 09:01 Dose: 60 mg Documented by: Guaifenesin (Guaifenesin 10 Ml Udc (200mg/10ml)) 10 ml GT Q4H [facility] Last Admin: 04/11/21 09:23 Dose: 10 ml Documented by: Fentanyl Citrate 1,000 mcg/ (Sodium Chloride) 100 mls @ 5 mls/hr CONT INF .Q20H [facility]; Protocol Last Titration: 04/11/21 12:00 Dose: 150 mcg/hr, 15 mls/hr Documented by: Pantoprazole Sodium 40 mg/ (Sodium Chloride) 110 mls @ 330 mls/hr IV Q24 EMERALD Last Infusion: 04/11/21 12:10 Dose: Infused Documented by: Dexmedetomidine HCl 1,000 mcg/ (Sodium Chloride) 250 mls @ 17.463 mls/hr CONT INF .[id number] [facility]; Protocol Last Admin: 04/11/21 07:01 Dose: Not Given Documented by: Lactose (Pivot 1.5 Toni) 1,000 mls @ 60 mls/hr GT .[id number] EMERALD Last Admin: 04/11/21 07:01 Dose: Not Given Documented by: Propofol (Diprivan) 1,000 mg in 100 mls @ 8.382 mls/hr CONT INF .[id number] [facility]; Protocol Last Admin: 04/11/21 12:53 Dose: 35 mcg/kg/min, 29.3 mls/hr Documented by: Sodium Chloride () 250 mls @ 15 mls/hr IV .[id number] PRN PRN Reason: Saline Flush Sodium Chloride () 250 mls @ 15 mls/hr IV .[id number] PRN PRN Reason: Additional IVPB Infusion Last Infusion: 04/11/21 01:24 Dose: Infused Documented by: Miscellaneous Information (Inhaler, Assist Devices 1 Each Spacer) 1 each INHALATION PRN PRN PRN Reason: WITH ALBUTEROL INHALER Nystatin (Nystatin Powder 15gm Bottle) 1 applic TOPICAL TID [facility]; Protocol Last Admin: 04/11/21 05:12 Dose: 1 applic Documented by: Ondansetron HCl (Ondansetron 4 Mg/2 Ml Vial) 4 mg IV Q8H PRN PRN PRN Reason: NAUSEA/VOMITING Polyethylene Glycol (Polyethylene Glycol 3350 17 Gm Packet) 17 gm GT DAILY PRN PRN Reason: CONSTIPATION Senna/Docusate Sodium (Senna/Docusate Sodium 1 Tablet) 1 tablet GT BID PRN PRN Reason: CONSTIPATION Sodium Chloride (0.9% Saline Lock 10 Ml Syringe) 10 - 40 ml IV UD PRN PRN Reason: SALINE FLUSH Last Admin: 04/09/21 22:04 Dose: 40 ml Documented by: Sodium Chloride (Sodium Chloride 0.65% 1 [place].Btl) 1 spray NASAL BID PRN PRN PRN Reason: NASAL DRYNESS Last Admin: 03/26/21 09:15 Dose: 1 spray Documented by: Charges/Coding Visit Charges Inpatient E&M: 68103 Subs Hosp L3
[2021-04-11] MEDS: Chlorhexidine 15 ML PO ×2 (08:00→21:04)
[2021-04-11] MEDS: Furosemide 100 MG/10 ML Vial 60 MG IV ×2 (09:01→16:50)
[2021-04-11] MEDS: Propofol 10MG/Ml 1,000 MG/100 ML Bottle 21 MG CONT INF ×2 (17:05→20:50)
--- NOTE | 2021-04-11 17:48 | RAD_ITS ---
STUDY: X-RAY CHEST REASON FOR EXAM: Male, 61 years old. Technologist Notes HYPOXEMIC RESPIRATORY DISTRESSverify ETT placement -- portable TECHNIQUE: XR Chest 1 View COMPARISON: 04.08.21 FINDINGS: There are bilateral pleural effusions. There are bilateral infiltrates. There is no pneumothorax. There is an NGT and ET tube in place. There is a right PICC line. Normal size heart. Normal mediastinum and yuri. Normal visualized pulmonary arteries. There is atherosclerotic calcification of the aortic arch with tortuosity. There are diffuse degenerative changes of the visualized thoracic spine. There is degenerative osteoarthritis of the bilateral shoulders. There is no demonstrated abnormality of the visualized soft tissue structures of the upper abdomen. RAD/Chest 1 View (Portable) IMPRESSION: Pulmonary findings appear worse. ET tube in good position. Electronically Signed: Gino Aviles MD at 19:00 EST ,
--- NOTE | 2021-04-11 18:00 | NURSING ---
This nurse was asked to speak to Dr. Xiao on the phone regarding chest xray. Dr. Xiao stated that the ETT is 2-3cm above the frankie and in proper position. REMINGTON Srivastava notified.
--- NOTE | 2021-04-11 19:00 | NURSING ---
called into room by daughter to verify ETT placement, ETT is now at 23 cm. lung sounds auscultated bilaterally, vent pulling good tidal volumes, oxygen sat 90% on 80% oxygen. daughter requesting chest xray be done. explained I will call doctor and informed. daughter stated she wants it done now to check placement. Dr Bah called and informed.No new orders. call to Dr Acharya and informed of daughter request. see new orders.
[2021-04-11] MEDS: Acetaminophen 650 MG/20 ML UDC GT ×2 (20:04→23:50)
--- NOTE | 2021-04-11 23:35 | NURSING ---
Pt cont to fever, ice packs applied to underarms/groin and medicated per MAY. Cont to monitor.
[2021-04-12] MEDS: Nystatin Powder 15gm Bottle 1 APPLIC TOPICAL ×3 (06:00→21:02)
[2021-04-12] MEDS: guaiFENesin 10 ML UDC (200MG/10ML) GT ×6 (06:00→21:02)
[2021-04-12] MEDS: Enoxaparin 150 MG/ML Syringe SC ×2 (06:00→14:10)
[2021-04-12] MEDS: Furosemide 100 MG/10 ML Vial 60 MG IV ×2 (08:45→18:05)
[2021-04-12] MEDS: CHLORHEXIDINE GLUC 2% CLOTH 1 EACH TOWELETTE TOPICAL (10:00)
[2021-04-12] MEDS: Chlorhexidine 15 ML PO ×2 (10:05→21:02)
[2021-04-12] MEDS: Potassium Chloride Oral Soln 20 MEQ/15 ML UDC 40 MEQ GT (14:10)
--- NOTE | 2021-04-12 15:14 | PN_ITS ---
DATE OF SERVICE 04/12/2021 SUBJECTIVE Follow-up for acute hypoxic respiratory failure, intubated. On ventilator, AC mode. Vitals reviewed. Sinus rhythm with PVCs. OBJECTIVE Physical exam Vitals: Temperature 99.4, BP 132/69, heart rate 91/min, respiratory 22, pulse ox 93% on 80% FiO2, ventilator AC mode. General: Sedated. On fentanyl and propofol drip HEENT:Small bilateral pupil, Normocephalic Oral: ET and OG tube Neck: Supple, No JVD, Negative Carotid Bruits Lungs: Air entry diminished in bilateral lung bases. On vent support Cardiovascular:Sinus rhythm on media monitor muffled heart sounds, No murmurs Abdomen: Bowel Sounds sluggish, Soft, Non Tender, Non-Distended : No renal angle tenderness. No suprapubic tenderness. Extremities: Bilateral pitting leg edema, Capillary Refill Less than 3 Seconds Skin: Grayish discoloration of both legs chronic. Venous hypertension. Musculoskeletal: No Tenderness to Palpation of Joints or Extremities Neurological: Sedation protocol as per ICU, complete neuro exam Unobtainable Psych/Mental Status: Flat affect ASSESSMENT/PLAN 1. Acute hypoxic respiratory failure due to COVID-19 pneumonia CTA of the chest was negative for PE. Patient not candidate for remdesivir. Initially on air Vo then required BiPAP, going up to 100% FiO2 for worsening hypoxia. Travelift Operator was consulted. On 03/30, patient was transferred to ICU and was intubated and started on ventilator. Family request for transfer to was denied by the culture media laboratory assistant. Patient also required NM paralytic agent to maintain oxygenation on 03/30-03/31. 04/07: Patient is requiring 3 sedatives. On assist control ventilator, currently 100% FiO2, PEEP 14 diureses as needed. Continue baricitinib and Decadron to complete treatment. On IV Zosyn. Sputum culture from the 04/04 grew staph aureus on IV Zosyn. On IV furosemide 40 mg twice daily. 04/08: Patient completed baricitinib. On dexamethasone. Blood culture from 04/04 no growth in 48 hours. Sputum culture from 03/30 shows Propionibacterium acnes 1+. Sputum culture from 04/04 shows MSSA 3+. Continue to spike fever despite antibiotic Zosyn. High D-dimer 4.34, Lovenox changed to therapeutic dose. ABG 7.3 on AC mode, 90% FiO2, 16 PEEP. Hyperkalemia, potassium 5.2. Bicarb 34. BUN 38. Portable chest x-ray shows bilateral infiltrates. 04/09: Night hospitalist noted patient has coffee-ground secretions/emesis in NG tube. H&H 11.1 similar to last 4 days 04/10: Vancomycin stopped. On Zosyn. Reviewed ID and culture media laboratory assistant note. Patient completed dexamethasone and baricitinib. Continue antibiotics. 04/11: Patient completed Zosyn yesterday. On therapeutic dose of enoxaparin. Rest medications to continue 04/12: Patient is still on ventilator 80% FiO2. I talked to the patient's daughter near the bedside. She wanted the patient to be transferred to . She had inquired that they have to beds open but does not want patient's request reason for transfer. She further asked me to tell the lie that we cannot take care of the patient here therefore needs transfer. She states patient is large as per the heart and we cannot take care of the patient. I further told me take care of the bariatric patients. The nurse, Rip further called the but was told that he which is not accepting the patient at the patient's collective request. I further discussed with the culture media laboratory assistant and there is no indication for the patient to be transferred to higher tertiary care facility that we cannot take care.. Gaseous distention of colon/pseudoobstruction: Gaseous distention of colon up to level of rectum, no definite obstruction seen. 04/09: Patient moved bowel as per the nursing staff. 2. Essential hypertension Blood pressure is controlled 3. Class III obesity with BMI 47.8 4. Hypokalemia Present on admission corrected per protocol with subsequent monitoring with daily BMPs ordered. Currently hyperkalemic, mild K 5.2 from potassium supplement 40 mEq twice daily. Potassium supplement discontinued Repeat K4.4. Bicarb 33. Monitor labs. 04/12: K3.3. Creatinine normal. 1 dose of K-Dur 40 admitted to NG tube ordered 5. History of prostate CA Patient family requested PSA blood draw was patient in the hospital. PSA came back at 0.5 (range 0.0-4.0) DVT: Lovenox: Enoxaparin, therapeutic dose Total time of the visit including total time spent in counseling or coordination of care, (more than 50% of the total time, spent in obtaining medical information from nurses and other ancillary care providers,explaining to the patient about labs, imaging, diagnosis and management), discussion with the patient's daughter near the bedside and clinical and, review of labs and imaging is 40 minutes.
[2021-04-12 16:33] LABS: ALB/GLOB Ratio 0.4 RATIO (0.9-2.4); AST(SGOT) 35 U/L (15-37); Alanine Aminotransfer ALT/SGPT 81 U/L (16-61); Albumin, Serum 1.9 g/dL (3.2-5.0); Alkaline Phosphatase 65 U/L (45-117); Anion Gap 1 (5-15); BUN 50 mg/dL (7-18); BUN/Creat Ratio 81.3 RATIO (10-20); Calcium,Total 8.4 mg/dL (8.5-10.1); Chloride 97 mmol/L (98-107); Creatinine, Serum 0.62 mg/dL (0.70-1.30); EST Glomerular Filtration Rate 141 mL/min (>60); Est Glom Filt Rate - Afr Amer 171 mL/min (>60); Globulin 4.7 g/dL (2.2-4.2); Glucose 143 mg/dL (74-106); Potassium 4.5 mmol/L (3.5-5.1); Protein, Total 6.6 g/dL (6.4-8.2); Sodium Level 142 mmol/L (136-145)
[2021-04-12 20:00] VITALS: BP 141/89; PULSE 96; RESP 23; O2SAT 92
[2021-04-12 21:00] VITALS: BP 152/73; PULSE 93; RESP 18; O2SAT 92
[2021-04-12 22:00] VITALS: BP 136/83; PULSE 98; RESP 19; O2SAT 92
[2021-04-12 22:48] LABS: Hematocrit 37.5 % (40-54); Hemoglobin 11.5 g/dL (13.0-16.5); Mean Corp Hgb Conc 30.7 g/dL (32-36); Mean Corpuscular Hgb 29.5 pg (27.0-32.0); Mean Corpuscular Volume 96.2 fL (80-94); Mean Platelet Vol. 12.4 fl (6.2-12.0); POSITIVE MORPHOLOGY YES; Platelet Count 217 K/mm3 (150-450); RBC Distribution Width CV 14.7 % (11.6-14.6); RBC Distribution Width SD 51.4 fl (35.1-43.9); White Blood Count 9.7 K/mm3 (4.4-11.0)
[2021-04-12 22:49] LABS: Differential Indicated MANUAL DIFF
[2021-04-12 22:51] LABS: Absolute Lymphocyte Count 0.29 X10^3/uL (0.83-4.51); Absolute Neutrophil Count 8.9 X10^3/uL (2.0-7.7)
[2021-04-12 22:53] LABS: Metamyelocyte 9 % (0-1); Myelocyte 2 % (0-0); Neutrophil-Band 11 % (0-5); Neutrophil-Segmented 69 % (47-70)
[2021-04-12 22:54] LABS: Basophil 0 % (0-1); Eosinophil 5 % (0-5); Lymphocyte 3 % (19-41); Monocyte 1 % (0-10)
[2021-04-12 23:00] VITALS: BP 100/56; PULSE 101; RESP 22; O2SAT 91
[2021-04-12 23:01] VITALS: PULSE 101; RESP 22; O2SAT 91
[2021-04-12 23:31] VITALS: PULSE 106
[2021-04-13] VITALS (43 sets, daily range): BP systolic 101–217; BP diastolic 52–87; PULSE 79–117; RESP 19–27; TEMP 37.6–38.7; O2SAT 24–96
[2021-04-13] MEDS: 0.9% Saline Lock 10 ML Syringe IV (00:51)
[2021-04-13] MEDS: Propofol 10MG/Ml 1,000 MG/100 ML Bottle 25.1 MG CONT INF ×3 (01:38→06:00)
[2021-04-13] MEDS: Pivot 1.5 Cal 1,000 ML 60 ML GT ×2 (01:39→19:36)
--- NOTE | 2021-04-13 01:52 | NURSING ---
Patient's daughter Shanel called for update on patient's condition. She had asked several questions and sounded very upset over the phone. She was most upset about the ETT placement and measurements at the lip. When coming onto shift the ETT measured 23cm at the lip. Patient is pulling good volumes on the ventilator, has equal, bilateral breath sounds, and is maintaining O2 saturations at this time. Shanel stated earlier in the evening that she was arguing with Dr. Acharya about the placement and demanded a chest x-ray be done. A chest x-ray was completed at 1738 and in the report it states that the ETT had good placement and Dr. Acharya signed off on this report. She is upset because with the original placement of the ETT the measurement was 26cm at the lip and that in her opinion the patient was not in good position when the chest x-ray was taken this evening. I explained to her at this time with patient's respiratory status and maintaining O2 saturations that I would continue to closely monitor him. I also explained to Shanel that I would speak to Dr. Bah about this situation and recommend another chest x-ray to be taken while Dr. Bah is here to confirm the ETT placement and measurement with him. Shanel also told me she would like to speak with Dr. Bah in the morning in regards to transferring patient to [facility]. I told her that I would speak to Dr. Bah when he arrives this morning about transferring and would keep her updated. Shanel stated that she understands and would call back later in the morning.
[2021-04-13 02:04] LABS: BUN 46 mg/dL (7-18); BUN/Creat Ratio 76.9 RATIO (10-20); Calcium,Total 8.8 mg/dL (8.5-10.1); Carbon Dioxide > 45.0 mmol/L (21.0-32.0); Chloride 97 mmol/L (98-107); EST Glomerular Filtration Rate 146 mL/min (>60); Est Glom Filt Rate - Afr Amer 176 mL/min (>60); Estimated Creatinine Clearance 119.35 ml/min; Glucose 153 mg/dL (74-106); Magnesium 2.6 mg/dL (1.6-2.6); Phosphorus 1.8 mg/dL (2.5-4.9); Potassium 3.4 mmol/L (3.5-5.1); Sodium Level 146 mmol/L (136-145)
[2021-04-13] MEDS: guaiFENesin 10 ML UDC (200MG/10ML) GT ×6 (02:30→21:56)
[2021-04-13 03:56] LABS: Absolute Lymphocyte Count 0.95 X10^3/uL (0.83-4.51); Absolute Neutrophil Count 6.6 X10^3/uL (2.0-7.7); Basophil# 0.06 X10^3/uL; Basophil% 0.7 % (0-1); Eosinophils% 6.9 % (0-5); Hematocrit 35.4 % (40-54); Hemoglobin 10.6 g/dL (13.0-16.5); Lymphocyte # 0.95 X10^3/ul (0.83-4.51); Mean Corp Hgb Conc 29.9 g/dL (32-36); Mean Corpuscular Hgb 29.2 pg (27.0-32.0); Mean Corpuscular Volume 97.5 fL (80-94); Mean Platelet Vol. 11.9 fl (6.2-12.0); Monocyte% 2.3 % (0-10); Neutrophil # 6.61 X10^3/uL (2.7-7.7); Neutrophil % 76.2 % (47-70); POSITIVE MORPHOLOGY YES; Platelet Count 216 K/mm3 (150-450); RBC Distribution Width CV 15.1 % (11.6-14.6); RBC Distribution Width SD 52.2 fl (35.1-43.9); Red Blood Count 3.63 M/mm3 (4.6-6.2); White Blood Count 8.7 K/mm3 (4.4-11.0)
[2021-04-13 03:57] LABS: Differential Indicated SCAN CRITERIA MET
[2021-04-13 04:24] LABS: Differential Comment SCANNED
[2021-04-13 04:25] LABS: CPK Total, Creatine Kinase 27 U/L (39-308); Triglycerides 358 mg/dL
[2021-04-13] MEDS: CHLORHEXIDINE GLUC 2% CLOTH 1 EACH TOWELETTE TOPICAL (04:57)
[2021-04-13 04:58] LABS: ALB/GLOB Ratio 0.4 RATIO (0.9-2.4); AST(SGOT) 31 U/L (15-37); Alanine Aminotransfer ALT/SGPT 64 U/L (16-61); Alkaline Phosphatase 62 U/L (45-117); BUN 49 mg/dL (7-18); BUN/Creat Ratio 70.8 RATIO (10-20); Calcium,Total 8.2 mg/dL (8.5-10.1); Carbon Dioxide > 45.0 mmol/L (21.0-32.0); Chloride 100 mmol/L (98-107); Creatinine, Serum 0.69 mg/dL (0.70-1.30); EST Glomerular Filtration Rate 123 mL/min (>60); Est Glom Filt Rate - Afr Amer 149 mL/min (>60); Estimated Creatinine Clearance 103.78 ml/min; Globulin 4.5 g/dL (2.2-4.2); Glucose 124 mg/dL (74-106); Potassium 3.9 mmol/L (3.5-5.1); Protein, Total 6.5 g/dL (6.4-8.2); Sodium Level 148 mmol/L (136-145)
[2021-04-13] MEDS: Enoxaparin 150 MG/ML Syringe SC ×2 (04:58→18:19)
[2021-04-13] MEDS: Nystatin Powder 15gm Bottle 1 APPLIC TOPICAL ×2 (04:58→12:02)
[2021-04-13] MEDS: Acetaminophen 650 MG/20 ML UDC GT ×3 (05:06→21:56)
--- NOTE | 2021-04-13 05:40 | PN.CC_ITS ---
Assessment & Plan Assessment/Plan (1) Acute hypoxemic respiratory failure due to COVID-19: PLAN: RECOMMENDATIONS: 1. Continue assist control mode mechanical ventilation. Wean FiO2/PEEP for saturations greater than 90%. 2. Hold diuretics given rising sodium and bicarbonate. 3. Continue therapeutic Lovenox. 4. Continue decadron to complete treatment courses. 5. Continue appropriate GI prophylaxis. 6. Continue tube feeds as tolerated. 7. Obtain repeat chest x-ray and arterial blood gas. IMPRESSIONS: 1. Acute hypoxemic respiratory failure secondary to COVID-19/MSSA pneumonia The patient initially presented to the hospital on March 23 with progressive COVID symptoms after testing positive on March 21. The patient is unvacc inated. CTA chest was negative for PE. The patient has completed a treatment course of remdesivir, baricitinib. decadron x 10 days and 7 days of antimicrobials, based upon MSSA isolated from sputum culture. He remains on therapeutic Lovenox (in light of elevated D-dimer). Oxygenation status still remains quite tenuous. Continue assist control mode of mechanical ventilation and wean FiO2 and PEEP to maintain saturations greater than 90%. Plan to hold diuretics for now given rising sodium and elevated bicarbonate. Will obtain repeat chest x-ray and arterial blood gas this morning. Overall, however, the patient's prognosis is quite poor. He is not a candidate for tracheostomy, given his high ventilator requirements at the present time. 2. Morbid obesity/hypertension/neuropathy Complicates care, management, recovery and prognosis. Continue home medications as indicated. Continue tube feeds as tolerated. TIME: 34 minutes of critical care time, independent of procedures, was spent addressing the patient's acute hypoxemic respiratory failure secondary to COVID- 19/MSSA Pneumonia, review of all data and collaboration with the care team. Subjective Subjective The patient was seen and examined at the bedside this morning. Events from the last 24 hours have been reviewed. Today is vent day #15. He remains on assist control mode of mechanical ventilation with an FiO2 requirement of 95% and PEEP of 16. He is currently sedated on fentanyl and propofol. The patient continues to tolerate tube feeds. He is documented to be overall net +9.7 L for the hospitalization. The patient has completed a treatment course of Decadron and antimicrobials. He remains on therapeutic Lovenox. Creatinine is stable. The patient continues to have an underlying sinus arrhythmia. Sodium has increased to 148 with a bicarbonate greater than 45. Phosphorus was low at 1.7. The patient's daughter has been, at times, confrontational with staff regarding the care of her father. She has been insistent on multiple occasions that she wanted her father transferred to [facility]. However, the outside hospital system was again contacted yesterday and indicated that they are not excepting outside transfers based upon family request. At this time, there is no medical reason that the patient would require transfer. In addition, given his tenuous respiratory status, he would be at high risk for potential decompensation if an attempt to transfer were to be undertaken. Objective Data Objective Data The patient's most recent lab work, culture data and imaging studies have all been personally reviewed. Rapid coronavirus antigen testing was positive on March 23. Sputum culture dated April 04 was positive for MSSA. Vital Signs: Vital Signs Temp Pulse Resp BP Pulse Ox 101.6 F H 102 H 22 H 102/52 L 96 04/13/21 04:00 04/13/21 05:00 04/13/21 05:00 04/13/21 05:00 04/13/21 05:00 Oxygen Flow Rate (L/min) 60 Oxygen Delivery Method Mechanical Ventilator Weight: 139.706 kg Body Mass Index (BMI) 50.1 Intake & Output: Intake and Output for Last 24 Hours 04/11/21 04/12/21 04/13/21 23:59 23:59 23:59 Intake Total 2111.39 / 2111.39 465.15 / 465.15 Output Total 3150 / 3160 10 / 760 750 / 750 Balance -1038.61 / -1048.61 -10 / -530 -284.85 / -284.85 Lab / Micro Data Attestation: I reviewed the patient's lab results. Result Diagrams: 04/13/21 03:50 04/13/21 03:50 Labs: Laboratory Results - last 24 hr 04/12/21 03:40: WBC 9.7, RBC 3.90 L, Hgb 11.5 L, Hct 37.5 L, MCV 96.2 H, MCH 29.5, MCHC 30.7 L, RDW Std Deviation 51.4 H, RDW Coeff of Connie 14.7 H, Plt Count 217, MPV 12.4 H, Neut % (Auto) Not Reportable, Absolute Neuts (auto) 8.9 H, Absolute Lymphs (auto) 0.29 L, Neutrophils % (Manual) 69, Band Neutrophils % 11 H, Lymphocytes % (Manual) 3 L, Monocytes % (Manual) 1, Eosinophils % (Manual) 5, Basophils % (Manual) 0, Metamyelocytes % 9 H, Myelocytes % 2 H, Diff Path Review July04/12/21 03:40: Sodium 142, Potassium 4.5, Chloride 97 L, Carbon Dioxide 44.0 H, Anion Gap 1 L, BUN 50 H, Creatinine 0.62 L, Estim Creat Clear Calc 115.50, Est GFR (MDRD) Af Amer 171, Est GFR (MDRD) Non-Af 141, BUN/Creatinine Ratio 81.3 H, Glucose 143 H, Calcium 8.4 L, Total Bilirubin 0.60, AST 35, ALT 81 H, Alkaline Phosphatase 65, Total Protein 6.6, Albumin 1.9 L, Globulin 4.7 H, Albumin/ Globulin Ratio 0.4 L 04/12/21 13:40: Sodium 146 H, Potassium 3.4 L, Chloride 97 L, Carbon Dioxide > 45.0 H*, Anion Gap TNP, BUN 46 H, Creatinine 0.60 L, Estim Creat Clear Calc 119.35, Est GFR (MDRD) Af Amer 176, Est GFR (MDRD) Non-Af 146, BUN/Creatinine Ratio 76.9 H, Glucose 153 H, Calcium 8.8, Phosphorus 1.8 L, Magnesium 2.6 04/13/21 03:50: WBC 8.7, RBC 3.63 L, Hgb 10.6 L, Hct 35.4 L, MCV 97.5 H, MCH 29.2, MCHC 29.9 L, RDW Std Deviation 52.2 H, RDW Coeff of Connie 15.1 H, Plt Count 216, MPV 11.9, Immature Gran % (Auto) 2.900 H, Neut % (Auto) 76.2 H, Lymph % (Auto) 11.0 L, Otero % (Auto) 2.3, Eos % (Auto) 6.9 H, Baso % (Auto) 0.7, Absolute Neuts (auto) 6.6, Absolute Lymphs (auto) 0.95, Nucleated RBC % 2.0, Differential Comment SCANNED 04/13/21 03:50: Sodium 148 H, Potassium 3.9, Chloride 100, Carbon Dioxide > 45.0 H*, Anion Gap TNP, BUN 49 H, Creatinine 0.69 L, Estim Creat Clear Calc 103.78, Est GFR (MDRD) Af Amer 149, Est GFR (MDRD) Non-Af 123, BUN/Creatinine Ratio 70.8 H, Glucose 124 H, Calcium 8.2 L, Total Bilirubin 0.50, AST 31, ALT 64 H, Alkaline Phosphatase 62, Total Protein 6.5, Albumin 2.0 L, Globulin 4.5 H, Albumin/Globulin Ratio 0.4 L 04/13/21 03:50: Total Creatine Kinase 27 L, Triglycerides 358 H Micro: Microbiology 04/04/21 12:00 Blood Culture (Wb) - Pic Blood Culture - Final No growth in 5 days. 04/04/21 12:10 Blood Culture (Wb) - Right Hand Blood Culture - Final No growth in 5 days. 04/04/21 12:10 Sputum, Induced/Lukens Gram Stain - Final 04/04/21 12:10 Sputum, Induced/Lukens Respiratory Culture - Final Staphylococcus aureus 03/30/21 09:15 Sputum, Induced/Lukens Gram Stain - Final 03/30/21 09:15 Sputum, Induced/Lukens Respiratory Culture - Final Proprionibacterium acnes 03/23/21 19:09 Blood Culture (Wb) - Anticubital Right Blood Culture - Final No growth in 5 days. 03/23/21 18:40 Blood Culture (Wb) - Anticubital Right Blood Culture - Final No growth in 5 days. 03/23/21 18:40 Nasal Secretion SARS-CoV-2 Antigen (Rapid) - Final SARS-CoV-2 (COVID 19) Physical Exam Const no apparent distress General Appearance: ill appearing, intubated and patient mechanically ventilated Nutritional Appearance: morbidly obese HEENT normocephalic and head/scalp atraumatic Mouth: endotracheal tube in place and OG tube in place Eyes PERRL, EOMs intact bilaterally and conjunctivae normal Neck supple General: trachea midline Chest inspection of chest normal Resp Auscultation: diminished lung sounds; Negative for rales, rhonchi or wheezes Cardio regular rate and regular rhythm Cardio Narrative: Frequent ectopy Heart Sounds: Negative for murmur GI normal to inspection, nondistended, normoactive bowel sounds Extremity General Extremity: edema bilateral lower extremity; Negative for clubbing Skin General Skin Exam: venous stasis and dermatitis Neuro Sensorium / Orientation: sedated on vent Charges/Coding Procedures Hospitalists Procedures: 88198 Critial Care 1st Hr
[2021-04-13 05:47] LABS: Magnesium 2.8 mg/dL (1.6-2.6); Phosphorus 1.7 mg/dL (2.5-4.9)
--- NOTE | 2021-04-13 06:20 | RAD_ITS ---
STUDY: X-RAY CHEST REASON FOR EXAM: Male, 61 years old. ETT placement TECHNIQUE: Single AP portable view of the chest. COMPARISON: 04/11/2021 FINDINGS: Endotracheal tube with the tip approximately 4 cm above the frankie. Nasogastric tube and right upper extremity PICC both which are unchanged. No change in alveolar opacity in both lungs consistent with bilateral pneumonia, pulmonary edema, or ARDS. There is no demonstrated pleural abnormality. Normal size heart. Normal mediastinum and yuri. Normal visualized pulmonary arteries. Normal visualized aortic arch and descending thoracic aorta. Normal visualized thoracic spine. Normal visualized ribs, clavicles, and shoulders. There is no demonstrated abnormality of the visualized soft tissue structures of the upper abdomen. RAD/Chest 1 View (Portable) IMPRESSION: 1. Endotracheal tube with the tip above the frankie. 2. Nasogastric tube and right upper extremity PICC both which are unchanged. 3. No change in bilateral pneumonia, pulmonary edema, or ARDS. Electronically Signed: Miles Mahmood MD at 8:15 EST ,
[2021-04-13] MEDS: Ipratropium/Albuterol Sulfate 3 ML AMPUL.NEB INHALATION ×4 (06:42→19:01)
--- NOTE | 2021-04-13 06:44 | CPS ---
pushed ETT in by 2cm to 25 at lip
[2021-04-13 08:11] LABS: Allen Test Positive; Base Excess 24 mmol/L (-2 to +2); Bicarbonate 49.8 mmol/L (22-26); Blood Gas Specimen Type ART; FI02 100; Mode AC; O2 Delivery Device Adult Vent; PEEP 16; PO2 70 mmHG (75-100); RR 22; SITE R Radial; SO2 92 % (95-99); Total Carbon Dioxide > 50 mmol/L; Vt 450; pCO2 86.8 mmHg (35-45); pH 7.37 (7.35-7.45)
[2021-04-13] MEDS: Chlorhexidine 15 ML PO ×2 (08:21→21:57)
[2021-04-13] MEDS: Propofol 10MG/Ml 1,000 MG/100 ML Bottle 29.3 MG CONT INF ×5 (08:55→22:01)
--- NOTE | 2021-04-13 11:20 | PCM.PN.HOSP ---
Subjective Subjective Patient continued to be 90-100% FiO2 ventilator.Respiratory 20-24 per night. T-max 101.2 Fahrenheit Objective Data Objective Data Vital Signs: Vital Signs Temp Pulse Resp BP Pulse Ox 100.3 F H 111 H 22 H 122/77 H 94 04/13/21 11:00 04/13/21 11:03 04/13/21 11:00 04/13/21 11:00 04/13/21 11:00 Oxygen Flow Rate (L/min) 60 Oxygen Delivery Method Mechanical Ventilator Weight: 306 lb 14.135 oz Body Mass Index (BMI) 50.1 Intake & Output: Intake and Output for Last 24 Hours 04/11/21 04/12/21 04/13/21 23:59 23:59 23:59 Intake Total 2111.39 / 2111.39 110 / 340 822.28 / 822.28 Output Total 3150 / 3160 10 / 760 1250 / 1250 Balance -1038.61 / -1048.61 100 / -420 -427.72 / -427.72 Lab / Micro Data Result Diagrams: 04/13/21 03:50 04/13/21 03:50 Labs: Laboratory Results - last 24 hr 04/12/21 03:40: WBC 9.7, RBC 3.90 L, Hgb 11.5 L, Hct 37.5 L, MCV 96.2 H, MCH 29.5, MCHC 30.7 L, RDW Std Deviation 51.4 H, RDW Coeff of Connie 14.7 H, Plt Count 217, MPV 12.4 H, Neut % (Auto) Not Reportable, Absolute Neuts (auto) 8.9 H, Absolute Lymphs (auto) 0.29 L, Neutrophils % (Manual) 69, Band Neutrophils % 11 H, Lymphocytes % (Manual) 3 L, Monocytes % (Manual) 1, Eosinophils % (Manual) 5, Basophils % (Manual) 0, Metamyelocytes % 9 H, Myelocytes % 2 H, Diff Path Review July04/12/21 03:40: Sodium 142, Potassium 4.5, Chloride 97 L, Carbon Dioxide 44.0 H, Anion Gap 1 L, BUN 50 H, Creatinine 0.62 L, Estim Creat Clear Calc 115.50, Est GFR (MDRD) Af Amer 171, Est GFR (MDRD) Non-Af 141, BUN/Creatinine Ratio 81.3 H, Glucose 143 H, Calcium 8.4 L, Total Bilirubin 0.60, AST 35, ALT 81 H, Alkaline Phosphatase 65, Total Protein 6.6, Albumin 1.9 L, Globulin 4.7 H, Albumin/Globulin Ratio 0.4 L 04/12/21 13:40: Sodium 146 H, Potassium 3.4 L, Chloride 97 L, Carbon Dioxide > 45.0 H*, Anion Gap TNP, BUN 46 H, Creatinine 0.60 L, Estim Creat Clear Calc 119.35, Est GFR (MDRD) Af Amer 176, Est GFR (MDRD) Non-Af 146, BUN/Creatinine Ratio 76.9 H, Glucose 153 H, Calcium 8.8, Phosphorus 1.8 L, Magnesium 2.6 04/13/21 03:50: WBC 8.7, RBC 3.63 L, Hgb 10.6 L, Hct 35.4 L, MCV 97.5 H, MCH 29.2, MCHC 29.9 L, RDW Std Deviation 52.2 H, RDW Coeff of Connie 15.1 H, Plt Count 216, MPV 11.9, Immature Gran % (Auto) 2.900 H, Neut % (Auto) 76.2 H, Lymph % (Auto) 11.0 L, Hand % (Auto) 2.3, Eos % (Auto) 6.9 H, Baso % (Auto) 0.7, Absolute Neuts (auto) 6.6, Absolute Lymphs (auto) 0.95, Nucleated RBC % 2.0, Differential Comment SCANNED 04/13/21 03:50: Sodium 148 H, Potassium 3.9, Chloride 100, Carbon Dioxide > 45.0 H*, Anion Gap TNP, BUN 49 H, Creatinine 0.69 L, Estim Creat Clear Calc 103.78, Est GFR (MDRD) Af Amer 149, Est GFR (MDRD) Non-Af 123, BUN/Creatinine Ratio 70.8 H, Glucose 124 H, Calcium 8.2 L, Total Bilirubin 0.50, AST 31, ALT 64 H, Alkaline Phosphatase 62, Total Protein 6.5, Albumin 2.0 L, Globulin 4.5 H, Albumin/Globulin Ratio 0.4 L 04/13/21 03:50: Total Creatine Kinase 27 L, Triglycerides 358 H 04/13/21 03:50: Phosphorus 1.7 L, Magnesium 2.8 H Micro: Microbiology 04/04/21 12:00 Blood Culture (Wb) - Pic Blood Culture - Final No growth in 5 days. 04/04/21 12:10 Blood Culture (Wb) - Right Hand Blood Culture - Final No growth in 5 days. 04/04/21 12:10 Sputum, Induced/Lukens Gram Stain - Final 04/04/21 12:10 Sputum, Induced/Lukens Respiratory Culture - Final Staphylococcus aureus 03/30/21 09:15 Sputum, Induced/Lukens Gram Stain - Final 03/30/21 09:15 Sputum, Induced/Lukens Respiratory Culture - Final Proprionibacterium acnes 03/23/21 19:09 Blood Culture (Wb) - Anticubital Right Blood Culture - Final No growth in 5 days. 03/23/21 18:40 Blood Culture (Wb) - Anticubital Right Blood Culture - Final No growth in 5 days. 03/23/21 18:40 Nasal Secretion SARS-CoV-2 Antigen (Rapid) - Final SARS-CoV-2 (COVID 19) ABG Data ABG results: ABG 04/13/21 06:56 Specimen Type ART Sample Site R Radial pH 7.37 Bicarbonate Actual 49.8 H Total CO2 > 50 Base Excess 24 H O2 Saturation 92 L O2 % 100 ABG pCO2 86.8 H* ABG pO2 70 L Shashi Test Positive Respiration Rate 22 O2 Delivery Device Adult Vent Vent Mode AC Tidal Volume 450 POC PEEP 16 Crit Call To/Read Back Yes Blood Gas Notified Whom dr connor Radiography Diagnostic Testing: Radiology Impression Chest X-Ray 04/13/21 06:20 IMPRESSION: 1. Endotracheal tube with the tip above the frankie. 2. Nasogastric tube and right upper extremity PICC both which are unchanged. 3. No change in bilateral pneumonia, pulmonary edema, or ARDS. Electronically Signed: Miles Mahmood MD at 8:15 EST , Physical Exam Narrative General: Sedated. On fentanyl and propofol drip HEENT:Small bilateral pupil, Normocephalic Oral: ET and OG tube Neck: Supple, No JVD, Negative Carotid Bruits Lungs: Air entry diminished in bilateral lung bases. On vent support Cardiovascular:Sinus rhythm on color television console monitor muffled heart sounds, No murmurs Abdomen: Bowel Sounds sluggish, Soft, Non Tender, Non-Distended : No renal angle tenderness. No suprapubic tenderness. Extremities: Bilateral pitting leg edema, Capillary Refill Less than 3 Seconds Skin: Grayish discoloration of both legs chronic. Venous hypertension. Musculoskeletal: No Tenderness to Palpation of Joints or Extremities Neurological: Sedation protocol as per ICU, complete neuro exam Unobtainable Psych/Mental Status: Flat affect Assessment & Plan Assessment/Plan (1) COVID-19: (2) Acute hypoxemic respiratory failure due to COVID-19: PLAN: 1. Acute hypoxic respiratory failure due to COVID-19 pneumonia ? CTA of the chest was negative for PE. Patient not candidate for remdesivir. Initially on air Vo then required BiPAP, going up to 100% FiO2 for worsening hypoxia. Municipal Firefighter was consulted. On 03/30, patient was transferred to ICU and was intubated and started on ventilator. Family request for transfer to was denied by the bilingual kindergarten teacher. Patient also required NM paralytic agent to maintain oxygenation on 03/30-03/31. 04/07: Patient is requiring 3 sedatives. On assist control ventilator, currently 100% FiO2, PEEP 14 diureses as needed. Continue baricitinib and Decadron to complete treatment. On IV Zosyn. Sputum culture from the 04/04 grew staph aureus on IV Zosyn. On IV furosemide 40 mg twice daily. 04/08: Patient completed baricitinib. On dexamethasone. Blood culture from 04/04 no growth in 48 hours. Sputum culture from 03/30 shows Propionibacterium acnes 1+. Sputum culture from 04/04 shows MSSA 3+. Continue to spike fever despite antibiotic Zosyn. High D-dimer 4.34, Lovenox changed to therapeutic dose. ABG 7.3 /69 on AC mode, 90% FiO2, 16 PEEP. Hyperkalemia, potassium 5.2. Bicarb 34. BUN 38. Portable chest x-ray shows bilateral infiltrates. 04/09: Night hospitalist noted patient has coffee-ground secretions/emesis in NG tube. H&H 11.1 similar to last 4 days 04/10: Vancomycin stopped. On Zosyn. Reviewed ID and bilingual kindergarten teacher note. Patient completed dexamethasone and baricitinib. Continue antibiotics. 04/11: Patient completed Zosyn yesterday. On therapeutic dose of enoxaparin. Rest medications to continue 04/12: Patient is still on ventilator 80% FiO2. I talked to the patient's daughter near the bedside. She wanted the patient to be transferred to . She had inquired that they have to beds open but does not want patient's request reason for transfer. She further asked me to tell the lie that we cannot take care of the patient here therefore needs transfer. She states patient is large as per the heart and we cannot take care of the patient. I further told me take care of the bariatric patients. The nurse, Rip further called the but was told that he which is not accepting the patient at the patient's collective request. I further discussed with the bilingual kindergarten teacher and there is no indication for the patient to be transferred to higher tertiary care facility that we cannot take care. 04/13:Vent day 15. No sign of improvement. Patient nonsedated 2. Essential hypertension ? Blood pressure is controlled 04/13 patient is maintaining his blood pressure frequently multiple PVCs. 3. Class III obesity with BMI 47.8 4. Hypokalemia ? Present on admission corrected per protocol with subsequent monitoring with daily BMPs ordered. Currently hyperkalemic, mild K 5.2 from potassium supplement 40 mEq twice daily. Potassium supplement discontinued Repeat K4.4. Bicarb 33. Monitor labs. 04/12: K3.3. Creatinine normal. 1 dose of K-Dur 40 admitted to NG tube ordered 04/13 K3.9, magnesium 2.8. Phosphorus 1.7. Potassium phosphate is getting replaced. 5. History of prostate CA ? Patient family requested PSA blood draw was patient in the hospital. PSA came back at 0.5 (range 0.0-4.0) DVT: Lovenox: Enoxaparin, therapeutic dose Total time of the visit including total time spent in counseling or coordination of care, (more than 50% of the total time, spent in obtaining medical information from nurses and other ancillary care providers,explaining to the patient about labs, imaging, diagnosis and management), discussion with the patient's daughter near the bedside and clinical and, review of labs and imaging is 40 minutes. Active Medications Acetaminophen (Acetaminophen 650 Mg/20 Ml Udc) 650 mg GT Q4H PRN PRN PRN Reason: Pain Score 1-10/Temp > 100.7 F Last Admin: 04/13/21 05:06 Dose: 650 mg Documented by: Albuterol Sulfate (Albuterol 2.5 Mg/3 Ml Vial.Neb.) 2.5 mg INHALATION Q2H PRN PRN PRN Reason: Dyspnea, wheezing Last Admin: 04/05/21 14:18 Dose: 2.5 mg Documented by: Albuterol/Ipratropium (Ipratropium/Albuterol Sulfate 3 Ml Ampul.Neb) 3 ml INHALATION Q4HWA.RT [facility] Last Admin: 04/13/21 10:23 Dose: 3 ml Documented by: Chlorhexidine Gluconate (Chlorhexidine 15 Ml) 15 ml PO BID [facility] Last Admin: 04/13/21 08:21 Dose: 15 ml Documented by: Chlorhexidine Gluconate (Chlorhexidine Gluc 2% Cloth 1 Each Towelette) 1 each TOPICAL DAILY [facility] Last Admin: 04/13/21 04:57 Dose: 1 each Documented by: Enoxaparin Sodium (Enoxaparin 150 Mg/Ml Syringe) 150 mg SC Q12@0600,1800 [facility] Last Admin: 04/13/21 04:58 Dose: 150 mg Documented by: Guaifenesin (Guaifenesin 10 Ml Udc (200mg/10ml)) 10 ml GT Q4H [facility] Last Admin: 04/13/21 09:05 Dose: 10 ml Documented by: Pantoprazole Sodium 40 mg/ (Sodium Chloride) 110 mls @ 330 mls/hr IV Q24 [facility] Last Infusion: 04/13/21 09:03 Dose: Infused Documented by: Dexmedetomidine HCl 1,000 mcg/ (Sodium Chloride) 250 mls @ 17.463 mls/hr CONT INF .[id number] [facility]; Protocol Last Admin: 04/13/21 06:49 Dose: Not Given Documented by: Lactose (Pivot 1.5 Toni) 1,000 mls @ 60 mls/hr GT .[id number] [facility] Last Admin: 04/13/21 08:57 Dose: Not Given Documented by: Sodium Chloride () 250 mls @ 15 mls/hr IV .[id number] PRN PRN Reason: Saline Flush Sodium Chloride () 250 mls @ 15 mls/hr IV .[id number] PRN PRN Reason: Additional IVPB Infusion Last Infusion: 04/11/21 01:24 Dose: Infused Documented by: Propofol (Diprivan) 1,000 mg in 100 mls @ 8.382 mls/hr CONT INF .[id number] [facility]; Protocol Last Admin: 04/13/21 08:55 Dose: 35 mcg/kg/min, 29.3 mls/hr Documented by: Fentanyl Citrate 1,000 mcg/ (Sodium Chloride) 100 mls @ 5 mls/hr CONT INF .Q20H [facility]; Protocol Last Titration: 04/13/21 09:00 Dose: 150 mcg/hr, 15 mls/hr Documented by: Potassium Phosphate 30 mm/ (Sodium Chloride) 260 mls @ 42 mls/hr IV X1 ONE Stop: 04/13/21 13:00 Last Admin: 04/13/21 08:57 Dose: 42 mls/hr Documented by: Miscellaneous Information (Inhaler, Assist Devices 1 Each Spacer) 1 each INHALATION PRN PRN PRN Reason: WITH ALBUTEROL INHALER Nystatin (Nystatin Powder 15gm Bottle) 1 applic TOPICAL TID [facility]; Protocol Last Admin: 04/13/21 06:48 Dose: Not Given Documented by: Ondansetron HCl (Ondansetron 4 Mg/2 Ml Vial) 4 mg IV Q8H PRN PRN PRN Reason: NAUSEA/VOMITING Polyethylene Glycol (Polyethylene Glycol 3350 17 Gm Packet) 17 gm GT DAILY PRN PRN Reason: CONSTIPATION Senna/Docusate Sodium (Senna/Docusate Sodium 1 Tablet) 1 tablet GT BID PRN PRN Reason: CONSTIPATION Sodium Chloride (0.9% Saline Lock 10 Ml Syringe) 10 - 40 ml IV UD PRN PRN Reason: SALINE FLUSH Last Admin: 04/13/21 00:51 Dose: 10 ml Documented by: Sodium Chloride (Sodium Chloride 0.65% 1 Lyle Lyle.Btl) 1 spray NASAL BID PRN PRN PRN Reason: NASAL DRYNESS Last Admin: 03/26/21 09:15 Dose: 1 spray Documented by: Charges/Coding Visit Charges Inpatient E&M: 07065 Subs Hosp L3
[2021-04-14] VITALS (23 sets, daily range): BP systolic 39–147; BP diastolic 18–78; PULSE 0–131; RESP 22–27; TEMP 38.6–40.3; O2SAT 85–93
[2021-04-14] MEDS: Propofol 10MG/Ml 1,000 MG/100 ML Bottle 29.3 MG CONT INF ×4 (01:26→11:48)
[2021-04-14] MEDS: Acetaminophen 650 MG/20 ML UDC GT ×2 (02:11→08:16)
[2021-04-14] MEDS: guaiFENesin 10 ML UDC (200MG/10ML) GT ×3 (02:12→08:13)
[2021-04-14] MEDS: CHLORHEXIDINE GLUC 2% CLOTH 1 EACH TOWELETTE TOPICAL (02:44)
[2021-04-14 04:26] LABS: Absolute Lymphocyte Count 0.52 X10^3/uL (0.83-4.51); Absolute Neutrophil Count 7.5 X10^3/uL (2.0-7.7); Basophil# 0.03 X10^3/uL; Basophil% 0.3 % (0-1); Eosinophil# 0.32 X10^3/uL; Eosinophils% 3.7 % (0-5); Hematocrit 34.7 % (40-54); Hemoglobin 10.7 g/dL (13.0-16.5); Lymphocyte # 0.52 X10^3/ul (0.83-4.51); Lymphocyte % 6.1 % (19-41); Mean Corp Hgb Conc 30.8 g/dL (32-36); Mean Corpuscular Hgb 30.5 pg (27.0-32.0); Mean Corpuscular Volume 98.9 fL (80-94); Mean Platelet Vol. 12.1 fl (6.2-12.0); Monocyte# 0.14 X10^3/uL; Monocyte% 1.6 % (0-10); NRBC Flagged by Analyzer 1.9 % (0-5); Neutrophil # 7.47 X10^3/uL (2.7-7.7); POSITIVE DIFFERENTIAL YES; POSITIVE MORPHOLOGY YES; Platelet Count 198 K/mm3 (150-450); RBC Distribution Width CV 15.3 % (11.6-14.6); RBC Distribution Width SD 53.6 fl (35.1-43.9); Red Blood Count 3.51 M/mm3 (4.6-6.2); White Blood Count 8.6 K/mm3 (4.4-11.0)
[2021-04-14 04:33] LABS: Differential Indicated SCAN CRITERIA MET
[2021-04-14 05:16] LABS: ALB/GLOB Ratio 0.4 RATIO (0.9-2.4); AST(SGOT) 36 U/L (15-37); Alanine Aminotransfer ALT/SGPT 52 U/L (16-61); Albumin, Serum 1.8 g/dL (3.2-5.0); Alkaline Phosphatase 60 U/L (45-117); Anion Gap 1 (5-15); BUN 34 mg/dL (7-18); Calcium,Total 8.2 mg/dL (8.5-10.1); Chloride 98 mmol/L (98-107); Creatinine, Serum 0.49 mg/dL (0.70-1.30); EST Glomerular Filtration Rate 185 mL/min (>60); Est Glom Filt Rate - Afr Amer 224 mL/min (>60); Estimated Creatinine Clearance 146.14 ml/min; Globulin 4.8 g/dL (2.2-4.2); Glucose 135 mg/dL (74-106); Potassium 4.1 mmol/L (3.5-5.1); Protein, Total 6.6 g/dL (6.4-8.2); Sodium Level 142 mmol/L (136-145)
[2021-04-14] MEDS: Nystatin Powder 15gm Bottle 1 APPLIC TOPICAL (06:45)
[2021-04-14] MEDS: Enoxaparin 150 MG/ML Syringe SC (06:45)
--- NOTE | 2021-04-14 06:52 | PN.CC_ITS ---
Assessment & Plan Assessment/Plan (1) Acute hypoxemic respiratory failure due to COVID-19: PLAN: RECOMMENDATIONS: 1. Continue assist control mode mechanical ventilation. Wean FiO2/PEEP for saturations greater than 90%. 2. Hold diuretics given rising sodium and bicarbonate. 3. Continue therapeutic Lovenox. 4. Continue decadron to complete treatment courses. 5. Continue appropriate GI prophylaxis. 6. Continue tube feeds as tolerated. 7. Obtain repeat arterial blood gas. IMPRESSIONS: 1. Acute hypoxemic respiratory failure secondary to COVID-19/MSSA pneumonia The patient initially presented to the hospital on March 23 with progressive COVID symptoms after testing positive on March 21. The patient is unvaccinated. CTA chest was negative for PE. The patient has completed a treatment courses of remdesivir, baricitinib. decadron x 10 days and 7 days of antimicrobials, based upon MSSA isolated from sputum culture. He remains on therapeutic Lovenox (in light of elevated D-dimer). Oxygenation status still r emains marginal despite elevated FiO2 and PEEP. Continue assist control mode of mechanical ventilation and wean FiO2 and PEEP to maintain saturations greater than 90%. Plan to hold diuretics for now given rising sodium and elevated bicarbonate. Chest x-ray yesterday did not show any significant p neumomediastinum or pneumothorax. Patient did have significant hypercarbia on previous ABG, but this was appropriately compensated bilateral infiltrates are appreciated. Concern for increased ventilatory volumes will lead to worsening barotrauma. Overall, however, the patient's prognosis is quite poor. Patient would be at significant risk for complications related to tracheostomy and it is unlikely that this will change prognosis. 2. Morbid obesity/hypertension/neuropathy Complicates care, management, recovery and prognosis. Continue home medications as indicated. Continue tube feeds as tolerated. Addendum 1:42 PM: Patient with significant difficulties with oxygenation throughout the day. Patient had also been persistently febrile throughout the evening and day. Patient was treated with a cooling blanket, ice packs and Tylenol without improvement. Family was contacted and there were plans made to possibly prone the patient to help with oxygenation. At approximately 1:17 PM, a CODE BLUE was called. Patient reportedly became bradycardic and went into PEA arrest. CPR was initiated immediately. See documentation for times and dosages. At 1:37 PM, the patient was pronounced by myself secondary to a respiratory arrest associated with COVID-19 pneumonia. Family was at the bedside throughout the code. Offered condolences to family, but was told leave everything in place. There will be an autopsy. Those wishes will be honored and information will be provided. TIME: 78 minutes of critical care time, independent of procedures, was spent addressing the patient's acute hypoxemic respiratory failure secondary to COVID- 19/MSSA Pneumonia, review of all data and collaboration with the care team. Subjective Subjective Patient continues to have marginal status. Patient was persistently febrile overnight. Oxygenation remains marginal despite 100% FiO2 and a PEEP of 16. Nursing has reported patient is very positional on oxygenation. Patient is not interactive. Patient does have an FMS, but output has been limited. Objective Data Objective Data Vital Signs: Vital Signs Temp Pulse Resp BP Pulse Ox 38.8 C H 113 H 24 H 125/72 H 86 04/14/21 06:00 04/14/21 06:00 04/14/21 06:00 04/14/21 06:00 04/14/21 06:00 Oxygen Flow Rate (L/min) 60 Oxygen Delivery Method Mechanical Ventilator Weight: 139.616 kg Body Mass Index (BMI) 50.1 Intake & Output: Intake and Output for Last 24 Hours 04/12/21 04/13/21 04/14/21 23:59 23:59 23:59 Intake Total 110 / 340 3115.63 / 3159.93 604.99 / 604.99 Output Total 10 / 760 2575 / 2575 325 / 325 Balance 100 / -420 540.63 / 584.93 279.99 / 279.99 Lab / Micro Data Result Diagrams: 04/14/21 04:10 04/14/21 04:10 Labs: Laboratory Results - last 24 hr 04/13/21 03:50: Sodium 148 H, Potassium 3.9, Chloride 100, Carbon Dioxide > 45.0 H*, Anion Gap TNP, BUN 49 H, Creatinine 0.69 L, Estim Creat Clear Calc 103.78, Est GFR (MDRD) Af Amer 149, Est GFR (MDRD) Non-Af 123, BUN/Creatinine Ratio 70.8 H, Glucose 124 H, Calcium 8.2 L, Total Bilirubin 0.50, AST 31, ALT 64 H, Alkaline Phosphatase 62, Total Protein 6.5, Albumin 2.0 L, Globulin 4.5 H, Albumin/Globulin Ratio 0.4 L 04/14/21 04:10: WBC 8.6, RBC 3.51 L, Hgb 10.7 L, Hct 34.7 L, MCV 98.9 H, MCH 30.5, MCHC 30.8 L, RDW Std Deviation 53.6 H, RDW Coeff of Connie 15.3 H, Plt Count 198, MPV 12.1 H, Immature Gran % (Auto) 1.300 H, Neut % (Auto) 87.0 H, Lymph % (Auto) 6.1 L, [place] % (Auto) 1.6, Eos % (Auto) 3.7, Baso % (Auto) 0.3, Absolute Neuts (auto) 7.5, Absolute Lymphs (auto) 0.52 L, Nucleated RBC % 1.9 04/14/21 04:10: Sodium 142, Potassium 4.1, Chloride 98, Carbon Dioxide 43.0 H, Anion Gap 1 L, BUN 34 H, Creatinine 0.49 L, Estim Creat Clear Calc 146.14, Est GFR (MDRD) Af Amer 224, Est GFR (MDRD) Non-Af 185, BUN/Creatinine Ratio 70.0 H, Glucose 135 H, Calcium 8.2 L, Total Bilirubin 0.90, AST 36, ALT 52, Alkaline Phosphatase 60, Total Protein 6.6, Albumin 1.8 L, Globulin 4.8 H, Albumin/Globulin Ratio 0.4 L Micro: Microbiology 04/04/21 12:00 Blood Culture (Wb) - Pic Blood Culture - Final No growth in 5 days. 04/04/21 12:10 Blood Culture (Wb) - Right Hand Blood Culture - Final No growth in 5 days. 04/04/21 12:10 Sputum, Induced/Lukens Gram Stain - Final 04/04/21 12:10 Sputum, Induced/Lukens Respiratory Culture - Final Staphylococcus aureus 03/30/21 09:15 Sputum, Induced/Lukens Gram Stain - Final 03/30/21 09:15 Sputum, Induced/Lukens Respiratory Culture - Final Proprionibacterium acnes 03/23/21 19:09 Blood Culture (Wb) - Anticubital Right Blood Culture - Final No growth in 5 days. 03/23/21 18:40 Blood Culture (Wb) - Anticubital Right Blood Culture - Final No growth in 5 days. 03/23/21 18:40 Nasal Secretion SARS-CoV-2 Antigen (Rapid) - Final SARS-CoV-2 (COVID 19) ABG Data ABG results: ABG 04/13/21 06:56 Specimen Type ART Sample Site R Radial pH 7.37 Bicarbonate Actual 49.8 H Total CO2 > 50 Base Excess 24 H O2 Saturation 92 L O2 % 100 ABG pCO2 86.8 H* ABG pO2 70 L Shashi Test Positive Respiration Rate 22 O2 Delivery Device Adult Vent Vent Mode AC Tidal Volume 450 POC PEEP 16 Crit Call To/Read Back Yes Blood Gas Notified Whom dr connor Radiography Diagnostic Testing: Radiology Impression Chest X-Ray 04/13/21 06:20 IMPRESSION: 1. Endotracheal tube with the tip above the frankie. 2. Nasogastric tube and right upper extremity PICC both which are unchanged. 3. No change in bilateral pneumonia, pulmonary edema, or ARDS. Electronically Signed: Miles Mahmood MD at 8:15 EST , Physical Exam Const no apparent distress General Appearance: ill appearing, intubated and patient mechanically ventilated Nutritional Appearance: morbidly obese HEENT normocephalic and head/scalp atraumatic Mouth: endotracheal tube in place and OG tube in place Eyes PERRL, EOMs intact bilaterally and conjunctivae normal Neck supple General: trachea midline Chest inspection of chest normal Chest: symmetrical chest wall rise; Negative for crepitus Resp Auscultation: diminished lung sounds; Negative for rales, rhonchi or wheezes Cardio regular rhythm, no murmurs, no rub and no gallops Cardio Narrative: Frequent ectopy (PVC) Rate: tachycardic Heart Sounds: Negative for murmur GI normal to inspection, nondistended, normoactive bowel sounds Extremity General Extremity: edema bilateral lower extremity; Negative for clubbing Skin General Skin Exam: venous stasis and dermatitis Neuro Sensorium / Orientation: sedated on vent Charges/Coding Procedures Hospitalists Procedures: 66139 Critial Care 1st Hr Multi Select Codes Hospitalists' Procedures Procedures: 74064 Critial Care Addl 30 Min
[2021-04-14] MEDS: Ipratropium/Albuterol Sulfate 3 ML AMPUL.NEB INHALATION ×2 (06:56→11:31)
[2021-04-14] MEDS: Chlorhexidine 15 ML PO (08:13)
--- NOTE | 2021-04-14 12:27 | PCM.PN.ID ---
Physical Exam Narrative On vent, still fever Const no apparent distress Resp Effort and Inspection: mechanically ventilated Auscultation: diminished lung sounds Cardio Rate: tachycardic GI soft to palpation and non-distended Skin no rashes or lesions noted ID ID: Route of nutrition/ use of supplements: [] Nutritional Intake: [] IV Site: [] Morales Catheter: [] Assessment & Plan Assessment/Plan (1) COVID-19: PLAN: Sx started 03/17/21. Unvaccinated. Isolate until 04/06/21. Recommend vaccine in one month. On dex, completed baricitinib. Completed remdesivir. Remains on vent, off paralytic. Sputum from 03/30 with p.acnes. Completed abx for mssa. Still on 100% fiO2, fever, precedex. Will follow (2) Acute hypoxemic respiratory failure due to COVID-19:
[2021-04-14 12:38] LABS: Pathologist Review Reviewed
--- NOTE | 2021-04-14 12:52 | NURSING ---
Shanel daughter called in. oxygen level 85% on 100% oxygen and temp up to 104. Will attempt to prone after family arrives to see patient.
--- NOTE | 2021-04-14 13:00 | PN.HOSP_ITS ---
Subjective Subjective Febrile. Requiring 100% Fio2. Objective Data Objective Data Vital Signs: Vital Signs Temp Pulse Resp BP Pulse Ox 40 C H 119 H 24 H 96/54 L 85 04/14/21 12:00 04/14/21 12:00 04/14/21 12:00 04/14/21 12:00 04/14/21 12:00 Oxygen Flow Rate (L/min) 60 Oxygen Delivery Method Mechanical Ventilator Weight: 139.616 kg Body Mass Index (BMI) 50.1 Intake & Output: Intake and Output for Last 24 Hours 04/12/21 04/13/21 04/14/21 23:59 23:59 23:59 Intake Total 110 / 340 3115.63 / 3159.93 1070.80 / 1070.80 Output Total 10 / 760 2575 / 2575 825 / 825 Balance 100 / -420 540.63 / 584.93 245.80 / 245.80 Lab / Micro Data Result Diagrams: 04/14/21 04:10 04/14/21 04:10 Labs: Laboratory Results - last 24 hr 04/12/21 03:40: Diff Path Review Reviewed 04/14/21 04:10: WBC 8.6, RBC 3.51 L, Hgb 10.7 L, Hct 34.7 L, MCV 98.9 H, MCH 30.5, MCHC 30.8 L, RDW Std Deviation 53.6 H, RDW Coeff of Connie 15.3 H, Plt Count 198, MPV 12.1 H, Immature Gran % (Auto) 1.300 H, Neut % (Auto) 87.0 H, Lymph % (Auto) 6.1 L, [place] % (Auto) 1.6, Eos % (Auto) 3.7, Baso % (Auto) 0.3, Absolute Neuts (auto) 7.5, Absolute Lymphs (auto) 0.52 L, Nucleated RBC % 1.9 04/14/21 04:10: Sodium 142, Potassium 4.1, Chloride 98, Carbon Dioxide 43.0 H, Anion Gap 1 L, BUN 34 H, Creatinine 0.49 L, Estim Creat Clear Calc 146.14, Est GFR (MDRD) Af Amer 224, Est GFR (MDRD) Non-Af 185, BUN/Creatinine Ratio 70.0 H, Glucose 135 H, Calcium 8.2 L, Total Bilirubin 0.90, AST 36, ALT 52, Alkaline Phosphatase 60, Total Protein 6.6, Albumin 1.8 L, Globulin 4.8 H, Albumin/Globulin Ratio 0.4 L Micro: Microbiology 04/04/21 12:00 Blood Culture (Wb) - Pic Blood Culture - Final No growth in 5 days. 04/04/21 12:10 Blood Culture (Wb) - Right Hand Blood Culture - Final No growth in 5 days. 04/04/21 12:10 Sputum, Induced/Lukens Gram Stain - Final 04/04/21 12:10 Sputum, Induced/Lukens Respiratory Culture - Final Staphylococcus aureus 03/30/21 09:15 Sputum, Induced/Lukens Gram Stain - Final 03/30/21 09:15 Sputum, Induced/Lukens Respiratory Culture - Final Proprionibacterium acnes 03/23/21 19:09 Blood Culture (Wb) - Anticubital Right Blood Culture - Final No growth in 5 days. 03/23/21 18:40 Blood Culture (Wb) - Anticubital Right Blood Culture - Final No growth in 5 days. 03/23/21 18:40 Nasal Secretion SARS-CoV-2 Antigen (Rapid) - Final SARS-CoV-2 (COVID 19) Physical Exam Const Constitutional Narrative: intubated and sedated. Resp normal respiratory effort and no retractions Resp Narrative: coarse breath sounds Cardio regular rate, regular rhythm, S1 normal heart sound and S2 normal heart sound GI normal to inspection, nondistended, normoactive bowel sounds, soft to palpation, non-tender and non-distended Assessment & Plan Assessment/Plan (1) COVID-19: (2) Acute hypoxemic respiratory failure due to COVID-19: PLAN: 1. Acute hypoxic respiratory failure due to COVID-19 pneumonia CTA of the chest was negative for PE. Patient not candidate for remdesivir. Initially on air Vo then required BiPAP, going up to 100% FiO2 for worsening hypoxia. Caving Guide was consulted. On 03/30, patient was transferred to ICU and was intubated and started on ventilator. Family request for transfer to was denied by the correspondence representative. Patient also required NM paralytic agent to maintain oxygenation on 03/30-03/31. 04/07: Patient is requiring 3 sedatives. On assist control ventilator, currently 100% FiO2, PEEP 14 diureses as needed. Continue baricitinib and Decadron to complete treatment. On IV Zosyn. Sputum culture from the 04/04 grew staph aureus on IV Zosyn. On IV furosemide 40 mg twice daily. 04/08: Patient completed baricitinib. On dexamethasone. Blood culture from 04/04 no growth in 48 hours. Sputum culture from 03/30 shows Propionibacterium acnes 1+. Sputum culture from 04/04 shows MSSA 3+. Continue to spike fever despite antibiotic Zosyn. High D-dimer 4.34, Lovenox changed to therapeutic dose. ABG 7.3 on AC mode, 90% FiO2, 16 PEEP. Hyperkalemia, potassium 5.2. Bicarb 34. BUN 38. Portable chest x-ray shows bilateral infiltrates. 04/09: Night hospitalist noted patient has coffee-ground secretions/emesis in NG tube. H&H 11.1 similar to last 4 days 04/10: Vancomycin stopped. On Zosyn. Reviewed ID and correspondence representative note. Patient completed dexamethasone and baricitinib. Continue antibiotics. 04/11: Patient completed Zosyn yesterday. On therapeutic dose of enoxaparin. Rest medications to continue 04/12: Patient is still on ventilator 80% FiO2. I talked to the patient's daughter near the bedside. She wanted the patient to be transferred to . She had inquired that they have to beds open but does not want patient's request reason for transfer. She further asked me to tell the lie that we cannot take care of the patient here therefore needs transfer. She states patient is large as per the heart and we cannot take care of the patient. I further told me take care of the bariatric patients. The nurse, Rip further called the but was told that he which is not accepting the patient at the patient's collective request. I further discussed with the correspondence representative and there is no indication for the patient to be transferred to higher tertiary care facility that we cannot take care. 04/13:Vent day 15. No sign of improvement. Patient nonsedated 04/14: on 100% FiO2 with pulse ox in 80s. Nursing to prone 2. Essential hypertension ? Blood pressure is controlled 04/13 patient is maintaining his blood pressure frequently multiple PVCs. 3. Class III obesity with BMI 47.8 4. Hypokalemia ? Present on admission corrected per protocol with subsequent monitoring with daily BMPs ordered. Currently hyperkalemic, mild K 5.2 from potassium supplement 40 mEq twice daily. Potassium supplement discontinued Repeat K4.4. Bicarb 33. Monitor labs. 04/12: K3.3. Creatinine normal. 1 dose of K-Dur 40 admitted to NG tube ordered 04/13 K3.9, magnesium 2.8. Phosphorus 1.7. Potassium phosphate is getting replaced. 5. History of prostate CA ? Patient family requested PSA blood draw was patient in the hospital. PSA came back at 0.5 (range 0.0-4.0) DVT: Lovenox: Enoxaparin, therapeutic dose Total time of the visit including total time spent in counseling or coordination of care, (more than 50% of the total time, spent in obtaining medical information from nurses and other ancillary care providers,explaining to the patient about labs, imaging, diagnosis and management), discussion with the patient's daughter near the bedside and clinical and, review of labs and imaging is 40 minutes. CODE SWETA called at 1317. Patient bradycardic and then went to asystole. CPR initiated. He received several rounds of epinephrine, bicarbonate. He did have ROSC and was bradycardic and did receive atropine but then went into asystole again and CPR was resumed. Received additional epinephrine. No ROSC. Patient pronounced at 1337. Family was present at bedside Charges/Coding Visit Charges Inpatient E&M: 48714 Subs Hosp L2
[2021-04-14 13:40] LABS: Bedside Glucose 129 mg/dL (70-110)
--- NOTE | 2021-04-14 13:45 | PCM.DEATH ---
Preliminary Cause of Preliminary Cause of Preliminary Cause of : COVID 19 Date of Admission: 03/23/21 Principle Diagnosis Problem List: Active and Suspected Problems (Updated 03/23/21 @ 18:[address] Bryce Lance, DO) COVID-19 (Acute) Acute hypoxemic respiratory failure due to COVID-19 (Acute) Morbid obesity (Acute) Lymphedema (Acute) Hospital Course 61 year old male present with 6-day history of worsening COVID symptoms. Initially on air Vo then required BiPAP, going up to 100% FiO2 for worsening hypoxia. Medical Lab Director was consulted. On 03/30, patient was transferred to ICU and was intubated and started on ventilator. Family request for transfer to was denied by the drupal php developer. Patient also required NM paralytic agent to maintain oxygenation on 03/30-03/31. 04/07: Patient is requiring 3 sedatives. On assist control ventilator, currently 100% FiO2, PEEP 14 diureses as needed. Continue baricitinib and Decadron to complete treatment. On IV Zosyn. Sputum culture from the 04/04 grew staph aureus on IV Zosyn. On IV furosemide 40 mg twice daily. 04/08: Patient completed baricitinib. On dexamethasone. Blood culture from 04/04 no growth in 48 hours. Sputum culture from 03/30 shows Propionibacterium acnes 1+. Sputum culture from 04/04 shows MSSA 3+. Continue to spike fever despite antibiotic Zosyn. High D-dimer 4.34, Lovenox changed to therapeutic dose. ABG 7.3 /69 on AC mode, 90% FiO2, 16 PEEP. Hyperkalemia, potassium 5.2. Bicarb 34. BUN 38. Portable chest x-ray shows bilateral infiltrates. 04/09: Night hospitalist noted patient has coffee-ground secretions/emesis in NG tube. H&H 11.1 similar to last 4 days 04/10: Vancomycin stopped. On Zosyn. Reviewed ID and drupal php developer note. Patient completed dexamethasone and baricitinib. Continue antibiotics. 04/11: Patient completed Zosyn yesterday. On therapeutic dose of enoxaparin. Rest medications to continue 04/12: Patient is still on ventilator 80% FiO2. I talked to the patient's daughter near the bedside. She wanted the patient to be transferred to . She had inquired that they have to beds open but does not want patient's request reason for transfer. She further asked me to tell the lie that we cannot take care of the patient here therefore needs transfer. She states patient is large as per the heart and we cannot take care of the patient. I further told me take care of the bariatric patients. The nurse, Rip further called the but was told that he which is not accepting the patient at the patient's collective request. I further discussed with the drupal php developer and there is no indication for the patient to be transferred to higher tertiary care facility that we cannot take care. 04/13:Vent day 15. No sign of improvement. Patient nonsedated 04/14: on 100% FiO2 with pulse ox in 80s. Code blue called 1317. He was bradycardic, then asystole. CPR initiated. He received epinephrine. Has ROSC then was bradycardic. Received atropine. But became asystolic again and CPR initiated. He received epinephrine again (5 total). No ROSC. He was pronounced at 1337. Visit Charges Inpatient E&M: 11879 Disch Hosp
[2021-04-14 14:31] LABS: Allen Test Positive; Base Excess 24 mmol/L (-2 to +2); Bicarbonate 48.9 mmol/L (22-26); Blood Gas Specimen Type ART; FI02 100; Mode AC; O2 Delivery Device Adult Vent; PEEP 16; PO2 54 mmHG (75-100); RR 22; SITE L Radial; SO2 83 % (95-99); Total Carbon Dioxide > 50 mmol/L; Vt 450; pCO2 86.5 mmHg (35-45); pH 7.36 (7.35-7.45)
--- NOTE | 2021-04-14 14:36 | CHAPLAIN ---
Type of Pastoral Visit ___ Initial Visit ___ Follow-up Visit ___ On-call Visit ___ General Patient Visit ___ Spiritual Assessment ___ Family Conference ___ Bereavement ___ Rapid Response _x__ Code Blue ___ Other (describe below) Pastoral Care Referral From ___ Patient ___ Family ___ Nurse ___ Physician ___ Services Executive ___ [place] _x__ Other (describe below) Sacrament/Intervention ___ Active listening ___ Anointing ___ Caodaism _x__ Bereavement ___ Communion ___ Nelda exploration ___ ___ Life review _x__ Prayer ___ Reconciliation ___ Sacrament of Sick _x__ Supportive presence ___ Wedding ___ Other (describe below) Pastoral Comments responded to unit for a Code Blue for this patient; found two daughters in the room as CPR was being performed; offered presence, support, and prayers at this time; daughter Shanel did not seek support at this time but second daughter more responsive; remained available through pronouncement of and following; met with daughters again and offered prayer around the bedside; gave water and a chair; after daughters were finished seeing the patient this entry level chemist escorted them to elevator providing additional time to talk and support
--- NOTE | 2021-04-14 15:12 | NURSING ---
04/14/21 1314 pt asystole, code isi called cpr started...see mary kay snowden documentation on worklist
--- NOTE | 2021-04-14 15:17 | NURSING ---
04/14/21 1500 pt taken to [facility] per home request. family requested autopsy all lines and tubes left in pt.
== END 2021-04-14 14:10 | DRG 130 ==
LOC: ED 18:43 → PCU 23:07 → ICU 03-30 08:35
PROVIDERS: Family Medicine; Internal Medicine; Internal Medicine Critical Care Medicine; Internal Medicine Infectious Disease; Admitting Provider Hospitalist; Emergency Provider Emergency Medicine; PCP Family Medicine
DX: U07.1 COVID-19 (principal); J12.82 Pneumonia due to coronavirus disease 2019; I11.0 Hypertensive heart disease with heart failure; I50.9 Heart failure, unspecified; J15.211 Pneumonia due to Methicillin susceptible Staphylococcus aureus; J96.01 Acute respiratory failure with hypoxia; Z68.43 Body mass index [BMI] 50.0-59.9, adult; E66.01 Morbid (severe) obesity due to excess calories; I46.9 Cardiac arrest, cause unspecified; E87.6 Hypokalemia; I89.0 Lymphedema, not elsewhere classified; G62.9 Polyneuropathy, unspecified; E87.5 Hyperkalemia; I49.3 Ventricular premature depolarization; Z79.899 Other long term (current) drug therapy
CPT/HCPCS: 31500; 31720; 36415; 36569; 36600; 71045; 71275; 74018; 80048; 80053; 80202; 82550; 82803; 82962; 83605; 83615; 83735; 83880; 84100; 84145; 84153; 84478; 84484; 85025; 85379; 85384; 86140; 87040; 87070; 87077; 87186; 87205; 87426; 87641; 92950; 93005; 93306; 94002; 94003; 94640; 94660; 94762; 97110; 97162; 97166; 97530; 97802; 97803; 99251; 99285; J7030; J7040; J7050; Q9957; Q9967; A4216; C8929; G0463; J0248; J0330; J1940; J3010